=== PATIENT | female | born 2000 | race Two or more races ===

== ENCOUNTER 2023-04-28 13:59 | Outpatient (OUT) | payer OTHER, SELFPAY ==
--- NOTE | 2023-04-28 14:03 | US_ITS ---
The [address] [address] Patient Name: NKIOLAY JOYNER MRN: [id number] date: 2000 Sex: F Assigned Patient Location: [facility] Current Patient Location: [facility] Accession/Order Number: [id number] Exam Date: 04/28/2023 14:25 Report Date: 04/28/2023 15:19 At the request of: MASON SLOAN Procedure: US OB transvaginal EXAMINATION: US OB transvaginal HISTORY: MISSED MENSES COMPARISON: No relevant comparison available. FINDINGS: Heart Rate: 141.0 bpm Number: 1.0 Position: BREECH Amniotic Fluid Volume: Subjectively normal BIOMETRY: BPD: 3.9 cm cm; 17 weeks 5 days ; >97% HC: 14.5 cmcm; 17 weeks 5 days ; >97% AC: 12.4 cm cm; 18 weeks 0 days; >97% FL: 2.5 cm cm; 17 weeks 4 days; >97% EFW: 211.9 grams; >97% FL/AC: 20.3 FL/BPD: 65.1 HC/AC: 1.2 GESTATIONAL AGE: Age by EDC: 14 weeks 6 days ROXANNE by EDC: 10/21/2023 Age by US: 17 weeks 5 days ROXANNE by US: 10/01/2023 US/US OB transvaginal IMPRESSION: 1. Single live intrauterine with growth detailed above. 2. Estimated weight is greater than 97th percentile based on age by EDC. Electronically authenticated by: JANE WHALEN Date: 04/28/2023 15:19
== END 2023-04-28 14:00 | disposition home or self-care (01) ==
LOC: NOMS 14:00
PROVIDERS: Visit Provider Obstetrics & Gynecology
DX: Z34.91 Encounter for supervision of normal pregnancy, unspecified, first trimester (principal); Z3A.17 17 weeks gestation of pregnancy; N92.6 Irregular menstruation, unspecified
CPT/HCPCS: 76817

== ENCOUNTER 2023-05-27 10:16 | Outpatient (OUT) | payer OTHER, SELFPAY ==
--- NOTE | 2023-05-27 10:37 | US_ITS ---
[address] [address] Patient Name: NIKOLAY JOYNER MRN: [id number] date: 2000 Sex: F Assigned Patient Location: US Current Patient Location: US Accession/Order Number: [id number] Exam Date: 05/27/2023 10:45 Report Date: 05/27/2023 12:44 At the request of: MASON SLOAN Procedure: US OB anatomy EXAMINATION: US OB anatomy, US OB transvaginal HISTORY: Screening Anatomic Survey Z36.89 COMPARISON: No relevant comparison available. TECHNIQUE: Transabdominal sonographic examination was performed for obstetrical and evaluation. FINDINGS: Number: 1 Heart Rate: 133.7 bpm H.B. /min Amniotic Fluid Volume: Subjectively normal Placental Location: POSTERIOR with lower margin 5.1 cm from os. Cervix Length: 4.8 cm, closed. ANATOMY: Normal Structures -cerebellum, choroid plexus, cisterna magna, lateral cerebral ventricles, orbits, midline falx, hard palate, four-chamber heart, RVOT, LVOT, stomach, kidneys, bladder, umbilical cord insertion into abdomen, three-vessel cord, cervical spine, thoracic spine, lumbar spine, sacral spine, right upper extremity, left upper extremity, right lower extremity, left lower extremity. SUBOPTIMALLY SEEN: None ABNORMALITIES: None BIOMETRY: BPD: 5.3 cm 22 weeks 1 days HC: 19.8 cm 22 weeks 0 days AC: 17.2 cm 22 weeks 1 days FL: 3.7 cm 21 weeks 5 days EFW:465.1 grams; 50% FL/AC: 21.5 FL/BPD: 69.2 HC/AC: 1.2 GESTATIONAL AGE: Age by EDC: 21 weeks 6 days ROXANNE by EDC: 10/01/2023 Age by current US: 22 weeks 0 days ROXANNE by current US: 09/30/2023 US/US OB anatomy IMPRESSION: 1. Single live intrauterine with growth detailed above. Electronically authenticated by: JANE WHALEN Date: 05/27/2023 12:44
--- NOTE | 2023-05-27 10:37 | US_ITS ---
[address] [address] Patient Name: NIKOLAY JOYNER MRN: [id number] date: 2000 Sex: F Assigned Patient Location: US Current Patient Location: US Accession/Order Number: [id number] Exam Date: 05/27/2023 10:45 Report Date: 05/27/2023 12:44 At the request of: MASON SLOAN Procedure: US OB transvaginal EXAMINATION: US OB anatomy, US OB transvaginal HISTORY: Screening Anatomic Survey Z36.89 COMPARISON: No relevant comparison available. TECHNIQUE: Transabdominal sonographic examination was performed for obstetrical and evaluation. FINDINGS: Number: 1 Heart Rate: 133.7 bpm H.B. /min Amniotic Fluid Volume: Subjectively normal Placental Location: POSTERIOR with lower margin 5.1 cm from os. Cervix Length: 4.8 cm, closed. ANATOMY: Normal Structures -cerebellum, choroid plexus, cisterna magna, lateral cerebral ventricles, orbits, midline falx, hard palate, four-chamber heart, RVOT, LVOT, stomach, kidneys, bladder, umbilical cord insertion into abdomen, three-vessel cord, cervical spine, thoracic spine, lumbar spine, sacral spine, right upper extremity, left upper extremity, right lower extremity, left lower extremity. SUBOPTIMALLY SEEN: None ABNORMALITIES: None BIOMETRY: BPD: 5.3 cm 22 weeks 1 days HC: 19.8 cm 22 weeks 0 days AC: 17.2 cm 22 weeks 1 days FL: 3.7 cm 21 weeks 5 days EFW:465.1 grams; 50% FL/AC: 21.5 FL/BPD: 69.2 HC/AC: 1.2 GESTATIONAL AGE: Age by EDC: 21 weeks 6 days ROXANNE by EDC: 10/01/2023 Age by current US: 22 weeks 0 days ROXANNE by current US: 09/30/2023 US/US OB transvaginal IMPRESSION: 1. Single live intrauterine with growth detailed above. Electronically authenticated by: JANE WHALEN Date: 05/27/2023 12:44
--- OUTSIDE RECORDS SUMMARY | 2023-05-27 10:37 | XMS_ITS | CCD ---
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 Name Role Phone Sarwat URIAS, Jelani Beckett Primary Care Provider NORMA, DR FERREIRA Consulting Unavailable KARASIK, DR FERREIRA Attending Unavailable KARASIK, DR FERREIRA Admitting Unavailable REQUEST, DR LINDER LISTED Primary Care Unavaila ble WEST, DR VERN Powell Consulting Unavailable KARASIK, DR FERREIRA Admitting Unavailable KARASIK, DR FERREIRA Consulting Unavailable KARASIK, DR FERREIRA Attending Unavailable REQUEST, DR LINDER LISTED Primary Care Unavaila ble KARASIK, DR FERREIRA Admitting Unavailable REQUEST, DR LINDER LISTED Primary Care Unavaila ble KARASIK, DR FERREIRA Attending Unavailable REINECK, DR LARISA Mayes Admitting Unavailabl e REQUEST, DR LINDER LISTED Primary Care Unavaila ble REINECK, DR LARISA Mayes Attending Unavailabl e REINECK, DR LARISA Mayes Consulting Unavailabl e KARASIK, DR FERREIRA Admitting Unavailable KARASIK, DR FERREIRA Consulting Unavailable KARASIK, DR FERREIRA Attending Unavailable REQUEST, DR LINDER LISTED Primary Care Unavaila ble ZIEBER, DR JANE Rosales Consulting Unavailable KARASIK, DR FERREIRA Primary Care Unavailable KARASIK, DR FERREIRA Consulting Unavailable KARASIK, DR FERREIRA Admitting Unavailable KARASIK, DR FERREIRA Attending Unavailable KARASIK, DR FERREIRA Procedure Practitioner Unava ilable KARASIK, DR FERREIRA Attending Unavailable KARASIK, DR FERREIRA Admitting Unavailable KARASIK, DR FERREIRA Consulting Unavailable REQUEST, DR LINDER LISTED Primary Care Unavaila ble WEST, DR VERN Powell Consulting Unavailable NATHALIA, DR CUEVAS Consulting Unavailable SHELLY CARIAS Consulting Unavailable KINGSLEY .NATHALIA Consulting Unavailable EILEENAGUILA Consulting Unavailable KARASIK, DR FERREIRA Primary Care Unavailable KARASIK, DR FERREIRA Admitting Unavailable KARASIK, DR FERREIRA Consulting Unavailable KARASIK, DR FERREIRA Attending Unavailable LUE ., NATHALIA Beckett Admitting Unavailable KARASIK, DR FERREIRA Primary Care Unavailable WEST, DR VERN Powell Consulting Unavailable LUE ., NATHALIA Beckett Attending Unavailable LUE ., NATHALIA Beckett Consulting Unavailable THAKUR JR, DR WILIAM Olmedo Admitting Unavailabl e KARASIK, DR FERREIRA Primary Care Unavailable THAKUR JR, DR WILIAM Olmedo Attending Unavailabl e ZIEBER, DR JANE Rosales Consulting Unavailable THAKUR JR, DR WILIAM Olmedo Consulting Unavailabl e KARASIK, DR FERREIRA Admitting Unavailable REQUEST, DR NONE LISTED Primary Care Unavaila ble KARASIK, DR FERREIRA Attending Unavailable REQUEST, NONE LISTED Primary Care Unavaila ble KARASIK, DR FERREIRA Admitting Unavailable KARASIK, DR FERREIRA Consulting Unavailable KARASIK, DR FERREIRA Attending Unavailable REQUEST, DR NONE LISTED Primary Care Unavaila ble KARASIK, DR FERREIRA Consulting Unavailable KARASIK, DR FERREIRA Admitting Unavailable KARASIK, DR FERREIRA Attending Unavailable KARASIK, DR FERREIRA Admitting Unavailable KARASIK, DR FERREIRA Attending Unavailable KARASIK, DR FERREIRA Primary Care Unavailable KARASIK, DR FERREIRA Primary Care Unavailable REINECK, DR LARISA Mayes Attending Unavailabl e REINECK, DR LARISA Mayes Consulting Unavailabl e REINECK, DR LARISA Mayes Admitting Unavailabl e KARASIK, DR FERREIRA Consulting Unavailable KARASIK, DR FERREIRA Attending Unavailable KARASIK, DR FERREIRA Admitting Unavailable REQUEST, NONE LISTED Primary Care Unavaila ble KARASIK, DR FERREIRA Consulting Unavailable KARASIK, DR FERREIRA Attending Unavailable KARASIK, DR FERREIRA Admitting Unavailable REQUEST, NONE LISTED Primary Care Unavaila ble ZIEBER, DR JANE Rosales Consulting Unavailable KARASIK, DR FERREIRA Consulting Unavailable KARASIK, DR FERREIRA Attending Unavailable KARASIK, DR FERREIRA Admitting Unavailable REQUEST, NONE LISTED Primary Care Unavaila ble LANCE CANAS Admitting Unavailable KARASIK, DR FERREIRA Primary Care Unavailable ANGEL REED Consulting Unavailable LANCE CANAS Attending Unavailable MIKE JAIN Consulting Unavailable Ruby Burrell Primary Care Provider [phone] DARRYL DUNN Admitting Unavailable RON DUNNAR Attending Unavailable RUBY BURRELL Primary Care Unavailable DARRYL DUNN Admitting Unavailable RON DUNNAR Attending Unavailable LARISA REAL Referring Unavailable JELANI SOW Primary Care UnavailSINGH Ambrose Consulting Unavailable YULISSA TURNER Consulting Unavailable BETTE LONG Consulting Unavailable Medications Current Medications Medication Drug Class(es) Dates Sig (Normalized) Sig (Original) acetaminophen 325 mg oral tablet (2 sources) Start: 08-21-2021 acetaminophen (TYLENOL) tablet 650 mg Start: 08-15-2021 acetaminophen (TYLENOL) tablet 650 mg acetaminophen 325 mg / oxyCODONE hydrochloride 5 mg oral tablet (1 source) Opioid Agonist Start: 08-21-2021 End: 08-24-2021 oxyCODONE-acetaminophen (PERCOCET) 5-325 MG per tablet Indications: Right nephrolithiasis Take 1 tablet by mouth every 6 hours as needed for Pain for up to 3 days. Intended supply: 3 days. Take lowest dose possible to manage pain 12 tablet 0 08/21/2021 08/24/2021 Active belladonna alkaloids 16.2 mg / opium 30 mg rectal suppository (2 sources) Start: 08-21-2021 opium-belladon na (B&O SUPPRETTES) 16.2-30 MG suppository 30 mg Start: 08-15-2021 opium-belladon na (B&O SUPPRETTES) 16.2-30 MG suppository 30 mg cefTRIAXone (ROCEPHIN) 1,000 mg in sterile water 10 mL IV syringe (1 source) Start: 08-15-2021 cefTRIAXone (ROCEPHIN) 1,000 mg in sterile water 10 mL IV syringe 200 ml ciprofloxacin 2 mg/ml injection (2 sources) Quinolone Antimicrobial Start: 08-21-2021 ciprofloxacin (CIPRO ) IVPB 400 mg Start: 08-21-2021 End: 08-31-2021 take 1 tablet by mouth twice daily ciprofloxacin (CIPRO) 500 MG tablet Take 1 tablet by mouth 2 times daily for 10 days 20 tablet 0 08/21/2021 08/31/2021 Active 1 ml HYDROmorphone hydrochloride 1 mg/ml cartridge (2 sources) Opioid Agonist Start: 08-21-2021 HYDROmorphone (DILAUDID) injection 0.5 mg Start: 08-15-2021 End: 08-17-2021 HYDROmorphone (DILAUDID) inj ection 0.5 mg ondansetron (ZOFRAN-ODT) disintegrating tablet 4 mg (2 sources) Start: 08-21-2021 ondansetron (Z OFRAN-ODT) disintegrating tablet 4 mg Start: 08-15-2021 ondansetron (Z OFRAN-ODT) disintegrating tablet 4 mg 24 hr oxybutynin chloride 10 mg extended release oral tablet (1 source) Cholinergic Muscarinic Antagonist Start: 08-21-2021 End: 08-31-2021 take 1 tablet by mouth once daily oxybutynin (DITROPAN XL) 10 MG extended release tablet Take 1 tablet by mouth daily for 10 days 10 tablet 0 08/21/2021 08/31/2021 Active oxyCODONE (1 source) Opioid Agonist Start: 08-21-2021 oxyCODONE (ROXICODONE) immediate release tablet 5 mg phenazopyridine hydrochloride 100 mg oral tablet (1 source) Start: 08-21-2021 phenazopyridine (PYRIDIUM) tablet 100 mg polyethylene glycol 3350 [id number] mg powder for oral solution (2 sources) Osmotic Laxative Start: 08-21-2021 polyethylene glycol (GLYCOLAX) packet 17 g Start: 08-15-2021 polyethylene g lycol (GLYCOLAX) packet 17 g 5 ml sodium chloride 9 mg/ml injection (8 sources) Start: 08-21-2021 0.9 % sodium c hloride infusion Start: 08-21-2021 sodium chlorid e flush 0.9 % injection 5-40 mL Start: 08-15-2021 0.9 % sodium c hloride infusion Start: 08-15-2021 sodium chlorid e flush 0.9 % injection 5-40 mL tamsulosin hydrochloride 0.4 mg oral capsule (3 sources) alpha-Adrenergic Addy Start: 08-21-2021 tamsu losin (FLOMAX) capsule 0.4 mg Start: 08-15-2021 tamsulosin (FL OMAX) capsule 0.4 mg Completed/Discontinued Medications Medication Drug Class(es) Dates Sig (Normalized) Sig (Original) cefadroxil 500 mg oral capsule (2 sources) Cephalosporin Antibacterial Start: 08-17-2021 End: 08-22-2021 take 1 capsule by mouth twice daily cefadroxil (DURICEF) 500 MG capsule Take 1 capsule by mouth 2 times daily for 5 days 10 capsule 0 08/17/2021 08/21/2021 Discontinued (Stop Taking at Discharge) 2 ml fentaNYL 0.05 mg/ml injection (5 sources) Opioid Agonist Start: 08-21-2021 End: 08-21-2021 fentaNYL (SUBLIMAZE) injection 50 mcg Start: 08-16-2021 End: 08-16-2021 fentaNYL (SUBLIMAZE) injecti on 100 ml fluconazole 2 mg/ml injection (1 source) Azole Antifungal Start: 08-22-2021 End: 08-22-2021 fluconazole (DIFLUCAN) 200 mg IVPB iopamidol (ISOVUE-370) 76 % injection 50 mL (1 source) Start: 08-16-2021 End: 08-16-2021 iopamidol (ISOVUE-370) 76 % injection 50 mL 2 ml midazolam 1 mg/ml injection (5 sources) Benzodiazepine Start: 08-21-2021 End: 08-21-2021 midazolam PF (VERSED) injection 0.5 mg Start: 08-16-2021 End: 08-16-2021 midazolam PF (VERSED) inject ion microencapsulated potassium chloride 20 meq extended release oral tablet (1 source) Start: 08-16-2021 End: 08-16-2021 potassium chloride (KLOR-CON M) extended release tablet 40 mEq traMADol hydrochloride 50 mg oral tablet (2 sources) Opioid Agonist Start: 08-17-2021 End: 08-20-2021 traMADol (ULTRAM) 50 MG tablet Indications: Hydronephrosis with urinary obstruction due to renal calculus Take 1 tablet by mouth every 6 hours as needed for Pain for up to 3 days. Intended supply: 3 days. Take lowest dose possible to manage pain 12 tablet 0 08/17/2021 08/20/2021 Problems Active Problems Problem Classification Problem Date Documented Date Episodic/Chronic Abdominal pain (4 sources) Unspecified abdominal pain; Translations: [UNSPECIFIED ABDOMINAL PAIN] Onset: 08-12-2021 Episodic Asthma (1 source) Unspecified asthma, uncomplicated; Translations: [UNSPECIFIED ASTHMA UNCOMPLICATED] Onset: 12-16-2020 Chronic Calculus of urinary tract (12 sources) Kidney stone; Translations: [Calculus of kidney] Onset: 04-24-2021 Episodic Cardiac dysrhythmias (1 source) Tachycardia; Translations: [Tachycardia, unspecified] Episodic Complication of device; implant or graft (2 sources) Infection and inflammatory reaction due to other urinary stents, initial encounter; Translations: [Other specified complication of genitourinary prosthetic devices, implants and grafts, initial encounter] Onset: 08-14-2021 Episodic Deficiency and other anemia (1 source) Anemia 03-25-2021 Episodic Fever of unknown origin (1 source) Fever, unspecified; Translations: [FEVER UNSPECIFIED] Onset: 08-18-2021 Episodic Malaise and fatigue (4 sources) Other fatigue; Translations: [OTHER FATIGUE] Onset: 08-15-2021 Episodic Nausea and vomiting (1 source) Nausea; Translations: [NAUSEA] Onset: 08-18-2021 Episodic Osteoarthritis (1 source) Arthritis 03-25-2021 Chronic Other aftercare (1 source) Other prison (current) drug therapy; Translations: [OTH FDC CURRENT DRUG THERAPY] Onset: 08-18-2021 Episodic Other complications of (4 sources) Anemia complicating , unspecified trimester; Translations: [ANEMIA COMP UNS TRIMESTER] Onset: 02-11-2021 Chronic Other diseases of kidney and ureters (4 sources) Hydronephrosis; Translations: [Hydronephrosis with renal and ureteral calculous obstruction] Onset: 08-15-2021 Episodic Screening and history of mental health and substance abuse codes (1 source) Personal history of nicotine dependence; Translations: [PERSONAL HISTORY OF NICOTINE DEPEND] Onset: 08-18-2021 Episodic Substance-related disorders (1 source) Nicotine dependence, cigarettes, uncomplicated; Translations: [NICOTINE DEPEND CIGARETTES UNCOMP] Onset: 08-14-2021 Chronic Unclassified (1 source) CONTACT W/AND (SUSP) EXPOS COVID-19; Translations: [CONTACT W/AND (SUSP) EXPOS COVID-19] Onset: 04-10-2021 Unclassified (2 sources) COUGH, UNSPECIFIED; Translations: [COUGH, UNSPECIFIED] Onset: 12-16-2020 Urinary tract infections (3 sources) Pyonephrosis; Translations: [Tubulo-interstitial nephritis, not specified as acute or chronic] Onset: 03-11-2021 Episodic Past or Other Problems Problem Classification Problem Date Documented Date Episodic/Chronic Deficiency and other anemia (1 source) Anemia, unspecified; Translations: [ANEMIA UNSPECIFIED] Onset: 02-19-2021 Episodic Genitourinary symptoms and ill-defined conditions (1 source) Personal history of urinary (tract) infections; Translations: [PERS HX URINARY TRACT INFECTIONS] Onset: 04-10-2021 Episodic Immunizations and screening for infectious disease (1 source) Contact with and (suspected) exposure to infections with a predominantly sexual mode of transmission; Translations: [CONTCT W EXPOS INFECT SEXUAL TRNSMS] Onset: 10-15-2020 Episodic OB-related trauma to perineum and vulva (1 source) First degree perineal laceration during delivery; Translations: [FIRST DEG PERINEAL LAC DUR DELIV] Onset: 04-10-2021 Episodic Other complications of (2 sources) Maternal care for excessive growth, third trimester, not applicable or unspecified; Translations: [MAT CARE EXCSS FTL GRTH 3RD TRI UNS] Onset: 03-11-2021 Episodic Other complications of (4 sources) Infections of kidney in , third trimester; Translations: [INFECTIONS KIDNEY 3RD TRI] Onset: 03-02-2021 Episodic Other complications of (1 source) Diseases of the respiratory system complicating , second trimester; Translations: [DISEASES RESP SYS COMP PREG 2ND TRI] Onset: 12-16-2020 Episodic Other female genital disorders (4 sources) Other specified noninflammatory disorders of vagina; Translations: [OTH SPEC NONINFLAMMATORY D/O VAGINA] Onset: 03-30-2021 Episodic Other and delivery including normal (11 sources) Encounter for supervision of normal , unspecified, third trimester; Translations: [Single live ] Onset: 10-11-2020 Episodic Other screening for suspected conditions (not mental disorders or infectious disease) (11 sources) Encounter for other specified screening; Translations: [Encounter for screening for diabetes mellitus] Onset: 10-15-2020 Episodic Other upper respiratory infections (1 source) Acute upper respiratory infection, unspecified; Translations: [ACUTE UP RESPIRATORY INFECTION UNS] Onset: 12-16-2020 Episodic Residual codes; unclassified (1 source) 39 weeks gestation of ; Translations: [39 WEEKS GESTATION OF ] Onset: 04-10-2021 Episodic Residual codes; unclassified (1 source) 34 weeks gestation of ; Translations: [34 WEEKS GESTATION OF ] Onset: 03-11-2021 Episodic Residual codes; unclassified (1 source) 23 weeks gestation of ; Translations: [23 WEEKS GESTATION OF ] Onset: 12-16-2020 Episodic Substance-related disorders (2 sources) Drug use complicating childbirth; Translations: [Cannabis use, unspecified, uncomplicated] Onset: 04-10-2021 Episodic Unclassified (1 source) COUGH, UNSPECIFIED; Translations: [COUGH, UNSPECIFIED] Onset: 12-14-2020 Results Test Name Value Interpretation Reference Range Facility Patient Correspondenceon Patient Correspondence [id number] 09#[id number]:127 [facility] Patient Correspondenceon Patient Correspondence [id number]#[id number]:127 [facility] Provider Orderson 09-04-2021 Provider Orders [id number]#[id number] [facility] Stone Analysison 08-26-2021 Calculi description See Note [facility] Comment on above: Result Comment: (NOT E) Specimen consists of numerous cabrera calculi fragments. The total weight is 822 mg. Performed By: #### A STONE #### [facility] [address] [place] [id number] Asphalt Tamper: Liang Rapp MD Composition See Note [facility] Comment on above: Result Comment: (NOT E) Calculi composed primarily of: 60% magnesium ammonium phosphate (struvite), 20% calcium phosphate (hydroxy- and carbonate- apatite), and 20% ammonium acid urate. INTERPRETIVE INFORMATION: Calculi (Stone) analysis Calculi are the products of physiological processes that yield crystalline compounds in a matrix of biological compounds and blood. Matrix components are not reported. The clinically significant crystalline components identified in calculi specimens are reported. Gross description may not be consistent with composition determined by FTIR analysis. Performed By: [facility] [address] [place] [address] Typing Section Chief: Kaia Holt MD Performed By: #### A STONE #### [facility] [address] [place] [address] Asphalt Tamper: Liang Rapp MD Mass 822 mg [facility] Comment on above: Performed By: #### A STONE #### [facility] [address] [place] [address] Asphalt Tamper: Liang Rapp MD Provider Letteron 08-25-2021 Provider Letter August 25, 2021 NIKOLAY MILES [address] [place] [phone] NIKOLAY MILES 2000 Dear Ms. Miles, This letter is to inform you that the [facility] will no longer be responsible for your routine medical care. Emergency care only will be provided for the thirty (30) days following this letter. During this time period we suggest that you find another physician for your medical needs. A listing of area physicians can be found on [facility]'s website at [email or web address] or you may contact your health plan. We will be glad to forward your records to your new physician as long as we receive a signed release of records form. Sincerely, Dr. Wiliam Thakur [address] [place] [address]. [place] [address] [facility] Basic Metab w/rfx MGon 08-22 (cont.) [facility] Comment on above: Result Comment: Aver age GFR for 20-29 years old: 116 mL/min/1.73sq m Chronic Kidney Disease: <60 mL/min/1.73sq m Kidney failure: <15 mL/min/1.73sq m eGFR calculated using average adult body mass. Additional eGFR calculator available at: [email or web address]_crcl_2011.htm Performed By: #### B MPX, CDP #### [facility] [address] [place] [address] Asphalt Tamper: Yusuf Schmidt MD Anion gap [Moles/Vol] 12 mmol/L Normal 9-17 [facility] Comment on above: Performed By: #### B MPX, CDP #### [facility] [address] [place] [address] Asphalt Tamper: Yusuf Schmidt MD Calcium [Mass/Vol] 8.3 mg/dL Low 8.6-10.4 [facility] Comment on above: Performed By: #### B MPX, CDP #### [facility] [address] [place] [address] Asphalt Tamper: Yusuf Schmidt MD Chloride [Moles/Vol] 103 mmol/L Normal 98-107 [facility] Comment on above: Performed By: #### B MPX, CDP #### [facility] [address] [place] [address] Asphalt Tamper: Yusuf Schmidt MD CO2 [Moles/Vol] 21 mmol/L Normal 20-31 [facility] Comment on above: Performed By: #### B MPX, CDP #### [facility] [place] [address] Asphalt Tamper: Yusuf Schmidt MD Creatinine [Mass/Vol] 0.72 mg/dL Normal 0.50-0.90 [facility] Comment on above: Performed By: #### B MPX, CDP #### [facility] [address] [place] [address] Asphalt Tamper: Yusuf Schmidt MD GFR, Amer >60 Normal >60 [facility] Comment on above: Performed By: #### B MPX, CDP #### [facility] [address] [place] [address] Asphalt Tamper: Yusuf Schmidt MD GFR,non Amer >60 Normal >60 [facility] Comment on above: Performed By: #### B MPX, CDP #### [facility] [address] [place] [address] Asphalt Tamper: Yusuf Schmidt MD Glucose [Mass/Vol] 107 mg/dL High 70-99 [facility] Comment on above: Performed By: #### B MPX, CDP #### [facility] [address] [place] [address] Asphalt Tamper: Yusuf Schmidt MD Potassium [Moles/Vol] 4.0 mmol/L Normal 3.7-5.3 [facility] Comment on above: Performed By: #### B MPX, CDP #### [facility] [place] [address] Asphalt Tamper: Yusuf Schmidt MD Sodium [Moles/Vol] 136 mmol/L Normal 135-144 [facility] Comment on above: Performed By: #### B MPX, CDP #### [facility] [place] [address] Asphalt Tamper: Yusuf Schmidt MD Urea nitrogen [Mass/Vol] 10 mg/dL Normal 6-20 [facility] Comment on above: Performed By: #### B MPX, CDP #### [facility] [address] [place] [address] Asphalt Tamper: Yusuf Schmidt MD Basic Metabolic Panel w/ Ref bahman to MGon 08-22-2021 Anion gap [Moles/Vol] 12 mmol/L 9 - 17 mmol/L [facility] Calcium [Mass/Vol] 8.3 mg/dL Low 8.6 - 10. 4 mg/dL [facility] Chloride [Moles/Vol] 103 mmol/L 98 - 10 7 mmol/L [facility] CO2 [Moles/Vol] 21 mmol/L 20 - 31 mmol/L [facility] Creatinine [Mass/Vol] 0.72 mg/dL 0.50 - 0.90 mg/dL [facility] GFR >60 >60 mL/min [facility] GFR Non- >60 >60 mL/min [facility] GFR/1.73 sq M.predicted MDRD (S/P/Bld) [Vol rate/Area] [facility] Comment on above: Average GFR for 20-2 9 years old: 116 mL/min/1.73sq m Chronic Kidney Disease: <60 mL/min/1.73sq m Kidney failure: <15 mL/min/1.73sq m eGFR calculated using average adult body mass. Additional eGFR calculator available at: http://www.[employer]/multiple_crcl_2011.htm Glucose [Mass/Vol] 107 mg/dL High 70 - 99 mg/dL [facility] Interpretation and review of laboratory results Abnormal [facility] Potassium [Moles/Vol] 4.0 mmol/L 3.7 - 5.3 mmol/L [facility] Sodium [Moles/Vol] 136 mmol/L 135 - 144 mmol/L [facility] Urea nitrogen (BldV) [Mass/Vol] 10 mg/dL 6 - 20 mg/dL [facility] CBC with Auto Differentialon 08-22-2021 Absolute Eos # <0.03 [facility] Absolute Immature Granulocyte 0.25 [facility] Absolute Lymph # 1.73 [facility] Absolute [place] # 0.72 [facility] Basophils (Bld) [#/Vol] 10*3/uL [facility] Basophils/100 WBC (Bld) 0 % 0 - 2 % [facility] Eosinophils/100 WBC (Bld) 0 % Low 1 - 4 % [facility] Hematocrit (Bld) [Volume fraction] 33.9 % Low 36.3 - 47.1 % [facility] Hemoglobin (Bld) [Mass/Vol] 11.3 g/dL Low 11.9 - 15.1 g/dL [facility] Immature granulocytes/100 WBC (Bld) 2 % High 0 [facility] Interpretation and review of laboratory results Abnormal [facility] Lymphocytes/100 WBC (Bld) 13 % Low 24 - 43 % [facility] MCH (RBC) [Entitic mass] 30.1 pg 25.2 - 33.5 pg [facility] MCHC (RBC) [Mass/Vol] 33.3 g/dL 28.4 - 34.8 g/dL [facility] MCV (RBC) [Entitic vol] 90.2 fL 82.6 - 102.9 fL [facility] Monocytes/100 WBC (Bld) 5 % 3 - 12 % [facility] NRBC Automated 0.0 0.0 per 100 WBC [facility] Platelet distribution width (Bld) [Ratio] 13.5 % 11.8 - 14.4 % [facility] Platelet mean volume (Bld) [Entitic vol] 8.5 fL 8.1 - 13.5 fL [facility] Platelets (Bld) [#/Vol] 598 10*3/uL High [facility] RBC (Bld) [#/Vol] 3.76 10*6/uL Low 3.95 - 5.1 1 m/uL [facility] Segmented neutrophils/100 WBC (Bld) 80 % High 36 - 65 % [facility] Segs Absolute 10.78 High [facility] WBC (Bld) [#/Vol] 13.5 10*3/uL High [facility] CBC with Diffon 08-22-2021 Abs. Basophil <0.03 Normal 0.00-0.20 [facility] Comment on above: Performed By: #### B MPX, CDP #### [facility] [address] [place] [address] Asphalt Tamper: Yusuf Schmidt MD Abs. Eosinophil <0.03 Normal 0.00-0.44 [facility] Comment on above: Performed By: #### B MPX, CDP #### [facility] [address] [place] [address] Asphalt Tamper: Yusuf Schmidt MD Abs.Imm.Granulocyte 0.25 k/uL Normal 0.00-0.30 [facility] Comment on above: Performed By: #### B MPX, CDP #### [facility] [address] [place] [phone] Asphalt Tamper: Yusuf Schmidt MD Abs.Neutrophil (Seg) 10.78 k/uL High 1.50-8.10 [facility] Comment on above: Performed By: #### B MPX, CDP #### [facility] [address] [place] [phone] Asphalt Tamper: Yusuf Schmidt MD Basophils/100 WBC (Bld) 0 % Normal 0-2 [facility] Comment on above: Performed By: #### B MPX, CDP #### [facility] [address] [place] [id number] Asphalt Tamper: Yusuf Schmidt MD Eosinophils/100 WBC (Bld) 0 % Low 1-4 [facility] Comment on above: Performed By: #### B MPX, CDP #### [facility] [address] [place] [address] As[employer] Tamper: Yusuf Schmidt MD Erythrocyte distribution width (RBC) [Ratio] 13.5 % Normal 11.8-14.4 [facility] Comment on above: Performed By: #### B MPX, CDP #### [facility] [address] [place] [address] Asphalt Tamper: Yusuf Schmidt MD Hematocrit (Bld) [Volume fraction] 33.9 % Low 36.3-47.1 [facility] Comment on above: Performed By: #### B MPX, CDP #### [facility] [address] [place] [address] Asphalt Tamper: Yusuf Schmidt MD Hemoglobin (Bld) [Mass/Vol] 11.3 g/dL Low 11.9-15.1 [facility] Comment on above: Performed By: #### B MPX, CDP #### [address] [address] As[place] Tamper: Yusuf Schmidt MD Immature granulocytes/100 WBC (Bld) 2 % High 0 [facility] Comment on above: Performed By: #### B MPX, CDP #### [address] [address] Asphalt Tamper: Yusuf Schmidt MD Lymphocytes (Bld) [#/Vol] 1.73 10*3/uL Normal 1.10-3.70 [facility] Comment on above: Performed By: #### B MPX, CDP #### [address] [address] Asphalt Tamper: Yusuf Schmidt MD Lymphocytes/100 WBC (Bld) 13 % Low 24-43 [facility] Comment on above: Performed By: #### B MPX, CDP #### [address] [address] Asphalt Tamper: Yusuf Schmidt MD MCH (RBC) [Entitic mass] 30.1 pg Normal 25.2-33.5 [facility] Comment on above: Performed By: #### B MPX, CDP #### [address] [address] Asphalt Tamper: Yusuf Schmidt MD MCHC (RBC) [Mass/Vol] 33.3 g/dL Normal 28.4-34.8 [facility] Comment on above: Performed By: #### B MPX, CDP #### [address] [address] Asphalt Tamper: Yusuf Schmidt MD MCV (RBC) [Entitic vol] 90.2 fL Normal 82.6-102.9 [facility] Comment on above: Performed By: #### B MPX, CDP #### [address] [address] Asphalt Tamper: Yusuf Schmidt MD Monocytes (Bld) [#/Vol] 0.72 10*3/uL Normal 0.10-1.20 [facility] Comment on above: Performed By: #### B MPX, CDP #### [address] [address] Asphalt Tamper: Yusuf Schmidt MD Monocytes/100 WBC (Bld) 5 % Normal 3-12 [facility] Comment on above: Performed By: #### B MPX, CDP #### [address] [address] Asphalt Tamper: Yusuf Schmidt MD Neutrophil (Seg) 80 % High 36-65 [facility] Comment on above: Performed By: #### B MPX, CDP #### [address] [address] Asphalt Tamper: Yusuf Schmidt MD NRBC Automated 0.0 per 100 WBC Normal 0.0 [facility] Comment on above: Performed By: #### B MPX, CDP #### [address] [address] Asphalt Tamper: Yusuf Schmidt MD Platelet mean volume (Bld) [Entitic vol] 8.5 fL Normal 8.1-13.5 [facility] Comment on above: Performed By: #### B MPX, CDP #### [address] [address] Asphalt Tamper: Yusuf Schmidt MD Platelets (Bld) [#/Vol] 598 10*3/uL High 138-453 [facility] Comment on above: Performed By: #### B MPX, CDP #### [address] [address] Asphalt Tamper: Yusuf Schmidt MD RBC (Bld) [#/Vol] 3.76 10*6/uL Low 3.95-5.11 [facility] Comment on above: Performed By: #### B MPX, CDP #### [address] [address] As[place] Tamper: Yusuf Schmidt MD WBC (Bld) [#/Vol] 13.5 10*3/uL High 3.5-11.3 [facility] Comment on above: Performed By: #### B MPX, CDP #### [address] [address] Asphalt Tamper: Yusuf Schmidt MD Cult,Urineon 08-22-2021 Cult,Urine Specimen Description .CLEAN CATCH URINE Culture NO GROWTH Report Status FINAL 08/22/2021 Normal [facility] Comment on above: Performed By: #### U RC #### [address] [address] Asphalt Tamper: Yusuf Schmidt MD APTTon 08-21-2021 aPTT Coag (Bld) [Time] 25.9 s Normal 20.5-30.5 [facility] Comment on above: Result Comment: IV Heparin Therapy Range: 48.6-77.8 Performed By: #### P T, PTT, PLT #### [address] [address] Asphalt Tamper: Yusuf Schmidt MD aPTT Coag (Bld) [Time] 25.9 s [employer] Comment on above: IV Heparin Therapy Range: 48.6-77.8 FLUORO FOR SURGICAL PROCEDUR ESon 08-21-2021 FLUORO FOR SURGICAL PROCEDURES Radiology exam is complete. No Radiologist dictation. Please follow up with ordering provider. Final result Normal [facility] Radiology exam is complete. No Radiologist dictation. Please follow up with ordering provider. [facility] RIS CONSOLIDATED No Panel Informationon 08-21 [facility] POCT urine pregnancyon 08-21 Beta HCG ( test) Ql (U) Negative NEGATIVE [facility] Comment on above: Specimens with hCG l evels near the threshold of the test (25 mIU/mL) may give a negative or indeterminate result. In such cases, another test should be performed with a new specimen in 48-72 hours. If early is suspected clinically in this setting, correlation with quantitative serum b-hCG level is suggested. [facility] PTon 08-21-2021 INR Coag (PPP) [Relative time] 0.9 {INR} Normal [facility] Comment on above: Result Comment: Therapeutic Range: Moderate Anticoagulant Intensity: INR = 2.0-3.0 High Anticoagulant Intensity: INR = 2.5-3.5 Performed By: #### P T, PTT, PLT #### [facility] [address] [place] [phone] Asphalt Tamper: Yusuf Schmidt MD PT Coag (PPP) [Time] 9.7 s Normal 9.1-12.3 [facility] Comment on above: Performed By: #### P T, PTT, PLT #### [facility] [address] [place] [address] Asphalt Tamper: Yusuf Schmidt MD Platelet Counton 08-21-2021 Platelets (Bld) [#/Vol] 626 10*3/uL High 138-453 [facility] Comment on above: Performed By: #### P T, PTT, PLT #### [facility] [address] [place] [address] [phone] Asphalt Tamper: Yusuf Schmidt MD Interpretation and review of laboratory results Abnormal [facility] Platelets (Bld) [#/Vol] 626 10*3/uL High [facility] Protime-INRon 08-21-2021 INR Coag (Bld) [Relative time] 0.9 {INR} [facility] Comment on above: Therapeutic Range: Moderate Anticoagulant Intensity: INR = 2.0-3.0 High Anticoagulant Intensity: INR = 2.5-3.5 PT Coag (PPP) [Time] 9.7 s [facility] Cult,Bloodon 08-20-2021 Cult,Blood Specimen Description .BLOOD Special Requests RT AC 10ML Culture NO GROWTH 5 DAYS Report Status FINAL 08/20/2021 [facility] Comment on above: Performed By: #### B C #### [address] [phone] Asphalt Tamper: Yusuf Schmidt MD Cult,Blood Specimen Description .BLOOD Special Requests LEFT ARM 3 ML Culture NO GROWTH 5 DAYS Report Status FINAL 08/20/2021 [facility] Comment on above: Performed By: #### B MP, CBC #### [address] [phone] Asphalt Tamper: Yusuf Schmidt MD Basic Metab w/rfx MGon 08-17 Potassium [Moles/Vol] 3.4 mmol/L Low 3.7-5.3 [facility] Comment on above: Performed By: #### B MPX, CDP #### [place] [address] Asphalt Tamper: Yusuf Schmidt MD (cont.) [facility] Comment on above: Result Comment: Aver age GFR for 20-29 years old: 116 mL/min/1.73sq m Chronic Kidney Disease: <60 mL/min/1.73sq m Kidney failure: <15 mL/min/1.73sq m eGFR calculated using average adult body mass. Additional eGFR calculator available at: http://www.[[email or web address]].com/multiple_crcl_2012.htm Performed By: #### B MPX, CDP #### [facility] [address] [place] [address] [phone] Asphalt Tamper: Yusuf Schmidt MD Anion gap [Moles/Vol] 12 mmol/L Normal 9-17 [facility] Comment on above: Performed By: #### B MPX, CDP #### [facility] [address] [place] [address] Asphalt Tamper: Yusuf Schmidt MD Calcium [Mass/Vol] 8.5 mg/dL Low 8.6-10.4 [facility] Comment on above: Performed By: #### B MPX, CDP #### [facility] [address] [place] [address] Asphalt Tamper: Yusuf Schmidt MD Chloride [Moles/Vol] 104 mmol/L Normal 98-107 [facility] Comment on above: Performed By: #### B MPX, CDP #### [facility] [address] [place] [address] Asphalt Tamper: Yusuf Schmidt MD CO2 [Moles/Vol] 22 mmol/L Normal 20-31 [facility] Comment on above: Performed By: #### B MPX, CDP #### [facility] [address] [place] [address] 690[address] Asphalt Tamper: Yusuf Schmidt MD Creatinine [Mass/Vol] 0.70 mg/dL Normal 0.50-0.90 [facility] Comment on above: Performed By: #### B MPX, CDP #### [facility] [address] [place] [address] 78893 Asphalt Tamper: Yusuf Schmidt MD GFR, Amer >60 Normal >60 [facility] Comment on above: Performed By: #### B MPX, CDP #### [facility] [address] [place] [address] 15072 Asphalt Tamper: Yusuf Schmidt MD GFR,non Amer >60 Normal >60 [facility] Comment on above: Performed By: #### B MPX, CDP #### [facility] [address] [place] [address] 6[address] Asphalt Tamper: Yusuf Schmidt MD Glucose [Mass/Vol] 88 mg/dL Normal 70-99 [facility] Comment on above: Performed By: #### B MPX, CDP #### [facility] [address] [place], [place] [phone] Asphalt Tamper: Yusuf Schmidt MD Sodium [Moles/Vol] 138 mmol/L Normal 135-144 [facility] Comment on above: Performed By: #### B MPX, CDP #### [facility] [address] [place], [place] [phone] Asphalt Tamper: Yusuf Schmidt MD Urea nitrogen [Mass/Vol] 6 mg/dL Normal 6-20 [facility] Comment on above: Performed By: #### B MPX, CDP #### [facility] [address] [place], [place] [phone] Asphalt Tamper: Yusuf Schmidt MD Basic Metabolic Panel w/ Ref bahman to MGon 08-17-2021 Anion gap [Moles/Vol] 12 mmol/L 9 - 17 mmol/L [facility] Calcium [Mass/Vol] 8.5 mg/dL Low 8.6 - 10. 4 mg/dL [facility] Chloride [Moles/Vol] 104 mmol/L 98 - 10 7 mmol/L [facility] CO2 [Moles/Vol] 22 mmol/L 20 - 31 mmol/L [facility] Creatinine [Mass/Vol] 0.7 mg/dL 0.50 - 0.90 mg/dL [facility] GFR >60 >60 mL/min [facility] GFR Non- >60 >60 mL/min [facility] GFR/1.73 sq M.predicted MDRD (S/P/Bld) [Vol rate/Area] [facility] Comment on above: Average GFR for 20-2 9 years old: 116 mL/min/1.73sq m Chronic Kidney Disease: <60 mL/min/1.73sq m Kidney failure: <15 mL/min/1.73sq m eGFR calculated using average adult body mass. Additional eGFR calculator available at: http://www.globalrph.[employer]/multiple_crcl_2012.htm Glucose [Mass/Vol] 88 mg/dL 70 - 99 mg/dL [facility] Interpretation and review of laboratory results Abnormal [facility] Potassium [Moles/Vol] 3.4 mmol/L Low 3.7 - 5.3 mmol/L [facility] Sodium [Moles/Vol] 138 mmol/L 135 - 144 mmol/L [facility] Urea nitrogen (BldV) [Mass/Vol] 6 mg/dL 6 - 20 mg/dL [facility] CBC with Auto Differentialon 08-17-2021 Absolute Eos # 0.26 [facility] Absolute Immature Granulocyte 0.04 [facility] Absolute Lymph # 1.71 [facility] Absolute [place] # 1.22 High [facility] Basophils (Bld) [#/Vol] 0.03 10*3/uL [facility] Basophils/100 WBC (Bld) 0 % 0 - 2 % [facility] Eosinophils/100 WBC (Bld) 3 % 1 - 4 % [facility] Hematocrit (Bld) [Volume fraction] 29.9 % Low 36.3 - 47.1 % [facility] Hemoglobin (Bld) [Mass/Vol] 10.3 g/dL Low 11.9 - 15.1 g/dL [facility] Immature granulocytes/100 WBC (Bld) 1 % High 0 [facility] Interpretation and review of laboratory results Abnormal [facility] Lymphocytes/100 WBC (Bld) 20 % Low 24 - 43 % [facility] MCH (RBC) [Entitic mass] 30.3 pg 25.2 - 33.5 pg [facility] MCHC (RBC) [Mass/Vol] 34.4 g/dL 28.4 - 34.8 g/dL [facility] MCV (RBC) [Entitic vol] 87.9 fL 82.6 - 102.9 fL [facility] Monocytes/100 WBC (Bld) 14 % High 3 - 12 % [facility] NRBC Automated 0.0 0.0 per 100 WBC [facility] Platelet distribution width (Bld) [Ratio] 13.2 % 11.8 - 14.4 % [facility] Platelet mean volume (Bld) [Entitic vol] 9.6 fL 8.1 - 13.5 fL [facility] Platelets (Bld) [#/Vol] 212 10*3/uL [facility] RBC (Bld) [#/Vol] 3.40 10*6/uL Low 3.95 - 5.1 1 m/uL [facility] Segmented neutrophils/100 WBC (Bld) 63 % 36 - 65 % [facility] Segs Absolute 5.44 [facility] WBC (Bld) [#/Vol] 8.7 10*3/uL [facility] CBC with Diffon 08-17-2021 Abs. Basophil 0.03 k/uL Normal 0.00-0.20 [facility] Comment on above: Performed By: #### B MPX, CDP #### [facility] [address] [place] [address] Asphalt Tamper: Yusuf Schmidt MD Abs.Imm.Granulocyte 0.04 k/uL Normal 0.00-0.30 [facility] Comment on above: Performed By: #### B MPX, CDP #### [facility] [address] [place] [address] Asphalt Tamper: Yusuf Schmidt MD Abs.Neutrophil (Seg) 5.44 k/uL Normal 1.50-8.10 [facility] Comment on above: Performed By: #### B MPX, CDP #### [facility] [address] [place] [address] Asphalt Tamper: Yusuf Schmidt MD Basophils/100 WBC (Bld) 0 % Normal 0-2 [facility] Comment on above: Performed By: #### B MPX, CDP #### [facility] [address] [place], [place] [phone] Asphalt Tamper: Yusuf Schmidt MD Eosinophils (Bld) [#/Vol] 0.26 10*3/uL Normal 0.00-0.44 [facility] Comment on above: Performed By: #### B MPX, CDP #### [address] [address] Asphalt Tamper: Yusuf Schmidt MD Eosinophils/100 WBC (Bld) 3 % Normal 1-4 [facility] Comment on above: Performed By: #### B MPX, CDP #### [facility] [address] [place] [address] Asphalt Tamper: Yusuf Schmidt MD Erythrocyte distribution width (RBC) [Ratio] 13.2 % Normal 11.8-14.4 [facility] Comment on above: Performed By: #### B MPX, CDP #### [address] [address] Asphalt Tamper: Yusuf Schmidt MD Hematocrit (Bld) [Volume fraction] 29.9 % Low 36.3-47.1 [facility] Comment on above: Performed By: #### B MPX, CDP #### [address] [address] Asphalt Tamper: Yusuf Schmidt MD Hemoglobin (Bld) [Mass/Vol] 10.3 g/dL Low 11.9-15.1 [facility] Comment on above: Performed By: #### B MPX, CDP #### [address] [address] Asphalt Tamper: Yusuf Schmidt MD Immature granulocytes/100 WBC (Bld) 1 % High 0 [facility] Comment on above: Performed By: #### B MPX, CDP #### [address] [address] Asphalt Tamper: Yusuf Schmidt MD Lymphocytes (Bld) [#/Vol] 1.71 10*3/uL Normal 1.10-3.70 [facility] Comment on above: Performed By: #### B MPX, CDP #### [address] [address] Asphalt Tamper: Yusuf Schmidt MD Lymphocytes/100 WBC (Bld) 20 % Low 24-43 [facility] Comment on above: Performed By: #### B MPX, CDP #### [address] [address] Asphalt Tamper: Yusuf Schmidt MD MCH (RBC) [Entitic mass] 30.3 pg Normal 25.2-33.5 [facility] Comment on above: Performed By: #### B MPX, CDP #### [address] [address] Asphalt Tamper: Yusuf Schmidt MD MCHC (RBC) [Mass/Vol] 34.4 g/dL Normal 28.4-34.8 [facility] Comment on above: Performed By: #### B MPX, CDP #### [address] [address] Asphalt Tamper: Yusuf Schmidt MD MCV (RBC) [Entitic vol] 87.9 fL Normal 82.6-102.9 [facility] Comment on above: Performed By: #### B MPX, CDP #### [address] [address] Asphalt Tamper: Yusuf Schmidt MD Monocytes (Bld) [#/Vol] 1.22 10*3/uL High 0.10-1.20 [facility] Comment on above: Performed By: #### B MPX, CDP #### [address] [address] Asphalt Tamper: Yusuf Schmidt MD Monocytes/100 WBC (Bld) 14 % High 3-12 [facility] Comment on above: Performed By: #### B MPX, CDP #### [address] [address] Asphalt Tamper: Yusuf Schmidt MD Neutrophil (Seg) 63 % Normal 36-65 [facility] Comment on above: Performed By: #### B MPX, CDP #### [address] [address] Asphalt Tamper: Yusuf Schmidt MD NRBC Automated 0.0 per 100 WBC Normal 0.0 [facility] Comment on above: Performed By: #### B MPX, CDP #### [address] [address] Asphalt Tamper: Yusuf Schmidt MD Platelet mean volume (Bld) [Entitic vol] 9.6 fL Normal 8.1-13.5 [facility] Comment on above: Performed By: #### B MPX, CDP #### [address] [address] Asphalt Tamper: Yusuf Schmidt MD Platelets (Bld) [#/Vol] 212 10*3/uL Normal 138-453 [facility] Comment on above: Performed By: #### B MPX, CDP #### [address] [address] Asphalt Tamper: Yusuf Schmidt MD RBC (Bld) [#/Vol] 3.40 10*6/uL Low 3.95-5.11 [facility] Comment on above: Performed By: #### B MPX, CDP #### [address] [address] Asphalt Tamper: Yusuf Schmidt MD WBC (Bld) [#/Vol] 8.7 10*3/uL Normal 3.5-11.3 [facility] Comment on above: Performed By: #### B MPX, CDP #### [address] [place] [address] Asphalt Tamper: Yusuf Schmidt MD Cult,Urineon 08-17-2021 Cult,Urine Specimen Description .CLEAN CATCH URINE Culture NO SIGNIFICANT GROWTH Report Status FINAL 08/17/2021 Normal [facility] Comment on above: Performed By: #### B MPX, CDP #### [facility] [address] [place], [place] [phone] Asphalt Tamper: Yusuf Schmidt MD Culture, Urineon 08-17-2021 Bacteria identified Cx Nom (U) NO SIGNIFICANT GROWTH [employer] Specimen Description .CLEAN CATCH URINE Ideal Binary EKG 12 LeadOrdered By: Bette Long on 08-17-2021 Atrial Rate 78 BPM [employer] Work Phone: P [place] 37 degrees [employer] Work Phone: P-R Interval 164 ms [employer] Work Phone: Q-T Interval 382 ms [employer] Work Phone: QRS Duration 104 ms [employer] Work Phone: QTc Calculation (Bazett) 435 ms [employer] Work Phone: R [place] 44 degrees [employer] Work Phone: T [place] 34 degrees [employer] Work Phone: Ventricular Rate 78 BPM [employer] Work Phone: [employer] Work Phone: EKG 12 Leadon 08-17-2021 Normal sinus rhythm Incomplete right bundle branch block Cannot rule out Anterior infarct , age undetermined Abnormal ECG No previous ECGs available [facility] Bette Espinal MD - 08/17/2021 Normal sinus rhythm Incomplete right bundle branch block Cannot rule out Anterior infarct , age undetermined Abnormal ECG No previous ECGs available [employer] Work Phone: Magnesiumon 08-17-2021 Magnesium [Mass/Vol] 1.7 mg/dL Normal 1.6-2.6 [facility] Comment on above: Performed By: #### B MPX, CDP #### [facility] [address] [place], [place] [phone] Asphalt Tamper: Yusuf Schmidt MD Magnesium [Mass/Vol] 1.7 mg/dL 1.6 - 2 .6 mg/dL [facility] Troponinon 08-17-2021 Troponin, High Sensitivity <6 0 - 14 ng/L [facility] Comment on above: High Sensitivity Troponin values cannot be compared with other Troponin methodologies. Patients with high levels of Biotin oral intake (i.e >5mg/day) may have falsely decreased Troponin levels. Samples collected within 8 hours of biotin intake may require additional information for diagnosis. [facility] Troponin, High Sens <6 Normal 0-14 [facility] Comment on above: Result Comment: High Sensitivity Troponin values cannot be compared with other Troponin methodologies. Patients with high levels of Biotin oral intake (i.e >5mg/day) may have falsely decreased Troponin levels. Samples collected within 8 hours of biotin intake may require additional information for diagnosis. Performed By: #### B MP, CBC #### [facility] [address] [place], [place] [phone] Asphalt Tamper: Yusuf Schmidt MD Troponin, High Sensitivity <6 0 - 14 ng/L [facility] Comment on above: High Sensitivity Troponin values cannot be compared with other Troponin methodologies. Patients with high levels of Biotin oral intake (i.e >5mg/day) may have falsely decreased Troponin levels. Samples collected within 8 hours of biotin intake may require additional information for diagnosis. [facility] APTTon 08-16-2021 aPTT Coag (Bld) [Time] 28.9 s Normal 20.5-30.5 [facility] Comment on above: Result Comment: IV Heparin Therapy Range: 48.6-77.8 Performed By: #### B MPX, CDP #### [facility] [address] [place] [address] [phone] As[employer] Tamper: Yusuf Schmidt MD aPTT Coag (Bld) [Time] 28.9 s [facility] Comment on above: IV Heparin Therapy Range: 48.6-77.8 Basic Metab w/rfx MGon 08-16 Potassium [Moles/Vol] 3.2 mmol/L Low 3.7-5.3 [facility] Comment on above: Performed By: #### B MPX, CDP #### [address] [phone] As[employer] Tamper: Yusuf Schmidt MD (cont.) [facility] Comment on above: Result Comment: Aver age GFR for 20-29 years old: 116 mL/min/1.73sq m Chronic Kidney Disease: <60 mL/min/1.73sq m Kidney failure: <15 mL/min/1.73sq m eGFR calculated using average adult body mass. Additional eGFR calculator available at: http://www.[employer]/multiple_crcl_2012.htm Performed By: #### B JOANNA CDP #### [address] [address] [employer] Tamper: Yusuf Schmidt MD Anion gap [Moles/Vol] 12 mmol/L Normal 9-17 [facility] Comment on above: Performed By: #### B MPX, CDP #### [address] [address] [employer]per: Yusuf Schmidt MD Calcium [Mass/Vol] 8.3 mg/dL Low 8.6-10.4 [facility] Comment on above: Performed By: #### B BULLX, CDP #### [facility] [address] [place] [address] [phone] [employer]: Yusuf Schmidt MD Chloride [Moles/Vol] 106 mmol/L Normal 98-107 [facility] Comment on above: Performed By: #### B MPX, CDP #### [facility] [address] [place] [address] [employer]per: Yusuf Schmidt MD CO2 [Moles/Vol] 20 mmol/L Normal 20-31 [facility] Comment on above: Performed By: #### B MPX, CDP #### [facility] [address] [place] [address] [employer] Tamper: Yusuf Schmidt MD Creatinine [Mass/Vol] 0.95 mg/dL High 0.50-0.90 [facility] Comment on above: Performed By: #### B MPX, CDP #### [facility] [address] [place] [address] [employer]: Yusuf Schmidt MD GFR, Amer >60 Normal >60 [facility] Comment on above: Performed By: #### B MPX, CDP #### [facility] [address] [place] [address] [employer]: Yusuf Schmidt MD GFR,non Amer >60 Normal >60 [facility] Comment on above: Performed By: #### B MPX, CDP #### [facility] [address] [place] [address] [employer]: Yusuf Schmidt MD Glucose [Mass/Vol] 103 mg/dL High 70-99 [facility] Comment on above: Performed By: #### B MPX, CDP #### [facility] [address] [place] [address] [employer]per: Yusuf Schmidt MD Sodium [Moles/Vol] 138 mmol/L Normal 135-144 [facility] Comment on above: Performed By: #### B MPX, CDP #### [facility] [address] [place] [address] Asphalt Tamper: Yusuf Schmidt MD Urea nitrogen [Mass/Vol] 7 mg/dL Normal 6-20 [facility] Comment on above: Performed By: #### B MPX, CDP #### [email or web address] [address] [place] [address] Asphalt Tamper: Yusuf Schmidt MD Basic Metabolic Panel w/ Ref bahman to MGon 08-16-2021 Anion gap [Moles/Vol] 12 mmol/L 9 - 17 mmol/L [facility] [employer] [facility] Calcium [Mass/Vol] 8.3 mg/dL Low 8.6 - 10. 4 mg/dL [facility] [employer] [facility] Chloride [Moles/Vol] 106 mmol/L 98 - 10 7 mmol/L [facility] CO2 [Moles/Vol] 20 mmol/L 20 - 31 mmol/L [facility] Creatinine [Mass/Vol] 0.95 mg/dL High 0.50 - 0.90 mg/dL [facility] GFR >60 >60 mL/min [facility] GFR Non- >60 >60 mL/min [facility] GFR/1.73 sq M.predicted MDRD (S/P/Bld) [Vol rate/Area] [facility] Comment on above: Average GFR for 20-2 9 years old: 116 mL/min/1.73sq m Chronic Kidney Disease: <60 mL/min/1.73sq m Kidney failure: <15 mL/min/1.73sq m eGFR calculated using average adult body mass. Additional eGFR calculator available at: http://www.[[email or web address]/multiple_crcl_2011.htm Glucose [Mass/Vol] 103 mg/dL High 70 - 99 mg/dL [facility] Interpretation and review of laboratory results Abnormal [facility] Potassium [Moles/Vol] 3.2 mmol/L Low 3.7 - 5.3 mmol/L [facility] Sodium [Moles/Vol] 138 mmol/L 135 - 144 mmol/L [facility] Urea nitrogen (BldV) [Mass/Vol] 7 mg/dL 6 - 20 mg/dL [facility] CBC with Auto Differentialon 08-16-2021 Absolute Eos # 0.09 [facility] Absolute Immature Granulocyte 0.00 [facility] Absolute Lymph # 0.70 Low [facility] Absolute [place] # 0.26 [facility] Basophils (Bld) [#/Vol] 0.00 10*3/uL [facility] Basophils/100 WBC (Bld) 0 % 0 - 2 % [facility] Eosinophils/100 WBC (Bld) 1 % 1 - 4 % [facility] Hematocrit (Bld) [Volume fraction] 34.7 % Low 36.3 - 47.1 % [facility] Hemoglobin (Bld) [Mass/Vol] 11.6 g/dL Low 11.9 - 15.1 g/dL [facility] Immature granulocytes/100 WBC (Bld) 0 % 0 [facility] Interpretation and review of laboratory results Abnormal [facility] Lymphocytes/100 WBC (Bld) 8 % Low 24 - 44 % [facility] MCH (RBC) [Entitic mass] 29.9 pg 25.2 - 33.5 pg [facility] MCHC (RBC) [Mass/Vol] 33.4 g/dL 28.4 - 34.8 g/dL [facility] MCV (RBC) [Entitic vol] 89.4 fL 82.6 - 102.9 fL [facility] Monocytes/100 WBC (Bld) 3 % 1 - 7 % [facility] Morphology Ja (Bld) [Interp] Normal [facility] NRBC Automated 0.0 0.0 per 100 WBC [facility] Platelet distribution width (Bld) [Ratio] 13.1 % 11.8 - 14.4 % [facility] Platelet mean volume (Bld) [Entitic vol] 10.0 fL 8.1 - 13.5 fL [facility] Platelets (Bld) [#/Vol] 196 10*3/uL [facility] RBC (Bld) [#/Vol] 3.88 10*6/uL Low 3.95 - 5.1 1 m/uL [facility] Segmented neutrophils/100 WBC (Bld) 88 % High 36 - 66 % [facility] Segs Absolute 7.75 High [facility] WBC (Bld) [#/Vol] 8.8 10*3/uL [facility] CBC with Diffon 08-16-2021 Abs. Basophil 0.00 k/uL Normal 0.0-0.2 [facility] Comment on above: Performed By: #### B MPX, CDP #### [facility] [address] [place] [address] Asphalt Tamper: Yusuf Schmidt MD Abs.Imm.Granulocyte 0.00 k/uL Normal 0.00-0.30 [facility] Comment on above: Performed By: #### B MPX, CDP #### [facility] [address] [place] [address] Asphalt Tamper: Yusuf Schmidt MD Abs.Neutrophil (Seg) 7.75 k/uL High 1.8-7.7 [facility] Comment on above: Performed By: #### B MPX, CDP #### [facility] [address] [place] [address] Asphalt Tamper: Yusuf Schmidt MD Basophils/100 WBC (Bld) 0 % Normal 0-2 [facility] Comment on above: Performed By: #### B MPX, CDP #### [facility] [address] [place] [address] Asphalt Tamper: Yusuf Schmidt MD Eosinophils (Bld) [#/Vol] 0.09 10*3/uL Normal 0.0-0.4 [facility] Comment on above: Performed By: #### B MPX, CDP #### [facility] [address] [place] [address] Asphalt Tamper: Yusuf Scmhidt MD Eosinophils/100 WBC (Bld) 1 % Normal 1-4 [facility] Comment on above: Performed By: #### B MPX, CDP #### [address] [address] Asphalt Tamper: Yusuf Schmidt MD Immature granulocytes/100 WBC (Bld) 0 % Normal 0 [facility] Comment on above: Performed By: #### B MPX, CDP #### [address] [address] Asphalt Tamper: Yusuf Schmidt MD Lymphocytes (Bld) [#/Vol] 0.70 10*3/uL Low 1.0-4.8 [facility] Comment on above: Performed By: #### B MPX, CDP #### [address] [address] Asphalt Tamper: Yusuf Schmidt MD Lymphocytes/100 WBC (Bld) 8 % Low 24-44 [facility] Comment on above: Performed By: #### B MPX, CDP #### [address] [address] Asphalt Tamper: Yusuf Schmidt MD Monocytes (Bld) [#/Vol] 0.26 10*3/uL Normal 0.1-0.8 [facility] Comment on above: Performed By: #### B MPX, CDP #### [address] [address] Asphalt Tamper: Yusuf Schmidt MD Monocytes/100 WBC (Bld) 3 % Normal 1-7 [facility] Comment on above: Performed By: #### B MPX, CDP #### [address] [address] Asphalt Tamper: Yusuf Schmidt MD Morphology Ja (Bld) [Interp] Normal Normal [facility] Comment on above: Performed By: #### B MPX, CDP #### [address] [address] Asphalt Tamper: Yusuf Schmidt MD Neutrophil (Seg) 88 % High 36-66 [facility] Comment on above: Performed By: #### B MPX, CDP #### [address] [address] Asphalt Tamper: Yusuf Schmidt MD Erythrocyte distribution width (RBC) [Ratio] 13.1 % Normal 11.8-14.4 [facility] Comment on above: Performed By: #### B MPX, CDP #### [address] [address] Asphalt Tamper: Yusuf Schmidt MD Hematocrit (Bld) [Volume fraction] 34.7 % Low 36.3-47.1 [facility] Comment on above: Performed By: #### B MPX, CDP #### [address] [address] Asphalt Tamper: Yusuf Schmidt MD Hemoglobin (Bld) [Mass/Vol] 11.6 g/dL Low 11.9-15.1 [facility] Comment on above: Performed By: #### B MPX, CDP #### [address] [address] Asphalt Tamper: Yusuf Schmidt MD MCH (RBC) [Entitic mass] 29.9 pg Normal 25.2-33.5 [facility] Comment on above: Performed By: #### B MPX, CDP #### [address] [address] Asphalt Tamper: Yusuf Schmidt MD MCHC (RBC) [Mass/Vol] 33.4 g/dL Normal 28.4-34.8 [facility] Comment on above: Performed By: #### B MPX, CDP #### [address] [address] Asphalt Tamper: Yusuf Schmidt MD MCV (RBC) [Entitic vol] 89.4 fL Normal 82.6-102.9 [facility] Comment on above: Performed By: #### B MPX, CDP #### [address] [address] Asphalt Tamper: Yusuf Schmidt MD NRBC Automated 0.0 per 100 WBC Normal 0.0 [facility] Comment on above: Performed By: #### B MPX, CDP #### [address] [address] Asphalt Tamper: Yusuf Schmidt MD Platelet mean volume (Bld) [Entitic vol] 10.0 fL Normal 8.1-13.5 [facility] Comment on above: Performed By: #### B MPX, CDP #### [address] [address] Asphalt Tamper: Yusuf Schmidt MD Platelets (Bld) [#/Vol] 196 10*3/uL Normal 138-453 [facility] Comment on above: Performed By: #### B MPX, CDP #### [address] [address] Asphalt Tamper: Yusuf Schmidt MD RBC (Bld) [#/Vol] 3.88 10*6/uL Low 3.95-5.11 [facility] Comment on above: Performed By: #### B MPX, CDP #### [address] [address] Asphalt Tamper: Yusuf Schmidt MD WBC (Bld) [#/Vol] 8.8 10*3/uL Normal 3.5-11.3 [facility] Comment on above: Performed By: #### B MPX, CDP #### [address] [address] Asphalt Tamper: Yusuf Schmidt MD IR GUIDED NEPHROSTOMY CATH P LACEMENT RIGHTon 08-16-2021 Successful percutaneous 8 Slovak nephrostomy tube placement MHYulissa Tate MD - 08/16/2021 PROCEDURE: PERCUTANEOUS ANTEGRADE PYELOGRAM RIGHT PERCUTANEOUS NEPHROSTOMY TUBE PLACEMENT ULTRASOUND GUIDANCE; fluoroscopic guided MODERATE CONSCIOUS SEDATION 08/16/2021 HISTORY: ORDERING SYSTEM PROVIDED HISTORY: retained right stent with hydronephrosis TECHNOLOGIST PROVIDED HISTORY: retained right stent with hydronephrosis Is the patient ?->No SEDATION: 2 mg versed and 200 micro fentanyl were titrated intravenously for moderate sedation monitored under my direction. Total intra service time of sedation was 45 minutes. The patient's vital signs were monitored throughout the procedure and recorded in the patient's medical record by the nurse. CONTRAST: 20 cc FLUOROSCOPY DOSE AND TYPE OR TIME AND EXPOSURES: DAP 2641 cGy cm squared TECHNIQUE Informed consent was obtained following detailed description of the procedure including risks, benefits, and alternatives. [place] protocol was followed. The patient's flank was prepped and draped in sterile fashion and local anesthesia was achieved with lidocaine. An Accustick needle was advanced into a posterior upper pole calyx using ultrasound guidance and a percutaneous antegrade pyelogram was performed. A 0.035 guidewire was used to place a 8 FR percutaneous nephrostomy tube after the tract was dilated. The catheter was sutured to the skin and the patient tolerated the procedure well. FINDINGS: Percutaneous antegrade pyelogram: There is moderate right hydronephrosis. Retained ureteral stent which is in crusted occupied the renal pelvis. Due to the presence of the encrusted stent within the renal pelvis, the catheter terminates in the dilated lower pole infundibulum. IMPRESSION: Successful percutaneous 8 Slovak nephrostomy tube placement [employer] Phone: Radiology Study observation (narrative) [employer] Phone: IR GUIDED NEPHROSTOMY CATH P LACEMENT RIGHTOrdered By: Yulissa Turner on 08-16-2021 [employer] Phone: Magnesiumon 08-16-2021 Magnesium [Mass/Vol] 1.6 mg/dL Normal 1.6-2.6 [facility] Comment on above: Performed By: #### B MPX, CDP #### [facility] [place] [address] Asphalt Tamper: Yusuf Schmidt MD Magnesium [Mass/Vol] 1.6 mg/dL 1.6 - 2 .6 mg/dL [facility] No Panel Informationon 08-16 [facility] PTon 08-16-2021 INR Coag (PPP) [Relative time] 1.0 {INR} Normal [facility] Comment on above: Result Comment: Therapeutic Range: Moderate Anticoagulant Intensity: INR = 2.0-3.0 High Anticoagulant Intensity: INR = 2.5-3.5 Performed By: #### B MPX, CDP #### [facility] [address] [place] [address] Asphalt Tamper: Yusuf Schmidt MD PT Coag (PPP) [Time] 10.9 s Normal 9.1-12.3 [facility] Comment on above: Performed By: #### B MPX, CDP #### [facility] [address] [place] [address] Asphalt Tamper: Yusuf Schmidt MD Protime-INRon 08-16-2021 INR Coag (Bld) [Relative time] 1.0 {INR} [facility] Comment on above: Therapeutic Range: Moderate Anticoagulant Intensity: INR = 2.0-3.0 High Anticoagulant Intensity: INR = 2.5-3.5 PT Coag (PPP) [Time] 10.9 s [facility] Basic Metabolic Panelon 08-05 Anion gap [Moles/Vol] 18 mmol/L High 9 - 17 mmol/L [facility] Calcium [Mass/Vol] 8.7 mg/dL 8.6 - 10. 4 mg/dL [facility] Chloride [Moles/Vol] 105 mmol/L 98 - 10 7 mmol/L [facility] CO2 [Moles/Vol] 16 mmol/L Low 20 - 31 mmol/L [facility] Creatinine [Mass/Vol] 1.11 mg/dL High 0.50 - 0.90 mg/dL [facility] [employer] [facility] GFR >60 >60 mL/min [facility] GFR Non- >60 >60 mL/min [facility] GFR/1.73 sq M.predicted MDRD (S/P/Bld) [Vol rate/Area] [facility] Comment on above: Average GFR for 20-2 9 years old: 116 mL/min/1.73sq m Chronic Kidney Disease: <60 mL/min/1.73sq m Kidney failure: <15 mL/min/1.73sq m eGFR calculated using average adult body mass. Additional eGFR calculator available at: http://www.[employer]/Framehawk_crcl_2012.htm Glucose [Mass/Vol] 104 mg/dL High 70 - 99 mg/dL [facility] Interpretation and review of laboratory results Abnormal [facility] Potassium [Moles/Vol] 3.9 mmol/L 3.7 - 5.3 mmol/L [facility] Sodium [Moles/Vol] 139 mmol/L 135 - 144 mmol/L [facility] Urea nitrogen (BldV) [Mass/Vol] 10 mg/dL 6 - 20 mg/dL [facility] Basic Metabolic Profon 08-15 (cont.) Normal [facility] Comment on above: Result Comment: Aver age GFR for 20-29 years old: 116 mL/min/1.73sq m Chronic Kidney Disease: <60 mL/min/1.73sq m Kidney failure: <15 mL/min/1.73sq m eGFR calculated using average adult body mass. Additional eGFR calculator available at: http://www.[employer]/Framehawk_crcl_2012.htm Performed By: #### B BULL CBC #### [facility] [address] [place] [address] Asphalt Tamper: Yusuf Schmidt MD Anion gap [Moles/Vol] 18 mmol/L High 9-17 [facility] Comment on above: Performed By: #### Li GOTTLIEB, CBC #### [facility] [address] [place] [address] Asphalt Tamper: Yusuf Schmidt MD Calcium [Mass/Vol] 8.7 mg/dL Normal 8.6-10.4 [facility] Comment on above: Performed By: #### B MP, CBC #### [facility] [address] [place] [address] Asphalt Tamper: Yusuf Schmidt MD Chloride [Moles/Vol] 105 mmol/L Normal 98-107 [facility] Comment on above: Performed By: #### B MP, CBC #### [address] [address] Asphalt Tamper: Yusuf Schmidt MD CO2 [Moles/Vol] 16 mmol/L Low 20-31 [facility] Comment on above: Performed By: #### B MP, CBC #### [address] [address] Asphalt Tamper: Yusuf Schmidt MD Creatinine [Mass/Vol] 1.11 mg/dL High 0.50-0.90 [facility] Comment on above: Performed By: #### B MP, CBC #### [facility] [employer] [address] [place] [address] Asphalt Tamper: Yusuf Schmidt MD GFR, Amer >60 Normal >60 [facility] Comment on above: Performed By: #### B MP, CBC #### [facility] [address] [place] [address] Asphalt Tamper: Yusuf Schmidt MD GFR,non Amer >60 Normal >60 [facility] Comment on above: Performed By: #### B MP, CBC #### [facility] [employer] [address] [place] [address] Asphalt Tamper: Yusuf Schmidt MD Glucose [Mass/Vol] 104 mg/dL High 70-99 [facility] Comment on above: Performed By: #### B MP, CBC #### [facility] [employer] [address] [place] [address] Asphalt Tamper: Yusuf Schmidt MD Potassium [Moles/Vol] 3.9 mmol/L Normal 3.7-5.3 [facility] Comment on above: Performed By: #### B MP, CBC #### [address] [address] Asphalt Tamper: Yusuf Schmidt MD Sodium [Moles/Vol] 139 mmol/L Normal 135-144 [facility] Comment on above: Performed By: #### B MP, CBC #### [address] [address] Asphalt Tamper: Yusuf Schmidt MD Urea nitrogen [Mass/Vol] 10 mg/dL Normal 6-20 [facility] Comment on above: Performed By: #### B MP, CBC #### [facility] [employer] [address] [place] [address] Asphalt Tamper: Yusuf Schmidt MD CBCon 08-15-2021 Erythrocyte distribution width (RBC) [Ratio] 12.8 % Normal 11.8-14.4 [facility] Comment on above: Performed By: #### B MP, CBC #### [address] [address] Asphalt Tamper: Yusuf Schmidt MD Hematocrit (Bld) [Volume fraction] 36.6 % Normal 36.3-47.1 [facility] Comment on above: Performed By: #### B MP, CBC #### [facility] [employer] [address] [place] [address] Asphalt Tamper: Yusuf Schmidt MD Hemoglobin (Bld) [Mass/Vol] 12.5 g/dL Normal 11.9-15.1 [facility] Comment on above: Performed By: #### B MP, CBC #### [address] [address] Asphalt Tamper: Yusuf Schmidt MD MCH (RBC) [Entitic mass] 29.8 pg Normal 25.2-33.5 [facility] Comment on above: Performed By: #### B MP, CBC #### [address] [address] Asphalt Tamper: Yusuf Schmidt MD MCHC (RBC) [Mass/Vol] 34.2 g/dL Normal 28.4-34.8 [facility] Comment on above: Performed By: #### B MP, CBC #### [address] [address] Asphalt Tamper: Yusuf Schmidt MD MCV (RBC) [Entitic vol] 87.4 fL Normal 82.6-102.9 [facility] Comment on above: Performed By: #### B MP, CBC #### [address] [address] Asphalt Tamper: Yusuf Schmidt MD NRBC Automated 0.0 per 100 WBC Normal 0.0 [facility] Comment on above: Performed By: #### B MP, CBC #### [address] [address] Asphalt Tamper: Yusuf Schmidt MD Platelet mean volume (Bld) [Entitic vol] 9.5 fL Normal 8.1-13.5 [facility] Comment on above: Performed By: #### B MP, CBC #### [address] [address] Asphalt Tamper: Yusuf Schmidt MD Platelets (Bld) [#/Vol] 243 10*3/uL Normal 138-453 [facility] Comment on above: Performed By: #### B MP, CBC #### [address] [address] Asphalt Tamper: Yusuf Schmidt MD RBC (Bld) [#/Vol] 4.19 10*6/uL Normal 3.95-5.11 [facility] Comment on above: Performed By: #### B MP, CBC #### [facility] [address] [place], [place] [id number] Asphalt Tamper: Yusuf Schmidt MD WBC (Bld) [#/Vol] 7.5 10*3/uL Normal 3.5-11.3 [facility] Comment on above: Performed By: #### B MP, CBC #### [facility] [address] [place] [address] Asphalt Tamper: Yusuf Schmidt MD Hematocrit (Bld) [Volume fraction] 36.6 % 36.3 - 47.1 % [facility] Hemoglobin (Bld) [Mass/Vol] 12.5 g/dL 11.9 - 15.1 g/dL [facility] MCH (RBC) [Entitic mass] 29.8 pg 25.2 - 33.5 pg [facility] MCHC (RBC) [Mass/Vol] 34.2 g/dL 28.4 - 34.8 g/dL [facility] MCV (RBC) [Entitic vol] 87.4 fL 82.6 - 102.9 fL [facility] NRBC Automated 0.0 0.0 per 100 WBC [facility] Platelet distribution width (Bld) [Ratio] 12.8 % 11.8 - 14.4 % [facility] Platelet mean volume (Bld) [Entitic vol] 9.5 fL 8.1 - 13.5 fL [facility] Platelets (Bld) [#/Vol] 243 10*3/uL [facility] RBC (Bld) [#/Vol] 4.19 10*6/uL 3.95 - 5.1 1 m/uL [facility] WBC (Bld) [#/Vol] 7.5 10*3/uL [facility] CBC AUTO DIFFon 08-15-2021 BASO # 0.0 103/ul Normal 0.0-0.1 [facility] Comment on above: Performed By: #### T HCCONF #### [facility] [address] [place] [address] Dr. Liat Bosch Basophils/100 WBC (Bld) 0.2 % Normal 0.2-2.0 [facility] Comment on above: Performed By: #### T HCCONF #### [facility] [address] [place] [address] Dr. Liat Bosch EO # 0.1 103/ul Normal 0.0-0.7 [facility] Comment on above: Performed By: #### T HCCONF #### [facility] [address] [place] [address] Dr. Liat Bosch Eosinophils/100 WBC (Bld) 1.0 % Normal 0.9-7.0 [facility] Comment on above: Performed By: #### T HCCONF #### [facility] [address] [place] [address] Dr. Liat Bosch Erythrocyte distribution width (RBC) [Ratio] 12.4 % Normal 11.0-15.0 [facility] Comment on above: Performed By: #### T HCCONF #### [facility] [address] [place] [address] Dr. Liat Bosch Hematocrit (Bld) [Volume fraction] 38.2 % Normal 36.0-48.0 [facility] Comment on above: Performed By: #### T HCCONF #### [facility] [address] [place] [address] Dr. Liat Bosch Hemoglobin (Bld) [Mass/Vol] 13.2 g/dL Normal 12.0-16.0 [facility] Comment on above: Performed By: #### T HCCONF #### [facility] [address] [place] [address] Dr. Liat Bosch IG # 0.09 10e3/ul Critically high 0.00-0.03 [facility] Comment on above: Performed By: #### T HCCONF #### [facility] [address] [place] [address] Dr. Liat Bosch IG % 0.7 % Critically high 0.0-0.5 [facility] Comment on above: Performed By: #### T HCCONF #### [facility] [address] [address] [address] Liat Bosch LYMPH # 0.7 103/ul Critically low 1.2-3.8 [facility] Comment on above: Performed By: #### T HCCONF #### [facility] [address] [place] [address] Dr. Liat Bosch Lymphocytes/100 WBC (Bld) 5.4 % Critically low 20.5-60.0 [facility] Comment on above: Performed By: #### T HCCONF #### [facility] [address] [place] [address] Dr. Liat Bosch MANUAL DIFF REQ NO Normal [facility] Comment on above: Performed By: #### T HCCONF #### [facility] [address] [place] [address] Dr. Liat Bosch MCH (RBC) [Entitic mass] 29.8 pg Normal 26.7-34.0 [facility] Comment on above: Performed By: #### T HCCONF #### [facility] [address] [place] [address] Dr. Liat Bosch MCHC (RBC) [Mass/Vol] 34.6 g/dL Normal 29.9-35.2 [facility] Comment on above: Performed By: #### T HCCONF #### [facility] [address] [place] [address] Dr. Liat Bosch MCV (RBC) [Entitic vol] 86.2 fL Normal 81.0-99.0 [facility] Comment on above: Performed By: #### T HCCONF #### [facility] [address] [place] [address] Dr. Liat Bosch MONO # 0.9 103/ul Critically high 0.3-0.8 [facility] Comment on above: Performed By: #### T HCCONF #### [facility] [address] [place] [address] Dr. Liat Bosch Monocytes/100 WBC (Bld) 6.9 % Normal 1.7-12.0 [facility] Comment on above: Performed By: #### T HCCONF #### [facility] [address] [place] [address] Dr. Liat Bosch NEUT # 10.7 103/ul Critically high 1.4-6.5 [facility] Comment on above: Performed By: #### T HCCONF #### [facility] [address] [place] [address] Dr. Liat Bosch Neutrophils/100 WBC (Bld) 85.8 % Critically high 43.0-75.0 [facility] Comment on above: Performed By: #### T HCCONF #### [facility] [address] [place] [address] Dr. Liat Bosch Platelet mean volume (Bld) [Entitic vol] 8.9 fL Critically low 9.5-13.5 [facility] Comment on above: Performed By: #### T HCCONF #### [facility] [address] [place] [address] Dr. Liat Bosch PLT 240 103/ul Normal 150-450 [facility] Comment on above: Performed By: #### T HCCONF #### [facility] [address] [place] [address] Dr. Liat Bosch RBC 4.43 106/ul Normal 4.20-5.40 [facility] Comment on above: Performed By: #### T HCCONF #### [facility] [address] [place] [address] Dr. Liat Bosch WBC 12.5 103/ul Critically high 4.0-11.0 [facility] Comment on above: Performed By: #### T HCCONF #### [facility] [address] [place] [address] Dr. Liat Bosch CULTURE BLOODon 08-15-2021 Microscopic examination of blood, culture Culture Observations: No growth at 5 days. Normal [facility] Comment on above: Performed By: #### B [id number] #### [facility] [address] [place] [address] Dr. Liat Bosch Microscopic examination of blood, culture Culture Observations: No growth at 5 days. Normal [facility] Comment on above: Performed By: #### N BOX #### [facility] [address] [place] [address] Nakul Martines CULTURE URINEon 08-15-2021 CULTURE URINE Culture Observations: No growth Normal [facility] Comment on above: Performed By: #### N BOX #### [facility] [address] [place] [address] Nakul Martines ER URINE PROFILEon 2 Bilirubin Ql (U) Negative Normal NEGATIVE [facility] Comment on above: Performed By: #### T HCCONF #### [facility] [address] [place] [address] Dr. Liat Bosch Clarity (U) SL CLOUDY Abnormal CLEAR [facility] Comment on above: Performed By: #### T HCCONF #### [facility] [address] [place] [address] Dr. Liat Bosch Color (U) YELLOW Normal YELLOW [facility] Comment on above: Performed By: #### T HCCONF #### [facility] [address] [place] [address] Dr. Liat FERRER A micrscopic examination will be performed if indicated. Normal [facility] Comment on above: Performed By: #### T HCCONF #### [facility] [address] [place] [address] Dr. Liat Bosch Glucose Ql (U) Negative Normal NEGATIVE [facility] Comment on above: Performed By: #### T HCCONF #### [facility] [address] [place] [address] Dr. Liat Bosch Hemoglobin Ql (U) LARGE Abnormal NEGATIVE [facility] Comment on above: Performed By: #### T HCCONF #### [facility] [address] [place] [address] Dr. Liat Bosch Ketones Ql (U) 15 mg/dl Abnormal NEGATIVE [facility] Comment on above: Performed By: #### T HCCONF #### [facility] [address] [place] [address] Dr. Liat Bosch LEUKOCYTES LARGE Abnormal NEGATIVE [facility] Comment on above: Performed By: #### T HCCONF #### [facility] [address] [place] [address] Dr. Liat Bosch Nitrite Ql (U) Negative Normal NEGATIVE [facility] Comment on above: Performed By: #### T HCCONF #### [facility] [address] [place] [address] Dr. Liat Bosch pH (U) 6.5 [pH] Normal 5-9 [facility] Comment on above: Performed By: #### T HCCONF #### [facility] [address] [place] [address] Dr. Liat Bosch Protein (U) [Mass/Vol] 30 mg/dL Abnormal NEGATIVE/ TRACE [facility] Comment on above: Performed By: #### T HCCONF #### [facility] [address] [place] [address] Dr. Liat Bosch SPEC GRAVITY 1.010 Normal 1.005-<=1.025 [facility] Comment on above: Performed By: #### T HCCONF #### [facility] [address] [place] [address] Dr. Liat Bosch UR MICRO IND INDICATED Normal [facility] Comment on above: Performed By: #### T HCCONF #### [facility] [address] [place] [address] Dr. Liat Bosch Urobilinogen Qn (U) 1.0 {Elia'U}/dL Normal 0.2 - 1. 0 [facility] Comment on above: Performed By: #### T HCCONF #### [facility] [address] [place] [address] Dr. Liat Bosch LACTATE/LACTIC ACIDon 2021 Lactate [Moles/Vol] 0.9 mmol/L Normal 0.4-1.9 [facility] Comment on above: Performed By: #### N BOX #### [facility] [address] [address] Nakul Martines PROF 14(COMP METB)on 022 Albumin [Mass/Vol] 3.0 g/dL Critically low 3.4-5.0 [facility] Comment on above: Performed By: #### T HCCONF #### [facility] [address] [address] [address] Liat Bosch Albumin/Globulin [Mass ratio] 0.6 {ratio} Normal [facility] Comment on above: Performed By: #### T HCCONF #### [facility] [address] [address] [address] Liat Bosch ALP [Catalytic activity/Vol] 121 U/L Critically high 46-116 [facility] Comment on above: Performed By: #### T HCCONF #### [facility] [address] [place] [address] Dr. Liat Bosch ALT [Catalytic activity/Vol] 31 U/L Normal 14-59 [facility] Comment on above: Performed By: #### T HCCONF #### [facility] [address] [place] [address] Dr. Liat Bosch Anion gap [Moles/Vol] 16.0 mmol/L Normal [facility] Comment on above: Performed By: #### T HCCONF #### [facility] [address] [place] [address] Dr. Liat Bosch AST [Catalytic activity/Vol] 20 U/L Normal 15-37 [facility] Comment on above: Performed By: #### T HCCONF #### [facility] [address] [place] [address] Dr. Liat Bosch Bilirubin [Mass/Vol] 0.7 mg/dL Normal 0.2-1.0 [facility] Comment on above: Performed By: #### T HCCONF #### [facility] [address] [place] [address] Dr. Liat Bosch Calcium [Mass/Vol] 8.7 mg/dL Normal 8.5-10.1 [facility] Comment on above: Performed By: #### T HCCONF #### [facility] [address] [address] [address] Liat Bosch Chloride [Moles/Vol] 102 mmol/L Normal 98-107 [facility] Comment on above: Performed By: #### T HCCONF #### [facility] [address] [address] [address] Liat Bosch CO2 [Moles/Vol] 18.2 mmol/L Critically low 21.0-32.0 [facility] Comment on above: Performed By: #### T HCCONF #### [facility] [address] [address] [address] Liat Bosch Creatinine [Mass/Vol] 1.16 mg/dL Critically high 0.55-1.02 [facility] Comment on above: Performed By: #### T HCCONF #### [facility] [address] [place] [address] Dr. Liat Bosch EGFR-AF KAZAKH 71 mL/min/1.73m2 Normal >=60 [facility] Comment on above: Performed By: #### T HCCONF #### [facility] [address] [address] [address] Liat Bosch EGFR-NON AF KAZAKH 58 mL/min/1.73m2 Critically low >=60 [facility] Comment on above: Performed By: #### T HCCONF #### [facility] [address] [address] [address] Liat Bosch Globulin (S) [Mass/Vol] 4.4 g/dL Normal [facility] Comment on above: Performed By: #### T HCCONF #### [facility] [address] [address] [address] Liat Bosch Glucose [Mass/Vol] 117 mg/dL Critically high 74-106 [facility] Comment on above: Performed By: #### T HCCONF #### [facility] [address] [address] [address] Liat Bosch Potassium [Moles/Vol] 3.0 mmol/L Critically low 3.5-5.1 [facility] Comment on above: Performed By: #### T HCCONF #### [facility] [address] [address] [address] Liat Bosch Protein [Mass/Vol] 7.4 g/dL Normal 6.4-8.2 [facility] Comment on above: Performed By: #### T HCCONF #### [facility] [address] [address] [address] Liat Bosch Sodium [Moles/Vol] 135 mmol/L Critically low 136-145 [facility] Comment on above: Performed By: #### T HCCONF #### [facility] [address] [place] [address] Dr. Liat Bosch Urea nitrogen [Mass/Vol] 11.0 mg/dL Normal 7.0-18.0 [facility] Comment on above: Performed By: #### T HCCONF #### [facility] [address] [place] [address] Dr. Liat Bosch Urea nitrogen/Creatinine [Mass ratio] 9.4 mg/mg Normal [facility] Comment on above: Performed By: #### T HCCONF #### [facility] [address] [place] [address] Dr. Liat Bosch URINE MICROSCOPIC ONLYon BACTERIA TRACE Abnormal NONE SEEN [facility] Comment on above: Performed By: #### T HCCONF #### [facility] [address] [place] [address] Dr. Liat Bosch Bacteria identified Cx Nom (U) INDICATED Normal [facility] Comment on above: Performed By: #### T HCCONF #### [facility] [address] [place] [address] Dr. Liat Bosch CAST NONE SEEN Normal NONE SEEN [facility] Comment on above: Performed By: #### T HCCONF #### [facility] [address] [place] [address] Dr. Liat Bosch Crystals LM Nom (Urine sed) NONE SEEN Normal NONE SEEN [facility] Comment on above: Performed By: #### T HCCONF #### [facility] [address] [place] [address] Dr. Liat Bosch Epithelial cells LM Ql (Urine sed) MODERATE Abnormal NONE SEEN /RARE [facility] Comment on above: Performed By: #### T HCCONF #### [facility] [address] [place] [address] Dr. Liat Bosch MUCOUS TRACE Abnormal NONE SEEN [facility] Comment on above: Performed By: #### T HCCONF #### [facility] [address] [place] [address] Dr. Liat Bosch RBC 10-20 Abnormal 0-2 [facility] Comment on above: Performed By: #### T HCCONF #### [facility] [address] [place] [address] Dr. Liat Bosch WBC 20-50 Abnormal NONE SEEN [facility] Comment on above: Performed By: #### T HCCONF #### [facility] [address] [place] [address] Dr. Liat Bosch XR ABDOMEN (KUB) (SINGLE AP VIEW)on 08-15-2021 XR ABDOMEN (KUB) (SINGLE AP VIEW) EXAMINATION: ONE SUPINE XRAY VIEW(S) OF THE ABDOMEN 08/15/2021 3:49 pm COMPARISON: CT earlier today HISTORY: ORDERING SYSTEM PROVIDED HISTORY: Retained stent. Assess for stone burden TECHNOLOGIST PROVIDED HISTORY: Retained stent. Assess for stone burden FINDINGS: Ureteral stent extends from the region of the right renal pelvis to the urinary bladder. Questionable stone fragment in the region of the distal right ureter measuring 7 mm. No additional renal or urinary tract stone. IMPRESSION: 7 mm stone in the distal right ureter adjacent to the stent. Interpreted by: Erasto Mac MD Signed by: Erasto Mac MD 08/15/21 Final result Normal [facility] 7 mm stone in the distal right ureter adjacent to the stent. [facility] RIS CONSOLIDATED EXAMINATION: ONE SUPINE XRAY VIEW(S) OF THE ABDOMEN 08/15/2021 3:49 pm COMPARISON: CT earlier today HISTORY: ORDERING SYSTEM PROVIDED HISTORY: Retained stent. Assess for stone burden TECHNOLOGIST PROVIDED HISTORY: Retained stent. Assess for stone burden FINDINGS: Ureteral stent extends from the region of the right renal pelvis to the urinary bladder. Questionable stone fragment in the region of the distal right ureter measuring 7 mm. No additional renal or urinary tract stone. [facility] Erasto Gibbs MD - 08/15/2021 EXAMINATION: ONE SUPINE XRAY VIEW(S) OF THE ABDOMEN 08/15/2021 3:49 pm COMPARISON: CT earlier today HISTORY: ORDERING SYSTEM PROVIDED HISTORY: Retained stent. Assess for stone burden TECHNOLOGIST PROVIDED HISTORY: Retained stent. Assess for stone burden FINDINGS: Ureteral stent extends from the region of the right renal pelvis to the urinary bladder. Questionable stone fragment in the region of the distal right ureter measuring 7 mm. No additional renal or urinary tract stone. IMPRESSION: 7 mm stone in the distal right ureter adjacent to the stent. [employer] Phone: Radiology Study observation (narrative) [employer] Phone: XR ABDOMEN (KUB) (SINGLE AP VIEW)Ordered By: Erasto Mac on 08-15-2021 [employer] Phone: CBC AUTO DIFFon 08-12-2021 BASO # 0.0 103/ul Normal 0.0-0.1 [facility] Comment on above: Performed By: #### B [id number] #### [facility] [address] [place] [address] Dr. Liat Bosch Basophils/100 WBC (Bld) 0.3 % Normal 0.2-2.0 [facility] Comment on above: Performed By: #### B [id number] #### [facility] [address] [place] [address] Dr. Liat Bosch EO # 0.1 103/ul Normal 0.0-0.7 [facility] Comment on above: Performed By: #### B [id number] #### [facility] [address] [place] [address] Dr. Liat Bosch Eosinophils/100 WBC (Bld) 0.9 % Normal 0.9-7.0 [facility] Comment on above: Performed By: #### B [id number] #### [facility] [address] [place] [address] Dr. Liat Bosch Erythrocyte distribution width (RBC) [Ratio] 12.6 % Normal 11.0-15.0 [facility] Comment on above: Performed By: #### B [id number] #### [facility] [address] [place] [address] Dr. Liat Bosch Hematocrit (Bld) [Volume fraction] 40.2 % Normal 36.0-48.0 [facility] Comment on above: Performed By: #### B [id number] #### [facility] [address] [place] [address] Dr. Liat Bosch Hemoglobin (Bld) [Mass/Vol] 13.3 g/dL Normal 12.0-16.0 [facility] Comment on above: Performed By: #### B [id number] #### [facility] [address] [place] [address] Dr. Liat Bosch IG # 0.06 10e3/ul Critically high 0.00-0.03 [facility] Comment on above: Performed By: #### B [id number] #### [facility] [address] [place] [address] Dr. Liat Bosch IG % 0.4 % Normal 0.0-0.5 [facility] Comment on above: Performed By: #### B [id number] #### [facility] [address] [place] [address] Dr. Liat Bosch LYMPH # 2.8 103/ul Normal 1.2-3.8 [facility] Comment on above: Performed By: #### B [id number] #### [facility] [address] [place] [address] Dr. Liat Bosch Lymphocytes/100 WBC (Bld) 18.5 % Critically low 20.5-60.0 [facility] Comment on above: Performed By: #### B [id number] #### [facility] [address] [place] [address] Dr. Liat Bosch MANUAL DIFF REQ NO Normal [facility] Comment on above: Performed By: #### B [id number] #### [facility] [address] [place] [address] Dr. Liat Bosch MCH (RBC) [Entitic mass] 30.1 pg Normal 26.7-34.0 [facility] Comment on above: Performed By: #### B [id number] #### [facility] [address] [place] [address] Dr. Liat Bosch MCHC (RBC) [Mass/Vol] 33.1 g/dL Normal 29.9-35.2 [facility] Comment on above: Performed By: #### B [id number] #### [facility] [address] [place] [address] Dr. Liat Bosch MCV (RBC) [Entitic vol] 91.0 fL Normal 81.0-99.0 [facility] Comment on above: Performed By: #### B [id number] #### [facility] [address] [place] [address] Dr. Liat Bosch MONO # 0.9 103/ul Critically high 0.3-0.8 [facility] Comment on above: Performed By: #### B [id number] #### [facility] [address] [place] [address] Dr. Liat Bosch Monocytes/100 WBC (Bld) 6.1 % Normal 1.7-12.0 [facility] Comment on above: Performed By: #### B [id number] #### [facility] [address] [place] [address] Dr. Liat Bosch NEUT # 11.1 103/ul Critically high 1.4-6.5 [facility] Comment on above: Performed By: #### B [id number] #### [facility] [address] [place] [address] Dr. Liat Bosch Neutrophils/100 WBC (Bld) 73.8 % Normal 43.0-75.0 [facility] Comment on above: Performed By: #### B [id number] #### [facility] [address] [place] [address] Dr. Liat Bosch Platelet mean volume (Bld) [Entitic vol] 9.0 fL Critically low 9.5-13.5 [facility] Comment on above: Performed By: #### B [id number] #### [facility] [address] [place], [place] [address] Dr. Liat Bosch PLT 490 103/ul Critically high 150-450 [facility] Comment on above: Performed By: #### B [id number] #### [facility] [address] [place], [place] [address] Dr. Liat Bosch RBC 4.42 106/ul Normal 4.20-5.40 [facility] Comment on above: Performed By: #### B [id number] #### [facility] [address] [place], [place] [address] Dr. Liat Bosch WBC 15.0 103/ul Critically high 4.0-11.0 [facility] Comment on above: Performed By: #### B [id number] #### [facility] [address] [place], [place] [address] ABD/PELVIS WO CONon 08-12 CT ABD/PELVIS WO CON EXAMINATION: CT ABD/PELVIS WO CON, 08/12/2021 3:19 PM EDT HISTORY: CALCULUS OF KIDNEY COMPARISON: CT abdomen/pelvis dated 03/03/2021. TECHNIQUE: CT scan of the abdomen and pelvis was performed without IV contrast. CT dose reduction technique was used, including Automated Exposure Control. FINDINGS: The lung bases are clear. Heart size is normal. The liver, gallbladder, spleen, pancreas and bilateral adrenal glands appear unremarkable on this noncontrast examination. Right ureteral stent is seen in place with proximal tip coiled within the right renal pelvis, and distal tip coiled within the urinary bladder. Rounded high density is seen measuring approximately 18 mm in the right renal pelvis, and 2.6 cm in urinary bladder where the coiled proximal and distal tips of the right ureteral stent are seen, which may represent calcification related to encrusted ureteric stents. Abnormal course of the proximal right ureteral stent is seen with counterclockwise looping of the ureteral stent noted in the proximal right ureter. Mesenteric fat stranding is seen surrounding the right renal pelvis and proximal right ureter, suggestive of infectious/inflamma tory process. Additionally, enlarged right kidney is seen. Moderate to severe right hydronephrosis is seen, which appears stable to increased compared with prior CT of 03/03/2021. Mild diffuse wall thickening of the urinary bladder is seen, suggestive of mild infectious/inflamma tory process. The stomach and duodenum appear unremarkable. Nonobstructive bowel pattern is seen. The appendix is likely visualized and appears unremarkable. No significant bowel wall thickening is seen. Small free pelvic fluid is seen, which may be physiologic. No abnormal fluid collection is seen in the abdomen and pelvis. The vascular structures demonstrate normal caliber. Abdominal wall and visualized soft tissues appear unremarkable. No acute osseous abnormality is seen. IMPRESSION: Right ureteral stent is seen in place with proximal tip coiled within the right renal pelvis, and distal tip coiled within the urinary bladder. Rounded high density is seen measuring approximately 18 mm in the right renal pelvis, and 2.6 cm in urinary bladder where the coiled proximal and distal tips of the right ureteral stent are seen, suspicious for encrusted ureteric stents. Abnormal course of the proximal right ureteral stent is seen with counterclockwise looping of the ureteral stent noted in the proximal right ureter. Mesenteric fat stranding is seen surrounding the right renal pelvis and proximal right ureter, suggestive of infectious/inflamma tory process. Additionally, enlarged right kidney is seen. Moderate to severe right hydronephrosis is seen, which appears stable to increased compared with prior CT of 03/03/2021. Clinical correlation for right pyelonephritis and ureteritis may be considered. Mild diffuse wall thickening of the urinary bladder is seen, suggestive of mild infectious/inflamma tory process. Electronically authenticated by: MIKE JAIN Date: 2021-08-12 17:01 Normal [facility] CULTURE URINEon 08-12-2021 CULTURE URINE Culture Observations: MODERATE GROWTH OF MIXED GENITAL BRAYDEN. NO POTENTIAL PATHOGENS SEEN. Normal [facility] Comment on above: Performed By: #### N BOX #### [facility] [address] [place], [place] [address] Nakul FROST URINE PROFILEon 2 Bilirubin Ql (U) Negative Normal NEGATIVE [facility] Comment on above: Performed By: #### U RCX #### [facility] [address] [place], [place] [address] Dr. Liat Bosch Clarity (U) CLEAR Normal CLEAR [facility] Comment on above: Performed By: #### U RCX #### [facility] [address] [place] [address] Dr. Liat Bosch Color (U) LT. YELLOW Normal YELLOW [facility] Comment on above: Performed By: #### U RCX #### [facility] [address] [place] [address] Dr. Liat FERRER A micrscopic examination will be performed if indicated. Normal [facility] Comment on above: Performed By: #### U RCX #### [facility] [address] [address] [address] Liat Bosch Glucose Ql (U) Negative Normal NEGATIVE [facility] Comment on above: Performed By: #### U RCX #### [facility] [address] [place] [address] Dr. Liat Bosch Hemoglobin Ql (U) LARGE Abnormal NEGATIVE [facility] Comment on above: Performed By: #### U RCX #### [facility] [address] [place] [address] Dr. Liat Bosch Ketones Ql (U) TRACE Abnormal NEGATIVE [facility] Comment on above: Performed By: #### U RCX #### [facility] [address] [place] [address] Dr. Liat Bosch LEUKOCYTES MODERATE Abnormal NEGATIVE [facility] Comment on above: Performed By: #### U RCX #### [facility] [address] [place] [address] Dr. Liat Bosch Nitrite Ql (U) Positive Abnormal NEGATIVE [facility] Comment on above: Performed By: #### U RCX #### [facility] [address] [place] [address] Dr. Liat Bosch pH (U) 7.5 [pH] Normal 5-9 [facility] Comment on above: Performed By: #### U RCX #### [facility] [address] [place] [address] Dr. Liat Bosch SPEC GRAVITY 1.025 Normal 1.005-<=1.025 [facility] Comment on above: Performed By: #### U RCX #### [facility] [address] [place] [address] Dr. Liat Bosch UA PROTEIN >300 Abnormal NEGATIVE/ TRACE [facility] Comment on above: Performed By: #### U RCX #### [facility] [address] [place] [address] Dr. Liat Bosch UR MICRO IND INDICATED Normal [facility] Comment on above: Performed By: #### U RCX #### [facility] [address] [place] [address] Dr. Liat Bosch Urobilinogen Qn (U) 0.2 {Elia'U}/dL Normal 0.2 - 1. 0 [facility] Comment on above: Performed By: #### U RCX #### [facility] [address] [place] [address] Dr. Lait Bosch LACTATE/LACTIC ACIDon 2021 Lactate [Moles/Vol] 1.2 mmol/L Normal 0.4-1.9 [facility] Comment on above: Performed By: #### B [id number] #### [facility] [address] [place] [address] Dr. Liat Bosch PREG HCG QUALon 08-12-2021 , QUAL Negative Normal NEGATIVE [facility] Comment on above: Performed By: #### U RCX #### [facility] [address] [place] [address] Dr. Liat Bosch PROF 14(COMP METB)on 022 Albumin [Mass/Vol] 3.9 g/dL Normal 3.4-5.0 [facility] Comment on above: Performed By: #### T HCCONF #### [facility] [address] [place] [address] Dr. Liat Bosch Albumin/Globulin [Mass ratio] 1.1 {ratio} Normal [facility] Comment on above: Performed By: #### T HCCONF #### [facility] [address] [place] [address] Dr. Liat Bosch ALP [Catalytic activity/Vol] 95 U/L Normal 46-116 [facility] Comment on above: Performed By: #### T HCCONF #### [facility] [address] [address] [address] Liat Bosch ALT [Catalytic activity/Vol] 61 U/L Critically high 14-59 [facility] Comment on above: Performed By: #### T HCCONF #### [facility] [address] [address] [address] Liat Bosch Anion gap [Moles/Vol] 13.6 mmol/L Normal Th [facility] Comment on above: Performed By: #### T HCCONF #### [facility] [address] [address] [address] Liat Bosch AST [Catalytic activity/Vol] 22 U/L Normal 15-37 [facility] Comment on above: Performed By: #### T HCCONF #### [facility] [address] [address] [address] Liat Bosch Bilirubin [Mass/Vol] 0.3 mg/dL Normal 0.2-1.0 [facility] Comment on above: Performed By: #### T HCCONF #### [facility] [address] [place] [address] Dr. Liat Bosch Calcium [Mass/Vol] 9.0 mg/dL Normal 8.5-10.1 [facility] Comment on above: Performed By: #### T HCCONF #### [facility] [address] [address] [address] Liat Bosch Chloride [Moles/Vol] 106 mmol/L Normal 98-107 [facility] Comment on above: Performed By: #### T HCCONF #### [facility] [address] [address] [address] Liat Bosch CO2 [Moles/Vol] 22.9 mmol/L Normal 21.0-32.0 [facility] Comment on above: Performed By: #### T HCCONF #### [facility] [address] [address] [address] Liat Bosch Creatinine [Mass/Vol] 1.00 mg/dL Normal 0.55-1.02 [facility] Comment on above: Performed By: #### T HCCONF #### [facility] [address] [address] [address] Liat Bosch EGFR-AF KAZAKH >60 Normal >=60 [facility] Comment on above: Performed By: #### T HCCONF #### [facility] [address] [place] [address] Dr. Liat Bosch EGFR-NON AF KAZAKH >60 Normal >=60 [facility] Comment on above: Performed By: #### T HCCONF #### [facility] [address] [address] [address] Liat Bosch Globulin (S) [Mass/Vol] 3.6 g/dL Normal [facility] Comment on above: Performed By: #### T HCCONF #### [facility] [address] [place] [address] Dr. Liat Bosch Glucose [Mass/Vol] 103 mg/dL Normal 74-106 [facility] Comment on above: Performed By: #### T HCCONF #### [facility] [address] [address] [address] Liat Bosch Potassium [Moles/Vol] 3.5 mmol/L Normal 3.5-5.1 [facility] Comment on above: Performed By: #### T HCCONF #### [facility] [address] [place] [address] Dr. Liat Bosch Protein [Mass/Vol] 7.5 g/dL Normal 6.4-8.2 [facility] Comment on above: Performed By: #### T HCCONF #### [facility] [address] [place] [address] Dr. Liat Bosch Sodium [Moles/Vol] 139 mmol/L Normal 136-145 [facility] Comment on above: Performed By: #### T HCCONF #### [facility] [address] [address] [address] Liat Bosch Urea nitrogen [Mass/Vol] 17.0 mg/dL Normal 7.0-18.0 [facility] Comment on above: Performed By: #### T HCCONF #### [facility] [address] [place] [address] Dr. Liat Bosch Urea nitrogen/Creatinine [Mass ratio] 17.0 mg/mg Normal [facility] Comment on above: Performed By: #### T HCCONF #### [facility] [address] [place] [address] Dr. Liat Bosch URINE MICROSCOPIC ONLYon BACTERIA LARGE Abnormal NONE SEEN [facility] Comment on above: Performed By: #### B [id number] #### [facility] [address] [place] [address] Dr. Liat Bosch Bacteria identified Cx Nom (U) INDICATED Normal [facility] Comment on above: Performed By: #### B LDCX2 #### [facility] [address] [place] [address] Dr. Liat Bosch CAST NONE SEEN Normal NONE SEEN [facility] Comment on above: Performed By: #### B LDCX2 #### [facility] [address] [place] [address] Dr. Liat Bosch Crystals LM Nom (Urine sed) NONE SEEN Normal NONE SEEN [facility] Comment on above: Performed By: #### B LDCX2 #### [facility] [address] [place] [address] Dr. Liat Bosch Epithelial cells LM Ql (Urine sed) FEW Abnormal NONE SEEN /RARE [facility] Comment on above: Performed By: #### B LDCX2 #### [facility] [address] [place] [address] Dr. Liat Bosch MUCOUS NONE SEEN Normal NONE SEEN [facility] Comment on above: Performed By: #### B LDCX2 #### [facility] [address] [place] [address] Dr. Liat Bosch RBC 50-75 Abnormal 0-2 [facility] Comment on above: Performed By: #### B LDCX2 #### [facility] [address] [place] [address] Dr. Liat Bosch WBC (U) [#/Vol] /uL Abnormal NONE SEEN [facility] Comment on above: Performed By: #### B LDCX2 #### [facility] [address] [place], [place] [address] Dr. Liat Bosch Provider Letteron 07-22-2021 Provider Letter July 22, 2021 NIKOLAY BIANCHI [address] [place] [id number] [place] NIKOLAY 2000 Dear Ms. Miles, This letter is to inform you that the providers of [facility] will no longer be responsible for your routine medical care. Emergency care only will be provided for the thirty (30) days following this letter. During this time period we suggest that you find another physician for your medical needs. A listing of area physicians can be found on [facility]'s website at [email or web address] or you may contact your health plan. We will be glad to forward your records to your new physician as long as we receive a signed release of records form. Sincerely, Dr. Wiliam Thakur [address] [place] [id number] [facility] Patient Educationon 07-14-19 Patient Education Urology Kidney Stones Kidney stones are rock-like masses that form inside of the kidneys. Kidneys are organs that make pee (urine). A kidney stone may move into other parts of the urinary tract, including: ? The tubes that connect the kidneys to the bladder (ureters). ? The bladder. ? The tube that carries urine out of the body (urethra). Kidney stones can cause very bad pain and can block the flow of pee. The stone usually leaves your body (passes) through your pee. You may need to have a doctor take out the stone. What are the causes? Kidney stones may be caused by: ? A condition in which certain glands make too much parathyroid hormone (primary hyperparathyroidism ). ? A buildup of a type of crystals in the bladder made of a chemical called uric acid. The body makes uric acid when you eat certain foods. ? Narrowing (stricture) of one or both of the ureters. ? A kidney blockage that you were born with. ? Past surgery on the kidney or the ureters, such as gastric bypass surgery. What increases the risk? You are more likely to develop this condition if: ? You have had a kidney stone in the past. ? You have a family history of kidney stones. ? You do not drink enough water. ? You eat a diet that is high in protein, salt (sodium), or sugar. ? You are overweight or very overweight (obese). What are the signs or symptoms? Symptoms of a kidney stone may include: ? Pain in the side of the belly, right below the ribs (flank pain). Pain usually spreads (radiates) to the groin. ? Needing to pee often or right away (urgently). ? Pain when going pee (urinating). ? Blood in your pee (hematuria). ? Feeling like you may vomit (nauseous). ? Vomiting. ? Fever and chills. How is this treated? Treatment depends on the size, location, and makeup of the kidney stones. The stones will often pass out of the body through peeing. You may need to: ? Drink more fluid to help pass the stone. In some cases, you may be given fluids through an IV tube put into one of your veins at the hospital. ? Take medicine for pain. ? Make changes in your diet to help keep kidney stones from coming back. Sometimes, medical procedures are needed to remove a kidney stone. This may involve: ? A procedure to break up kidney stones using a beam of light (laser) or shock waves. ? Surgery to remove the kidney stones. Follow these instructions at home: Medicines ? Take [id number]-[id number] and prescription medicines only as told by your doctor. ? Ask your doctor if the medicine prescribed to you requires you to avoid driving or using heavy machinery. Eating and drinking ? Drink enough fluid to keep your pee pale yellow. You may be told to drink at least 8?10 glasses of water each day. This will help you pass the stone. ? If told by your doctor, change your diet. This may include: ? Limiting how much salt you eat. ? Eating more fruits and vegetables. ? Limiting how much meat, poultry, fish, and eggs you eat. ? Follow instructions from your doctor about eating or drinking restrictions. General instructions ? Collect pee samples as told by your doctor. You may need to collect a pee sample: ? 24 hours after a stone comes out. ? 8?12 weeks after a stone comes out, and every 6?12 months after that. ? Strain your pee every time you pee (urinate), for as long as told. Use the strainer that your doctor recommends. ? Do not throw out the stone. Keep it so that it can be tested by your doctor. ? Keep all follow-up visits as told by your doctor. This is important. You may need follow-up tests. How is this prevented? To prevent another kidney stone: ? Drink enough fluid to keep your pee pale yellow. This is the best way to prevent kidney stones. ? Eat healthy foods. ? Avoid certain foods as told by your doctor. You may be told to eat less protein. ? Stay at a healthy weight. Where to find more information ? National Kidney Foundation (NKF): www.kidney.org ? [employer] (UCF): www.urologyhealth.o rg Contact a doctor if: ? You have pain that gets worse or does not get better with medicine. Get help right away if: ? You have a fever or chills. ? You get very bad pain. ? You get new pain in your belly (abdomen). ? You pass out (faint). ? You cannot pee. Summary ? Kidney stones are rock-like masses that form inside of the kidneys. ? Kidney stones can cause very bad pain and can block the flow of pee. ? The stones will often pass out of the body through peeing. ? Drink enough fluid to keep your pee pale yellow. This information is not intended to replace advice given to you by your health care provider. Make sure you discuss any questions you have with your health care provider. Document Released: 08/09/2008 Document Revised: 07/10/2019 Document Reviewed: 07/10/2019 [employer] Patient Education ? 2019 [employer] [facility] Provider Letteron 07-13-2021 Provider Letter July 13, 2021 NIKOLAY MILES [address] [place] [id number] NIKOLAY MILES 2000 Dear Kira, You missed your scheduled appointment on: July 13, 2021 and the purpose of this letter is to inform you of our *No Show Policy*. Our appointment slots fill rapidly and when we have a no show appointment that time is lost. We could have used that time slot to care for a patient who needed to see one of our providers. Therefore, we ask that you call 24 hours in advance to cancel your appointment. This policy is in place so that we can meet the needs of all of our patients and we do appreciate your understanding. Sincerely, [facility] [address] [place] [address] [place] [address] [facility] Patient Letter FTon 2021 Patient [place] [facility], [place] NIKOLAY MILES [address] [place] [address] NIKOLAY MILES 2000 Dear Ms. Miles, I am corresponding with you by certified mail because you have a medical condition known as Kidney Stones. This requires an in office procedure known as a Cystoscopy, and Stent Removal. My office has tried contacting you to get this scheduled with no response, and you have no showed your last two appointments. The stent needs to be removed SHEA. Please contact my office at your earliest convenience and we will get you scheduled so your condition can be closely monitored. I cannot be responsible for your urological care if you do not follow up as recommended. Office Sincerely, Dr. Wiliam Thakur [address] [place] [address]. [place] [address] [facility] Provider Letteron 04-28-2021 Provider Letter April 28, 2021 NIKOLAY MILES [address] [place] [address] NIKOLAY MILES 2000 Dear Kira , You missed your scheduled appointment on: April and the purpose of this letter is to inform you of our *No Show Policy*. Our appointment slots fill rapidly and when we have a no show appointment that time is lost. We could have used that time slot to care for a patient who needed to see one of our providers. Therefore, we ask that you call 24 hours in advance to cancel your appointment. This policy is in place so that we can meet the needs of all of our patients and we do appreciate your understanding. Sincerely, [facility] [address], [place] [address] [facility] RAD - MISCon 04-28-2021 RAD - MISC [phone] [id number] [facility] XR KUB 1 VIEWon 04-24-2021 XR KUB 1 VIEW EXAMINATION: XR KUB 1 VIEW HISTORY: Kidney stone ; recent right kidney stone and stent placement COMPARISON: No relevant comparison available. FINDINGS: KIDNEY/URETER - RIGHT: Right ureteral stent appearing to be in good position. No visible urinary tract stones. KIDNEY/URETER - LEFT: No visible renal or ureteral calcifications. PELVIS: No visible ureteral stones. BOWEL: No abnormal dilation or deviation. BONES: No acute abnormality. OTHER: Negative. No abnormal gaseous collections. IMPRESSION: 1. Right ureteral stent appearing in good position. 2. No visible urinary tract calculi bilaterally. Electronically authenticated by: JANE WHALEN Date: 2021-04-24 16:31 Normal [facility] CANNABINOID (THC) CONFIRMATI ON, URINEon 04-16-2021 Cannabinoid Positive Abnormal [facility] Comment on above: Performed By: #### T HCCONF #### [facility] [address] [address] [address] Liat Bradshaw THC GC/MS Conf 13 ng/mL Normal Cutoff=10 [facility] Comment on above: Performed By: #### T HCCONF #### [facility] [address] [address] [address] Liat Bosch CBC AUTO DIFFon 04-06-2021 BASO # 0.0 103/ul Normal 0.0-0.1 [facility] Comment on above: Performed By: #### T HCCONF #### [facility] [address] [address] [address] Liat Bosch Basophils/100 WBC (Bld) 0.4 % Normal 0.2-2.0 [facility] Comment on above: Performed By: #### T HCCONF #### [facility] [address] [address] [address] Liat Bosch EO # 0.3 103/ul Normal 0.0-0.7 [facility] Comment on above: Performed By: #### T HCCONF #### [facility] [address] [place] [address] Dr. Liat Bosch Eosinophils/100 WBC (Bld) 2.5 % Normal 0.9-7.0 [facility] Comment on above: Performed By: #### T HCCONF #### [facility] [address] [place] [address] Dr. Liat Bosch Erythrocyte distribution width (RBC) [Ratio] 17.7 % Critically high 11.0-15.0 [facility] Comment on above: Performed By: #### T HCCONF #### [facility] [address] [place] [address] Dr. Liat Bosch Hematocrit (Bld) [Volume fraction] 30.0 % Critically low 36.0-48.0 [facility] Comment on above: Performed By: #### T HCCONF #### [facility] [address] [place] [address] Dr. Liat Bosch Hemoglobin (Bld) [Mass/Vol] 10.0 g/dL Critically low 12.0-16.0 [facility] Comment on above: Performed By: #### T HCCONF #### [facility] [address] [place] [address] Dr. Liat Bosch IG # 0.06 10e3/ul Critically high 0.00-0.03 [facility] Comment on above: Performed By: #### T HCCONF #### [facility] [address] [place] [address] Dr. Liat Bosch IG % 0.5 % Normal 0.0-0.5 [facility] Comment on above: Performed By: #### T HCCONF #### [facility] [address] [place] [address] Dr. Liat Bosch LYMPH # 3.8 103/ul Normal 1.2-3.8 [facility] Comment on above: Performed By: #### T HCCONF #### [facility] [address] [place] [address] Dr. Liat Bosch Lymphocytes/100 WBC (Bld) 34.1 % Normal 20.5-60.0 [facility] Comment on above: Performed By: #### T HCCONF #### [facility] [address] [place] [address] Dr. Liat Bosch MANUAL DIFF REQ NO Normal [facility] Comment on above: Performed By: #### T HCCONF #### [facility] [address] [place] [address] Dr. Liat Bosch MCH (RBC) [Entitic mass] 29.6 pg Normal 26.7-34.0 [facility] Comment on above: Performed By: #### T HCCONF #### [facility] [address] [place] [address] Dr. Liat Bosch MCHC (RBC) [Mass/Vol] 33.3 g/dL Normal 29.9-35.2 [facility] Comment on above: Performed By: #### T HCCONF #### [facility] [address] [place] [address] Dr. Liat Bosch MCV (RBC) [Entitic vol] 88.8 fL Normal 81.0-99.0 [facility] Comment on above: Performed By: #### T HCCONF #### [facility] [address] [place] [address] Dr. Liat Bosch MONO # 0.7 103/ul Normal 0.3-0.8 [facility] Comment on above: Performed By: #### T HCCONF #### [facility] [address] [place] [address] Dr. Liat Bosch Monocytes/100 WBC (Bld) 5.9 % Normal 1.7-12.0 [facility] Comment on above: Performed By: #### T HCCONF #### [facility] [address] [place] [address] Dr. Lita Bosch NEUT # 6.3 103/ul Normal 1.4-6.5 [facility] Comment on above: Performed By: #### T HCCONF #### [facility] [address] [place] [address] Dr. Liat Bosch Neutrophils/100 WBC (Bld) 56.6 % Normal 43.0-75.0 [facility] Comment on above: Performed By: #### T HCCONF #### [facility] [address] [place] [address] Dr. Liat Bosch Platelet mean volume (Bld) [Entitic vol] 8.7 fL Critically low 9.5-13.5 [facility] Comment on above: Performed By: #### T HCCONF #### [facility] [address] [place] [address] Dr. Liat Bosch PLT 257 103/ul Normal 150-450 [facility] Comment on above: Performed By: #### T HCCONF #### [facility] [address] [place] [address] Dr. Liat Bosch RBC 3.38 106/ul Critically low 4.20-5.40 [facility] Comment on above: Performed By: #### T HCCONF #### [facility] [address] [place] [address] Dr. Liat Bosch WBC 11.1 103/ul Critically high 4.0-11.0 [facility] Comment on above: Performed By: #### T HCCONF #### [facility] [address] [place] [address] Dr. Liat Bosch ASYMPTOMATIC COVID-19 ANTIGE Non 04-04-2021 EUA Statement SEE BELOW Normal [facility] Comment on above: Result Comment: This test has not been FDA cleared or approved, but has been authorized by the FDA under an Emergency Use Authorization (EUA) for use by authorized laboratories certified under CLIA that meet the requirements to perform moderate or high complexity testing. This test has been authorized only for the detection of proteins from SARS-CoV-2, not for any other viruses or pathogens. The emergency use of this test is authorized for the duration of the declaration that circumstances exist justifying the authorization of emergency use of in vitro diagnostic tests for detection and/or diagnosis of Covid-19 under section 564(b)(1) of the Act, 21 U.S.C. 360bbb-3(b)(1), unless the declaration is terminated or authorization is revoked sooner. Performed By: #### N BOX #### [facility] [address] [place] [address] Nakul Martines SARS-CoV-2 (COVID-19) RNA ISABEL+probe Ql (Unsp spec) Negative Normal NEGATIVE [facility] Comment on above: Result Comment: Nega tive results are presumptive. They do not preclude infection and should not be used as the sole basis for treatment decisions. Additional confirmatory testing by a molecular method should be considered. Performed By: #### N BOX #### [facility] [address] [place] [address] Nakul Martines CBC AUTO DIFFon 04-04-2021 BASO # 0.0 103/ul Normal 0.0-0.1 [facility] Comment on above: Performed By: #### B LDCX2 #### [facility] [address] [place] [address] Dr. Liat Bosch Basophils/100 WBC (Bld) 0.2 % Normal 0.2-2.0 [facility] Comment on above: Performed By: #### B LDCX2 #### [facility] [address] [place] [address] Dr. Liat Bosch EO # 0.2 103/ul Normal 0.0-0.7 [facility] Comment on above: Performed By: #### B LDCX2 #### [facility] [address] [place] [address] Dr. Liat Bosch Eosinophils/100 WBC (Bld) 1.9 % Normal 0.9-7.0 [facility] Comment on above: Performed By: #### B LDCX2 #### [facility] [address] [place] [address] Dr. Liat Bosch Erythrocyte distribution width (RBC) [Ratio] 17.7 % Critically high 11.0-15.0 [facility] Comment on above: Performed By: #### B LDCX2 #### [facility] [address] [place] [address] Dr. Liat Bosch Hematocrit (Bld) [Volume fraction] 34.0 % Critically low 36.0-48.0 [facility] Comment on above: Performed By: #### B LDCX2 #### [facility] [address] [place] [address] Dr. Liat Bosch Hemoglobin (Bld) [Mass/Vol] 11.1 g/dL Critically low 12.0-16.0 [facility] Comment on above: Performed By: #### B LDCX2 #### [facility] [address] [place] [address] Dr. Liat Bosch IG # 0.07 10e3/ul Critically high 0.00-0.03 [facility] Comment on above: Performed By: #### B LDCX2 #### [facility] [address] [place] [address] Dr. Liat Bosch IG % 0.8 % Critically high 0.0-0.5 [facility] Comment on above: Performed By: #### B LDCX2 #### [facility] [address] [place] [address] Dr. Liat Bosch LYMPH # 2.5 103/ul Normal 1.2-3.8 [facility] Comment on above: Performed By: #### B LDCX2 #### [facility] [address] [place] [address] Dr. Liat Bosch Lymphocytes/100 WBC (Bld) 27.7 % Normal 20.5-60.0 [facility] Comment on above: Performed By: #### B LDCX2 #### [facility] [address] [place] [address] Dr. Liat Bosch MANUAL DIFF REQ NO Normal [facility] Comment on above: Performed By: #### B LDCX2 #### [facility] [address] [place] [address] Dr. Liat Bosch MCH (RBC) [Entitic mass] 28.9 pg Normal 26.7-34.0 [facility] Comment on above: Performed By: #### B LDCX2 #### [facility] [address] [place] [address] Dr. Liat Bosch MCHC (RBC) [Mass/Vol] 32.6 g/dL Normal 29.9-35.2 [facility] Comment on above: Performed By: #### B LDCX2 #### [facility] [address] [place] [address] Dr. Liat Bosch MCV (RBC) [Entitic vol] 88.5 fL Normal 81.0-99.0 [facility] Comment on above: Performed By: #### B [id number] #### [facility] [address] [place] [address] Dr. Liat Bosch MONO # 0.5 103/ul Normal 0.3-0.8 [facility] Comment on above: Performed By: #### B [id number] #### [facility] [address] [place] [address] Dr. Liat Bosch Monocytes/100 WBC (Bld) 5.6 % Normal 1.7-12.0 [facility] Comment on above: Performed By: #### B [id number] #### [facility] [address] [place] [address] Dr. Liat Bosch NEUT # 5.8 103/ul Normal 1.4-6.5 [facility] Comment on above: Performed By: #### B [id number] #### [facility] [address] [place] [address] Dr. Liat Bosch Neutrophils/100 WBC (Bld) 63.8 % Normal 43.0-75.0 [facility] Comment on above: Performed By: #### B [id number] #### [facility] [address] [place] [address] Dr. Liat Bosch Platelet mean volume (Bld) [Entitic vol] 9.1 fL Critically low 9.5-13.5 [facility] Comment on above: Performed By: #### B LDCX2 #### [facility] [address] [place] [address] Dr. Liat Bosch PLT 333 103/ul Normal 150-450 [facility] Comment on above: Performed By: #### B [id number] #### [facility] [address] [place] [address] Dr. Liat Bosch RBC 3.84 106/ul Critically low 4.20-5.40 [facility] Comment on above: Performed By: #### B [id number] #### [facility] [address] [place] [address] Dr. Liat Bosch WBC 9.0 103/ul Normal 4.0-11.0 [facility] Comment on above: Performed By: #### B [id number] #### [facility] [address] [place] [address] Dr. Liat Bosch DRUG SCREEN RAPID (URINE)on 04-04-2021 AMP Negative Normal NEGATIVE [facility] Comment on above: Performed By: #### B [id number] #### [facility] [address] [place] [address] Dr. Liat Bosch BAR Negative Normal NEGATIVE [facility] Comment on above: Performed By: #### B [id number] #### [facility] [address] [place] [address] Dr. Liat Bosch BUP Negative Normal NEGATIVE [facility] Comment on above: Performed By: #### B [id number] #### [facility] [address] [place] [address] Dr. Liat Bosch BZO Negative Normal NEGATIVE [facility] Comment on above: Performed By: #### B [id number] #### [facility] [address] [place] [address] Dr. Liat Bosch YAN Negative Normal NEGATIVE [facility] Comment on above: Performed By: #### B [id number] #### [facility] [address] [place] [address] Dr. Liat Bosch CUT-OFFS SEE BELOW Normal [facility] Comment on above: Result Comment: AMP (Amphetamine): 500ng/mL, BAR (Barbituates): 200 ng/mL, BZO (Benzodiazepines): 150 ng/mL, BUP (Buprenorphine): 10 ng/mL, YAN (Cocaine): 150 ng/mL, mAMP (Methamphetamine): 500 ng/mL, MTD (Methadone): 200 ng/mL, OPI (Opiates): 100 ng/mL, OXY (Oxycodone): 100 ng/mL, PCP (Phencyclidine): 25 ng/mL, PPX (Propoxyphene): 300 ng/mL, THC (Cannabinoids): 50 ng/mL, TCA (Trycyclic Antidepressants): 300 ng/mL Performed By: #### B [id number] #### [facility] [address] [place] [address] Dr. Liat Bosch DRUG CUT HEADER DRUG CLASS TEST SYSTEM CUT-OFF CONCENTRATIONS ARE FOLLOWS: Normal [facility] Comment on above: Performed By: #### B LDCX2 #### [facility] [address] [place] [address] Dr. Liat Bosch mAMP Negative Normal NEGATIVE [facility] Comment on above: Performed By: #### B [id number] #### [facility] [address] [place] [address] Dr. Liat Bosch MTD Negative Normal NEGATIVE [facility] Comment on above: Performed By: #### B LDCX2 #### [facility] [address] [place] [address] Dr. Liat Bosch OPI Negative Normal NEGATIVE [facility] Comment on above: Performed By: #### B LDCX2 #### [facility] [address] [place] [address] Dr. Liat Bosch OXY Negative Normal NEGATIVE [facility] Comment on above: Performed By: #### B LDCX2 #### [facility] [address] [place] [address] Dr. Liat Bosch PCP Negative Normal NEGATIVE [facility] Comment on above: Performed By: #### B LDCX2 #### [facility] [address] [place] [address] Dr. Liat Bosch PPX Negative Normal NEGATIVE [facility] Comment on above: Performed By: #### B LDCX2 #### [facility] [address] [place] [address] Dr. Liat Bosch TCA Negative Normal NEGATIVE [facility] Comment on above: Performed By: #### B LDCX2 #### [facility] [address] [place] [address] Dr. Liat Bosch THC Positive Abnormal NEGATIVE [facility] Comment on above: Performed By: #### B [id number] #### [facility] [address] [address] [address] Liat Bosch TYPE AND SCREENon 04-04-2021 TYPE AND SCREEN Negative Normal [facility] Comment on above: Performed By: #### N BOX #### [facility] [address] [address] Nakul Martines CHLAMYDIA/GONOCOCCUS ISABEL (SW AB/URINE/PAPon 04-02-2021 Chlamydia trachomatis, ISABEL Negative Normal Negative [facility] Comment on above: Performed By: #### B LDCX2 #### [facility] [address] [address] [address] Liat Bosch Neisseria gonorrhoeae, ISABEL Negative Normal Negative [facility] Comment on above: Performed By: #### B LDCX2 #### [facility] [address] [place] [address] Dr. Liat Bosch GROUP B STREP CULTUREon 03-08 S. agalactiae Ag Ql (Unsp spec) Culture Observations: NEGATIVE FOR GROUP B STREPTOCOCCUS. Normal [facility] Comment on above: Performed By: #### N BOX #### [facility] [address] [place] [address] Nakul Martines RAD - Ultrasound Reporton RAD - Ultrasound Report [id number] [id number] [facility] Reminderson 03-26-2021 Reminders -- From: Debbie Miranda To: [facility] - Clinical; Debbie Miranda; Sent: 03/25/2021 13:40:52 EST Show up: 03/26/2021 13:40:00 EST Subject: renal [facility] 03-25-21 at 2:30pm -show Dr wynn results, pt has ureteral stent and kidney stones -patient needs to see new provider due to her insurance not covered with Dr Wynn sent msg to Dr Wynn to review results Normal [facility] Ambulatory Visit Summaryon 0 03-25-2021 Ambulatory Visit Summary NIKOLAY MILES :2000 Visit Date:03/25/2021 Ambulatory Visit Instructions Your Diagnosis Kidney stone Tests Performed US Renal -- Results Pending -- You will be contacted within 72 hours with your results. Your Care Team Attending Physician - Nathalia Wynn MD Discharge Vitals Heart Rate (Peripheral) 72 Blood Pressure 132/85 Height 160.0 cm Height 160 cm Weight 78.0 kg Weight 78 kg BMI 30.47 Allergies No Known Allergies Problems Ongoing - Any problem that you are currently receiving treatment for. Anemia Arthritis Kidney stone Education Materials Kidney Stones Kidney stones are rock-like masses that form inside of the kidneys. Kidneys are organs that make pee (urine). A kidney stone may move into other parts of the urinary tract, including: ? The tubes that connect the kidneys to the bladder (ureters). ? The bladder. ? The tube that carries urine out of the body (urethra). Kidney stones can cause very bad pain and can block the flow of pee. The stone usually leaves your body (passes) through your pee. You may need to have a doctor take out the stone. What are the causes? Kidney stones may be caused by: ? A condition in which certain glands make too much parathyroid hormone (primary hyperparathyroidism ). ? A buildup of a type of crystals in the bladder made of a chemical called uric acid. The body makes uric acid when you eat certain foods. ? Narrowing (stricture) of one or both of the ureters. ? A kidney blockage that you were born with. ? Past surgery on the kidney or the ureters, such as gastric bypass surgery. What increases the risk? You are more likely to develop this condition if: ? You have had a kidney stone in the past. ? You have a family history of kidney stones. ? You do not drink enough water. ? You eat a diet that is high in protein, salt (sodium), or sugar. ? You are overweight or very overweight (obese). What are the signs or symptoms? Symptoms of a kidney stone may include: ? Pain in the side of the belly, right below the ribs (flank pain). Pain usually spreads (radiates) to the groin. ? Needing to pee often or right away (urgently). ? Pain when going pee (urinating). ? Blood in your pee (hematuria). ? Feeling like you may vomit (nauseous). ? Vomiting. ? Fever and chills. How is this treated? Treatment depends on the size, location, and makeup of the kidney stones. The stones will often pass out of the body through peeing. You may need to: ? Drink more fluid to help pass the stone. In some cases, you may be given fluids through an IV tube put into one of your veins at the hospital. ? Take medicine for pain. ? Make changes in your diet to help keep kidney stones from coming back. Sometimes, medical procedures are needed to remove a kidney stone. This may involve: ? A procedure to break up kidney stones using a beam of light (laser) or shock waves. ? Surgery to remove the kidney stones. Follow these instructions at home: Medicines ? Take vcji-qfl-zsvfafh and prescription medicines only as told by your doctor. ? Ask your doctor if the medicine prescribed to you requires you to avoid driving or using heavy machinery. Eating and drinking ? Drink enough fluid to keep your pee pale yellow. You may be told to drink at least 8?10 glasses of water each day. This will help you pass the stone. ? If told by your doctor, change your diet. This may include: ? Limiting how much salt you eat. ? Eating more fruits and vegetables. ? Limiting how much meat, poultry, fish, and eggs you eat. ? Follow instructions from your doctor about eating or drinking restrictions. General instructions ? Collect pee samples as told by your doctor. You may need to collect a pee sample: ? 24 hours after a stone comes out. ? 8?12 weeks after a stone comes out, and every 6?12 months after that. ? Strain your pee every time you pee (urinate), for as long as told. Use the strainer that your doctor recommends. ? Do not throw out the stone. Keep it so that it can be tested by your doctor. ? Keep all follow-up visits as told by your doctor. This is important. You may need follow-up tests. How is this prevented? To prevent another kidney stone: ? Drink enough fluid to keep your pee pale yellow. This is the best way to prevent kidney stones. ? Eat healthy foods. ? Avoid certain foods as told by your doctor. You may be told to eat less protein. ? Stay at a healthy weight. Where to find more information ? National Kidney Foundation (NKF): www.kidney.org ? [employer] (UCF): www.urologyhealth.o rg Contact a doctor if: ? You have pain that gets worse or does not get better with medicine. Get help right away if: ? You have a fever or chills. ? You get very b (more content not included)... Normal [facility] Ambulatory Visit Summary NIKOLAY MILES :2000 Visit Date:03/25/2021 Ambulatory Visit Instructions Your Diagnosis Kidney stone Your Care Team Attending Physician - Nathalia Wynn MD Discharge Vitals Heart Rate (Peripheral) 72 Blood Pressure 132/85 Height 160.0 cm Height 160 cm Weight 78.0 kg Weight 78 kg BMI 30.47 Allergies No Known Allergies Problems Ongoing - Any problem that you are currently receiving treatment for. Anemia Arthritis Kidney stone Education Materials Kidney Stones Kidney stones are rock-like masses that form inside of the kidneys. Kidneys are organs that make pee (urine). A kidney stone may move into other parts of the urinary tract, including: ? The tubes that connect the kidneys to the bladder (ureters). ? The bladder. ? The tube that carries urine out of the body (urethra). Kidney stones can cause very bad pain and can block the flow of pee. The stone usually leaves your body (passes) through your pee. You may need to have a doctor take out the stone. What are the causes? Kidney stones may be caused by: ? A condition in which certain glands make too much parathyroid hormone (primary hyperparathyroidism ). ? A buildup of a type of crystals in the bladder made of a chemical called uric acid. The body makes uric acid when you eat certain foods. ? Narrowing (stricture) of one or both of the ureters. ? A kidney blockage that you were born with. ? Past surgery on the kidney or the ureters, such as gastric bypass surgery. What increases the risk? You are more likely to develop this condition if: ? You have had a kidney stone in the past. ? You have a family history of kidney stones. ? You do not drink enough water. ? You eat a diet that is high in protein, salt (sodium), or sugar. ? You are overweight or very overweight (obese). What are the signs or symptoms? Symptoms of a kidney stone may include: ? Pain in the side of the belly, right below the ribs (flank pain). Pain usually spreads (radiates) to the groin. ? Needing to pee often or right away (urgently). ? Pain when going pee (urinating). ? Blood in your pee (hematuria). ? Feeling like you may vomit (nauseous). ? Vomiting. ? Fever and chills. How is this treated? Treatment depends on the size, location, and makeup of the kidney stones. The stones will often pass out of the body through peeing. You may need to: ? Drink more fluid to help pass the stone. In some cases, you may be given fluids through an IV tube put into one of your veins at the hospital. ? Take medicine for pain. ? Make changes in your diet to help keep kidney stones from coming back. Sometimes, medical procedures are needed to remove a kidney stone. This may involve: ? A procedure to break up kidney stones using a beam of light (laser) or shock waves. ? Surgery to remove the kidney stones. Follow these instructions at home: Medicines ? Take ctwp-adb-mmqvrco and prescription medicines only as told by your doctor. ? Ask your doctor if the medicine prescribed to you requires you to avoid driving or using heavy machinery. Eating and drinking ? Drink enough fluid to keep your pee pale yellow. You may be told to drink at least 8?10 glasses of water each day. This will help you pass the stone. ? If told by your doctor, change your diet. This may include: ? Limiting how much salt you eat. ? Eating more fruits and vegetables. ? Limiting how much meat, poultry, fish, and eggs you eat. ? Follow instructions from your doctor about eating or drinking restrictions. General instructions ? Collect pee samples as told by your doctor. You may need to collect a pee sample: ? 24 hours after a stone comes out. ? 8?12 weeks after a stone comes out, and every 6?12 months after that. ? Strain your pee every time you pee (urinate), for as long as told. Use the strainer that your doctor recommends. ? Do not throw out the stone. Keep it so that it can be tested by your doctor. ? Keep all follow-up visits as told by your doctor. This is important. You may need follow-up tests. How is this prevented? To prevent another kidney stone: ? Drink enough fluid to keep your pee pale yellow. This is the best way to prevent kidney stones. ? Eat healthy foods. ? Avoid certain foods as told by your doctor. You may be told to eat less protein. ? Stay at a healthy weight. Where to find more information ? National Kidney Foundation (NKF): www.kidney.org ? [employer] (UCF): www.urologyhealth.o rg Contact a doctor if: ? You have pain that gets worse or does not get better with medicine. Get help right away if: ? You have a fever or chills. ? You get very bad pain. ? You get new pain in your belly (abdomen). ? You pass out (faint). ? You cannot pee. S (more content not included)... Normal [facility] Ambulatory Visit Summary NIKOLAY MILES :2000 Visit Date:03/25/2021 Ambulatory Visit Instructions Your Diagnosis Kidney stone Your Care Team Attending Physician - Nathalia Wynn MD Discharge Vitals Heart Rate (Peripheral) 72 Blood Pressure 132/85 Height 160.0 cm Height 160 cm Weight 78.0 kg Weight 78 kg BMI 30.47 Allergies No Known Allergies Problems Ongoing - Any problem that you are currently receiving treatment for. Anemia Arthritis Kidney stone Education Materials Kidney Stones Kidney stones are rock-like masses that form inside of the kidneys. Kidneys are organs that make pee (urine). A kidney stone may move into other parts of the urinary tract, including: ? The tubes that connect the kidneys to the bladder (ureters). ? The bladder. ? The tube that carries urine out of the body (urethra). Kidney stones can cause very bad pain and can block the flow of pee. The stone usually leaves your body (passes) through your pee. You may need to have a doctor take out the stone. What are the causes? Kidney stones may be caused by: ? A condition in which certain glands make too much parathyroid hormone (primary hyperparathyroidism ). ? A buildup of a type of crystals in the bladder made of a chemical called uric acid. The body makes uric acid when you eat certain foods. ? Narrowing (stricture) of one or both of the ureters. ? A kidney blockage that you were born with. ? Past surgery on the kidney or the ureters, such as gastric bypass surgery. What increases the risk? You are more likely to develop this condition if: ? You have had a kidney stone in the past. ? You have a family history of kidney stones. ? You do not drink enough water. ? You eat a diet that is high in protein, salt (sodium), or sugar. ? You are overweight or very overweight (obese). What are the signs or symptoms? Symptoms of a kidney stone may include: ? Pain in the side of the belly, right below the ribs (flank pain). Pain usually spreads (radiates) to the groin. ? Needing to pee often or right away (urgently). ? Pain when going pee (urinating). ? Blood in your pee (hematuria). ? Feeling like you may vomit (nauseous). ? Vomiting. ? Fever and chills. How is this treated? Treatment depends on the size, location, and makeup of the kidney stones. The stones will often pass out of the body through peeing. You may need to: ? Drink more fluid to help pass the stone. In some cases, you may be given fluids through an IV tube put into one of your veins at the hospital. ? Take medicine for pain. ? Make changes in your diet to help keep kidney stones from coming back. Sometimes, medical procedures are needed to remove a kidney stone. This may involve: ? A procedure to break up kidney stones using a beam of light (laser) or shock waves. ? Surgery to remove the kidney stones. Follow these instructions at home: Medicines ? Take lsxn-wzb-bldklis and prescription medicines only as told by your doctor. ? Ask your doctor if the medicine prescribed to you requires you to avoid driving or using heavy machinery. Eating and drinking ? Drink enough fluid to keep your pee pale yellow. You may be told to drink at least 8?10 glasses of water each day. This will help you pass the stone. ? If told by your doctor, change your diet. This may include: ? Limiting how much salt you eat. ? Eating more fruits and vegetables. ? Limiting how much meat, poultry, fish, and eggs you eat. ? Follow instructions from your doctor about eating or drinking restrictions. General instructions ? Collect pee samples as told by your doctor. You may need to collect a pee sample: ? 24 hours after a stone comes out. ? 8?12 weeks after a stone comes out, and every 6?12 months after that. ? Strain your pee every time you pee (urinate), for as long as told. Use the strainer that your doctor recommends. ? Do not throw out the stone. Keep it so that it can be tested by your doctor. ? Keep all follow-up visits as told by your doctor. This is important. You may need follow-up tests. How is this prevented? To prevent another kidney stone: ? Drink enough fluid to keep your pee pale yellow. This is the best way to prevent kidney stones. ? Eat healthy foods. ? Avoid certain foods as told by your doctor. You may be told to eat less protein. ? Stay at a healthy weight. Where to find more information ? National Kidney Foundation (NKF): www.kidney.org ? [facility] (UCF): www.urologyhealth.o rg Contact a doctor if: ? You have pain that gets worse or does not get better with medicine. Get help right away if: ? You have a fever or chills. ? You get very bad pain. ? You get new pain in your belly (abdomen). ? You pass out (faint). ? You cannot pee. S (more content not included)... Normal [facility] Patient Educationon 03-25-19 Patient Education Urology Kidney Stones Kidney stones are rock-like masses that form inside of the kidneys. Kidneys are organs that make pee (urine). A kidney stone may move into other parts of the urinary tract, including: ? The tubes that connect the kidneys to the bladder (ureters). ? The bladder. ? The tube that carries urine out of the body (urethra). Kidney stones can cause very bad pain and can block the flow of pee. The stone usually leaves your body (passes) through your pee. You may need to have a doctor take out the stone. What are the causes? Kidney stones may be caused by: ? A condition in which certain glands make too much parathyroid hormone (primary hyperparathyroidism ). ? A buildup of a type of crystals in the bladder made of a chemical called uric acid. The body makes uric acid when you eat certain foods. ? Narrowing (stricture) of one or both of the ureters. ? A kidney blockage that you were born with. ? Past surgery on the kidney or the ureters, such as gastric bypass surgery. What increases the risk? You are more likely to develop this condition if: ? You have had a kidney stone in the past. ? You have a family history of kidney stones. ? You do not drink enough water. ? You eat a diet that is high in protein, salt (sodium), or sugar. ? You are overweight or very overweight (obese). What are the signs or symptoms? Symptoms of a kidney stone may include: ? Pain in the side of the belly, right below the ribs (flank pain). Pain usually spreads (radiates) to the groin. ? Needing to pee often or right away (urgently). ? Pain when going pee (urinating). ? Blood in your pee (hematuria). ? Feeling like you may vomit (nauseous). ? Vomiting. ? Fever and chills. How is this treated? Treatment depends on the size, location, and makeup of the kidney stones. The stones will often pass out of the body through peeing. You may need to: ? Drink more fluid to help pass the stone. In some cases, you may be given fluids through an IV tube put into one of your veins at the hospital. ? Take medicine for pain. ? Make changes in your diet to help keep kidney stones from coming back. Sometimes, medical procedures are needed to remove a kidney stone. This may involve: ? A procedure to break up kidney stones using a beam of light (laser) or shock waves. ? Surgery to remove the kidney stones. Follow these instructions at home: Medicines ? Take whev-npb-rplasdp and prescription medicines only as told by your doctor. ? Ask your doctor if the medicine prescribed to you requires you to avoid driving or using heavy machinery. Eating and drinking ? Drink enough fluid to keep your pee pale yellow. You may be told to drink at least 8?10 glasses of water each day. This will help you pass the stone. ? If told by your doctor, change your diet. This may include: ? Limiting how much salt you eat. ? Eating more fruits and vegetables. ? Limiting how much meat, poultry, fish, and eggs you eat. ? Follow instructions from your doctor about eating or drinking restrictions. General instructions ? Collect pee samples as told by your doctor. You may need to collect a pee sample: ? 24 hours after a stone comes out. ? 8?12 weeks after a stone comes out, and every 6?12 months after that. ? Strain your pee every time you pee (urinate), for as long as told. Use the strainer that your doctor recommends. ? Do not throw out the stone. Keep it so that it can be tested by your doctor. ? Keep all follow-up visits as told by your doctor. This is important. You may need follow-up tests. How is this prevented? To prevent another kidney stone: ? Drink enough fluid to keep your pee pale yellow. This is the best way to prevent kidney stones. ? Eat healthy foods. ? Avoid certain foods as told by your doctor. You may be told to eat less protein. ? Stay at a healthy weight. Where to find more information ? National Kidney Foundation (NKF): www.kidney.org ? [facility] (UCF): www.urologyhealth.o rg Contact a doctor if: ? You have pain that gets worse or does not get better with medicine. Get help right away if: ? You have a fever or chills. ? You get very bad pain. ? You get new pain in your belly (abdomen). ? You pass out (faint). ? You cannot pee. Summary ? Kidney stones are rock-like masses that form inside of the kidneys. ? Kidney stones can cause very bad pain and can block the flow of pee. ? The stones will often pass out of the body through peeing. ? Drink enough fluid to keep your pee pale yellow. This information is not intended to replace advice given to you by your health care provider. Make sure you discuss any questions you have with your health care provider. Document Released: 08/09/2008 Document Revised: 07/10/2019 Document Reviewed: 07/10/2019 [employer] Save Patient Education ? 2019 [employer] Normal [facility] US KIDNEYSon 03-25-2021 US KIDNEYS EXAMINATION: US KIDNEYS HISTORY: Kidney stone COMPARISON: 03/03/2021 TECHNIQUE: Ultrasound examination was performed of the bladder. FINDINGS: Right Kidney: Normal in size, contour and cortical echotexture. No hydronephrosis or solid cortical mass. Echogenic foci likely representing nonobstructing nephrolithiasis. The renal stent is not definitively visualized. The cortex measures 1.9 cm. Height: 5.9 cm Length: 11.1 cm Width: 6.3 cm Left Kidney: Normal in size, contour and echotexture. No solid mass or hydronephrosis. The cortex measures 2.0 cm. Height: 4.9 cm Length: 11.2 cm Width: 5.1 cm Urinary bladder is partially distended, grossly normal. Volume 54 mL. Ureteral stent is observed. IMPRESSION: Ureteral stent is not definitively seen in the right renal pelvis however no hydronephrosis is observed. Electronically authenticated by: VERN TAMAYO Date: 2021-03-25 15:24 Normal [facility] Urology Office/Clinic Noteon 03-25-2021 Urology Office/Clinic Note Chief Complaint Pt is here for PO cysto/stent placement HPI Staff Kira is a 20 y.o. female new patient here for PO cysto/RT retrograde pyelogram/RT ureteral stent placement. Previous Dx: Kidney stone. S/P cysto/RT retrograde pyelogram/RT ureteral stent placement. Pt is 37 weeks and 4 days w/ baby #3. Dysuria: denies Incomplete bladder emptying: denies Hematuria: noticed pink tinge Frequency: yes Urgency: yes Nocturia: 3-4x a night Stream: steady stream Leaking: yes Post void dripping: denies Wearing pads/ Depends: denies Urge incontinence: denies Stress incontinence: yes Incontinence without Sensory Awareness: denies Abdominal pain: denies Flank pain: denies Sexual complaints: _ History of Present Illness reviewed medical history, op report no associated fever, chills, pain or blood. Review of Systems PHQ Score Initial Depression Screen Score: 0 ROS - Provider Constitutional: denies weight loss, denies hot flashes. Eyes: denies eye problems. Gastrointestinal: denies nausea, denies vomiting. Cardiovascular: denies chest pain or angina. Integumentary: no dryness Musculoskeletal: denies musculoskeletal symptoms. ENMT: denies otolaryngeal symptoms. Respiratory: no shortness of breath. Heme/Lymph: denies easy bleeding tendency, denies easy bruising tendency. Psychiatric: no confusion, no anxiety. Genitourinary: see HPI Physical Exam Vitals & Measurements HR: 72(Peripheral) BP: 132/85 HT: 160.0 cm HT: 160 cm WT: 78.0 kg WT: 78 kg BMI: 30.47 General Appearance: alert , no acute distress, well nourished, well developed female. Head: normocephalic . Eyes: normal orbit and globe. ENMT: normal examination of external ears. Chest: Lungs CTA, respirations non labored . Cardiovascular: regular rate and rhythm. Abdomen: soft, non distended, no tenderness, gravid uterus Genitourinary: bladder nonpalpable, no flank tenderness. Lymph Nodes: unremarkable palpation of the cervical area. Skin: warm, dry, no bruising. Psychiatric: cooperative, affect appropriate for age, normal judgement, euthymic mood. Assessment/Plan 20 yo F 37w4d 1. Kidney stone (N20.0: Calculus of kidney) s/p cysto/ RRG/ R stent placement done 03/03/21. CT scan done 03/03/21 shows BL hydronephrosis and right mid ureteral stone approx 1cm. Return of cloudy urine proximal to stone. Pt treated with keflex QID x 10days, pt has only been taking is once a day, skips some days, did not understand how to take med. Denies fever, chills, dysuria or flank pain. Patient did have mild hematuria. Renal US was not done. -Will schedule patient for renal/bladder US with ureteral jets to eval if stent obstructed. Patient is currently 37 weeks , will follow up Tuesday with her OB doctor and find out when she will be delivering. Would like to wait until patient delivers before treating the stone. patient to call if she develops any fever or chills, explained risk of labor. Explained to patient the importance of exchanging the stent every 4-8 weeks. Patient's insurance is not covered with Dr Wynn so need to switch provider will be sorted out to continue treatment for stent and stone. patient is in agreement with this plan. Follow-up No qualifying data available Patient Education Kidney Stones, [id number] IDebbie, personally scribed for Dr. Wynn on 03/25/2021 12:13:17. . Documentation recorded by the scribDebbie maki, accurately reflects the services(s) I performed and decisions made by me. Authenticated by Dr. Wynn on 03/25/2021 12:31:22. Problem List/Past Medical History Ongoing Anemia Arthritis Kidney stone Historical No qualifying data Medications No active medications Allergies No Known Allergies Social History Tobacco - Denies Tobacco Use, 03/05/2021 Former smoker, quit more than 30 days ago Tobacco Use:., 03/25/2021 [facility] Comment on above: Result Comment: Elec tronically Signed By: Kingsley URIAS, Nathalia Willson\.br\Date and Time Signed: 03/25/21 12:31 EST\.br\Electronically Co-Signed By: Debbie Miranda\.br\Date and Time Co-Signed: 03/25/21 12:13 EST Lab Reportson 03-09-2021 Lab Reports [id number] 91#1.00CD:[address] [facility] RAD - CT Reporton 03-09-2021 RAD - CT Report [id number] D3#1.00CD:127 [facility] RAD - Ultrasound Reporton RAD - Ultrasound Report [id number] 88#1.00CD:127 [facility] Insurance Correspondence Off iceon 03-05-2021 Insurance Correspondence Office [id number] 38#1.00CD:127 [facility] Operative Reporton Operative Report [id number] 25#1.00CD:127 [facility] CBC AUTO DIFFon 03-03-2021 BASO # 0.0 103/ul Normal 0.0-0.1 [facility] Comment on above: Performed By: #### B LDCX2 #### [facility] [address] [place] [address] Dr. Liat Bosch Basophils/100 WBC (Bld) 0.2 % Normal 0.2-2.0 [facility] Comment on above: Performed By: #### B LDCX2 #### [facility] [address] [place] [address] Dr. Liat Bosch EO # 0.1 103/ul Normal 0.0-0.7 [facility] Comment on above: Performed By: #### B LDCX2 #### [facility] [address] [place] [address] Dr. Liat Bosch Eosinophils/100 WBC (Bld) 1.1 % Normal 0.9-7.0 [facility] Comment on above: Performed By: #### B LDCX2 #### [facility] [address] [place] [address] Dr. Liat Bosch Erythrocyte distribution width (RBC) [Ratio] 19.3 % Critically high 11.0-15.0 [facility] Comment on above: Performed By: #### B LDCX2 #### [facility] [address] [place] [address] Dr. Liat Bosch Hematocrit (Bld) [Volume fraction] 30.3 % Critically low 36.0-48.0 [facility] Comment on above: Performed By: #### B LDCX2 #### [facility] [address] [place] [address] Dr. Liat Bosch Hemoglobin (Bld) [Mass/Vol] 9.3 g/dL Critically low 12.0-16.0 [facility] Comment on above: Performed By: #### B LDCX2 #### [facility] [address] [place] [address] Dr. Liat Bosch IG # 0.11 10e3/ul Critically high 0.00-0.03 [facility] Comment on above: Performed By: #### B LDCX2 #### [facility] [address] [place] [address] Dr. Liat Bosch IG % 0.9 % Critically high 0.0-0.5 [facility] Comment on above: Performed By: #### B LDCX2 #### [facility] [address] [address] [address] Liat Bosch LYMPH # 2.1 103/ul Normal 1.2-3.8 [facility] Comment on above: Performed By: #### B LDCX2 #### [facility] [address] [place] [address] Dr. Liat Bosch Lymphocytes/100 WBC (Bld) 17.0 % Critically low 20.5-60.0 [facility] Comment on above: Performed By: #### B LDCX2 #### [facility] [address] [place] [address] Dr. Liat Bosch MANUAL DIFF REQ NO Normal [facility] Comment on above: Performed By: #### B LDCX2 #### [facility] [address] [place] [address] Dr. Liat Bosch MCH (RBC) [Entitic mass] 28.1 pg Normal 26.7-34.0 [facility] Comment on above: Performed By: #### B LDCX2 #### [facility] [address] [place] [address] Dr. Liat Bosch MCHC (RBC) [Mass/Vol] 30.7 g/dL Normal 29.9-35.2 [facility] Comment on above: Performed By: #### B LDCX2 #### [facility] [address] [place] [address] Dr. Liat Bosch MCV (RBC) [Entitic vol] 91.5 fL Normal 81.0-99.0 [facility] Comment on above: Performed By: #### B LDCX2 #### [facility] [address] [place] [address] Dr. Liat Bosch MONO # 1.0 103/ul Critically high 0.3-0.8 [facility] Comment on above: Performed By: #### B LDCX2 #### [facility] [address] [place] [address] Dr. Liat Bosch Monocytes/100 WBC (Bld) 8.5 % Normal 1.7-12.0 [facility] Comment on above: Performed By: #### B LDCX2 #### [facility] [address] [address] [address] Liat Bosch NEUT # 8.8 103/ul Critically high 1.4-6.5 [facility] Comment on above: Performed By: #### B LDCX2 #### [facility] [address] [address] [address] Liat Bosch Neutrophils/100 WBC (Bld) 72.3 % Normal 43.0-75.0 [facility] Comment on above: Performed By: #### B LDCX2 #### [facility] [address] [address] [address] Liat Bosch Platelet mean volume (Bld) [Entitic vol] 8.9 fL Critically low 9.5-13.5 [facility] Comment on above: Performed By: #### B LDCX2 #### [facility] [address] [address] [address] Liat Bosch PLT 339 103/ul Normal 150-450 [facility] Comment on above: Performed By: #### B LDCX2 #### [facility] [address] [address] [address] Liat Bosch RBC 3.31 106/ul Critically low 4.20-5.40 [facility] Comment on above: Performed By: #### B LDCX2 #### [facility] [address] [place] [address] Dr. Liat Bosch WBC 12.2 103/ul Critically high 4.0-11.0 [facility] Comment on above: Performed By: #### B LDCX2 #### [facility] [address] [place] [address] ABD/PELVIS WO CONon 03-03 CT ABD/PELVIS WO CON Begin Addendum #1 Addendum: There is a calcification on the right side roughly just below the level of the sacral promontory. It is possible this is in the right ureter, although that cannot be definitely determined on this exam. This calcification measures approximately 1 cm in length. Original Report EXAMINATION: CT ABD/PELVIS WO CON, 03/03/2021 12:38 PM EST HISTORY: Right flank pain. COMPARISON: None. TECHNIQUE: CT scan of the abdomen and pelvis was performed without IV contrast. CT dose reduction technique was used, including Automated Exposure Control. FINDINGS: The lung bases are clear. The heart is normal in size. Pulmonary vessels are mildly engorged. The liver is enlarged but is otherwise normal in appearance. The spleen, adrenal glands, pancreas, gallbladder show normal unenhanced characteristics. The kidneys are symmetric in size. Both kidneys show hydronephrosis, right greater than left, but there are no stones in the kidneys or ureters. The large and small bowel are normal caliber. Urinary bladder is normal. The very late stage is grossly normal. The fetus is currently in cephalic presentation with the spine to the maternal left. No suspicious or destructive bone lesions are seen. IMPRESSION: No acute infectious or inflammatory process. Bilateral hydronephrosis, right greater than left. This is most likely due to the very late stage of . No stones are seen in the kidneys or ureters. Engorgement of the pulmonary arteries is consistent with the late stage of . Normal [facility] PROF CHEM 8 (BAS METB)on Anion gap [Moles/Vol] 14.7 mmol/L Normal [facility] Comment on above: Performed By: #### T HCCONF #### [facility] [address] [place] [address] Dr. Liat Bosch Calcium [Mass/Vol] 8.1 mg/dL Critically low 8.4-10.2 [facility] Comment on above: Performed By: #### T HCCONF #### [facility] [address] [place] [address] Dr. Liat Bosch Chloride [Moles/Vol] 106 mmol/L Normal 98-107 [facility] Comment on above: Performed By: #### T HCCONF #### [facility] [address] [place] [address] Dr. Liat Bosch CO2 [Moles/Vol] 21.2 mmol/L Critically low 22.0-30.0 [facility] Comment on above: Performed By: #### T HCCONF #### [facility] [address] [address] [address] Liat Bosch Creatinine [Mass/Vol] 0.75 mg/dL Normal 0.52-1.04 [facility] Comment on above: Performed By: #### T HCCONF #### [facility] [address] [address] [address] Liat Bosch EGFR-AF KAZAKH >60 Normal >=60 [facility] Comment on above: Performed By: #### T HCCONF #### [facility] [address] [address] [address] Liat Bosch EGFR-NON AF KAZAKH >60 Normal >=60 [facility] Comment on above: Performed By: #### T HCCONF #### [facility] [address] [place] [address] Dr. Liat Bosch Glucose [Mass/Vol] 96 mg/dL Normal 74-106 [facility] Comment on above: Performed By: #### T HCCONF #### [facility] [address] [address] [address] Liat Bosch Potassium [Moles/Vol] 3.9 mmol/L Normal 3.4-5.0 [facility] Comment on above: Performed By: #### T HCCONF #### [facility] [address] [address] [address] Liat Bosch Sodium [Moles/Vol] 138 mmol/L Normal 137-145 [facility] Comment on above: Performed By: #### T HCCONF #### [facility] [address] [address] [address] Liat Bosch Urea nitrogen [Mass/Vol] 5.0 mg/dL Critically low 7.0-17.0 [facility] Comment on above: Performed By: #### T HCCONF #### [facility] [address] [address] [address] Liat Bosch Urea nitrogen/Creatinine [Mass ratio] 6.7 mg/mg Normal [facility] Comment on above: Performed By: #### T HCCONF #### [facility] [address] [place] [address] Dr. Liat Bosch US KIDNEYSon 03-03-2021 US KIDNEYS EXAMINATION: US KIDNEYS HISTORY: Right flank pain COMPARISON: 02/05/2021 TECHNIQUE: Ultrasound examination was performed of the bladder. FINDINGS: Right Kidney: Normal in size and contour. Moderate hydronephrosis. Layering echogenicity at the ureteropelvic junction. No solid mass. The cortex measures 1.4 cm thick. Height: 7.3 cm Length: 12.8 cm Width: 6.6 cm Left Kidney: Normal in size and contour. No hydronephrosis. No solid mass. The cortex measures 1.7 cm. Height: 6.6 cm Length: 11.6 cm Width: 6.1 cm The urinary bladder has a volume of 218 mL. Layering echogenicity. Diminished right ureteral jet. Normal left ureteral jet IMPRESSION: Moderate right hydronephrosis with significant asymmetric diminished right ureteral jet. Obstruction should be considered. Debris within the right ureteropelvic junction and urinary bladder Electronically authenticated by: VERN TAMAYO Date: 2021-03-03 08:10 Normal [facility] CULTURE URINEon 03-02-2021 CULTURE URINE Culture Observations: MODERATE GROWTH OF MIXED GENITAL BRAYDEN. NO POTENTIAL PATHOGENS SEEN. Normal [facility] Comment on above: Performed By: #### U RCX #### [facility] [address] [place] [address] Dr. Liat Bosch UA (CLEAN/CATCH) ASSOCIATE THEATRE PROFESSOR/MICRO I F IND.on 03-02-2021 Bilirubin Ql (U) Negative Normal NEGATIVE [facility] Comment on above: Performed By: #### U RCX #### [facility] [address] [place] [address] Dr. Liat Bosch Clarity (U) CLEAR Normal CLEAR [facility] Comment on above: Performed By: #### U RCX #### [facility] [address] [place] [address] Dr. Liat Bosch Color (U) LT. YELLOW Normal YELLOW [facility] Comment on above: Performed By: #### U RCX #### [facility] [address] [place] [address] Dr. Liat Bosch Glucose Ql (U) Negative Normal NEGATIVE [facility] Comment on above: Performed By: #### U RCX #### [facility] [address] [address] [address] Liat Bosch Hemoglobin Ql (U) LARGE Abnormal NEGATIVE [facility] Comment on above: Performed By: #### U RCX #### [facility] [address] [address] [address] Liat Bosch Ketones Ql (U) TRACE Abnormal NEGATIVE [facility] Comment on above: Performed By: #### U RCX #### [facility] [address] [address] [address] Liat Bosch LEUKOCYTES MODERATE Abnormal NEGATIVE [facility] Comment on above: Performed By: #### U RCX #### [facility] [address] [place] [address] Dr. Liat Bosch Nitrite Ql (U) Negative Normal NEGATIVE [facility] Comment on above: Performed By: #### U RCX #### [facility] [address] [place] [address] Dr. Liat Bosch pH (U) 6.5 [pH] Normal 5-9 [facility] Comment on above: Performed By: #### U RCX #### [facility] [address] [address] [address] Liat Bosch SPEC GRAVITY 1.025 Normal 1.005-<=1.025 [facility] Comment on above: Performed By: #### U RCX #### [facility] [address] [address] [address] Liat Bosch UA PROTEIN TRACE Normal NEGATIVE/ TRACE [facility] Comment on above: Performed By: #### U RCX #### [facility] [address] [address] [address] Liat Bosch UR MICRO IND INDICATED Normal [facility] Comment on above: Performed By: #### U RCX #### [facility] [address] [place] [address] Dr. Liat Bosch Urobilinogen Qn (U) 0.2 {Elia'U}/dL Normal 0.2 - 1. 0 [facility] Comment on above: Performed By: #### U RCX #### [facility] [address] [place] [address] Dr. Liat Bosch URINE MICROSCOPIC ONLYon BACTERIA SMALL Abnormal NONE SEEN [facility] Comment on above: Performed By: #### U RCX #### [facility] [address] [place] [address] Dr. Liat Bosch Bacteria identified Cx Nom (U) INDICATED Normal [facility] Comment on above: Performed By: #### U RCX #### [facility] [address] [place] [address] Dr. Liat Bosch CAST NONE SEEN Normal NONE SEEN [facility] Comment on above: Performed By: #### U RCX #### [facility] [address] [place] [address] Dr. Liat Bosch Crystals LM Nom (Urine sed) NONE SEEN Normal NONE SEEN [facility] Comment on above: Performed By: #### U RCX #### [facility] [address] [place] [address] Dr. Liat Bosch Epithelial cells LM Ql (Urine sed) FEW Abnormal NONE SEEN /RARE [facility] Comment on above: Performed By: #### U RCX #### [facility] [address] [place] [address] Dr. Liat Bosch MUCOUS TRACE Abnormal NONE SEEN [facility] Comment on above: Performed By: #### U RCX #### [facility] [address] [place] [address] Dr. Liat Bosch RBC 5-10 Abnormal 0-2 [facility] Comment on above: Performed By: #### U RCX #### [facility] [address] [place] [address] Dr. Liat Bosch WBC 10-20 Abnormal NONE SEEN [facility] Comment on above: Performed By: #### U RCX #### [facility] [address] [place] [address] Dr. Liat Bosch US PREG GROWTHon 03-02-2021 US PREG GROWTH EXAMINATION: US PREG GROWTH HISTORY: Large for gestation age fetus COMPARISON: No relevant comparison available. FINDINGS: Heart Rate: 138 Amniotic Fluid Volume: 12.0 cm Number: 1.0 Position: Cephalic presentation, longitudinal lie Maximum Vertical Pocket: 5.4 cm cm 1.1 cm cm 2.5 cm cm 3.1 cm cm BIOMETRY: BPD: 9.1 cm cm; 37 weeks 0 days; HC: 32.1 cmcm; 36 weeks 1 days AC: 31.5 cm cm; 35 weeks 2 days FL: 7.1 cm cm; 36 weeks 1 days; EFW: 6 pounds, 2 ounces, 45% FL/AC: 0.091996 FL/BPD: 0.488822 HC/AC: 1.992933 GESTATIONAL AGE: Age by EDC: 34 weeks 2 days ROXANNE by EDC: 04/11/2021 Age by US: 36 weeks 1 day ROXANNE by US: 03/29/2021 IMPRESSION: Normal interval growth Electronically authenticated by: VERN TAMAYO Date: 2021-03-02 09:45 Normal [facility] GLUCOSE - 1HRon 02-05-2021 Glucose [Mass/Vol] 132 mg/dL Critically high 74-106 [facility] Comment on above: Performed By: #### U RCX #### [facility] [address] [place] [address] Dr. Liat Bosch HEMOGRAM AND PLATELon 2020 Hematocrit (Bld) [Volume fraction] 27.6 % Critically low 36.0-48.0 [facility] Comment on above: Performed By: #### T HCCONF #### [facility] [address] [place] [address] Dr. Liat Bosch Hemoglobin (Bld) [Mass/Vol] 8.7 g/dL Critically low 12.0-16.0 [facility] Comment on above: Performed By: #### T HCCONF #### [facility] [address] [place] [address] Dr. Liat Bosch MCH (RBC) [Entitic mass] 26.9 pg Normal 26.7-34.0 [facility] Comment on above: Performed By: #### T HCCONF #### [facility] [address] [address] [address] Liat Bosch MCHC (RBC) [Mass/Vol] 31.5 g/dL Normal 29.9-35.2 [facility] Comment on above: Performed By: #### T HCCONF #### [facility] [address] [address] [address] Liat Bosch MCV (RBC) [Entitic vol] 85.2 fL Normal 81.0-99.0 [facility] Comment on above: Performed By: #### T HCCONF #### [facility] [address] [address] [address] Liat Bosch PLT 413 103/ul Normal 150-450 [facility] Comment on above: Performed By: #### T HCCONF #### [facility] [address] [address] [address] Liat Bosch RBC 3.24 106/ul Critically low 4.20-5.40 [facility] Comment on above: Performed By: #### T HCCONF #### [facility] [address] [address] [address] Liat Bosch WBC 9.2 103/ul Normal 4.0-11.0 [facility] Comment on above: Performed By: #### T HCCONF #### [facility] [address] [address] [address] Liat Bosch US PREG ANATOMY SINGLEon US PREG ANATOMY SINGLE EXAMINATION: US PREG ANATOMY SINGLE HISTORY: anatomy study COMPARISON: No relevant comparison available. TECHNIQUE: Transabdominal sonographic examination was performed for obstetrical and evaluation. FINDINGS: Number: 1 Heart Rate: 132 H.B. /min Amniotic Fluid Volume: Subjectively normal Placental Location: Posterior with lower margin 5.9 cm from internal os. Cervix Length: 4.9 cm, closed. ANATOMY: Normal Structures -cisterna magna, orbits, midline falx, hard palate, four-chamber heart, RVOT, LVOT, stomach, kidneys, bladder, umbilical cord insertion into abdomen, three-vessel cord, cervical spine, thoracic spine, lumbar spine, sacral spine, right upper extremity, left upper extremity, right lower extremity, left lower extremity. SUBOPTIMALLY SEEN: Lateral ventricles, cerebellum, posterior fossa. ABNORMALITIES: None BIOMETRY: BPD: 8.2 cm 33 weeks 1 days HC: 30.2 cm 33 weeks 3 days AC: 27.4 cm 31 weeks 3 days FL: 6.2 cm 32 weeks 1 days EFW: 1888 g (28th percentile by ultrasound, 82nd percentile by expected) FL/AC: 0.059990 FL/BPD: 0.806906 HC/AC: 1.835331 GESTATIONAL AGE: Age by EDC: 30 weeks, 5 days ROXANNE by EDC: 04/11/2021 Age by current US: 32 weeks, 3 days ROXANNE by current US: 03/30/2021 IMPRESSION: 1. Single live intrauterine with growth detailed above. 2. Suboptimal visualization of the intracranial structures, specifically the lateral ventricles, cerebellum, and posterior fossa due to gestational age. Electronically authenticated by: JANE WHALEN Date: 2021-02-05 11:55 Normal [facility] Covid-19 PCR (CVDTB)on 12-05 SARS-CoV-2 (COVID-19) RNA ISABEL+probe Ql (Unsp spec) Not detected Normal NOT DETECTED [facility] Comment on above: Result Comment: When diagnostic testing is negative, the possibility of a false negative should be considered in the context of a patient's recent exposures and the presence of clinical signs and symptoms consistent with SARS-CoV-2. Performed By: #### N BOX #### [facility] [address] [address] Nakul Martines HEP B SURFACE ANTIGEN SCREEN on 10-12-2020 HBsAg Screen Negative Normal Negative [facility] Comment on above: Performed By: #### T HCCONF #### [facility] [address] [address] [address] Liat Bosch HEPATITIS C VIRUS AB W/ REFL EX QUANTon 10-12-2020 HCV AB <0.1 Normal 0.0-0.9 [facility] Comment on above: Performed By: #### H CVPCRR #### [facility] [address] [address] Nakul Martines Interpretation: Comment Normal [facility] Comment on above: Result Comment: Nega tive Not infected with HCV, unless recent infection is suspected or other evidence exists to indicate HCV infection. Performed By: #### H CVPCRR #### [facility] [address] [place] [address] Nakul Martines HIV 1 AND 2 WITH REFLEXon HIV Screen 4th Generation wRfx Non-Reactive Normal Non Reactive [facility] Comment on above: Performed By: #### U RCX #### [facility] [address] [place] [address] Dr. Liat Bosch RPR QUANTon 10-12-2020 Rapid Plasma Reagin, Quant Non-Reactive Normal NonRea<1:1 [facility] Comment on above: Performed By: #### B LDCX2 #### [facility] [address] [place] [address] Dr. Liat Bosch RUBELLA AB IGGon 10-12-2020 Rubella Antibodies, IgG 5.88 index Normal Immune >0.99 [facility] Comment on above: Result Comment: Non- immune <0.90 Equivocal 0.90 - 0.99 Immune >0.99 Performed By: #### T HCCONF #### [facility] [address] [place] [address] Dr. Liat Bosch CBC AUTO DIFFon 10-11-2020 BASO # 0.0 103/ul Normal 0.0-0.1 [facility] Comment on above: Performed By: #### B LDCX2 #### [facility] [address] [place] [address] Dr. Liat Bosch Basophils/100 WBC (Bld) 0.2 % Normal 0.2-2.0 [facility] Comment on above: Performed By: #### B LDCX2 #### [facility] [address] [place] [address] Dr. Liat Bosch EO # 0.2 103/ul Normal 0.0-0.7 [facility] Comment on above: Performed By: #### B LDCX2 #### [facility] [address] [place] [address] Dr. Liat Bosch Eosinophils/100 WBC (Bld) 2.9 % Normal 0.9-7.0 [facility] Comment on above: Performed By: #### B LDCX2 #### [facility] [address] [place] [address] Dr. Liat Bosch Erythrocyte distribution width (RBC) [Ratio] 13.6 % Normal 11.0-15.0 [facility] Comment on above: Performed By: #### B LDCX2 #### [facility] [address] [place] [address] Dr. Liat Bosch Hematocrit (Bld) [Volume fraction] 37.3 % Normal 36.0-48.0 [facility] Comment on above: Performed By: #### B LDCX2 #### [facility] [address] [place] [address] Dr. Liat Bosch Hemoglobin (Bld) [Mass/Vol] 12.6 g/dL Normal 12.0-16.0 [facility] Comment on above: Performed By: #### B LDCX2 #### [facility] [address] [place] [address] Dr. Liat Bosch IG # 0.03 10e3/ul Normal 0.00-0.03 [facility] Comment on above: Performed By: #### B LDCX2 #### [facility] [address] [place] [address] Dr. Liat Bosch IG % 0.4 % Normal 0.0-0.5 [facility] Comment on above: Performed By: #### B LDCX2 #### [facility] [address] [place] [address] Dr. Liat Bosch LYMPH # 2.7 103/ul Normal 1.2-3.8 [facility] Comment on above: Performed By: #### B LDCX2 #### [facility] [address] [place] [address] Dr. Liat Bosch Lymphocytes/100 WBC (Bld) 33.2 % Normal 20.5-60.0 [facility] Comment on above: Performed By: #### B LDCX2 #### [facility] [address] [place] [address] Dr. Liat Bosch MANUAL DIFF REQ NO Normal [facility] Comment on above: Performed By: #### B LDCX2 #### [facility] [address] [place] [address] Dr. Liat Bosch MCH (RBC) [Entitic mass] 29.2 pg Normal 26.7-34.0 [facility] Comment on above: Performed By: #### B LDCX2 #### [facility] [address] [place] [address] Dr. Liat Bosch MCHC (RBC) [Mass/Vol] 33.8 g/dL Normal 29.9-35.2 [facility] Comment on above: Performed By: #### B LDCX2 #### [facility] [address] [place] [address] Dr. Liat Bosch MCV (RBC) [Entitic vol] 86.5 fL Normal 81.0-99.0 [facility] Comment on above: Performed By: #### B LDCX2 #### [facility] [address] [place] [address] Dr. Liat Bosch MONO # 0.3 103/ul Normal 0.3-0.8 [facility] Comment on above: Performed By: #### B LDCX2 #### [facility] [address] [place] [address] Dr. Liat Bosch Monocytes/100 WBC (Bld) 4.0 % Normal 1.7-12.0 [facility] Comment on above: Performed By: #### B LDCX2 #### [facility] [address] [place] [address] Dr. Liat Bosch NEUT # 4.8 103/ul Normal 1.4-6.5 [facility] Comment on above: Performed By: #### B LDCX2 #### [facility] [address] [place] [address] Dr. Liat Bosch Neutrophils/100 WBC (Bld) 59.3 % Normal 43.0-75.0 [facility] Comment on above: Performed By: #### B LDCX2 #### [facility] [address] [place] [address] Dr. Liat Bosch Platelet mean volume (Bld) [Entitic vol] 9.0 fL Critically low 9.5-13.5 [facility] Comment on above: Performed By: #### B LDCX2 #### [facility] [address] [place] [address] Dr. Liat Bosch PLT 385 103/ul Normal 150-450 [facility] Comment on above: Performed By: #### B LDCX2 #### [facility] [address] [address] [address] Liat Bosch RBC 4.31 106/ul Normal 4.20-5.40 [facility] Comment on above: Performed By: #### B LDCX2 #### [facility] [address] [place] [address] Dr. Liat Bosch WBC 8.2 103/ul Normal 4.0-11.0 [facility] Comment on above: Performed By: #### B LDCX2 #### [facility] [address] [place] [address] Dr. Liat Bosch CULTURE URINEon 10-11-2020 CULTURE URINE Culture Observations: HEAVY GROWTH OF MIXED GENITAL BRAYDEN. NO POTENTIAL PATHOGENS SEEN. Normal [facility] Comment on above: Performed By: #### U RCX #### [facility] [address] [place] [address] Nakulnicolas Schmidten GLYCOHEMOGLOBIN A1Con 2020 ADA RECOMMENDATION ADA THERAPEUTIC TARGET 6.0 - 7.0 ACTION SUGGESTED > 7.0 Normal [facility] Comment on above: Performed By: #### B LDCX2 #### [facility] [address] [place] [address] Dr. Liat Bosch Glucose [Mass/Vol] 100 mg/dL Normal [facility] Comment on above: Performed By: #### B LDCX2 #### [facility] [address] [place] [address] Dr. Liat Bosch HbA1c (Bld) [Mass fraction] 5.1 % Normal <=6.0 [facility] Comment on above: Performed By: #### B LDCX2 #### [facility] [address] [place], [place] [address] Dr. Liat CISNEROS BOX TEST PT SEND OUTo n 10-11-2020 SENT TO REF LAB nelly alegria Normal Th [facility] Comment on above: Performed By: #### N BOX #### [facility] [address] [place], [place] [address] Nakulnicolas Martines TYPE AND SCREENon 10-11-2020 TYPE AND SCREEN Negative Normal [facility] Comment on above: Performed By: #### N BOX #### [facility] [address] [place], [place] [address] Nakul Martines US PREG TVon 10-07-2020 US PREG TV EXAMINATION: US PREG TV HISTORY: test positive COMPARISON: No relevant comparison available. FINDINGS: GESTATIONAL SAC: Present and normal appearing. POLE: Present and normal appearing. YOLK SAC: Not seen. CARDIAC: Present. UTERUS: Normal size and appearance. OVARIES: Right: Not seen. Left: Not seen. CERVIX: 4.2 cm in length and closed. CUL-DE-SAC: Normal. OTHER: None. AGE BY LMP: 12 weeks, 1 day ROXANNE BY LMP: 04/20/2021 AGE BY US CRL: 13 weeks, 3 days ROXANNE BY US CRL: 04/11/2021 IMPRESSION: 1. Single live intrauterine . Electronically authenticated by: JANE WHALEN Date: 2020-10-07 15:46 Normal [facility] Vital Signs Date Time Vital Sign Value Performing Clinician Faci litramiro 08-22-2021 08:00-0400 Body temperature 98.6 [degF] Darryl Dunn MD Work Phone: [facility] [employer] 08-22-2021 08:00-0400 Respiratory rate 18 /min Darryl Dunn MD Work Phone: [employer] 08-22-2021 07:00-0400 Diastolic blood pressure 78 mm[Hg] [facility] 08-22-2021 07:00-0400 Heart rate 55 /min Darryl Dunn MD Work Phone: [employer] 08-22-2021 07:00-0400 SaO2% (BldA) [Mass fraction] 94 % Darryl Dunn MD Work Phone: [employer] 08-22-2021 07:00-0400 Systolic blood pressure 121 mm[Hg] Darryl Dunn MD Work Phone: [employer] 08-21-2021 18:46-0400 Body height 160 cm Darryl Dunn MD Work Phone: [employer] 08-21-2021 18:46-0400 Body mass index (BMI) [Ratio] 27.99 kg/m2 Darryl Dunn MD Work Phone: [employer] 08-21-2021 18:46-0400 Body weight 71.67 kg Darryl Dunn MD Work Phone: [employer] 08-17-2021 11:22-0400 Body temperature 97.9 [degF] Darryl Dunn MD Work Phone: [employer] 08-17-2021 11:22-0400 Diastolic blood pressure 76 mm[Hg] Darryl Dunn MD Work Phone: [employer] 08-17-2021 11:22-0400 Heart rate 91 /min Darryl Dunn MD Work Phone: [employer] 08-17-2021 11:22-0400 Respiratory rate 18 /min Darryl Dunn MD Work Phone: [employer] 08-17-2021 11:22-0400 SaO2% (BldA) [Mass fraction] 97 % Darryl Dunn MD Work Phone: [employer] 08-17-2021 11:22-0400 Systolic blood pressure 118 mm[Hg] Darryl Dunn MD Work Phone: [employer] 08-15-2021 13:25-0400 Body height 160 cm Darryl Dunn MD Work Phone: [facility] 08-15-2021 13:25-0400 Body mass index (BMI) [Ratio] 27.99 kg/m2 Darryl Dunn MD Work Phone: [facility] 08-15-2021 13:25-0400 Body weight 71.67 kg Darryl Dunn MD Work Phone: [facility] Encounters Encounter Date Encounter Type Care Provider Facility Start: 04-28-2023 End: 04-28-2023 ambulatory Not Available Start: 08-21-2021 End: 08-22-2021 Evaluation and management of inpatient [facility] Start: 08-21-2021 End: 08-22-2021 Evaluation and management of inpatient Darryl Dunn MD Work Phone: [facility] Renal//Med Surg Comment on above: Right nephrolithiasi s (Primary Dx); Right kidney stone Start: 08-15-2021 End: 08-17-2021 Evaluation and management of inpatient [facility] Start: 08-15-2021 End: 08-17-2021 Evaluation and management of inpatient Darryl Dunn MD Work Phone: [facility] Renal//Med Surg Comment on above: Hydronephrosis with urinary obstruction due to renal calculus (Primary Dx); Tachycardia Start: 08-15-2021 End: 08-15-[address] HANNA GREEN Facility:[facility] Start: 08-12-2021 End: 08-12-2021 ambulatory LANCE CANAS Facility:[facility] Start: 07-13-2021 End: 07-13-2021 Patient encounter procedure Wiliam Thakur Jr. [facility] Start: 04-24-2021 End: 04-25-[address] WILIAM THAKUR JR Facility:[facility] Start: 04-08-[address] HANNA GREEN Faci lity:[facility] Start: 04-04-2021 End: 04-06-2021 Evaluation and management of inpatient DR HANNA GREEN Facility:[facility] Start: 03-30-2021 End: 03-30-[address] HANNA GREEN Facility:[facility] Start: 03-25-2021 End: 03-26-2021 ambulatory NATHALIA Hendrix Facility:[facility] Start: 03-07-[address] HANNA GREEN Facakil lity:[facility] Start: 03-02-2021 End: 03-04-[address] HANNA GREEN Facility:[facility] Start: 03-02-2021 End: 03-03-[address] HANNA GREEN Facility:[facility] Start: 02-11-2021 End: 02-18-[address] HANNA GREEN Facility:[facility] Start: 02-05-2021 End: 02-06-[address] HANNA GREEN Facility:[facility] Start: 02-05-2021 End: 02-06-[address] HANNA GREEN Facility:[facility] Start: 12-14-2020 End: 12-14-[address] LARISA REAL Facility:[facility] Start: 12-04-[address] HANNA GREEN Faci lity:[facility] Start: 10-11-2020 End: 10-12-[address] KAILASH ESCOBEDO Facility:[facility] Start: 10-10-2020 End: 10-11-[address] HANNA GREEN Facility:[facility] Start: 10-07-2020 End: 10-08-[address] HANNA GREEN Facility:[facility] Procedures Date Procedure Procedure Detail Performing Clinician Start: 08-22-2021 BASIC METABOLIC PANE L W/ REFLEX TO MG FOR LOW K Ke Joshua MD Work Phone: Start: 08-22-2021 Blood count complete auto&auto difrntl wbc Ke Joshua MD Work Phone: Start: 08-21-2021 Fluoroscopy during operation Darryl Dunn MD Work Phone: Start: 08-21-2021 Blood count platelet automated Darrly Dunn MD Work Phone: Start: 08-21-2021 Urine test visual color cmprsn sahuns Darryl Dunn MD Work Phone: Start: 08-17-2021 Assay of troponin quantitative Pam Monaco MD Work Phone: Start: 08-17-2021 Assay of troponin quantitative Pam Monaco MD Work Phone: Start: 08-17-2021 Ecg routine ecg w/le ast 12 lds w/i&r Pam Monaco MD Work Phone: Start: 08-17-2021 Assay of magnesium Oumarab aisha Joshua MD Work Phone: Start: 08-17-2021 BASIC METABOLIC PANE L W/ REFLEX TO MG FOR LOW K Ke Joshua MD Work Phone: Start: 08-16-2021 Plmt nephrostomy cat h prq new access rs&i Ke Joshua MD Work Phone: Start: 08-16-2021 Assay of magnesium Ban Joshua MD Work Phone: Start: 08-16-2021 BASIC METABOLIC PANE L W/ REFLEX TO MG FOR LOW K Ke Joshua MD Work Phone: Start: 08-16-2021 Culture bacterial quanttative colony count urine Ke Joshua MD Work Phone: Start: 08-15-2021 Radiologic exam abdo men 1 view Ke Joshua MD Work Phone: Start: 08-15-2021 Basic metabolic pane l calcium total Ke Joshua MD Work Phone: Start: 08-15-2021 CULTURE, BLOOD 1 Jony Joshua MD Work Phone: Start: 04-05-2021 Delivery of Products of Conception, External Approach DR HANNA GREEN Start: 04-05-2021 Drainage of Amniotic Fluid, Therapeutic from Products of Conception, Via Natural or Artificial Opening DR HANNA GREEN Start: 04-05-2021 Repair Perineum Skin , External Approach DR HANNA GREEN Start: 04-04-2021 Introduction of Horm one into Female Reproductive, Via Natural or Artificial Opening DR HANNA GREEN Plan of Treatment Date Care Activity Detail Author Start: 11-05-2021 Influenza vaccination Flu vaccine (S adam Ended) [facility] Start: 08-24-2021 End: 02-16-2022 Echocardiogram complete Echocardiogram complete Echocardiography Routine Tachycardia Expected: 08/24/2021 (Approximate), Expires: 02/16/2022 [facility] Work Phone: Comment on above: Expected: 08/24/2021 (Approximate), Expires: 02/16/2022 Start: 10-17-2019 Screening for malign ant neoplasm of cervix Pap smear [facility] Start: 2017 DTaP/Tdap/Td vaccine (1 - Tdap) DTaP/Tdap/Td vaccine (1 - Tdap) [facility] Start: 2016 Hepatitis C screening Hepatitis C sc reen [facility] Start: 2014 Screening for Chlamy don trachomatis Chlamydia screen [facility] Start: 2013 HIV screening HIV screen [facility] Start: 2010 Depression Screen Depression Screen [facility] Start: 2009 HPV vaccine (1 - 2-d ose series) HPV vaccine (1 - 2-dose series) [facility] Start: 10-17-2003 COVID-19 Vaccine (1) COVID-19 Vaccin e (1) [facility] Start: 10-17-1999 Varicella vaccine (1 of 2 - 2-dose childhood series) Varicella vaccine (1 of 2 - 2-dose childhood series) [facility] Basic Metabolic Pane l w/ Reflex to MG Basic Metabolic Panel w/ Reflex to MG Lab Routine Daily until discontinued starting 08/16/2021, 2 completed [facility] Work Phone: Comment on above: Daily until disconti nued starting 08/16/2021, 2 completed Basic Metabolic Pane l w/ Reflex to MG Basic Metabolic Panel w/ Reflex to MG Lab Routine Daily until discontinued starting 08/22/2021, 1 completed [employer] Phone: Comment on above: Daily until disconti nued starting 08/22/2021, 1 completed CBC W Auto Different ial panel - Blood CBC with Auto Differential Lab Routine Daily until discontinued starting 08/16/2021, 2 completed [employer] Phone: Comment on above: Daily until disconti nued starting 08/16/2021, 2 completed CBC W Auto Different ial panel - Blood CBC with Auto Differential Lab Routine Daily until discontinued starting 08/22/2021, 1 completed [employer] Phone: Comment on above: Daily until disconti nued starting 08/22/2021, 1 completed Culture, Blood 1 Culture, Blood 1 Microbiology STAT 08/15/2021 3:25 PM EDT [employer] Phone: End: 08-21-2021 Culture, Urine [employer] Phone: Comment on above: One Time for 1 Occur rences starting 08/21/2021 until 08/21/2021 End: 08-17-2021 ECHO Complete 2D W Doppler W Color ECHO Complete 2D W Doppler W Color Echocardiography Routine One Time for 1 Occurrences starting 08/17/2021 until 08/17/2021 [employer] Phone: Comment on above: One Time for 1 Occur rences starting 08/17/2021 until 08/17/2021 Oxygen therapy [Mini mum Data Set] Initiate Oxygen Therapy Protocol Respiratory Care Routine As Needed until discontinued starting 08/15/2021 [employer] Phone: Comment on above: As Needed until disc ontinued starting 08/15/2021 Oxygen therapy [Mini mum Data Set] Initiate Oxygen Therapy Protocol Respiratory Care Routine As Needed until discontinued starting 08/21/2021 [employer] Phone: Comment on above: As Needed until disc ontinued starting 08/21/2021 End: 08-21-2021 Stone analysis ALISA [employer] Phone: Comment on above: One Time for 1 Occur rences starting 08/21/2021 until 08/21/2021 End: 08-17-2021 Troponin I.cardiac [Mass/volume] in Serum or Plasma Troponin Lab Timed Now Then Every 6hr for 3 Occurrences starting 08/17/2021 until 08/17/2021, 2 completed ALISA [employer] Phone: Comment on above: Now Then Every 6hr f or 3 Occurrences starting 08/17/2021 until 08/17/2021, 2 completed Payers Date Payer Category Payer Unknown [id number] 2.16.84 [id number] 1998 Unknown [id number] 2.16.84 [id number] 1998 Unknown [id number] 2.16.84 0.1.612708.3.579.2.593 1998 Unknown [id number] 2.16.84 0.1.545890.3.579.2.593 1998 Unknown [id number] 2.16.84 0.1.702670.3.579.2.593 1998 Unknown [id number] 2.16.84 0.1.360078.3.579.2.593 1998 Unknown [id number] 2.16.84 0.1.627952.3.579.2.593 1998 Unknown [id number] 2.16.84 0.1.000772.3.579.2.593 1998 Unknown [id number] 2.16.84 0.1.128593.3.579.2.593 1998 Unknown [id number] 2.16.84 0.1.339310.3.579.2.593 1998 Unknown [id number] 2.16.84 0.1.065392.3.579.2.593 1998 Unknown [id number] 2.16.84 0.1.688445.3.579.2.593 1998 Unknown [id number] 2.16.84 0.1.203592.3.579.2.593 1998 Unknown [id number] 2.16.84 0.1.431499.3.579.2.593 1998 Unknown [id number] 2.16.84 0.1.310013.3.579.2.593 1998 Unknown [id number] 2.16.84 0.1.004500.3.579.2.593 1998 Unknown [id number] 2.16.84 0.1.268720.3.579.2.593 1998 Unknown [id number] 2.16. 840.1.249195.3.579.2.175 1998 Unknown [id number] 2.16. 840.1.138952.3.579.2.175 1998 Unknown [id number] 2.16.84 0.1.197185.3.579.2.1259 1959 Unknown [id number] 1.2 .[id number] 1959 Unknown [id number] 1959 Unknown [id number] Unknown [id number] 2.16.84 0.1.674287.3.579.2.593 Unknown [id number] 2.16.84 0.1.249131.3.579.2.593 Social History Date Type Detail Facility Start: 03-25-2021 Tobacco smoking status Ex-smoker (fi nding) [facility] Sex Assigned At Female [facility] smoking stat us NHIS Never smoked tobacco [employer] Start: 08-16-2021 End: 08-21-2021 Alcohol intake Current non-drinker of alcohol (finding) [employer] Phone: Start: 08-16-2021 End: 08-21-2021 Alcohol intake [employer] Phone: Start: 08-15-2021 History SDOH Alcohol Frequency 1 [employer] Phone: Start: 2000 Sex Assigned At Not on file B ON [employer] Phone: Start: 08-11-2021 End: 08-21-2021 Exposure to SARS-CoV-2 (event) Not sure [employer] [facility] Procedure Code Equipment Code Equipment Origin al Text Equipment Identifier Dates Stent Uret 6fr L 26cm Percflx Hydr+ Dbl Pgtl Thrd 2 - [id number] Start: 08-21-2021 Clinical Notes 07-13-2021 to 08-22-2021 Kapil Lozada RN - 08/22/2021 11:46 AM Conrad Fonseca MD - 08/22/2021 8:08 AM EDTInstructionsInstructionsDanijamie Garza MD - 08/17/2021 9:49 AM EDT Note Date & Type Note Facility 08-22-2021 History of Present illness Narrative Dressing changed before patient discharge. Dressing education provided to the patient and to the patients grandmother present at bedside. All questions answered at this time. Images from the original note were not included. Raj Martinez Santacroce, Khan, Mostafa, Buck, Murtagh Jr [facility] Progress Note Subjective: Diet: Regular Postop day 1 from right PCNL, cystolitholapaxy No acute events overnight Denies nausea, vomiting, had low-grade fever of 99.1 at midnight Pain well controlled Ambulation : Minimally Flatus/ BM : Passing flatus Urine output-450 cc from Weeks catheter Minimal from right-sided nephrostomy/light pink, transparent Patient Vitals for the past 24 hrs: BP Temp Temp src Pulse Resp SpO2 Height Weight 08/22/21 0800 98.6 F (37 C) Oral 18 08/22/21 0430 133/74 98.7 F (37.1 C) Oral 59 18 96 % 08/22/21 0025 (!) 105/54 99.1 F (37.3 C) Tympanic 63 18 97 % 08/21/21 2354 18 08/21/21 2324 18 08/21/211 18 08/21/211 18 08/21/212007 134/78 97.7 F (36.5 C) Oral 72 17 97 % 08/21/21 1920 17 08/21/21 1846 5' 3 (1.6 m) 158 lb (71.7 kg) 08/21/21 1845 123/69 98.7 F (37.1 C) 62 16 99 % 08/21/21 1815 132/64 97.5 F (36.4 C) Temporal 69 96 % 08/21/21 1800 121/68 66 94 % 08/21/21 1745 133/72 62 95 % 08/21/21 1730 (!) 105/94 76 100 % 08/21/21 1715 (!) 140/79 86 13 100 % 08/21/21 1227 132/84 97.2 F (36.2 C) Temporal 78 16 99 % Intake/Output Summary (Last 24 hours) at 08/22/2021 0809 Last data filed at 08/22/2021 0730 Gross per 24 hour Intake 2005.29 ml Output 800 ml Net 1205.29 ml Recent Labs 08/21/21 1227 08/22/21 0408 WBC -- 13.5* HGB -- 11.3* HCT -- 33.9* MCV -- 90.2 PLT 626* 598* Recent Labs 08/22/21 0408 NA 136 K 4.0 CL 103 CO2 21 BUN 10 CREATININE 0.72 No results for input(s): COLORU, PHUR, LABCAST, WBCUA, RBCUA, MUCUS, TRICHOMONAS, YEAST, BACTERIA, CLARITYU, SPECGRAV, LEUKOCYTESUR, UROBILINOGEN, BILIRUBINUR, BLOODU in the last 72 hours. Invalid input(s): NITRATE, GLUCOSEUKETONESUAMORPHOUS Additional Lab/culture results: Physical Exam: AO X 3 Neck: Supple Chest: bilateral symmetrical chest rise/ Non labored breathing Circulatory: Peripheries warm , well perfused P/A: soft, nondistended/right-sided nephrostomy with intact dressing minimal light pink, transparent urine in nephrostomy bag Weeks with light pink, transparent urine Interval Imaging Findings: Impression: Patient Active Problem List Diagnosis Hydronephrosis Right nephrolithiasis Nephrolithiasis POD1 from right-sided PCNL and cystolitholapaxy Plan: Diet: Continue regular diet IV fluids: discontinue IV fluids Antibiotics: Continue IV Ancef for 24 hours Pain control: Tylenol scheduled, Roxicodone as needed Drain output : Minimal output from right-sided nephrostomy, clamped this a.m. Weeks catheter removed this morning Ambulation / IS 10 times per hour AM labs: Hemoglobin 11.3 from 10.3 Creatinine 0.7 DC planning : We will reassess after clamping nephrostomy tube/discharge after removal of nephrostomy tube with stent. Cristian Fonseca MD 8:09 AM 08/22/2021 Associated attestation - Macario Adrian MD - 08/22/2021 9:22 AM EDT Attending Physician Statement I have discussed the care of Nikolay Miles including pertinent history and exam findings with the resident. I have seen and examined the patient and the mcclellan elements of all parts of the encounter have been performed by me. I agree with the assessment, plan, and orders as documented by the resident. (GC Modifier). Continue antibiotics. DC PCNT DC planning. Stent removal per Dr Dunn. String on stent. Dr. Macario Adrian MD documented in this encounter [facility] Work Phone: 08-21-2021 Hospital Discharge instructions Pam Monaco MD - 08/21/2021 Cystolitholapaxy, Percutaneous nephrolithotomy and stent placement (with string): You may see blood in the urine after the procedure. This should resolve over the next couple days. Please stay hydrated. You may see intermittent blood in the urine while the stent is in place. This is expected. You may experience flank pain, and/or frequency/urgency of urination while the stent is in place. Please use Oxybutynin and Flomax (Tamsulosin) to help with these symptoms. Pt ok to discharge home in good condition No heavy lifting, >10 lbs for today Pt should avoid strenuous activity for today Pt should walk moderately at home Pt ok to shower Pt may resume diet as tolerated Pt should take Rx as directed No driving while on narcotics Please call attending physician or hospital burglar alarm operator with questions Call or Present to ED if fever (> 101F), intractable nausea vomiting or pain. Rx sent to pharmacy Pt should follow up with Dr. Dunn, in 4 weeks, call to confirm appointment Pt should Pull stent in the morning of 08/31. There may be some pain associated with the stent removal, which is usually self limiting. We suggest using the pain medication prescribed for you and a nonsteroidal anti-inflammatory such as Ibuprofen, if you are able to take this medication, to control symptoms. Take Ibuprofen as directed for 24 hrs after stent pull. Please stay hydrated. Please call with questions. documented in this encounter [facility] Work Phone: 08-17-2021 Hospital Discharge instructions Ke Joshua MD - 08/17/2021 Can shower with tube in place, just have to empty the bag throughout the day Will need to follow up with urology regarding OR for stent and tube Please follow up with cardiology outpatient to discuss echo results, etc General Discharge Instructions: Patient ok to discharge home in good condition No heavy lifting, >10 lbs for 4-6 week, or until cleared by attending physician Patient should avoid strenuous activity for 4-6 weeks Patient should walk moderately at home 8-10x per day or every hour Patient may resume diet as tolerated: Wean off of narcotic pain medication to plain tylenol or ibuprofen if able to take. Please take all of antibiotic if prescribed. Patient should take prescriptions as directed No driving while on narcotics Patient ok to shower in 24 hrs after discharge while keeping incision clean / dry No submerging incisions for 2 weeks Please call attending physician or hospital burglar alarm operator with questions Call or Present to ED if fever (> 101F), intractable nausea/vomiting or pain, if incisions become red/swollen or drain pus/fluid, or if calves become red swollen and tender. Patient should follow up with Dr. Dunn, in 2 weeks. Call office to confirm appointment. documented in this encounter [facility] Phone: 08-17-2021 History of Present illness Narrative Images from the original note were not included. 20 yof admitted for sepsis due to pyelonephritis from obstructive right nephrolithisis, s/p nephrostomy tube placement. Patient tachycardia as high as 121, ecg concerning for incomplete rbbb. Cardiology consulted. Patient alert and oriented, has rt flank pain, no cp or palpitations. No sob. Denies past hx of cardiac disease. Physical exam normal. 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 female who is admitted to the hospital for sepsis due to pyelonephritis from obstructive right nephrolithisis, s/p nephrostomy tube placement. Patient tachycardia as high as 121, ecg concerning for incomplete rbbb. Cardiology consulted. Patient alert and oriented, has rt flank pain, no chest pain or palpitations. No sob, diarrhea, fever (resolved), dysuria Denies past hx of cardiac disease. Admits to having anxiety/panic attacks, most recent was 2 months ago. Has post depression. Physical exam normal. Vitals stable, hr 78, Ecg nsr, inverted T-waves in V1-V3, qrs 104, pr 164, MG 1.7, k3.4, ca8.5, trop pending Past Medical History: has a past medical history of Chronic kidney disease. Past Surgical History: has a past surgical history that includes Tonsillectomy and IR GUIDED NEPHROSTOMY CATH PLACEMENT RIGHT (08/16/2021). Home Medications: Prior to Admission medications Medication Sig Start Date End Date Taking? Authorizing Provider traMADol (ULTRAM) 50 MG tablet Take 1 tablet by mouth every 6 hours as needed for Pain for up to 3 days. Intended supply: 3 days. Take lowest dose possible to manage pain 08/17/21 08/20/21 Yes Pam Monaco MD cefadroxil (DURICEF) 500 MG capsule Take 1 capsule by mouth 2 times daily for 5 days 08/17/21 08/22/21 Yes Pam Monaco MD sodium chloride flush, 5-40 mL, IntraVENous, 2 times per day cefTRIAXone (ROCEPHIN) IV, 1,000 mg, IntraVENous, Daily tamsulosin, 0.4 mg, Oral, Daily Allergies: Patient has no known allergies. Social History: reports that she has never smoked. She does not have any smokeless tobacco history on file. She reports that she does not drink alcohol. Family History: family history is not on file. No h/o sudden cardiac . REVIEW OF SYSTEMS: Constitutional: there has been no unanticipated weight loss. There's been No change in energy level, No change in activity level. Eyes: No visual changes or diplopia. No scleral icterus. ENT: No Headaches, hearing loss or vertigo. No mouth sores or sore throat. Cardiovascular: per HPI Respiratory: per HPI Gastrointestinal: No abdominal pain, appetite loss, blood in stools. No change in bowel or bladder habits. Genitourinary: No dysuria, trouble voiding, or hematuria. Musculoskeletal: No gait disturbance, No weakness or joint complaints. Integumentary: No rash or pruritis. Neurological: No headache, diplopia, change in muscle strength, numbness or tingling. No change in gait, balance, coordination, mood, affect, memory, mentation, behavior. Psychiatric: No anxiety, or depression. Endocrine: No temperature intolerance. No excessive thirst, fluid intake, or urination. No tremor. Hematologic/Lymphatic: No abnormal bruising or bleeding, blood clots or swollen lymph nodes. Allergic/Immunologic: No nasal congestion or hives. PHYSICAL EXAM: BP 121/78 Pulse 81 Temp 97.9 F (36.6 C) (Oral) Resp 18 Ht 5' 3 (1.6 m) Wt 158 lb (71.7 kg) SpO2 98% BMI 27.99 kg/m Constitutional and General Appearance: alert, cooperative, no distress and appears stated age HEENT: PERRL, no cervical lymphadenopathy. No masses palpable. Normal oral mucosa Respiratory: Normal excursion and expansion without use of accessory muscles Resp Auscultation: Good respiratory effort. No for increased work of breathing. On auscultation: clear to auscultation bilaterally Cardiovascular: The apical impulse is not displaced Heart tones are crisp and normal. regular S1 and S2. Jugular venous pulsation Normal The carotid upstroke is normal in amplitude and contour without delay or bruit Peripheral pulses are symmetrical and full Abdomen: No masses or tenderness Bowel sounds present Extremities: No Cyanosis or Clubbing Lower extremity edema: No Skin: Warm and dry Neurological: Alert and oriented. Moves all extremities well No abnormalities of mood, affect, memory, mentation, or behavior are noted EKG: Date: 08/17/21 Reading: No acute ischemia LAST ECHO: None Labs: CBC: Recent Labs 08/16/2141208/17/21551 WBC 8.8 8.7 HGB 11.6* 10.3* HCT 34.7* 29.9* PLT 196 212 BMP: Recent Labs 08/16/2141208/17/21 05 NA 138 138 K 3.2* 3.4* CO2 20 22 BUN 7 6 CREATININE 0.95* 0.70 LABGLOM >60 >60 GLUCOSE 103* 88 BNP: No results for input(s): BNP in the last 72 hours. PT/INR: Recent Labs 08/16/21412 PROTIME 10.9 INR 1.0 APTT: Recent Labs 08/16/21412 APTT 28.9 CARDIAC ENZYMES:No results for input(s): CKTOTAL, CKMB, CKMBINDEX, TROPONINI in the last 72 hours. FASTING LIPID PANEL:No results found for: HDL, LDLDIRECT, LDLCALC, TRIG LIVER PROFILE:No results for input(s): AST, ALT, LABALBU in the last 72 hours. Troponins: Invalid input(s): TROPONIN Other Current Problems Patient Active Problem List Diagnosis Hydronephrosis IMPRESSION & Recommendations: 1. Sinus tachycardia likely due to fever, sepsis, anemia, dehydration or pain 2. Tachycardia improving with management of sepsis, currently normal sinus rhythm 2. EKG with QRS complex 110, inverted T waves V1 to V3. 3. No previous cardiac history 4. Hypokalemia Plan 1. Recommend Echo inpatient or outpatient 2. Follow-up with cardiology if structural disease on echo 3. Monitor and replace electrolytes as needed, keep potassium > 4 Discussed with patient, family, and Nurse. Fede Garza MD Internal Medicine Resident, PGY- 1 [facility]; [place], [place] 08/17/2021, 11:03 AM Images from the original note were not included. Raj Martinez Santacroce, Khan, Mostafa, Buck, Murtagh Jr Urology Progress Note Subjective: AF BP WNL Tachycardia slight in 100s, but this may be her baseline No complaints of pain PNT draining well clear yellow urine Cx pending, on CTX Patient Vitals for the past 24 hrs: BP Temp Temp src Pulse Resp SpO2 08/17/21 0226 113/73 98.7 F (37.1 C) Temporal (!) 105 18 97 % 08/16/21 2056 120/84 98.8 F (37.1 C) Temporal (!) 106 16 98 % 08/16/21 1145 134/84 98.7 F (37.1 C) (!) 105 16 08/16/21 1004 116/75 (!) 107 20 08/16/21 1003 116/75 (!) 106 24 08/16/21 1002 115/73 (!) 114 19 08/16/21 0959 121/73 (!) 109 23 08/16/21 0954 119/66 (!) 114 22 08/16/21 0949 107/72 (!) 104 16 08/16/21 0944 117/65 (!) 107 24 08/16/21 0939 114/80 99 20 08/16/21 0938 114/80 (!) 106 21 08/16/21 0937 109/66 (!) 106 20 08/16/21 0936 109/66 100 21 08/16/21 0935 109/66 (!) 105 23 08/16/21 0934 109/66 (!) 104 21 08/16/21 0933 109/66 (!) 101 20 08/16/21 0932 113/68 (!) 101 19 08/16/21 0931 113/68 99 18 08/16/21 0930 113/68 (!) 103 24 08/16/21 0929 113/68 99 21 08/16/21 0924 104/64 96 22 08/16/21 0923 104/64 98 24 08/16/21 0922 115/70 90 18 08/16/21 0921 115/70 (!) 104 23 08/16/21 0920 115/70 (!) 104 20 08/16/21 0919 115/70 (!) 109 21 08/16/21 0918 115/70 (!) 104 16 08/16/21 0917 114/69 (!) 102 16 08/16/21 0916 114/69 (!) 105 20 08/16/21 0915 114/69 (!) 103 16 08/16/21 0914 114/69 (!) 105 16 08/16/21 0913 114/69 (!) 104 16 08/16/21 0912 115/72 (!) 108 19 08/16/21 0911 115/72 100 20 08/16/21 0831 100/67 98.5 F (36.9 C) (!) 106 16 98 % Intake/Output Summary (Last 24 hours) at 08/17/2021 0707 Last data filed at 08/17/2021 0700 Gross per 24 hour Intake 800 ml Output 1805 ml Net -1005 ml Recent Labs 08/15/21 1525 08/16/21 0413 08/17/21 0552 WBC 7.5 8.8 8.7 HGB 12.5 11.6* 10.3* HCT 36.6 34.7* 29.9* MCV 87.4 89.4 87.9 PLT 243 196 212 Recent Labs 08/15/21 1525 08/16/21 0413 NA 139 138 K 3.9 3.2* CL 105 106 CO2 16* 20 BUN 10 7 CREATININE 1.11* 0.95* No results for input(s): COLORU, PHUR, LABCAST, WBCUA, RBCUA, MUCUS, TRICHOMONAS, YEAST, BACTERIA, CLARITYU, SPECGRAV, LEUKOCYTESUR, UROBILINOGEN, BILIRUBINUR, BLOODU in the last 72 hours. Invalid input(s): NITRATE, GLUCOSEUKETONESUAMORPHOUS Additional Lab/culture results: Physical Exam: AO x3 Neck: Supple Chest: Bilateral symmetrical chest rise, nonlabored breathing Circulatory: Peripheries warm and well-perfused Abdomen: Soft, nondistended, no CVA tenderness. PNT draining well clear yellow Extremities: No edema/calf tenderness Interval Imaging Findings: Impression: Encrusted right ureteral stent with right pelvic and bladder stones Patient Active Problem List Diagnosis Hydronephrosis Plan: Reg diet IV CTX for ppx, pending cultures BCx remains NGTD UCX pending still Tachy still but this may be baseline, EKG to ensure WNL Ok for dc if EKG normal with duricef, will have to fu cx and adjust whenever it results outpt FU In office for fu about stent and PNT Pam Monaco MD 7:07 AM 08/17/2021 Images from the original note were not included. Raj Martinez Santacroce, Khan, Mostafa, Buck, Murtagh Jr Urology Progress Note Subjective: Retained right-sided ureteral stent with pelvic and bladder stones Diet: N.p.o. No acute events overnight Low-grade fever yesterday evening up to 99.8 Denies nausea and vomiting Denies flank pain Patient Vitals for the past 24 hrs: BP Temp Temp src Pulse Resp SpO2 Height Weight 08/16/21 0831 100/67 98.5 F (36.9 C) (!) 106 16 98 % 08/16/21 0036 16 08/15/21 2156 16 08/15/21 2126 98.6 F (37 C) Oral 08/15/21 1953 105/69 97.1 F (36.2 C) Temporal 86 16 100 % 08/15/21 1806 99.8 F (37.7 C) 08/15/21 1622 104/68 100.3 F (37.9 C) (!) 121 14 97 % 08/15/21 1325 5' 3 (1.6 m) 158 lb (71.7 kg) 08/15/21 1318 108/74 98.1 F (36.7 C) 98 14 98 % No intake or output data in the 24 hours ending 08/16/21 0835 Recent Labs 08/15/21 1525 08/16/21 0413 WBC 7.5 8.8 HGB 12.5 11.6* HCT 36.6 34.7* MCV 87.4 89.4 PLT 243 196 Recent Labs 08/15/21 1525 08/16/21 0413 NA 139 138 K 3.9 3.2* CL 105 106 CO2 16* 20 BUN 10 7 CREATININE 1.11* 0.95* No results for input(s): COLORU, PHUR, LABCAST, WBCUA, RBCUA, MUCUS, TRICHOMONAS, YEAST, BACTERIA, CLARITYU, SPECGRAV, LEUKOCYTESUR, UROBILINOGEN, BILIRUBINUR, BLOODU in the last 72 hours. Invalid input(s): NITRATE, GLUCOSEUKETONESUAMORPHOUS Additional Lab/culture results: Physical Exam: AO x3 Neck: Supple Chest: Bilateral symmetrical chest rise, nonlabored breathing Circulatory: Peripheries warm and well-perfused Abdomen: Soft, nondistended, no CVA tenderness Extremities: No edema/calf tenderness Interval Imaging Findings: Impression: problem list: Encrusted right ureteral stent with right pelvic and bladder stones Creatinine 0.9 from 1.1 WBC 8.8 from 7.5 Patient Active Problem List Diagnosis Hydronephrosis Plan: N.p.o. except for medications Continue IV fluids at 100 cc/h Continue IV Rocephin empirically for prophylaxis Follow-up blood and urine cultures. Blood culture-no growth for 12 hours, urine culture in process Replace potassium /3.2 this a.m. Tylenol scheduled, Roxicodone as needed for pain control/Dilaudid for breakthrough INR 1/ interventional radiology to place a right-sided percutaneous nephrostomy tube today Discussed again the importance of follow-up for definitive stone treatment Cristian Fonseca MD 8:35 AM 08/16/2021 Associated attestation - Darryl Dunn MD - 08/16/2021 1:39 PM EDT Attending Physician Statement I have discussed the care of the patient, including pertinent history and exam findings, with the resident/DIAN. I have seen and examined the patient and the mcclellan elements of all parts of the encounter have been performed by me. I have reviewed all laboratory findings and imaging reports/films. I agree with the assessment, plan and orders as documented by the resident. (GC Modifier) documented in this encounter [employer] Phone: 08-16-2021 Note PROCEDURE: PERCUTANEOUS ANTEGRADE PYELOGRAM RIGHT PERCUTANEOUS NEPHROSTOMY TUBE PLACEMENT ULTRASOUND GUIDANCE; fluoroscopic guided MODERATE CONSCIOUS SEDATION 08/16/2021 HISTORY: ORDERING SYSTEM PROVIDED HISTORY: retained right stent with hydronephrosis TECHNOLOGIST PROVIDED HISTORY: retained right stent with hydronephrosis Is the patient ?->No SEDATION: 2 mg versed and 200 micro fentanyl were titrated intravenously for moderate sedation monitored under my direction. Total intra service time of sedation was 45 minutes. The patient's vital signs were monitored throughout the procedure and recorded in the patient's medical record by the nurse. CONTRAST: 20 cc FLUOROSCOPY DOSE AND TYPE OR TIME AND EXPOSURES: DAP 2641 cGy cm squared TECHNIQUE Informed consent was obtained following detailed description of the procedure including risks, benefits, and alternatives. [place] protocol was followed. The patient's flank was prepped and draped in sterile fashion and local anesthesia was achieved with lidocaine. An Accustick needle was advanced into a posterior upper pole calyx using ultrasound guidance and a percutaneous antegrade pyelogram was performed. A 0.035 guidewire was used to place a 8 FR percutaneous nephrostomy tube after the tract was dilated. The catheter was sutured to the skin and the patient tolerated the procedure well. FINDINGS: Percutaneous antegrade pyelogram: There is moderate right hydronephrosis. Retained ureteral stent which is in crusted occupied the renal pelvis. Due to the presence of the encrusted stent within the renal pelvis, the catheter terminates in the dilated lower pole infundibulum. IMPRESSION: Successful percutaneous 8 Slov[place] nephrostomy tube placement Interpreted by: Yulissa Turner MD Signed by: Yulissa Turner MD 08/16/21 Final result [facility] 08-16-2021 Note PROCEDURE: PERCUTANEOUS ANTEGRADE PYELOGRAM RIGHT PERCUTANEOUS NEPHROSTOMY TUBE PLACEMENT ULTRASOUND GUIDANCE; fluoroscopic guided MODERATE CONSCIOUS SEDATION 08/16/2021 HISTORY: ORDERING SYSTEM PROVIDED HISTORY: retained right stent with hydronephrosis TECHNOLOGIST PROVIDED HISTORY: retained right stent with hydronephrosis Is the patient ?->No SEDATION: 2 mg versed and 200 micro fentanyl were titrated intravenously for moderate sedation monitored under my direction. Total intra service time of sedation was 45 minutes. The patient's vital signs were monitored throughout the procedure and recorded in the patient's medical record by the nurse. CONTRAST: 20 cc FLUOROSCOPY DOSE AND TYPE OR TIME AND EXPOSURES: DAP 2641 cGy cm squared TECHNIQUE Informed consent was obtained following detailed description of the procedure including risks, benefits, and alternatives. [place] protocol was followed. The patient's flank was prepped and draped in sterile fashion and local anesthesia was achieved with lidocaine. An Accustick needle was advanced into a posterior upper pole calyx using ultrasound guidance and a percutaneous antegrade pyelogram was performed. A 0.035 guidewire was used to place a 8 FR percutaneous nephrostomy tube after the tract was dilated. The catheter was sutured to the skin and the patient tolerated the procedure well. FINDINGS: Percutaneous antegrade pyelogram: There is moderate right hydronephrosis. Retained ureteral stent which is in crusted occupied the renal pelvis. Due to the presence of the encrusted stent within the renal pelvis, the catheter terminates in the dilated lower pole infundibulum. [facility] 07-13-2021 Hospital Discharge instructions Patient Education 07/13/2021 07:36:16 Kidney Stones, [id number] Kidney Stones Kidney stones are rock-like masses that form inside of the kidneys. Kidneys are organs that make pee (urine). A kidney stone may move into other parts of the urinary tract, including: The tubes that connect the kidneys to the bladder (ureters). The bladder. The tube that carries urine out of the body (urethra). Kidney stones can cause very bad pain and can block the flow of pee. The stone usually leaves your body (passes) through your pee. You may need to have a doctor take out the stone. What are the causes? Kidney stones may be caused by: A condition in which certain glands make too much parathyroid hormone (primary hyperparathyroidism). A buildup of a type of crystals in the bladder made of a chemical called uric acid. The body makes uric acid when you eat certain foods. Narrowing (stricture) of one or both of the ureters. A kidney blockage that you were born with. Past surgery on the kidney or the ureters, such as gastric bypass surgery. What increases the risk? You are more likely to develop this condition if: You have had a kidney stone in the past. You have a family history of kidney stones. You do not drink enough water. You eat a diet that is high in protein, salt (sodium), or sugar. You are overweight or very overweight (obese). What are the signs or symptoms? Symptoms of a kidney stone may include: Pain in the side of the belly, right below the ribs (flank pain). Pain usually spreads (radiates) to the groin. Needing to pee often or right away (urgently). Pain when going pee (urinating). Blood in your pee (hematuria). Feeling like you may vomit (nauseous). Vomiting. Fever and chills. How is this treated? Treatment depends on the size, location, and makeup of the kidney stones. The stones will often pass out of the body through peeing. You may need to: Drink more fluid to help pass the stone. In some cases, you may be given fluids through an IV tube put into one of your veins at the hospital. Take medicine for pain. Make changes in your diet to help keep kidney stones from coming back. Sometimes, medical procedures are needed to remove a kidney stone. This may involve: A procedure to break up kidney stones using a beam of light (laser) or shock waves. Surgery to remove the kidney stones. Follow these instructions at home: Medicines Take [id number] and prescription medicines only as told by your doctor. Ask your doctor if the medicine prescribed to you requires you to avoid driving or using heavy machinery. Eating and drinking Drink enough fluid to keep your pee pale yellow. You may be told to drink at least 8 10 glasses of water each day. This will help you pass the stone. If told by your doctor, change your diet. This may include: ?Limiting how much salt you eat. ?Eating more fruits and vegetables. ?Limiting how much meat, poultry, fish, and eggs you eat. Follow instructions from your doctor about eating or drinking restrictions. General instructions Collect pee samples as told by your doctor. You may need to collect a pee sample: ?24 hours after a stone comes out. ?8 12 weeks after a stone comes out, and every 6 12 months after that. Strain your pee every time you pee (urinate), for as long as told. Use the strainer that your doctor recommends. Do not throw out the stone. Keep it so that it can be tested by your doctor. Keep all follow-up visits as told by your doctor. This is important. You may need follow-up tests. How is this prevented? To prevent another kidney stone: Drink enough fluid to keep your pee pale yellow. This is the best way to prevent kidney stones. Eat healthy foods. Avoid certain foods as told by your doctor. You may be told to eat less protein. Stay at a healthy weight. Where to find more information National Kidney Foundation (NKF): www.kidney.org [facility] (UCF): www.urologyhealth.org Contact a doctor if: You have pain that gets worse or does not get better with medicine. Get help right away if: You have a fever or chills. You get very bad pain. You get new pain in your belly (abdomen). You pass out (faint). You cannot pee. Summary Kidney stones are rock-like masses that form inside of the kidneys. Kidney stones can cause very bad pain and can block the flow of pee. The stones will often pass out of the body through peeing. Drink enough fluid to keep your pee pale yellow. This information is not intended to replace advice given to you by your health care provider. Make sure you discuss any questions you have with your health care provider. Document Released: 08/09/2008 Document Revised: 07/10/2019 Document Reviewed: 07/10/2019 [employer] Patient Education 2019 [employer]. Follow Up Care 07/03/2021 11:55:16 With:Blaze Nuno MD, SOPHIA Hopkins Address: [facility] [address], [place] [address]- When: Unknown [facility] [employer] Evaluation + Plan note No data available for this section [facility] Evaluation note Diagnosis Hydronephrosis- Primary Hydronephrosis with urinary obstruction due to renal calculus Tachycardia Tachycardia, unspecified documented in this encounter [employer] Phone: evaluation note* Diagnosis Right nephrolithiasis- Primary Right kidney stone Calculus of kidney Nephrolithiasis Calculus of kidney documented in this encounter [employer] Phone: reason for visit Narrative* Auth/Cert Specialty Diagnoses / Procedures Referred By [facility] Referred To Contact Diagnoses Hydronephrosis hydronephrosis Darryl Dunn MD [address] [place] [address] [employer] [address] [place] [address] Referral ID Status Reason Start Date Expiration Date Visits Re quested Visits Authorized [id number] 1 1 [employer] Phone: reason for visit Narrative* Auth/Cert Specialty Diagnoses / Procedures [facility] Referred To Contact Diagnoses Right kidney stone KIDNEY STONE Procedures SD PERCUT REMV KID STONE,2+ CM HOLMIUM LASER CYSTOSCOPY , URETEROSCOPY NEPHROLITHOTOMY PERCUTANEOUS, STENT EXCHANGE ( LITHOCLAST, C ARM) SHORT STAY Darryl Dunn MD [address] [place] [address] [employer] [address] [place] [address] Referral ID Status Reason Start Date Expiration Date Visits Re quested Visits Authorized [id number] 1 1 [employer] Work Phone: Reason for Referral Specialty Diagnoses / Procedures Referred By Dallin campbell Referred To Contact Cardiology Diagnoses Tachycardia Procedures Echocardiogram complete Ke Joshua MD 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 Latest Code Status on File Code Status Date Activated Date Inactivated Comments Full Code 08/15/2021 2:59 PM Latest Code Status on File Code Status Date Activated Date Inactivated Comments Full Code 08/21/2021 6:40 PM Full Code 08/21/2021 5:09 PM 08/21/2021 5:10 PM Full Code 08/15/2021 2:59 PM 08/17/2021 6:55 PM Summary Purpose Family History No Family History Records FoundNo Family History Records FoundNo Family History Records FoundNo Family History Records FoundNo Family History Records Found Additional Source Comments Ordered Prescriptions (unrec ognized section and content) Prescription Sig Dispensed Refills Start Date End Da te cefadroxil (DURICEF) 500 MG capsule Take 1 capsule by mouth 2 times daily for 5 days 10 capsule 0 08/17/2021 08/22/2021 traMADol (ULTRAM) 50 MG tabletIndications:[place] nephrosis with urinary obstruction due to renal calculus Take 1 tablet by mouth every 6 hours as needed for Pain for up to 3 days. Intended supply: 3 days. Take lowest dose possible to manage pain 12 tablet 0 08/17/2021 08/20/2021 Prescription Sig Dispensed Refills Start Date End Da te oxyCODONE-acetaminophen (PERCOCET) 5-325 MG per tabletIndications:Right nephrolithiasis Take 1 tablet by mouth every 6 hours as needed for Pain for up to 3 days. Intended supply: 3 days. Take lowest dose possible to manage pain 12 tablet 0 08/21/2021 08/24/2021 oxybutynin (DITROPAN XL) 10 MG extended release tablet Take 1 tablet by mouth daily for 10 days 10 tablet 0 08/21/2021 08/31/2021 tamsulosin (FLOMAX) 0.4 MG capsule Take 1 capsule by mouth daily 30 capsule 0 08/21/2021 ciprofloxacin (CIPRO) 500 MG tablet Take 1 tablet by mouth 2 times daily for 10 days 20 tablet 0 08/21/2021 08/31/2021 Scheduled Active and Recently Administ ered Medications (unrecognized section and content) Medication Order 08/15/2021 08/16/2021 08/17/2021 cefTRIAXone (ROCEPHIN) 1,000 mg in sterile water 10 mL IV syringe 1,000 mg, IntraVENous, DAILY, First dose on 08/15/21 at 1515, Until Discontinued, Antimicrobial Indications: Surgical Prophylaxis, Administer as slow IV Push over 5 mins Reconstitute 1 g vials with 9.6 mL of designated diluent to produce a 100 mg/mL solution. 1500 (Given - Provider: Saba Banda RN) 0800 (Given - Provider: Saba Banda, BIPIN) 1029 (Given - Provider: Anahi Reinoso RN) potassium chloride (KLOR-CON M) extended release tablet 40 mEq (COMPLETED) 40 mEq, Oral, ONCE, 1 dose, On 08/16/21 at 0745, Do not crush, chew, or suck on tablet. Tablet may also be broken in half and each half swallowed separately. 1049 (Given - Provider: Saba Banda RN) sodium chloride flush 0.9 % injection 5-40 mL 5-40 mL, IntraVENous, EVERY 12 HOURS SCHEDULED (2 times per day), First dose on 08/15/21 at 2100, Until Discontinued, For Line Patency: Peripheral IV = 5 mL; Midline or Central Line = 10 mL/lumen. If following IV push medication, administer flush at same rate as the IV push. Flush volume is determined by type of infusion therapy being given. For non-viscous solutions use: Peripheral IV = 5 mL Midline or Central Line = 10 mL/lumen For viscous solutions (i.e. blood components, parenteral nutrition, contrast media, or after obtaining blood sample) use: Peripheral IV = 10 mL Midline or Central Line = 20 mL/lumen 2125 (Given - Provider: Vita Joyce RN) 0900 (Due)2046 (Not Given - Provider: Vita Joyce RN - Reason: IV Fluid Infusing) 1030 (Not Given - Provider: Anahi Reinoso RN - Reason: IV Fluid Infusing)2100 (Due) tamsulosin (FLOMAX) capsule 0.4 mg 0.4 mg, Oral, DAILY, First dose on 08/15/21 at 1515, Until Discontinued, Do not crush or break. 1607 (Given - Provider: Saba Banda RN) 1049 (Given - Provider: Saba Banda RN) 1029 (Given - Provider: Anahi Reinoso, BIPIN) Continuous Medication Order 08/15/2021 08/16/2021 08/17/2021 0.9 % sodium chloride infusion IntraVENous, at 100 mL/hr, CONTINUOUS, Starting on 08/15/21 at 1515 1608 (New Bag - Provider: Saba Banda RN) 0119 (New Bag - Provider: Vita Joyce, BIPIN) 0227 (New Bag - Provider: Vita Joyce, BIPIN) PRN Medication Order 08/15/2021 08/16/2021 08/17/2021 0.9 % sodium chloride infusion IntraVENous, at 5-250 mL/hr, PRN, if patient receiving piggyback infusions and maintenance fluids are not ordered OR KVO fluids to protect IV site / prevent frequent line interruptions/ long duration, Starting on 08/15/21 at 1455, For piggyback infusion, administer at same rate as piggyback for a total of 25 mL. Enter 25 mL into dose field and piggyback rate into rate field of order. If piggyback is infusing at a rate less than 100 mL/hr, enter 25 mL into dose field and 100 mL/hr into rate field of order. For KVO fluids, enter rate of 20 mL/hr or less into rate field of order. acetaminophen (TYLENOL) tablet 650 mg 650 mg, Oral, EVERY 4 HOURS PRN, Starting on 08/15/21 at 1439, Until Discontinued, Fever, Maximum dose of acetaminophen is 4000 mg from all sources in 24 hours. 1613 (Given - Provider: Saba Banda RN) 0226 (Given - Provider: Vita Joyce, BIPIN)1349 (Given - Provider: Anahi Reinoso RN) fentaNYL (SUBLIMAZE) injection (COMPLETED) ONCE PRN, 1 dose, Starting on 08/16/21 at 0912, Until 08/16/21 at 0912 0912 (Given - Provider: Gita Justin RN - Comment: PROCEDURAL PAIN) fentaNYL (SUBLIMAZE) injection (COMPLETED) ONCE PRN, 1 dose, Starting on 08/16/21 at 0929, Until 08/16/21 at 0929 0929 (Given - Provider: Gita Justin RN - Comment: PROCEDURAL PAIN) fentaNYL (SUBLIMAZE) injection (COMPLETED) ONCE PRN, 1 dose, Starting on 08/16/21 at 0939, Until 08/16/21 at 0939 0939 (Given - Provider: Gita Justin RN - Comment: PROCEDURALPAIN) fentaNYL (SUBLIMAZE) injection (COMPLETED) ONCE PRN, 1 dose, Starting on 08/16/21 at 0945, Until 08/16/21 at 0945 0945 (Given - Provider: Gita Justin RN - Comment: PROCEDURAL PAIN) HYDROmorphone (DILAUDID) injection 0.5 mg (CANCELED) HYDROmorphone (DILAUDID) 1.5mg IV is equivalent to morphine 10mg IV, 0.5 mg, IntraVENous, EVERY 6 HOURS PRN, Starting on 08/15/21 at 1458, Until 08/17/21 at 0716, breakthrough, If oral and IV narcotics ordered, use oral first and only use IV if oral is ineffective or cannot take oral. Do Not give oral and IV within 1 hour of each other unless specifically ordered. 6 (Given - Provider: Vita Joyce RN) 1048 (Given - Provider: aSba Banda, BIPIN)1754 (Given - Provider: Saba Banda RN) iopamidol (ISOVUE-370) 76 % injection 50 mL (COMPLETED) 50 mL, IntraVENous, IMG ONCE PRN, 1 dose, Starting on 08/16/21 at 1008, Until 08/16/21 at 1009, Other 1009 (Given - Provider: Riri Marquis) midazolam PF (VERSED) injection (COMPLETED) ONCE PRN, 1 dose, Starting on 08/16/21 at 0915, Until 08/16/21 at 0915 0915 (Given - Provider: Gita Justin RN - Comment: PROCEDURAL ANXIETY) midazolam PF (VERSED) injection (COMPLETED) ONCE PRN, 1 dose, Starting on 08/16/21 at 0923, Until 08/16/21 at 0923 0923 (Given - Provider: Gita Justin RN - Comment: PROCEDURAL ANXIETY) midazolam PF (VERSED) injection (COMPLETED) ONCE PRN, 1 dose, Starting on 08/16/21 at 0939, Until 08/16/21 at 0939 0939 (Given - Provider: Gita Justin RN - Comment: PROCEDURAL ANXIETY) midazolam PF (VERSED) injection (COMPLETED) ONCE PRN, 1 dose, Starting on 08/16/21 at 0956, Until 08/16/21 at 0956 0956 (Given - Provider: Gita Justin RN - Comment: PROCEDRUAL ANXIETY) ondansetron (ZOFRAN) injection 4 mg(Linked Group 1) 4 mg, IntraVENous, EVERY 6 HOURS PRN, Starting on 08/15/21 at 1455, Until Discontinued, Nausea, Vomiting, Administer if oral route cannot be used. 1613 (Given - Provider: Saba Banda RN) 1048 (Given - Provider: Saba Banda RN) ondansetron (ZOFRAN-ODT) disintegrating tablet 4 mg(Linked Group 1) 4 mg, Oral, EVERY 8 HOURS PRN, Starting on 08/15/21 at 1455, Until Discontinued, Nausea, Vomiting 1613 (See Alternative - Provider: Saba Banda RN) 1048 (See Alternative - Provider: Saba Banda RN) opium-belladonna (B&O SUPPRETTES) 16.2-30 MG suppository 30 mg mg dosing is based on opium component, 30 mg, Rectal, EVERY 8 HOURS PRN, Starting on 08/15/21 at 1457, Until Discontinued, Bladder Spasms, PRN for bladder spasms. oxyCODONE (ROXICODONE) immediate release tablet 5 mg (CANCELED) 5 mg, Oral, EVERY 6 HOURS PRN, Starting on 08/15/21 at 1457, Until 08/17/21 at 0716, Pain Severe (7-10) 1806 (Given - Provider: Saba Banda RN) 0006 (Given - Provider: Vita Joyce RN)1456 (Given - Provider: Saba Banda RN) polyethylene glycol (GLYCOLAX) packet 17 g 17 g, Oral, DAILY PRN, Starting on 08/15/21 at 1455, Until Discontinued, Constipation, First line therapy for constipation sodium chloride flush 0.9 % injection 5-40 mL 5-40 mL, IntraVENous, PRN, Starting on 08/15/21 at 1455, Until Discontinued, Line Care, After every IV line use, For Line Patency: Peripheral IV = 5 mL; Midline or Central Line = 10 mL/lumen. If following IV push medication, administer flush at same rate as the IV push. Flush volume is determined by type of infusion therapy being given. For non-viscous solutions use: Peripheral IV = 5 mL Midline or Central Line = 10 mL/lumen For viscous solutions (i.e. blood components, parenteral nutrition, contrast media, or after obtaining blood sample) use: Peripheral IV = 10 mL Midline or Central Line = 20 mL/lumen Linked Groups Order Group 1: ondansetron (ZOFRAN-ODT) disintegrating tablet 4 mgJump to med 4 mg, Oral, EVERY 8 HOURS PRN, Starting on 08/15/21 at 1455, Until Discontinued, Nausea, Vomiting Or ondansetron (ZOFRAN) injection 4 mgJump to med 4 mg, IntraVENous, EVERY 6 HOURS PRN, Starting on 08/15/21 at 1455, Until Discontinued, Nausea, Vomiting
Administer if oral route cannot be used.
Scheduled Medication Order 08/20/2021 08/21/2021 08/22/2021 acetaminophen (TYLENOL) tablet 650 mg 650 mg, Oral, EVERY 6 HOURS, First dose on Tue08/21/21 at 1900, Until Discontinued, Maximum dose of acetaminophen is 4000 mg from all sources in 24 hours. 1937 (Given - Provider: Mary Diaz RN) 0134 (Given - Provider: Mary Diaz RN)0731 (Given - Provider: Kapil Lozada, BIPIN)1300 (Due)1900 (Due) ampicillin 2000 mg ivpb mini bag (COMPLETED) 2,000 mg, IntraVENous, VIDEO EDITING INTERN TO O.R., 1 dose, On Tue08/21/21 at 1445, Antimicrobial Indications: Surgical Prophylaxis 1536 (New Bag - Provider: CHEYENNE See CRNA) ciprofloxacin (CIPRO) IVPB 400 mg 400 mg, IntraVENous, EVERY 12 HOURS, First dose on Tue08/21/21 at 1900, Until Discontinued, Antimicrobial Indications: Surgical Prophylaxis 1951 (New Bag - Provider: Mary Diaz RN)195 (Rate/Dose Verify - Provider: Mary Diaz RN)205 (Stopped - Provider: Mary Diaz RN) 0700 (New Bag - Provider: Kapil Lozada RN)0800 (Stopped - Provider: Kapil Lozada RN)1900 (Due) fluconazole (DIFLUCAN) 200 mg IVPB (COMPLETED) 200 mg, IntraVENous, VIDEO EDITING INTERN TO O.R., 1 dose, On Tue08/21/21 at 1445, Antimicrobial Indications: Surgical Prophylaxis 1512 (Given - Provider: CHEYENNE See CRNA) fluconazole (DIFLUCAN) 200 mg IVPB (COMPLETED) 200 mg, IntraVENous, ONCE, 1 dose, On Tue08/22/21 at 0000, Antimicrobial Indications: Surgical Prophylaxis 0023 (New Bag - Provider: Mary Diaz RN)0027 (Rate/Dose Verify - Provider: Mary Diaz RN)0123 (Stopped - Provider: Mary Diaz RN) gentamicin (GARAMYCIN) IVPB 120 mg (COMPLETED) 120 mg, IntraVENous, VIDEO EDITING INTERN TO O.R., 1 dose, On Tue08/21/21 at 1445, Antimicrobial Indications: Surgical Prophylaxis 1440 (Given - Provider: CHEYENNE Abdullahi CRNA) sodium chloride flush 0.9 % injection 5-40 mL 5-40 mL, IntraVENous, EVERY 12 HOURS SCHEDULED (2 times per day), First dose on Tue08/21/21 at 2100, Until Discontinued, For Line Patency: Peripheral IV = 5 mL; Midline or Central Line = 10 mL/lumen. If following IV push medication, administer flush at same rate as the IV push. Flush volume is determined by type of infusion therapy being given. For non-viscous solutions use: Peripheral IV = 5 mL Midline or Central Line = 10 mL/lumen For viscous solutions (i.e. blood components, parenteral nutrition, contrast media, or after obtaining blood sample) use: Peripheral IV = 10 mL Midline or Central Line = 20 mL/lumen 1937 (Not Given - Provider: Mary Diaz RN - Reason: IV Fluid Infusing) 0837 (Not Given - Provider: Kapil Lozada RN - Reason: Order parameters not met)2100 (Due) tamsulosin (FLOMAX) capsule 0.4 mg 0.4 mg, Oral, DAILY, First dose on Tue08/21/21 at 1900, Until Discontinued, Do not crush or break. 1937 (Given - Provider: Mary Diaz RN) 0836 (Given - Provider: Kapil Lozada, BIPIN) Continuous Medication Order 08/20/2021 08/21/2021 08/22/2021 0.9 % sodium chloride infusion IntraVENous, at 100 mL/hr, CONTINUOUS, Starting on Tue08/21/21 at 1900 1848 (New Bag - Provider: Kaitlynn Rico RN)1852 (Rate/Dose Verify - Provider: Mary Diaz RN)2052 (Rate/Dose Verify - Provider: Mary Diaz RN)2328 (Rate/Dose Verify - Provider: Mary Diaz RN) 0430 (Rate/Dose Verify - Provider: Mary Diaz RN)0557 (Rate/Dose Verify - Provider: Mary Diaz RN)0847 (New Bag - Provider: Kapil Lozada, BIPIN)1015 (Stopped - Provider: Kapil Lozada RN) PRN Medication Order 08/20/2021 08/21/2021 08/22/2021 0.9 % sodium chloride infusion IntraVENous, at 5-250 mL/hr, PRN, if patient receiving piggyback infusions and maintenance fluids are not ordered OR KVO fluids to protect IV site / prevent frequent line interruptions/ long duration, Starting on Tue08/21/21 at 1840, For piggyback infusion, administer at same rate as piggyback for a total of 25 mL. Enter 25 mL into dose field and piggyback rate into rate field of order. If piggyback is infusing at a rate less than 100 mL/hr, enter 25 mL into dose field and 100 mL/hr into rate field of order. For KVO fluids, enter rate of 20 mL/hr or less into rate field of order. fentaNYL (SUBLIMAZE) injection 50 mcg (COMPLETED) 50 mcg, IntraVENous, EVERY 5 MIN PRN, 2 doses, Starting on Tue08/21/21 at 1721, Until Discontinued, Pain Severe (7-10), For Phase I. If Phase II oral narcotics have been administered in the last 60 minutes, do not administer IV narcotics unless specifically approved by provider., PACU only 1740 (Given - Provider: Brandy Hdez RN)1750 (Given - Provider: Brandy Hdez RN) HYDROmorphone (DILAUDID) injection 0.5 mg HYDROmorphone (DILAUDID) 1.5mg IV is equivalent to morphine 10mg IV, 0.5 mg, IntraVENous, EVERY 4 HOURS PRN, Starting on Tue08/21/21 at 1840, Until Discontinued, breakthrough, If oral and IV narcotics ordered, use oral first and only use IV if oral is ineffective or cannot take oral. Do Not give oral and IV within 1 hour of each other unless specifically ordered. 1850 (Given - Provider: Kaitlynn Rico, BIPIN)2324 (Given - Provider: Mary Diaz, BIPIN) iothalamate (CONRAY) 60 % injection (CANCELED) PRN, Starting on Tue08/21/21 at 1516, Until Tue08/21/21 at 1657, Intra-op 1516 (Given - Provider: Darryl Dunn MD - Comment: mixed to saline as contrast) midazolam PF (VERSED) injection 0.5 mg (COMPLETED) 0.5 mg, IntraVENous, 4 TIMES DAILY PRN, 4 doses, Starting on Tue08/21/21 at 1341, Until Tue08/21/21 at 1403, Anxiety 1347 (Given - Provider: Blaire Vegas RN)1352 (Given - Provider: Blaire Vegas RN)1357 (Given - Provider: Blaire Vegas RN)1403 (Given - Provider: Blaire Vegas RN) ondansetron (ZOFRAN) injection 4 mg(Linked Group 1) 4 mg, IntraVENous, EVERY 6 HOURS PRN, Starting on Tue08/21/21 at 1840, Until Discontinued, Nausea, Vomiting, Administer if oral route cannot be used. ondansetron (ZOFRAN-ODT) disintegrating tablet 4 mg(Linked Group 1) 4 mg, Oral, EVERY 8 HOURS PRN, Starting on Tue08/21/21 at 1840, Until Discontinued, Nausea, Vomiting opium-belladonna (B&O SUPPRETTES) 16.2-30 MG suppository 30 mg mg dosing is based on opium component, 30 mg, Rectal, EVERY 8 HOURS PRN, Starting on Tue08/21/21 at 1840, Until Discontinued, Bladder Spasms, PRN for bladder spasms. oxyCODONE (ROXICODONE) immediate release tablet 10 mg(Linked Group 2) 10 mg, Oral, EVERY 6 HOURS PRN, Starting on Tue08/21/21 at 1840, Until Discontinued, Pain Severe (7-10) 2050 (Given - Provider: Mary Diaz RN) 1046 (Given - Provider: Kapil Lozada, BIPIN) oxyCODONE (ROXICODONE) immediate release tablet 5 mg(Linked Group 2) 5 mg, Oral, EVERY 6 HOURS PRN, Starting on Tue08/21/21 at 1840, Until Discontinued, Pain Moderate (4-6) 2050 (See Alternative - Provider: Mary Diaz RN) 1046 (See Alternative - Provider: Kapil Lozada, BIPIN) phenazopyridine (PYRIDIUM) tablet 100 mg 100 mg, Oral, EVERY 6 HOURS PRN, Starting on Tue08/21/21 at 1840, Until Discontinued, Dysuria, Genitourinary staining, Take with food. May cause discoloration of urine. polyethylene glycol (GLYCOLAX) packet 17 g 17 g, Oral, DAILY PRN, Starting on Tue08/21/21 at 1840, Until Discontinued, Constipation, First line therapy for constipation sodium chloride (PF) 0.9 % injection (CANCELED) PRN, Starting on Tue08/21/21 at 1515, Until Tue08/21/21 at 1657, Intra-op 1515 (Given - Provider: Darryl Dunn MD - Comment: used for encore inflation device) sodium chloride 0.9 % irrigation (CANCELED) CONTINUOUS PRN, Starting on Tue08/21/21 at 1514, Intra-op 1514 (New Bag - Provider: Darryl Dunn MD - Comment: used for cysto tubing)1516 (New Bag - Provider: Darryl Dunn MD - Comment: used for back table) sodium chloride flush 0.9 % injection 5-40 mL 5-40 mL, IntraVENous, PRN, Starting on Tue08/21/21 at 1840, Until Discontinued, Line Care, After every IV line use, For Line Patency: Peripheral IV = 5 mL; Midline or Central Line = 10 mL/lumen. If following IV push medication, administer flush at same rate as the IV push. Flush volume is determined by type of infusion therapy being given. For non-viscous solutions use: Peripheral IV = 5 mL Midline or Central Line = 10 mL/lumen For viscous solutions (i.e. blood components, parenteral nutrition, contrast media, or after obtaining blood sample) use: Peripheral IV = 10 mL Midline or Central Line = 20 mL/lumen Linked Groups Order Group 1: ondansetron (ZOFRAN-ODT) disintegrating tablet 4 mgJump to med 4 mg, Oral, EVERY 8 HOURS PRN, Starting on Tue08/21/21 at 1840, Until Discontinued, Nausea, Vomiting Or ondansetron (ZOFRAN) injection 4 mgJump to med 4 mg, IntraVENous, EVERY 6 HOURS PRN, Starting on Tue08/21/21 at 1840, Until Discontinued, Nausea, Vomiting
Administer if oral route cannot be used.
Group 2: oxyCODONE (ROXICODONE) immediate release tablet 5 mgJump to med 5 mg, Oral, EVERY 6 HOURS PRN, Starting on Tue08/21/21 at 1840, Until Discontinued, Pain Moderate (4-6) Or oxyCODONE (ROXICODONE) immediate release tablet 10 mgJump to med 10 mg, Oral, EVERY 6 HOURS PRN, Starting on Tue08/21/21 at 1840, Until Discontinued, Pain Severe (7-10) Care Teams (unrecognized sec tion and content) [employer]airer Relationship Specialty Start Date End Date Jelani Sow MD [address] [place] [address] PCP - General Family Medicine 05/17/14 [employer] And Repairer Relationship Specialty Start Date End Date Ruby Burrell [address] [place] [id number] PCP - General Nurse Practitioner 08/21/21 INFORMATION SOURCE (unrecogn ized section and content) DATE CREATED AUTHOR 08/21/2021 [facility] DATE CREATED AUTHOR AUTHOR'S ORGANIZ ATION 08/26/2021 [facility] DATE CREATED AUTHOR AUTHOR'S ORGANIZ ATION 09/25/2021 [facility] DATE CREATED AUTHOR AUTHOR'S ORGANIZ ATION 09/29/2021 [facility] DATE CREATED AUTHOR AUTHOR'S ORGANIZ ATION 05/06/2023 [facility] EPIC FOR RECORDS PERTAINING TO PATIENTS WHO ARE OR HAVE BEEN ENROLLED IN A CHEMICAL DEPENDENCY/SUBSTANCEABUSE PROGRAM, SOME INFORMATION MAY BE OMITTED. This clinical summary was aggregated from multiple sources. Caution should be exercised in using it in the provision of clinical care. This summary normalizes information from multiple sources, and as a consequence, information in this document may materially change the coding, format and clinical context of patient data. In addition, data may be omitted in some cases. CLINICAL DECISIONS SHOULD BE BASED ON THE PRIMARY CLINICAL RECORDS. [employer] provides no warranty or guarantee of the accuracy or completeness of information in this document.
[2023-05-29 01:06] LABS: AFP Value 78.4 ng/mL (.); Gest. Age on Collection Date 21.9 weeks (.); Gestat. Age Based On Ultrasound (.); Insulin Dep Diabetes No (.); Maternal Age At EDD 24.9 yr (.); OSBR Risk 1 IN 10000 (.); Results Report (.)
== END 2023-05-27 10:17 | disposition home or self-care (01) ==
LOC: US 10:20
PROVIDERS: Visit Provider Obstetrics & Gynecology
DX: Z34.92 Encounter for supervision of normal pregnancy, unspecified, second trimester (principal); Z36.1 Encounter for antenatal screening for raised alphafetoprotein level; Z3A.22 22 weeks gestation of pregnancy
CPT/HCPCS: 36415; 76805; 76817; 82105

== ENCOUNTER 2023-05-31 20:09 | Outpatient (REF) | payer OTHER, SELFPAY ==
--- OUTSIDE RECORDS SUMMARY | 2023-05-31 20:15 | XMS_ITS | CCD ---
Author Organization [facility] Care Team Providers Care Vp [place] [employer] [place] Name Role Phone Sarwat URIAS, Jelani Beckett [...] Consulting Unavailable Ruby Burrell Primary Care Provider [phone] DARRYL DUNN Admitting Unavailable RON DUNNAR Attending [...] (PYRIDIUM) tablet 100 mg polyethylene glycol 3350 26005 mg powder for oral solution (2 sources) [...] 03-25-2021 Chronic Other aftercare (1 source) Other correction (current) drug therapy; Translations: [OTH PARTS BACK COUNTER MAN CURRENT DRUG THERAPY] Onset: 08-18-2021 Episodic Other [...] Range Facility Patient Correspondenceon Patient Correspondence [id number]#[id number]:127 [facility] Patient Correspondenceon Patient Correspondence [id number]#1.00CD:127 [facility] Provider Orderson 09-04-2021 Provider Orders [id number]#[id number] [facility] Stone Analysison 08-26-2021 Calculi description See Note [facility] Comment on above: Result Comment: (NOT E) Specimen consists of numerous cabrera calculi fragments. The total weight is 822 mg. Performed By: #### A STONE #### [facility] [address] [place] [address] Cycle Repairer: Liang Rapp MD Composition See Note [facility] Comment on above: Result Comment: (NOT [...] composition determined by FTIR analysis. Performed By: [facility] [address] [place] [address] Marine Cargo Specialist: Kaia Holt MD Performed By: #### A STONE #### [facility] [address] [place] [address] Cycle Repairer: Liang Rapp MD Mass 822 mg [facility] Comment on above: Performed By: #### A STONE #### [facility] [address] [place] [address] Cycle Repairer: Liang Rapp MD Provider Letteron 08-25-2021 Provider Letter August 25, 2021 NIKOLAY MILES [address] [place] [phone] NIKOLAY MILES 2000 Dear Ms. Miles, This letter is to inform you that the providers [facility] will no longer be responsible for your routine medical care. Emergency care only will be provided for the thirty (30) days following this letter. During this time period we suggest that you find another physician for your medical needs. A listing of area physicians can be found on [facility]'s website at [email or web address] or you may contact your health plan. We will be glad to forward your records to your new physician as long as we receive a signed release of records form. Sincerely, Dr. Wiliam Thakur [address] [place] [address]. [place] [address] [facility] Basic Metab w/rfx MGon 08-22 (cont.) [facility] Comment on above: Result Comment: Aver age GFR for 20-29 years old: 116 mL/min/1.73sq m Chronic Kidney Disease: <60 mL/min/1.73sq m Kidney failure: <15 mL/min/1.73sq m eGFR calculated using average adult body mass. Additional eGFR calculator available at: http://www.Jingit.com/multiple_crcl_2011.htm Performed By: #### B MPX, CDP #### [facility] [address] [place] [address] Cycle Repairer: Yusuf Schmidt MD Anion gap [Moles/Vol] 12 mmol/L Normal 9-17 [facility] Comment on above: Performed By: #### B MPX, CDP #### [facility] [address] [place] [address] Cycle Repairer: Yusuf Schmidt MD Calcium [Mass/Vol] 8.3 mg/dL Low 8.6-10.4 [facility] Comment on above: Performed By: #### B MPX, CDP #### [facility] [address] [place] [address] Cycle Repairer: Yusuf Schmidt MD Chloride [Moles/Vol] 103 mmol/L Normal 98-107 [facility] Comment on above: Performed By: #### B MPX, CDP #### [facility] [address] [place] [address] Cycle Repairer: Yusuf Schmidt MD CO2 [Moles/Vol] 21 mmol/L Normal 20-31 [facility] Comment on above: Performed By: #### B MPX, CDP #### [facility] [address] [place] [address] Cycle Repairer: Yusuf Schmidt MD Creatinine [Mass/Vol] 0.72 mg/dL Normal 0.50-0.90 [facility] Comment on above: Performed By: #### B MPX, CDP #### [facility] [address] [place] [address] Cycle Repairer: Yusuf Schmidt MD GFR, Amer >60 Normal >60 [facility] Comment on above: Performed By: #### B MPX, CDP #### [facility] [address] [place] [address] Cycle Repairer: Yusuf Schmidt MD GFR,non Amer >60 Normal >60 [facility] Comment on above: Performed By: #### B MPX, CDP #### [facility] [address] [place] [address] Cycle Repairer: Yusuf Schmidt MD Glucose [Mass/Vol] 107 mg/dL High 70-99 [facility] Comment on above: Performed By: #### B MPX, CDP #### [facility] [address] [place] [address] Cycle Repairer: Yusuf Schmidt MD Potassium [Moles/Vol] 4.0 mmol/L Normal 3.7-5.3 [facility] Comment on above: Performed By: #### B MPX, CDP #### [facility] [address] [place] [address] Cycle Repairer: Yusuf Schmidt MD Sodium [Moles/Vol] 136 mmol/L Normal 135-144 [facility] Comment on above: Performed By: #### B MPX, CDP #### [facility] [address] [place] [address] Cycle Repairer: Yusuf Schmidt MD Urea nitrogen [Mass/Vol] 10 mg/dL Normal 6-20 [facility] Comment on above: Performed By: #### B MPX, CDP #### [facility] [address] [place] [address] Cycle Repairer: Yusuf Schmidt MD Basic Metabolic Panel w/ Ref bahman to MGon 08-22-2021 Anion gap [Moles/Vol] 12 mmol/L 9 - 17 mmol/L [facility] Calcium [Mass/Vol] 8.3 mg/dL Low 8.6 - 10. 4 mg/dL [facility] Chloride [Moles/Vol] 103 mmol/L 98 - 10 7 mmol/L [facility] CO2 [Moles/Vol] 21 mmol/L 20 - 31 mmol/L [facility] Creatinine [Mass/Vol] 0.72 mg/dL 0.50 - 0.90 mg/dL [facility] GFR >60 >60 mL/min [facility] GFR Non- >60 >60 mL/min [facility] GFR/1.73 sq M.predicted MDRD (S/P/Bld) [Vol rate/Area] [facility] Comment on above: Average GFR for 20-2 9 years old: 116 mL/min/1.73sq m Chronic Kidney Disease: <60 mL/min/1.73sq m Kidney failure: <15 mL/min/1.73sq m eGFR calculated using average adult body mass. Additional eGFR calculator available at: http://www.Resource Data/multiple_crcl_2011.htm Glucose [Mass/Vol] 107 mg/dL High 70 - 99 mg/dL [facility] Interpretation and review of laboratory results Abnormal [facility] Potassium [Moles/Vol] 4.0 mmol/L 3.7 - 5.3 mmol/L [facility] Sodium [Moles/Vol] 136 mmol/L 135 - 144 mmol/L [facility] Urea nitrogen (BldV) [Mass/Vol] 10 mg/dL 6 - 20 mg/dL [facility] CBC with Auto Differentialon 08-22-2021 Absolute Eos # <0.03 [facility] [place] Absolute Immature Granulocyte 0.25 [facility] Absolute Lymph # 1.73 [facility] [place] Absolute Schley # 0.72 [facility] Basophils (Bld) [#/Vol] 10*3/uL [facility] Basophils/100 WBC (Bld) 0 % 0 - 2 % [facility] Eosinophils/100 WBC (Bld) 0 % Low 1 - 4 % [facility] Hematocrit (Bld) [Volume fraction] 33.9 % Low 36.3 - 47.1 % [facility] Hemoglobin (Bld) [Mass/Vol] 11.3 g/dL Low 11.9 - 15.1 g/dL [facility] Immature granulocytes/100 WBC (Bld) 2 % High 0 [facility] Interpretation and review of laboratory results Abnormal [facility] Lymphocytes/100 WBC (Bld) 13 % Low 24 - 43 % [facility] MCH (RBC) [Entitic mass] 30.1 pg 25.2 - 33.5 pg [facility] MCHC (RBC) [Mass/Vol] 33.3 g/dL 28.4 - 34.8 g/dL [facility] MCV (RBC) [Entitic vol] 90.2 fL 82.6 - 102.9 fL [facility] Monocytes/100 WBC (Bld) 5 % 3 - 12 % [facility] NRBC Automated 0.0 0.0 per 100 WBC [facility] Platelet distribution width (Bld) [Ratio] 13.5 % 11.8 - 14.4 % [facility] Platelet mean volume (Bld) [Entitic vol] 8.5 fL 8.1 - 13.5 fL [facility] Platelets (Bld) [#/Vol] 598 10*3/uL High [facility] RBC (Bld) [#/Vol] 3.76 10*6/uL Low 3.95 - 5.1 1 m/uL [facility] Segmented neutrophils/100 WBC (Bld) 80 % High 36 - 65 % [facility] Segs Absolute 10.78 High [facility] WBC (Bld) [#/Vol] 13.5 10*3/uL High [facility] CBC with Diffon 08-22-2021 Abs. Basophil <0.03 Normal 0.00-0.20 [facility] Comment on above: Performed By: #### B MPX, CDP #### [facility] [address] [place] [address] Cycle Repairer: Yusuf Schmidt MD Abs. Eosinophil <0.03 Normal 0.00-0.44 [facility] Comment on above: Performed By: #### B MPX, CDP #### [facility] [address] [place] [address] Cycle Repairer: Yusuf Schmidt MD Abs.Imm.Granulocyte 0.25 k/uL Normal 0.00-0.30 [facility] Comment on above: Performed By: #### B MPX, CDP #### [facility] [address] [place] [address] Cycle Repairer: Yusuf Schmidt MD Abs.Neutrophil (Seg) 10.78 k/uL High 1.50-8.10 [facility] Comment on above: Performed By: #### B MPX, CDP #### [facility] [address] [place] [address] Cycle Repairer: Yusuf Schmidt MD Basophils/100 WBC (Bld) 0 % Normal 0-2 [facility] Comment on above: Performed By: #### B MPX, CDP #### [facility] [address] [place] [address]36 Cycle Repairer: Yusuf Schmidt MD Eosinophils/100 WBC (Bld) 0 % Low 1-4 [facility] Comment on above: Performed By: #### B MPX, CDP #### [facility] [address] [place] [address] Cycle Repairer: Yusuf Schmidt MD Erythrocyte distribution width (RBC) [Ratio] 13.5 % Normal 11.8-14.4 [facility] Comment on above: Performed By: #### B MPX, CDP #### [facility] [address] [place] [address] Cycle Repairer: Yusuf Schmidt MD Hematocrit (Bld) [Volume fraction] 33.9 % Low 36.3-47.1 [facility] Comment on above: Performed By: #### B MPX, CDP #### [facility] [address] [place] [address] Cycle Repairer: Yusuf Schmidt MD Hemoglobin (Bld) [Mass/Vol] 11.3 g/dL Low 11.9-15.1 [facility] Comment on above: Performed By: #### B MPX, CDP #### [address] [address] Cycle Repairer: Yusuf Schmidt MD Immature granulocytes/100 WBC (Bld) 2 % High 0 [facility] Comment on above: Performed By: #### B MPX, CDP #### [address] [address] Cycle Repairer: Yusuf Schmidt MD Lymphocytes (Bld) [#/Vol] 1.73 10*3/uL Normal 1.10-3.70 [facility] Comment on above: Performed By: #### B MPX, CDP #### [address] [address] Cycle Repairer: Yusuf Schmidt MD Lymphocytes/100 WBC (Bld) 13 % Low 24-43 [facility] Comment on above: Performed By: #### B MPX, CDP #### [address] [address] Cycle Repairer: Yusuf Schmidt MD MCH (RBC) [Entitic mass] 30.1 pg Normal 25.2-33.5 [facility] Comment on above: Performed By: #### B MPX, CDP #### [address] [address] Cycle Repairer: Yusuf Schmidt MD MCHC (RBC) [Mass/Vol] 33.3 g/dL Normal 28.4-34.8 [facility] Comment on above: Performed By: #### B MPX, CDP #### [address] [address] Cycle Repairer: Yusuf Schmidt MD MCV (RBC) [Entitic vol] 90.2 fL Normal 82.6-102.9 [facility] Comment on above: Performed By: #### B MPX, CDP #### [address] [address] Cycle Repairer: Yusuf Schmidt MD Monocytes (Bld) [#/Vol] 0.72 10*3/uL Normal 0.10-1.20 [facility] Comment on above: Performed By: #### B MPX, CDP #### [address] [address] Cycle Repairer: Yusuf Schmidt MD Monocytes/100 WBC (Bld) 5 % Normal 3-12 [facility] Comment on above: Performed By: #### B MPX, CDP #### [address] [address] Cycle Repairer: Yusuf Schmidt MD Neutrophil (Seg) 80 % High 36-65 [facility] Comment on above: Performed By: #### B MPX, CDP #### [address] [address] Cycle Repairer: Yusuf Schmidt MD NRBC Automated 0.0 per 100 WBC Normal 0.0 [facility] Comment on above: Performed By: #### B MPX, CDP #### [address] [address] Cycle Repairer: Yusuf Schmidt MD Platelet mean volume (Bld) [Entitic vol] 8.5 fL Normal 8.1-13.5 [facility] Comment on above: Performed By: #### B MPX, CDP #### [address] [address] Cycle Repairer: Yusuf Schmidt MD Platelets (Bld) [#/Vol] 598 10*3/uL High 138-453 [facility] Comment on above: Performed By: #### B MPX, CDP #### [address] [address] Cycle Repairer: Yusuf Schmidt MD RBC (Bld) [#/Vol] 3.76 10*6/uL Low 3.95-5.11 [facility] Comment on above: Performed By: #### B MPX, CDP #### [address] [address] Cycle Repairer: Yusuf Schmidt MD WBC (Bld) [#/Vol] 13.5 10*3/uL High 3.5-11.3 [facility] Comment on above: Performed By: #### B MPX, CDP #### [address] [address] Cycle Repairer: Yusuf Schmidt MD Cult,Urineon 08-22-2021 Cult,Urine Specimen Description .CLEAN CATCH URINE Culture NO GROWTH Report Status FINAL 08/22/2021 Normal [facility] Comment on above: Performed By: #### U RC #### [address] [address] Cycle Repairer: Yusuf Schmidt MD APTTon 08-21-2021 aPTT Coag (Bld) [Time] 25.9 s Normal 20.5-30.5 [facility] Comment on above: Result Comment: IV Heparin Therapy Range: 48.6-77.8 Performed By: #### P T, PTT, PLT #### [address] [address] Cycle Repairer: Yusuf Schmidt MD aPTT Coag (Bld) [Time] 25.9 s [employer] Comment on above: IV Heparin Therapy Range: 48.6-77.8 FLUORO FOR SURGICAL PROCEDUR ESon 08-21-2021 FLUORO FOR SURGICAL PROCEDURES Radiology exam is complete. No Radiologist dictation. Please follow up with ordering provider. Final result Normal [facility] Radiology exam is complete. No Radiologist dictation. Please follow up with ordering provider. [facility] RIS CONSOLIDATED No Panel Informationon 08-21 [employer] POCT urine pregnancyon 08-21 Beta HCG ( test) Ql (U) Negative NEGATIVE [facility] Comment on above: Specimens with hCG l evels near the threshold of the test (25 mIU/mL) may give a negative or indeterminate result. In such cases, another test should be performed with a new specimen in 48-72 hours. If early is suspected clinically in this setting, correlation with quantitative serum b-hCG level is suggested. [facility] [employer] PTon 08-21-2021 INR Coag (PPP) [Relative time] 0.9 {INR} Normal [facility] Comment on above: Result Comment: Therapeutic Range: Moderate Anticoagulant Intensity: INR = 2.0-3.0 High Anticoagulant Intensity: INR = 2.5-3.5 Performed By: #### P T, PTT, PLT #### [facility] [address] [place] [address] Cycle Repairer: Yusuf Schmidt MD PT Coag (PPP) [Time] 9.7 s Normal 9.1-12.3 [facility] Comment on above: Performed By: #### P T, PTT, PLT #### [facility] [address] [place] [address] Cycle Repairer: Yusuf Schmidt MD Platelet Counton 08-21-2021 Platelets (Bld) [#/Vol] 626 10*3/uL High 138-453 [facility] Comment on above: Performed By: #### P T, PTT, PLT #### [facility] [address] [place] [address] [id number] Cycle Repairer: Yusuf Schmidt MD Interpretation and review of laboratory results Abnormal [facility] Platelets (Bld) [#/Vol] 626 10*3/uL High [facility] Protime-INRon 08-21-2021 INR Coag (Bld) [Relative time] 0.9 {INR} [facility] Comment on above: Therapeutic Range: Moderate Anticoagulant Intensity: INR = 2.0-3.0 High Anticoagulant Intensity: INR = 2.5-3.5 PT Coag (PPP) [Time] 9.7 s [facility] [place] Cult,Bloodon 08-20-2021 Cult,Blood Specimen Description .BLOOD Special Requests RT AC 10ML Culture NO GROWTH 5 DAYS Report Status FINAL 08/20/2021 [facility] Comment on above: Performed By: #### B C #### [address] [id number] Cycle Repairer: Yusuf Schmidt MD Cult,Blood Specimen Description .BLOOD Special Requests LEFT ARM 3 ML Culture NO GROWTH 5 DAYS Report Status FINAL 08/20/2021 [facility] Comment on above: Performed By: #### B MP, CBC #### [address] [id number] Cycle Repairer: Yusuf Schmidt MD Basic Metab w/rfx MGon 08-17 Potassium [Moles/Vol] 3.4 mmol/L Low 3.7-5.3 [facility] Comment on above: Performed By: #### B MPX, CDP #### [place] [address] Cycle Repairer: Yusuf Schmidt MD (cont.) [facility] Comment on above: Result Comment: Aver age GFR for 20-29 years old: 116 mL/min/1.73sq m Chronic Kidney Disease: <60 mL/min/1.73sq m Kidney failure: <15 mL/min/1.73sq m eGFR calculated using average adult body mass. Additional eGFR calculator available at: http://www.Jingit.com/multiple_crcl_2012.htm Performed By: #### B MPX, CDP #### [facility] [address] [place] [address] [id number] Cycle Repairer: Yusuf Schmidt MD Anion gap [Moles/Vol] 12 mmol/L Normal 9-17 [facility] Comment on above: Performed By: #### B MPX, CDP #### [facility] [address] [place] [address] Cycle Repairer: Yusuf Schmidt MD Calcium [Mass/Vol] 8.5 mg/dL Low 8.6-10.4 [facility] Comment on above: Performed By: #### B MPX, CDP #### [facility] [address] [place] [address] Cycle Repairer: Yusuf Schmidt MD Chloride [Moles/Vol] 104 mmol/L Normal 98-107 [facility] Comment on above: Performed By: #### B MPX, CDP #### [facility] [address] [place] [address] Cycle Repairer: Yusuf Schmidt MD CO2 [Moles/Vol] 22 mmol/L Normal 20-31 [facility] Comment on above: Performed By: #### B MPX, CDP #### [facility] [address] [place] [address] Cycle Repairer: Yusuf Schmidt MD Creatinine [Mass/Vol] 0.70 mg/dL Normal 0.50-0.90 [facility] Comment on above: Performed By: #### B MPX, CDP #### [facility] [address] [place] [address] Cycle Repairer: Yusuf Schmidt MD GFR, Amer >60 Normal >60 [facility] Comment on above: Performed By: #### B MPX, CDP #### [facility] [address] [place] [address] Cycle Repairer: Yusuf Schmidt MD GFR,non Amer >60 Normal >60 [facility] Comment on above: Performed By: #### B MPX, CDP #### [facility] [address] [place] [address] Cycle Repairer: Yusuf Schmidt MD Glucose [Mass/Vol] 88 mg/dL Normal 70-99 [facility] Comment on above: Performed By: #### B MPX, CDP #### [facility] [address] [place], [place] [phone] Cycle Repairer: Yusuf Schmidt MD Sodium [Moles/Vol] 138 mmol/L Normal 135-144 [facility] Comment on above: Performed By: #### B MPX, CDP #### [facility] [address] [place], [place] [phone] Cycle Repairer: Yusuf Schmidt MD Urea nitrogen [Mass/Vol] 6 mg/dL Normal 6-20 [facility] Comment on above: Performed By: #### B MPX, CDP #### [facility] [address] [place], [place] [phone] Cycle Repairer: Yusuf Schmidt MD Basic Metabolic Panel w/ Ref bahman to MGon 08-17-2021 Anion gap [Moles/Vol] 12 mmol/L 9 - 17 mmol/L [facility] Calcium [Mass/Vol] 8.5 mg/dL Low 8.6 - 10. 4 mg/dL [facility] Chloride [Moles/Vol] 104 mmol/L 98 - 10 7 mmol/L [facility] CO2 [Moles/Vol] 22 mmol/L 20 - 31 mmol/L [facility] Creatinine [Mass/Vol] 0.7 mg/dL 0.50 - 0.90 mg/dL [facility] GFR >60 >60 mL/min [facility] GFR Non- >60 >60 mL/min [facility] GFR/1.73 sq M.predicted MDRD (S/P/Bld) [Vol rate/Area] [facility] Comment on above: Average GFR for 20-2 9 years old: 116 mL/min/1.73sq m Chronic Kidney Disease: <60 mL/min/1.73sq m Kidney failure: <15 mL/min/1.73sq m eGFR calculated using average adult body mass. Additional eGFR calculator available at: http://www.globalrph.JoinTV/multiple_crcl_2012.htm Glucose [Mass/Vol] 88 mg/dL 70 - 99 mg/dL [facility] Interpretation and review of laboratory results Abnormal [facility] Potassium [Moles/Vol] 3.4 mmol/L Low 3.7 - 5.3 mmol/L [facility] Sodium [Moles/Vol] 138 mmol/L 135 - 144 mmol/L [facility] Urea nitrogen (BldV) [Mass/Vol] 6 mg/dL 6 - 20 mg/dL [facility] CBC with Auto Differentialon 08-17-2021 Absolute Eos # 0.26 [facility] [place] Absolute Immature Granulocyte 0.04 [facility] Absolute Lymph # 1.71 [facility] [place] Absolute Schley # 1.22 High [facility] Basophils (Bld) [#/Vol] 0.03 10*3/uL [facility] Basophils/100 WBC (Bld) 0 % 0 - 2 % [facility] Eosinophils/100 WBC (Bld) 3 % 1 - 4 % [facility] Hematocrit (Bld) [Volume fraction] 29.9 % Low 36.3 - 47.1 % [facility] Hemoglobin (Bld) [Mass/Vol] 10.3 g/dL Low 11.9 - 15.1 g/dL [facility] Immature granulocytes/100 WBC (Bld) 1 % High 0 [facility] Interpretation and review of laboratory results Abnormal [facility] Lymphocytes/100 WBC (Bld) 20 % Low 24 - 43 % [facility] MCH (RBC) [Entitic mass] 30.3 pg 25.2 - 33.5 pg [facility] MCHC (RBC) [Mass/Vol] 34.4 g/dL 28.4 - 34.8 g/dL [facility] MCV (RBC) [Entitic vol] 87.9 fL 82.6 - 102.9 fL [facility] Monocytes/100 WBC (Bld) 14 % High 3 - 12 % [facility] NRBC Automated 0.0 0.0 per 100 WBC [facility] Platelet distribution width (Bld) [Ratio] 13.2 % 11.8 - 14.4 % [facility] Platelet mean volume (Bld) [Entitic vol] 9.6 fL 8.1 - 13.5 fL [facility] Platelets (Bld) [#/Vol] 212 10*3/uL [facility] RBC (Bld) [#/Vol] 3.40 10*6/uL Low 3.95 - 5.1 1 m/uL [facility] Segmented neutrophils/100 WBC (Bld) 63 % 36 - 65 % [facility] Segs Absolute 5.44 [facility] WBC (Bld) [#/Vol] 8.7 10*3/uL [facility] CBC with Diffon 08-17-2021 Abs. Basophil 0.03 k/uL Normal 0.00-0.20 [facility] Comment on above: Performed By: #### B MPX, CDP #### [facility] [address] [place] [address] Cycle Repairer: Yusuf Schmidt MD Abs.Imm.Granulocyte 0.04 k/uL Normal 0.00-0.30 [facility] Comment on above: Performed By: #### B MPX, CDP #### [facility] [address] [place] [address] Cycle Repairer: Yusuf Schmidt MD Abs.Neutrophil (Seg) 5.44 k/uL Normal 1.50-8.10 [facility] Comment on above: Performed By: #### B MPX, CDP #### [facility] [address] [place] [address] Cycle Repairer: Yusuf Schmidt MD Basophils/100 WBC (Bld) 0 % Normal 0-2 [facility] Comment on above: Performed By: #### B MPX, CDP #### [facility] [address] [place], [place] [id number] Cycle Repairer: Yusuf Schmidt MD Eosinophils (Bld) [#/Vol] 0.26 10*3/uL Normal 0.00-0.44 [facility] Comment on above: Performed By: #### B MPX, CDP #### [address] [address] Cycle Repairer: Yusuf Schmidt MD Eosinophils/100 WBC (Bld) 3 % Normal 1-4 [facility] Comment on above: Performed By: #### B MPX, CDP #### [facility] [address] [place] [address] Cycle Repairer: Yusuf Schmidt MD Erythrocyte distribution width (RBC) [Ratio] 13.2 % Normal 11.8-14.4 [facility] Comment on above: Performed By: #### B MPX, CDP #### [address] [address] Cycle Repairer: Yusuf Schmidt MD Hematocrit (Bld) [Volume fraction] 29.9 % Low 36.3-47.1 [facility] Comment on above: Performed By: #### B MPX, CDP #### [address] [address] Cycle Repairer: Yusuf Schmidt MD Hemoglobin (Bld) [Mass/Vol] 10.3 g/dL Low 11.9-15.1 [facility] Comment on above: Performed By: #### B MPX, CDP #### [address] [address] Cycle Repairer: Yusuf Schmidt MD Immature granulocytes/100 WBC (Bld) 1 % High 0 [facility] Comment on above: Performed By: #### B MPX, CDP #### [address] [address] Cycle Repairer: Yusuf Schmidt MD Lymphocytes (Bld) [#/Vol] 1.71 10*3/uL Normal 1.10-3.70 [facility] Comment on above: Performed By: #### B MPX, CDP #### [address] [address] Cycle Repairer: Yusuf Schmidt MD Lymphocytes/100 WBC (Bld) 20 % Low 24-43 [facility] Comment on above: Performed By: #### B MPX, CDP #### [address] [address] Cycle Repairer: Yusuf Schmidt MD MCH (RBC) [Entitic mass] 30.3 pg Normal 25.2-33.5 [facility] Comment on above: Performed By: #### B MPX, CDP #### [address] [address] Cycle Repairer: Yusuf Schmidt MD MCHC (RBC) [Mass/Vol] 34.4 g/dL Normal 28.4-34.8 [facility] Comment on above: Performed By: #### B MPX, CDP #### [address] [address] Cycle Repairer: Yusuf Schmidt MD MCV (RBC) [Entitic vol] 87.9 fL Normal 82.6-102.9 [facility] Comment on above: Performed By: #### B MPX, CDP #### [address] [address] Cycle Repairer: Yusuf Schmidt MD Monocytes (Bld) [#/Vol] 1.22 10*3/uL High 0.10-1.20 [facility] Comment on above: Performed By: #### B MPX, CDP #### [address] [address] Cycle Repairer: Yusuf Schmidt MD Monocytes/100 WBC (Bld) 14 % High 3-12 [facility] Comment on above: Performed By: #### B MPX, CDP #### [address] [address] Cycle Repairer: Yusuf Schmidt MD Neutrophil (Seg) 63 % Normal 36-65 [facility] Comment on above: Performed By: #### B MPX, CDP #### [address] [address] Cycle Repairer: Yusuf Schmidt MD NRBC Automated 0.0 per 100 WBC Normal 0.0 [facility] Comment on above: Performed By: #### B MPX, CDP #### [address] [address] Cycle Repairer: Yusuf Schmidt MD Platelet mean volume (Bld) [Entitic vol] 9.6 fL Normal 8.1-13.5 [facility] Comment on above: Performed By: #### B MPX, CDP #### [address] [address] Cycle Repairer: Yusuf Schmidt MD Platelets (Bld) [#/Vol] 212 10*3/uL Normal 138-453 [facility] Comment on above: Performed By: #### B MPX, CDP #### [address] [address] Cycle Repairer: Yusuf Schmidt MD RBC (Bld) [#/Vol] 3.40 10*6/uL Low 3.95-5.11 [facility] Comment on above: Performed By: #### B MPX, CDP #### [address] [address] Cycle Repairer: Yusuf Schmidt MD WBC (Bld) [#/Vol] 8.7 10*3/uL Normal 3.5-11.3 [facility] Comment on above: Performed By: #### B MPX, CDP #### [address] [place] [address] Cycle Repairer: Yusuf Schmidt MD Cult,Urineon 08-17-2021 Cult,Urine Specimen Description .CLEAN CATCH URINE Culture NO SIGNIFICANT GROWTH Report Status FINAL 08/17/2021 Normal [facility] Comment on above: Performed By: #### B MPX, CDP #### [facility] [address] [place], [place] [phone] Cycle Repairer: Yusuf Schmidt MD Culture, Urineon 08-17-2021 Bacteria identified Cx Nom (U) NO SIGNIFICANT GROWTH [employer] Specimen Description .CLEAN CATCH URINE [facility] EKG 12 LeadOrdered By: Bette Long on 08-17-2021 Atrial Rate 78 BPM [employer] Work Phone: P [place] 37 degrees [employer] Work Phone: P-R Interval 164 ms [employer] Work Phone: Q-T Interval 382 ms [employer] Work Phone: QRS Duration 104 ms [employer] Work Phone: QTc Calculation (Bazett) 435 ms [employer] Work Phone: R [place] 44 degrees [employer] Work Phone: T [place] 34 degrees [employer] Work Phone: Ventricular Rate 78 BPM [facility] [employer] Work Phone: [employer] Work Phone: EKG 12 Leadon 08-17-2021 Normal sinus rhythm Incomplete right bundle branch block Cannot rule out Anterior infarct , age undetermined Abnormal ECG No previous ECGs available [facility] Bette Espinal MD - 08/17/2021 Normal sinus rhythm Incomplete right bundle branch block Cannot rule out Anterior infarct , age undetermined Abnormal ECG No previous ECGs available [employer] Work Phone: Magnesiumon 08-17-2021 Magnesium [Mass/Vol] 1.7 mg/dL Normal 1.6-2.6 [facility] Comment on above: Performed By: #### B MPX, CDP #### [facility] [address] [place], [place] [id number] Cycle Repairer: Yusuf Schmidt MD Magnesium [Mass/Vol] 1.7 mg/dL 1.6 - 2 .6 mg/dL [facility] Troponinon 08-17-2021 Troponin, High Sensitivity <6 0 - 14 ng/L [facility] Comment on above: High Sensitivity Troponin values cannot be compared with other Troponin methodologies. Patients with high levels of Biotin oral intake (i.e >5mg/day) may have falsely decreased Troponin levels. Samples collected within 8 hours of biotin intake may require additional information for diagnosis. [facility] Troponin, High Sens <6 Normal 0-14 [facility] Comment on above: Result Comment: High Sensitivity Troponin values cannot be compared with other Troponin methodologies. Patients with high levels of Biotin oral intake (i.e >5mg/day) may have falsely decreased Troponin levels. Samples collected within 8 hours of biotin intake may require additional information for diagnosis. Performed By: #### B MP, CBC #### [facility] [address] [place], [place] [phone] Cycle Repairer: Yusuf Schmidt MD Troponin, High Sensitivity <6 0 - 14 ng/L [facility] Comment on above: High Sensitivity Troponin values cannot be compared with other Troponin methodologies. Patients with high levels of Biotin oral intake (i.e >5mg/day) may have falsely decreased Troponin levels. Samples collected within 8 hours of biotin intake may require additional information for diagnosis. [facility] APTTon 08-16-2021 aPTT Coag (Bld) [Time] 28.9 s Normal 20.5-30.5 [facility] Comment on above: Result Comment: IV Heparin Therapy Range: 48.6-77.8 Performed By: #### B MPX, CDP #### [employer] [address] [place] [address] [phone] Cycle Repairer: Yusuf Schmidt MD aPTT Coag (Bld) [Time] 28.9 s [facility] Comment on above: IV Heparin Therapy Range: 48.6-77.8 Basic Metab w/rfx MGon 08-16 Potassium [Moles/Vol] 3.2 mmol/L Low 3.7-5.3 [facility] Comment on above: Performed By: #### B MPX, CDP #### [address] [id number] Cycle Repairer: Yusuf Schmidt MD (cont.) [facility] Comment on above: Result Comment: Aver age GFR for 20-29 years old: 116 mL/min/1.73sq m Chronic Kidney Disease: <60 mL/min/1.73sq m Kidney failure: <15 mL/min/1.73sq m eGFR calculated using average adult body mass. Additional eGFR calculator available at: http://www.Resource Data/multiple_crcl_2012.htm Performed By: #### B JOANNA CDP #### [address] [address] Cycle Repairer: Yusuf Schmidt MD Anion gap [Moles/Vol] 12 mmol/L Normal 9-17 [facility] Comment on above: Performed By: #### B MPX, CDP #### [address] [address] Cycle Repairer: Yusuf Schmidt MD Calcium [Mass/Vol] 8.3 mg/dL Low 8.6-10.4 [facility] Comment on above: Performed By: #### B BULLX, CDP #### [facility] [address] [place] [address] [phone] Cycle Repairer: Yusuf Schmidt MD Chloride [Moles/Vol] 106 mmol/L Normal 98-107 [facility] Comment on above: Performed By: #### B MPX, CDP #### [facility] [address] [place] [address] Cycle Repairer: Yusuf Schmidt MD CO2 [Moles/Vol] 20 mmol/L Normal 20-31 [facility] Comment on above: Performed By: #### B MPX, CDP #### [facility] [address] [place] [address] Cycle Repairer: Yusuf Schmidt MD Creatinine [Mass/Vol] 0.95 mg/dL High 0.50-0.90 [facility] Comment on above: Performed By: #### B MPX, CDP #### [facility] [address] [place] [address] Cycle Repairer: Yusuf Schmidt MD GFR, Amer >60 Normal >60 [facility] Comment on above: Performed By: #### B MPX, CDP #### [facility] [address] [place] [address] Cycle Repairer: Yusuf Schmidt MD GFR,non Amer >60 Normal >60 [facility] Comment on above: Performed By: #### B MPX, CDP #### [facility] [address] [place] [address] Cycle Repairer: Yusuf Schmidt MD Glucose [Mass/Vol] 103 mg/dL High 70-99 [facility] Comment on above: Performed By: #### B MPX, CDP #### [facility] [address] [place] [address] Cycle Repairer: Yusuf Schmidt MD Sodium [Moles/Vol] 138 mmol/L Normal 135-144 [facility] Comment on above: Performed By: #### B MPX, CDP #### [facility] [address] [place] [address] Cycle Repairer: uYsuf Schmidt MD Urea nitrogen [Mass/Vol] 7 mg/dL Normal 6-20 [facility] Comment on above: Performed By: #### B MPX, CDP #### [facility] [address] [place] [address] Cycle Repairer: Yusuf Schmidt MD Basic Metabolic Panel w/ Ref bahman to MGon 08-16-2021 Anion gap [Moles/Vol] 12 mmol/L 9 - 17 mmol/L [facility] Calcium [Mass/Vol] 8.3 mg/dL Low 8.6 - 10. 4 mg/dL [facility] [employer] Chloride [Moles/Vol] 106 mmol/L 98 - 10 7 mmol/L [facility] CO2 [Moles/Vol] 20 mmol/L 20 - 31 mmol/L [facility] Creatinine [Mass/Vol] 0.95 mg/dL High 0.50 - 0.90 mg/dL [facility] GFR >60 >60 mL/min [facility] GFR Non- >60 >60 mL/min [facility] GFR/1.73 sq M.predicted MDRD (S/P/Bld) [Vol rate/Area] [facility] Comment on above: Average GFR for 20-2 9 years old: 116 mL/min/1.73sq m Chronic Kidney Disease: <60 mL/min/1.73sq m Kidney failure: <15 mL/min/1.73sq m eGFR calculated using average adult body mass. Additional eGFR calculator available at: http://www.Jingit.JoinTV/multiple_crcl_2011.htm Glucose [Mass/Vol] 103 mg/dL High 70 - 99 mg/dL [facility] Interpretation and review of laboratory results Abnormal [facility] Potassium [Moles/Vol] 3.2 mmol/L Low 3.7 - 5.3 mmol/L [facility] Sodium [Moles/Vol] 138 mmol/L 135 - 144 mmol/L [facility] Urea nitrogen (BldV) [Mass/Vol] 7 mg/dL 6 - 20 mg/dL [facility] CBC with Auto Differentialon 08-16-2021 Absolute Eos # 0.09 [facility] Absolute Immature Granulocyte 0.00 [facility] Absolute Lymph # 0.70 Low [facility] [place] Absolute Schley # 0.26 [facility] [place] Basophils (Bld) [#/Vol] 0.00 10*3/uL [facility] Basophils/100 WBC (Bld) 0 % 0 - 2 % [facility] Eosinophils/100 WBC (Bld) 1 % 1 - 4 % [facility] Hematocrit (Bld) [Volume fraction] 34.7 % Low 36.3 - 47.1 % [facility] Hemoglobin (Bld) [Mass/Vol] 11.6 g/dL Low 11.9 - 15.1 g/dL [facility] Immature granulocytes/100 WBC (Bld) 0 % 0 [facility] Interpretation and review of laboratory results Abnormal [facility] Lymphocytes/100 WBC (Bld) 8 % Low 24 - 44 % [facility] MCH (RBC) [Entitic mass] 29.9 pg 25.2 - 33.5 pg [facility] MCHC (RBC) [Mass/Vol] 33.4 g/dL 28.4 - 34.8 g/dL [facility] MCV (RBC) [Entitic vol] 89.4 fL 82.6 - 102.9 fL [facility] Monocytes/100 WBC (Bld) 3 % 1 - 7 % [facility] Morphology Ja (Bld) [Interp] Normal [facility] NRBC Automated 0.0 0.0 per 100 WBC [facility] Platelet distribution width (Bld) [Ratio] 13.1 % 11.8 - 14.4 % [facility] Platelet mean volume (Bld) [Entitic vol] 10.0 fL 8.1 - 13.5 fL [facility] Platelets (Bld) [#/Vol] 196 10*3/uL [facility] RBC (Bld) [#/Vol] 3.88 10*6/uL Low 3.95 - 5.1 1 m/uL [facility] Segmented neutrophils/100 WBC (Bld) 88 % High 36 - 66 % [facility] Segs Absolute 7.75 High [facility] WBC (Bld) [#/Vol] 8.8 10*3/uL [facility] [place] [facility] CBC with Diffon 08-16-2021 Abs. Basophil 0.00 k/uL Normal 0.0-0.2 [facility] Comment on above: Performed By: #### B MPX, CDP #### [facility] [address] [place] [address] Cycle Repairer: Yusuf Schmidt MD Abs.Imm.Granulocyte 0.00 k/uL Normal 0.00-0.30 [facility] Comment on above: Performed By: #### B MPX, CDP #### [facility] [address] [place] [address] Cycle Repairer: Yusuf Schmidt MD Abs.Neutrophil (Seg) 7.75 k/uL High 1.8-7.7 [facility] Comment on above: Performed By: #### B MPX, CDP #### [facility] [address] [place] [address] Cycle Repairer: Yusuf Schmidt MD Basophils/100 WBC (Bld) 0 % Normal 0-2 [facility] Comment on above: Performed By: #### B MPX, CDP #### [facility] [address] [place] [address] Cycle Repairer: Yusuf Schmidt MD Eosinophils (Bld) [#/Vol] 0.09 10*3/uL Normal 0.0-0.4 [facility] Comment on above: Performed By: #### B MPX, CDP #### [facility] [address] [place] [address] Cycle Repairer: Yusuf Schmidt MD Eosinophils/100 WBC (Bld) 1 % Normal 1-4 [facility] Comment on above: Performed By: #### B MPX, CDP #### [address] [address] Cycle Repairer: Yusuf Schmidt MD Immature granulocytes/100 WBC (Bld) 0 % Normal 0 [facility] Comment on above: Performed By: #### B MPX, CDP #### [address] [address] Cycle Repairer: Yusuf Schmidt MD Lymphocytes (Bld) [#/Vol] 0.70 10*3/uL Low 1.0-4.8 [facility] Comment on above: Performed By: #### B MPX, CDP #### [address] [address] Cycle Repairer: Yusuf Schmidt MD Lymphocytes/100 WBC (Bld) 8 % Low 24-44 [facility] Comment on above: Performed By: #### B MPX, CDP #### [address] [address] Cycle Repairer: Yusuf Schmidt MD Monocytes (Bld) [#/Vol] 0.26 10*3/uL Normal 0.1-0.8 [facility] Comment on above: Performed By: #### B MPX, CDP #### [address] [address] Cycle Repairer: Yusuf Schmidt MD Monocytes/100 WBC (Bld) 3 % Normal 1-7 [facility] Comment on above: Performed By: #### B MPX, CDP #### [address] [address] Cycle Repairer: Yusuf Schmidt MD Morphology Ja (Bld) [Interp] Normal Normal [facility] Comment on above: Performed By: #### B MPX, CDP #### [address] [address] Cycle Repairer: Yusuf Schmidt MD Neutrophil (Seg) 88 % High 36-66 [facility] Comment on above: Performed By: #### B MPX, CDP #### [address] [address] Cycle Repairer: Yusuf Schmidt MD Erythrocyte distribution width (RBC) [Ratio] 13.1 % Normal 11.8-14.4 [facility] Comment on above: Performed By: #### B MPX, CDP #### [address] [address] Cycle Repairer: Yusuf Schmidt MD Hematocrit (Bld) [Volume fraction] 34.7 % Low 36.3-47.1 [facility] Comment on above: Performed By: #### B MPX, CDP #### [address] [address] Cycle Repairer: Ysuuf Schmidt MD Hemoglobin (Bld) [Mass/Vol] 11.6 g/dL Low 11.9-15.1 [facility] Comment on above: Performed By: #### B MPX, CDP #### [address] [address] Cycle Repairer: Yusuf Schmidt MD MCH (RBC) [Entitic mass] 29.9 pg Normal 25.2-33.5 [facility] Comment on above: Performed By: #### B MPX, CDP #### [address] [address] Cycle Repairer: Yusuf Schmidt MD MCHC (RBC) [Mass/Vol] 33.4 g/dL Normal 28.4-34.8 [facility] Comment on above: Performed By: #### B MPX, CDP #### [address] [address] Cycle Repairer: Yusuf Schmidt MD MCV (RBC) [Entitic vol] 89.4 fL Normal 82.6-102.9 [facility] Comment on above: Performed By: #### B MPX, CDP #### [address] [address] Cycle Repairer: Yusuf Schmidt MD NRBC Automated 0.0 per 100 WBC Normal 0.0 [facility] Comment on above: Performed By: #### B MPX, CDP #### [address] [address] Cycle Repairer: Yusuf Schmidt MD Platelet mean volume (Bld) [Entitic vol] 10.0 fL Normal 8.1-13.5 [facility] Comment on above: Performed By: #### B MPX, CDP #### [address] [address] Cycle Repairer: Yusuf Schmidt MD Platelets (Bld) [#/Vol] 196 10*3/uL Normal 138-453 [facility] Comment on above: Performed By: #### B MPX, CDP #### [address] [address] Cycle Repairer: Yusuf Schmidt MD RBC (Bld) [#/Vol] 3.88 10*6/uL Low 3.95-5.11 [facility] Comment on above: Performed By: #### B MPX, CDP #### [address] [address] Cycle Repairer: Yusuf Schmidt MD WBC (Bld) [#/Vol] 8.8 10*3/uL Normal 3.5-11.3 [facility] Comment on above: Performed By: #### B MPX, CDP #### [address] [address] Cycle Repairer: Yusuf Schmidt MD IR GUIDED NEPHROSTOMY CATH P LACEMENT RIGHTon 08-16-2021 Successful percutaneous 8 Malagasy nephrostomy tube placement MHYulissa Tate MD - [...] the procedure including risks, benefits, and alternatives. [place] protocol was followed. The patient's flank was [...] lower pole infundibulum. IMPRESSION: Successful percutaneous 8 Malagasy nephrostomy tube placement [employer] Phone: Radiology Study observation (narrative) [employer] Phone: IR GUIDED NEPHROSTOMY CATH P LACEMENT RIGHTOrdered By: Yulissa Turner on 08-16-2021 [employer] Phone: Magnesiumon 08-16-2021 Magnesium [Mass/Vol] 1.6 mg/dL Normal 1.6-2.6 [facility] Comment on above: Performed By: #### B MPX, CDP #### [facility] [place] [address] Cycle Repairer: Yusuf Schmidt MD Magnesium [Mass/Vol] 1.6 mg/dL 1.6 - 2 .6 mg/dL [facility] [employer] No Panel Informationon 08-16 [facility] [employer] PTon 08-16-2021 INR Coag (PPP) [Relative time] 1.0 {INR} Normal [facility] Comment on above: Result Comment: Therapeutic Range: Moderate Anticoagulant Intensity: INR = 2.0-3.0 High Anticoagulant Intensity: INR = 2.5-3.5 Performed By: #### B MPX, CDP #### [facility] [address] [place] [address] Cycle Repairer: Yusuf Schmidt MD PT Coag (PPP) [Time] 10.9 s Normal 9.1-12.3 [facility] Comment on above: Performed By: #### B MPX, CDP #### [facility] [address] [place] [address] Cycle Repairer: Yusuf Schmidt MD Protime-INRon 08-16-2021 INR Coag (Bld) [Relative time] 1.0 {INR} [facility] Comment on above: Therapeutic Range: Moderate Anticoagulant Intensity: INR = 2.0-3.0 High Anticoagulant Intensity: INR = 2.5-3.5 PT Coag (PPP) [Time] 10.9 s [facility] Basic Metabolic Panelon 08-05 Anion gap [Moles/Vol] 18 mmol/L High 9 - 17 mmol/L [facility] Calcium [Mass/Vol] 8.7 mg/dL 8.6 - 10. 4 mg/dL [facility] Chloride [Moles/Vol] 105 mmol/L 98 - 10 7 mmol/L [facility] CO2 [Moles/Vol] 16 mmol/L Low 20 - 31 mmol/L [facility] Creatinine [Mass/Vol] 1.11 mg/dL High 0.50 - 0.90 mg/dL [facility] GFR >60 >60 mL/min [facility] GFR Non- >60 >60 mL/min [facility] GFR/1.73 sq M.predicted MDRD (S/P/Bld) [Vol rate/Area] [facility] Comment on above: Average GFR for 20-2 9 years old: 116 mL/min/1.73sq m Chronic Kidney Disease: <60 mL/min/1.73sq m Kidney failure: <15 mL/min/1.73sq m eGFR calculated using average adult body mass. Additional eGFR calculator available at: http://www.Resource Data/Liibook_crcl_2012.htm Glucose [Mass/Vol] 104 mg/dL High 70 - 99 mg/dL [facility] Interpretation and review of laboratory results Abnormal [facility] Potassium [Moles/Vol] 3.9 mmol/L 3.7 - 5.3 mmol/L [facility] Sodium [Moles/Vol] 139 mmol/L 135 - 144 mmol/L [facility] Urea nitrogen (BldV) [Mass/Vol] 10 mg/dL 6 - 20 mg/dL [facility] Basic Metabolic Profon 08-15 (cont.) Normal [facility] Comment on above: Result Comment: Aver age GFR for 20-29 years old: 116 mL/min/1.73sq m Chronic Kidney Disease: <60 mL/min/1.73sq m Kidney failure: <15 mL/min/1.73sq m eGFR calculated using average adult body mass. Additional eGFR calculator available at: http://www.Resource Data/Liibook_crcl_2012.htm Performed By: #### B BULL CBC #### [facility] [address] [place] [address] Cycle Repairer: Yusuf Schmidt MD Anion gap [Moles/Vol] 18 mmol/L High 9-17 [facility] Comment on above: Performed By: #### Li GOTTLIEB, CBC #### [facility] [address] [place] [address] Cycle Repairer: Yusuf Schmidt MD Calcium [Mass/Vol] 8.7 mg/dL Normal 8.6-10.4 [facility] Comment on above: Performed By: #### B MP, CBC #### [facility] [address] [place] [address] Cycle Repairer: Yusuf Schmidt MD Chloride [Moles/Vol] 105 mmol/L Normal 98-107 [facility] Comment on above: Performed By: #### B MP, CBC #### [address] [address] Cycle Repairer: Yusuf Schmidt MD CO2 [Moles/Vol] 16 mmol/L Low 20-31 [facility] Comment on above: Performed By: #### B MP, CBC #### [address] [address] Cycle Repairer: Yusuf Schmidt MD Creatinine [Mass/Vol] 1.11 mg/dL High 0.50-0.90 [facility] Comment on above: Performed By: #### B MP, CBC #### [facility] [address] [place] [address] Cycle Repairer: Yusuf Schmidt MD GFR, Amer >60 Normal >60 [facility] Comment on above: Performed By: #### B MP, CBC #### [facility] [address] [place] [address] Cycle Repairer: Yuusf Schmidt MD GFR,non Amer >60 Normal >60 [facility] Comment on above: Performed By: #### B MP, CBC #### [facility] [address] [place] [address] Cycle Repairer: Yusuf Schmidt MD Glucose [Mass/Vol] 104 mg/dL High 70-99 [facility] Comment on above: Performed By: #### B MP, CBC #### [facility] [address] [place] [address] Cycle Repairer: Yusuf Schmidt MD Potassium [Moles/Vol] 3.9 mmol/L Normal 3.7-5.3 [facility] Comment on above: Performed By: #### B MP, CBC #### [address] [address] Cycle Repairer: Yusuf Schmidt MD Sodium [Moles/Vol] 139 mmol/L Normal 135-144 [facility] Comment on above: Performed By: #### B MP, CBC #### [address] [address] Cycle Repairer: Yusuf Schmidt MD Urea nitrogen [Mass/Vol] 10 mg/dL Normal 6-20 [facility] Comment on above: Performed By: #### B MP, CBC #### [facility] [address] [place] [address] Cycle Repairer: Yusuf Schmidt MD CBCon 08-15-2021 Erythrocyte distribution width (RBC) [Ratio] 12.8 % Normal 11.8-14.4 [facility] Comment on above: Performed By: #### B MP, CBC #### [address] [address] Cycle Repairer: Yusuf Schmidt MD Hematocrit (Bld) [Volume fraction] 36.6 % Normal 36.3-47.1 [facility] Comment on above: Performed By: #### B MP, CBC #### [facility] [address] [place] [address] Cycle Repairer: Yusuf Schmidt MD Hemoglobin (Bld) [Mass/Vol] 12.5 g/dL Normal 11.9-15.1 [facility] Comment on above: Performed By: #### B MP, CBC #### [address] [address] Cycle Repairer: Yusuf Schmidt MD MCH (RBC) [Entitic mass] 29.8 pg Normal 25.2-33.5 [facility] Comment on above: Performed By: #### B MP, CBC #### [address] [address] Cycle Repairer: Yusuf Schmidt MD MCHC (RBC) [Mass/Vol] 34.2 g/dL Normal 28.4-34.8 [facility] Comment on above: Performed By: #### B MP, CBC #### [address] [address] Cycle Repairer: Yusuf Schmidt MD MCV (RBC) [Entitic vol] 87.4 fL Normal 82.6-102.9 [facility] Comment on above: Performed By: #### B MP, CBC #### [address] [address] Cycle Repairer: Yusuf Schmidt MD NRBC Automated 0.0 per 100 WBC Normal 0.0 [facility] Comment on above: Performed By: #### B MP, CBC #### [address] [address] Cycle Repairer: Yusuf Schmidt MD Platelet mean volume (Bld) [Entitic vol] 9.5 fL Normal 8.1-13.5 [facility] Comment on above: Performed By: #### B MP, CBC #### [address] [address] Cycle Repairer: Yusuf Schmidt MD Platelets (Bld) [#/Vol] 243 10*3/uL Normal 138-453 [facility] Comment on above: Performed By: #### B MP, CBC #### [address] [address] Cycle Repairer: Yusuf Schmidt MD RBC (Bld) [#/Vol] 4.19 10*6/uL Normal 3.95-5.11 [facility] Comment on above: Performed By: #### B MP, CBC #### [facility] [address] [place], [place] [id number] Cycle Repairer: Yusuf Schmidt MD WBC (Bld) [#/Vol] 7.5 10*3/uL Normal 3.5-11.3 [facility] Comment on above: Performed By: #### B MP, CBC #### [facility] [address] [place] [address] Cycle Repairer: Yusuf Schmidt MD Hematocrit (Bld) [Volume fraction] 36.6 % 36.3 - 47.1 % [facility] Hemoglobin (Bld) [Mass/Vol] 12.5 g/dL 11.9 - 15.1 g/dL [facility] MCH (RBC) [Entitic mass] 29.8 pg 25.2 - 33.5 pg [facility] MCHC (RBC) [Mass/Vol] 34.2 g/dL 28.4 - 34.8 g/dL [facility] MCV (RBC) [Entitic vol] 87.4 fL 82.6 - 102.9 fL [facility] NRBC Automated 0.0 0.0 per 100 WBC [facility] Platelet distribution width (Bld) [Ratio] 12.8 % 11.8 - 14.4 % [facility] Platelet mean volume (Bld) [Entitic vol] 9.5 fL 8.1 - 13.5 fL [facility] Platelets (Bld) [#/Vol] 243 10*3/uL [facility] RBC (Bld) [#/Vol] 4.19 10*6/uL 3.95 - 5.1 1 m/uL [facility] WBC (Bld) [#/Vol] 7.5 10*3/uL [facility] CBC AUTO DIFFon 08-15-2021 BASO # 0.0 103/ul Normal 0.0-0.1 [facility] Comment on above: Performed By: #### T HCCONF #### [facility] [address] [place] [address] Dr. Liat Bosch Basophils/100 WBC (Bld) 0.2 % Normal 0.2-2.0 [facility] Comment on above: Performed By: #### T HCCONF #### [facility] [address] [place] [address] Dr. Liat Bosch EO # 0.1 103/ul Normal 0.0-0.7 [facility] Comment on above: Performed By: #### T HCCONF #### [facility] [address] [place] [address] Dr. Liat Bosch Eosinophils/100 WBC (Bld) 1.0 % Normal 0.9-7.0 [facility] Comment on above: Performed By: #### T HCCONF #### [facility] [address] [place] [address] Dr. Liat Bosch Erythrocyte distribution width (RBC) [Ratio] 12.4 % Normal 11.0-15.0 [facility] Comment on above: Performed By: #### T HCCONF #### [facility] [address] [place] [address] Dr. Liat Bosch Hematocrit (Bld) [Volume fraction] 38.2 % Normal 36.0-48.0 [facility] Comment on above: Performed By: #### T HCCONF #### [facility] [address] [place] [address] Dr. Liat Bosch Hemoglobin (Bld) [Mass/Vol] 13.2 g/dL Normal 12.0-16.0 [facility] Comment on above: Performed By: #### T HCCONF #### [facility] [address] [place] [address] Dr. Liat Bosch IG # 0.09 10e3/ul Critically high 0.00-0.03 [facility] Comment on above: Performed By: #### T HCCONF #### [facility] [address] [place] [address] Dr. Liat Bosch IG % 0.7 % Critically high 0.0-0.5 [facility] Comment on above: Performed By: #### T HCCONF #### [facility] [address] [address] [address] Liat Bosch LYMPH # 0.7 103/ul Critically low 1.2-3.8 [facility] Comment on above: Performed By: #### T HCCONF #### [facility] [address] [place] [address] Dr. Liat Bosch Lymphocytes/100 WBC (Bld) 5.4 % Critically low 20.5-60.0 [facility] Comment on above: Performed By: #### T HCCONF #### [facility] [address] [place] [address] Dr. Liat Bosch MANUAL DIFF REQ NO Normal [facility] Comment on above: Performed By: #### T HCCONF #### [facility] [address] [place] [address] Dr. Liat Bosch MCH (RBC) [Entitic mass] 29.8 pg Normal 26.7-34.0 [facility] Comment on above: Performed By: #### T HCCONF #### [facility] [address] [place] [address] Dr. Liat Bosch MCHC (RBC) [Mass/Vol] 34.6 g/dL Normal 29.9-35.2 [facility] Comment on above: Performed By: #### T HCCONF #### [facility] [address] [place] [address] Dr. Liat Bosch MCV (RBC) [Entitic vol] 86.2 fL Normal 81.0-99.0 [facility] Comment on above: Performed By: #### T HCCONF #### [facility] [address] [place] [address] Dr. Liat Bosch MONO # 0.9 103/ul Critically high 0.3-0.8 [facility] Comment on above: Performed By: #### T HCCONF #### [facility] [address] [place] [address] Dr. Liat Bosch Monocytes/100 WBC (Bld) 6.9 % Normal 1.7-12.0 [facility] Comment on above: Performed By: #### T HCCONF #### [facility] [address] [place] [address] Dr. Liat Bosch NEUT # 10.7 103/ul Critically high 1.4-6.5 [facility] Comment on above: Performed By: #### T HCCONF #### [facility] [address] [place] [address] Dr. Liat Bosch Neutrophils/100 WBC (Bld) 85.8 % Critically high 43.0-75.0 [facility] Comment on above: Performed By: #### T HCCONF #### [facility] [address] [place] [address] Dr. Liat Bosch Platelet mean volume (Bld) [Entitic vol] 8.9 fL Critically low 9.5-13.5 [facility] Comment on above: Performed By: #### T HCCONF #### [facility] [address] [place] [address] Dr. Liat Bosch PLT 240 103/ul Normal 150-450 [facility] Comment on above: Performed By: #### T HCCONF #### [facility] [address] [place] [address] Dr. Liat Bosch RBC 4.43 106/ul Normal 4.20-5.40 [facility] Comment on above: Performed By: #### T HCCONF #### [facility] [address] [place] [address] Dr. Liat Bosch WBC 12.5 103/ul Critically high 4.0-11.0 [facility] Comment on above: Performed By: #### T HCCONF #### [facility] [address] [place] [address] Dr. Liat Bosch CULTURE BLOODon 08-15-2021 Microscopic examination of blood, culture Culture Observations: No growth at 5 days. Normal [facility] Comment on above: Performed By: #### B LDCX2 #### [facility] [address] [place] [address] Dr. Liat Bosch Microscopic examination of blood, culture Culture Observations: No growth at 5 days. Normal [facility] Comment on above: Performed By: #### N BOX #### [facility] [address] [place] [address] Nakul Martines CULTURE URINEon 08-15-2021 CULTURE URINE Culture Observations: No growth Normal [facility] Comment on above: Performed By: #### N BOX #### [facility] [address] [place] [address] Nakul Martines ER URINE PROFILEon 2 Bilirubin Ql (U) Negative Normal NEGATIVE [facility] Comment on above: Performed By: #### T HCCONF #### [facility] [address] [place] [address] Dr. Liat Bosch Clarity (U) SL CLOUDY Abnormal CLEAR [facility] Comment on above: Performed By: #### T HCCONF #### [facility] [address] [place] [address] Dr. Liat Bosch Color (U) YELLOW Normal YELLOW [facility] Comment on above: Performed By: #### T HCCONF #### [facility] [address] [place] [address] Dr. Liat FERRER A micrscopic examination will be performed if indicated. Normal [facility] Comment on above: Performed By: #### T HCCONF #### [facility] [address] [place] [address] Dr. Liat Bosch Glucose Ql (U) Negative Normal NEGATIVE [facility] Comment on above: Performed By: #### T HCCONF #### [facility] [address] [place] [address] Dr. Liat Bosch Hemoglobin Ql (U) LARGE Abnormal NEGATIVE [facility] Comment on above: Performed By: #### T HCCONF #### [facility] [address] [place] [address] Dr. Liat Bosch Ketones Ql (U) 15 mg/dl Abnormal NEGATIVE [facility] Comment on above: Performed By: #### T HCCONF #### [facility] [address] [place] [address] Dr. Liat Bosch LEUKOCYTES LARGE Abnormal NEGATIVE [facility] Comment on above: Performed By: #### T HCCONF #### [facility] [address] [place] [address] Dr. Liat Bosch Nitrite Ql (U) Negative Normal NEGATIVE [facility] Comment on above: Performed By: #### T HCCONF #### [facility] [address] [place] [address] Dr. Liat Bosch pH (U) 6.5 [pH] Normal 5-9 [facility] Comment on above: Performed By: #### T HCCONF #### [facility] [address] [place] [address] Dr. Liat Bosch Protein (U) [Mass/Vol] 30 mg/dL Abnormal NEGATIVE/ TRACE [facility] Comment on above: Performed By: #### T HCCONF #### [facility] [address] [place] [address] Dr. Liat Bosch SPEC GRAVITY 1.010 Normal 1.005-<=1.025 [facility] Comment on above: Performed By: #### T HCCONF #### [facility] [address] [place] [address] Dr. Liat Bosch UR MICRO IND INDICATED Normal [facility] Comment on above: Performed By: #### T HCCONF #### [facility] [address] [place] [address] Dr. Liat Bosch Urobilinogen Qn (U) 1.0 {Elia'U}/dL Normal 0.2 - 1. 0 [facility] Comment on above: Performed By: #### T HCCONF #### [facility] [address] [place] [address] Dr. Liat Bosch LACTATE/LACTIC ACIDon 2021 Lactate [Moles/Vol] 0.9 mmol/L Normal 0.4-1.9 [facility] Comment on above: Performed By: #### N BOX #### [facility] [address] [address] Nakul Martines PROF 14(COMP METB)on 022 Albumin [Mass/Vol] 3.0 g/dL Critically low 3.4-5.0 [facility] Comment on above: Performed By: #### T HCCONF #### [facility] [address] [address] [address] Liat Bosch Albumin/Globulin [Mass ratio] 0.6 {ratio} Normal [facility] Comment on above: Performed By: #### T HCCONF #### [facility] [address] [address] [address] Liat Bosch ALP [Catalytic activity/Vol] 121 U/L Critically high 46-116 [facility] Comment on above: Performed By: #### T HCCONF #### [facility] [address] [place] [address] Dr. Liat Bosch ALT [Catalytic activity/Vol] 31 U/L Normal 14-59 [facility] Comment on above: Performed By: #### T HCCONF #### [facility] [address] [place] [address] Dr. Liat Bosch Anion gap [Moles/Vol] 16.0 mmol/L Normal [facility] Comment on above: Performed By: #### T HCCONF #### [facility] [address] [place] [address] Dr. Liat Bosch AST [Catalytic activity/Vol] 20 U/L Normal 15-37 [facility] Comment on above: Performed By: #### T HCCONF #### [facility] [address] [place] [address] Dr. Liat Bosch Bilirubin [Mass/Vol] 0.7 mg/dL Normal 0.2-1.0 [facility] Comment on above: Performed By: #### T HCCONF #### [facility] [address] [place] [address] Dr. Liat Bosch Calcium [Mass/Vol] 8.7 mg/dL Normal 8.5-10.1 [facility] Comment on above: Performed By: #### T HCCONF #### [facility] [address] [address] [address] Liat Bosch Chloride [Moles/Vol] 102 mmol/L Normal 98-107 [facility] Comment on above: Performed By: #### T HCCONF #### [facility] [address] [address] [address] Liat Bosch CO2 [Moles/Vol] 18.2 mmol/L Critically low 21.0-32.0 [facility] Comment on above: Performed By: #### T HCCONF #### [facility] [address] [address] [address] Liat Bosch Creatinine [Mass/Vol] 1.16 mg/dL Critically high 0.55-1.02 [facility] Comment on above: Performed By: #### T HCCONF #### [facility] [address] [place] [address] Dr. Liat Bosch EGFR-AF [place] 71 mL/min/1.73m2 Normal >=60 [facility] Comment on above: Performed By: #### T HCCONF #### [facility] [address] [address] [address] Liat Bosch EGFR-NON AF [place] 58 mL/min/1.73m2 Critically low >=60 [facility] Comment on above: Performed By: #### T HCCONF #### [facility] [address] [address] [address] Liat Bosch Globulin (S) [Mass/Vol] 4.4 g/dL Normal [facility] Comment on above: Performed By: #### T HCCONF #### [facility] [address] [address] [address] Liat Bosch Glucose [Mass/Vol] 117 mg/dL Critically high 74-106 [facility] Comment on above: Performed By: #### T HCCONF #### [facility] [address] [address] [address] Liat Bosch Potassium [Moles/Vol] 3.0 mmol/L Critically low 3.5-5.1 [facility] Comment on above: Performed By: #### T HCCONF #### [facility] [address] [address] [address] Liat Bosch Protein [Mass/Vol] 7.4 g/dL Normal 6.4-8.2 [facility] Comment on above: Performed By: #### T HCCONF #### [facility] [address] [address] [address] Liat Bosch Sodium [Moles/Vol] 135 mmol/L Critically low 136-145 [facility] Comment on above: Performed By: #### T HCCONF #### [facility] [address] [place] [address] Dr. Liat Bosch Urea nitrogen [Mass/Vol] 11.0 mg/dL Normal 7.0-18.0 [facility] Comment on above: Performed By: #### T HCCONF #### [facility] [address] [place] [address] Dr. Liat Bosch Urea nitrogen/Creatinine [Mass ratio] 9.4 mg/mg Normal [facility] Comment on above: Performed By: #### T HCCONF #### [facility] [address] [place] [address] Dr. Liat Bosch URINE MICROSCOPIC ONLYon BACTERIA TRACE Abnormal NONE SEEN [facility] Comment on above: Performed By: #### T HCCONF #### [facility] [address] [place] [address] Dr. Liat Bosch Bacteria identified Cx Nom (U) INDICATED Normal [facility] Comment on above: Performed By: #### T HCCONF #### [facility] [address] [place] [address] Dr. Liat Bosch CAST NONE SEEN Normal NONE SEEN [facility] Comment on above: Performed By: #### T HCCONF #### [facility] [address] [place] [address] Dr. Liat Bosch Crystals LM Nom (Urine sed) NONE SEEN Normal NONE SEEN [facility] Comment on above: Performed By: #### T HCCONF #### [facility] [address] [place] [address] Dr. Liat Bosch Epithelial cells LM Ql (Urine sed) MODERATE Abnormal NONE SEEN /RARE [facility] Comment on above: Performed By: #### T HCCONF #### [facility] [address] [place] [address] Dr. Liat Bosch MUCOUS TRACE Abnormal NONE SEEN [facility] Comment on above: Performed By: #### T HCCONF #### [facility] [address] [place] [address] Dr. Liat Bosch RBC 10-20 Abnormal 0-2 [facility] Comment on above: Performed By: #### T HCCONF #### [facility] [address] [place] [address] Dr. Liat Bosch WBC 20-50 Abnormal NONE SEEN [facility] Comment on above: Performed By: #### T HCCONF #### [facility] [address] [place] [address] Dr. Liat Bosch XR ABDOMEN (KUB) (SINGLE [...] Erasto Mac MD 08/15/21 Final result Normal [facility] 7 mm stone in the distal right ureter adjacent to the stent. [facility] RIS CONSOLIDATED EXAMINATION: ONE SUPINE XRAY [...] No additional renal or urinary tract stone. [facility] Erasto Gibbs MD - 08/15/2021 EXAMINATION: [...] distal right ureter adjacent to the stent. [employer]: Radiology Study observation (narrative) [employer]: XR ABDOMEN (KUB) (SINGLE AP VIEW)Ordered By: Erasto Mac on 08-15-2021 [employer] Phone: CBC AUTO DIFFon 08-12-2021 BASO # 0.0 103/ul Normal 0.0-0.1 [facility] Comment on above: Performed By: #### B [id number] #### [facility] [address] [place] [address] Dr. Liat Bosch Basophils/100 WBC (Bld) 0.3 % Normal 0.2-2.0 [facility] Comment on above: Performed By: #### B LDCX2 #### [facility] [address] [place] [address] Dr. Liat Bosch EO # 0.1 103/ul Normal 0.0-0.7 [facility] Comment on above: Performed By: #### B LDCX2 #### [facility] [address] [place] [address] Dr. Liat Bosch Eosinophils/100 WBC (Bld) 0.9 % Normal 0.9-7.0 [facility] Comment on above: Performed By: #### B LDCX2 #### [facility] [address] [place] [address] Dr. Liat Bosch Erythrocyte distribution width (RBC) [Ratio] 12.6 % Normal 11.0-15.0 [facility] Comment on above: Performed By: #### B LDCX2 #### [facility] [address] [place] [address] Dr. Liat Bosch Hematocrit (Bld) [Volume fraction] 40.2 % Normal 36.0-48.0 [facility] Comment on above: Performed By: #### B LDCX2 #### [facility] [address] [place] [address] Dr. Liat Bosch Hemoglobin (Bld) [Mass/Vol] 13.3 g/dL Normal 12.0-16.0 [facility] Comment on above: Performed By: #### B LDCX2 #### [facility] [address] [place] [address] Dr. Liat Bosch IG # 0.06 10e3/ul Critically high 0.00-0.03 [facility] Comment on above: Performed By: #### B LDCX2 #### [facility] [address] [place] [address] Dr. Liat Bosch IG % 0.4 % Normal 0.0-0.5 [facility] Comment on above: Performed By: #### B LDCX2 #### [facility] [address] [place] [address] Dr. Liat Bosch LYMPH # 2.8 103/ul Normal 1.2-3.8 [facility] Comment on above: Performed By: #### B LDCX2 #### [facility] [address] [place] [address] Dr. Liat Bosch Lymphocytes/100 WBC (Bld) 18.5 % Critically low 20.5-60.0 [facility] Comment on above: Performed By: #### B LDCX2 #### [facility] [address] [place] [address] Dr. Liat Bosch MANUAL DIFF REQ NO Normal [facility] Comment on above: Performed By: #### B LDCX2 #### [facility] [address] [place] [address] Dr. Liat Bosch MCH (RBC) [Entitic mass] 30.1 pg Normal 26.7-34.0 [facility] Comment on above: Performed By: #### B LDCX2 #### [facility] [address] [place] [address] Dr. Liat Bosch MCHC (RBC) [Mass/Vol] 33.1 g/dL Normal 29.9-35.2 [facility] Comment on above: Performed By: #### B [id number] #### [facility] [address] [place] [address] Dr. Liat Bosch MCV (RBC) [Entitic vol] 91.0 fL Normal 81.0-99.0 [facility] Comment on above: Performed By: #### B [id number] #### [facility] [address] [place] [address] Dr. Liat Bosch MONO # 0.9 103/ul Critically high 0.3-0.8 [facility] Comment on above: Performed By: #### B [id number] #### [facility] [address] [place] [address] Dr. Liat Bosch Monocytes/100 WBC (Bld) 6.1 % Normal 1.7-12.0 [facility] Comment on above: Performed By: #### B [id number] #### [facility] [address] [place] [address] Dr. Liat Bosch NEUT # 11.1 103/ul Critically high 1.4-6.5 [facility] Comment on above: Performed By: #### B LDCX2 #### [facility] [address] [place] [address] Dr. Liat Bosch Neutrophils/100 WBC (Bld) 73.8 % Normal 43.0-75.0 [facility] Comment on above: Performed By: #### B [id number] #### [facility] [address] [place] [address] Dr. Liat Bosch Platelet mean volume (Bld) [Entitic vol] 9.0 fL Critically low 9.5-13.5 [facility] Comment on above: Performed By: #### B [id number] #### [facility] [address] [place], [place] [address] Dr. Liat Bosch PLT 490 103/ul Critically high 150-450 [facility] Comment on above: Performed By: #### B [id number] #### [facility] [address] [place], [place] [address] Dr. Liat Bosch RBC 4.42 106/ul Normal 4.20-5.40 [facility] Comment on above: Performed By: #### B [id number] #### [facility] [address] [place], [place] [address] Dr. Liat Bosch WBC 15.0 103/ul Critically high 4.0-11.0 [facility] Comment on above: Performed By: #### B [id number] #### [facility] [address] [place], [place] [address] ABD/PELVIS WO CONon [...] MIKE JAIN Date: 2021-08-12 17:01 Normal [facility] CULTURE URINEon 08-12-2021 CULTURE URINE Culture Observations: MODERATE GROWTH OF MIXED GENITAL BRAYDEN. NO POTENTIAL PATHOGENS SEEN. Normal [facility] Comment on above: Performed By: #### N BOX #### [facility] [address] [place], [place] [address] Nakul FROST URINE PROFILEon 2 Bilirubin Ql (U) Negative Normal NEGATIVE [facility] Comment on above: Performed By: #### U RCX #### [facility] [address] [place], [place] [address] Dr. Liat Bosch Clarity (U) CLEAR Normal CLEAR [facility] Comment on above: Performed By: #### U RCX #### [facility] [address] [place] [address] Dr. Liat Bosch Color (U) LT. YELLOW Normal YELLOW [facility] Comment on above: Performed By: #### U RCX #### [facility] [address] [place] [address] Dr. Liat FERRER A micrscopic examination will be performed if indicated. Normal [facility] Comment on above: Performed By: #### U RCX #### [facility] [address] [place] [address] [address] Liat Bosch Glucose Ql (U) Negative Normal NEGATIVE [facility] Comment on above: Performed By: #### U RCX #### [facility] [address] [place] [address] Dr. Liat Bosch Hemoglobin Ql (U) LARGE Abnormal NEGATIVE [facility] Comment on above: Performed By: #### U RCX #### [facility] [address] [place] [address] Dr. Liat Bosch Ketones Ql (U) TRACE Abnormal NEGATIVE [facility] Comment on above: Performed By: #### U RCX #### [facility] [address] [place] [address] Dr. Liat Bosch LEUKOCYTES MODERATE Abnormal NEGATIVE [facility] Comment on above: Performed By: #### U RCX #### [facility] [address] [place] [address] Dr. Liat Bosch Nitrite Ql (U) Positive Abnormal NEGATIVE [facility] Comment on above: Performed By: #### U RCX #### [facility] [address] [place] [address] Dr. Liat Bosch pH (U) 7.5 [pH] Normal 5-9 [facility] Comment on above: Performed By: #### U RCX #### [facility] [address] [place] [address] Dr. Liat Bosch SPEC GRAVITY 1.025 Normal 1.005-<=1.025 [facility] Comment on above: Performed By: #### U RCX #### [facility] [address] [place] [address] Dr. Liat Bosch UA PROTEIN >300 Abnormal NEGATIVE/ TRACE [facility] Comment on above: Performed By: #### U RCX #### [facility] [address] [place] [address] Dr. Liat Bosch UR MICRO IND INDICATED Normal [facility] Comment on above: Performed By: #### U RCX #### [facility] [address] [place] [address] Dr. Liat Bosch Urobilinogen Qn (U) 0.2 {Elia'U}/dL Normal 0.2 - 1. 0 [facility] Comment on above: Performed By: #### U RCX #### [facility] [address] [place] [address] Dr. Liat Bosch LACTATE/LACTIC ACIDon 2021 Lactate [Moles/Vol] 1.2 mmol/L Normal 0.4-1.9 [facility] Comment on above: Performed By: #### B [id number] #### [facility] [address] [place] [address] Dr. Liat Bosch PREG HCG QUALon 08-12-2021 , QUAL Negative Normal NEGATIVE [facility] Comment on above: Performed By: #### U RCX #### [facility] [address] [place] [address] Dr. Liat Bosch PROF 14(COMP METB)on 022 Albumin [Mass/Vol] 3.9 g/dL Normal 3.4-5.0 [facility] Comment on above: Performed By: #### T HCCONF #### [facility] [address] [place] [address] Dr. Liat Bosch Albumin/Globulin [Mass ratio] 1.1 {ratio} Normal [facility] Comment on above: Performed By: #### T HCCONF #### [facility] [address] [place] [address] Dr. Liat Bosch ALP [Catalytic activity/Vol] 95 U/L Normal 46-116 [facility] Comment on above: Performed By: #### T HCCONF #### [facility] [address] [place] [address] [address] Liat Bosch ALT [Catalytic activity/Vol] 61 U/L Critically high 14-59 [facility] Comment on above: Performed By: #### T HCCONF #### [facility] [address] [place] [address] [address] Liat Bosch Anion gap [Moles/Vol] 13.6 mmol/L Normal Th [facility] Comment on above: Performed By: #### T HCCONF #### [facility] [address] [place] [address] [address] Liat Bosch AST [Catalytic activity/Vol] 22 U/L Normal 15-37 [facility] Comment on above: Performed By: #### T HCCONF #### [facility] [address] [place] [address] [address] Liat Bosch Bilirubin [Mass/Vol] 0.3 mg/dL Normal 0.2-1.0 [facility] Comment on above: Performed By: #### T HCCONF #### [facility] [address] [place] [address] Dr. Liat Bosch Calcium [Mass/Vol] 9.0 mg/dL Normal 8.5-10.1 [facility] Comment on above: Performed By: #### T HCCONF #### [facility] [address] [place] [address] [address] Liat Bosch Chloride [Moles/Vol] 106 mmol/L Normal 98-107 [facility] Comment on above: Performed By: #### T HCCONF #### [facility] [address] [place] [address] [address] Liat Bosch CO2 [Moles/Vol] 22.9 mmol/L Normal 21.0-32.0 [facility] Comment on above: Performed By: #### T HCCONF #### [facility] [address] [place] [address] [address] Liat Bosch Creatinine [Mass/Vol] 1.00 mg/dL Normal 0.55-1.02 [facility] Comment on above: Performed By: #### T HCCONF #### [facility] [address] [place] [address] [address] Liat Bosch EGFR-AF PORTUGUESE >60 Normal >=60 [facility] Comment on above: Performed By: #### T HCCONF #### [facility] [address] [place] [address] Dr. Liat Bosch EGFR-NON AF PORTUGUESE >60 Normal >=60 [facility] Comment on above: Performed By: #### T HCCONF #### [facility] [address] [place] [address] [address] Liat Bosch Globulin (S) [Mass/Vol] 3.6 g/dL Normal [facility] Comment on above: Performed By: #### T HCCONF #### [facility] [address] [place] [address] Dr. Liat Bosch Glucose [Mass/Vol] 103 mg/dL Normal 74-106 [facility] Comment on above: Performed By: #### T HCCONF #### [facility] [address] [place] [address] [address] Liat Bosch Potassium [Moles/Vol] 3.5 mmol/L Normal 3.5-5.1 [facility] Comment on above: Performed By: #### T HCCONF #### [facility] [address] [place] [address] Dr. Liat Bosch Protein [Mass/Vol] 7.5 g/dL Normal 6.4-8.2 [facility] Comment on above: Performed By: #### T HCCONF #### [facility] [address] [place] [address] Dr. Liat Bosch Sodium [Moles/Vol] 139 mmol/L Normal 136-145 [facility] Comment on above: Performed By: #### T HCCONF #### [facility] [address] [place] [address] [address] Liat Bosch Urea nitrogen [Mass/Vol] 17.0 mg/dL Normal 7.0-18.0 [facility] Comment on above: Performed By: #### T HCCONF #### [facility] [address] [place] [address] Dr. Liat Bosch Urea nitrogen/Creatinine [Mass ratio] 17.0 mg/mg Normal [facility] Comment on above: Performed By: #### T HCCONF #### [facility] [address] [place] [address] Dr. Liat Bosch URINE MICROSCOPIC ONLYon BACTERIA LARGE Abnormal NONE SEEN [facility] Comment on above: Performed By: #### B LDCX2 #### [facility] [address] [place] [address] Dr. Liat Bosch Bacteria identified Cx Nom (U) INDICATED Normal [facility] Comment on above: Performed By: #### B LDCX2 #### [facility] [address] [place] [address] Dr. Liat Bosch CAST NONE SEEN Normal NONE SEEN [facility] Comment on above: Performed By: #### B LDCX2 #### [facility] [address] [place] [address] Dr. Liat Bosch Crystals LM Nom (Urine sed) NONE SEEN Normal NONE SEEN [facility] Comment on above: Performed By: #### B LDCX2 #### [facility] [address] [place] [address] Dr. Liat Bosch Epithelial cells LM Ql (Urine sed) FEW Abnormal NONE SEEN /RARE [facility] Comment on above: Performed By: #### B LDCX2 #### [facility] [address] [place] [address] Dr. Liat Bosch MUCOUS NONE SEEN Normal NONE SEEN [facility] Comment on above: Performed By: #### B LDCX2 #### [facility] [address] [place] [address] Dr. Liat Bosch RBC 50-75 Abnormal 0-2 [facility] Comment on above: Performed By: #### B LDCX2 #### [facility] [address] [place] [address] Dr. Liat Bosch WBC (U) [#/Vol] /uL Abnormal NONE SEEN [facility] Comment on above: Performed By: #### B LDCX2 #### [facility] [address] [place], [place] [address] Dr. Liat Bosch Provider Letteron 07-22-2021 Provider Letter July 22, 2021 [address]I [address] [place] [phone] [place] NIK[place]AY 2000 Dear Ms. Miles, This letter is to inform you that the providers of [employer] [facility] will no longer be responsible for your routine medical care. Emergency care only will be provided for the thirty (30) days following this letter. During this time period we suggest that you find another physician for your medical needs. A listing of area physicians can be found on [facility]'s website at [email or web address] or you may contact your health plan. We will be glad to forward your records to your new physician as long as we receive a signed release of records form. Sincerely, Dr. Wiliam Thakur [address] [place] [address] Normal [facility] Patient Educationon 07-14-19 Patient Education Urology Kidney [...] these instructions at home: Medicines ? Take [id number] and prescription medicines only as told by [...] 08/09/2008 Document Revised: 07/10/2019 Document Reviewed: 07/10/2019 [employer] Patient Education ? 2019 [employer] [facility] Provider Letteron 07-13-2021 Provider Letter July 13, 2021 NIKOLAY MILES [address] [place] [id number] NIKOLAY MILES 2000 Dear Kira, You missed [...] do appreciate your understanding. Sincerely, [facility] [address] [place] [address] [place] [address] [facility] Patient Letter FTon 2021 Patient Letter [facility] June 17, 2021 NIKOLAY MILES [address] [place] [address] NIKOLAY MILES 2000 Dear Ms. Miles, I [...] as recommended. Office Sincerely, Dr. Wiliam Thakur [address] [place] [address]. [place] [address] [facility] Provider Letteron 04-28-2021 Provider Letter April 28, 2021 NIKOLAY MILES [address] [place] [address] NIKOLAY MILES 2000 Dear Kira , You [...] and we do appreciate your understanding. Sincerely, [facility] [address], [place] [address] Normal [facility] RAD - MISCon 04-28-2021 RAD - MISC [phone] [id number] DA#[id number]:[id number] Normal [facility] XR KUB 1 VIEWon 04-24-2021 XR KUB [...] JANE WHALEN Date: 2021-04-24 16:31 Normal [facility] CANNABINOID (THC) CONFIRMATI ON, URINEon 04-16-2021 Cannabinoid Positive Abnormal [facility] Comment on above: Performed By: #### T HCCONF #### [facility] [address] [place] [address] [address] Liat Bradshaw THC GC/MS Conf 13 ng/mL Normal Cutoff=10 [facility] Comment on above: Performed By: #### T HCCONF #### [facility] [address] [place] [address] [address] Liat Bosch CBC AUTO DIFFon 04-06-2021 BASO # 0.0 103/ul Normal 0.0-0.1 [facility] Comment on above: Performed By: #### T HCCONF #### [facility] [address] [place] [address] [address] Liat Bosch Basophils/100 WBC (Bld) 0.4 % Normal 0.2-2.0 [facility] Comment on above: Performed By: #### T HCCONF #### [facility] [address] [place] [address] [address] Liat Bosch EO # 0.3 103/ul Normal 0.0-0.7 [facility] Comment on above: Performed By: #### T HCCONF #### [facility] [address] [place] [address] Dr. Liat Bosch Eosinophils/100 WBC (Bld) 2.5 % Normal 0.9-7.0 [facility] Comment on above: Performed By: #### T HCCONF #### [facility] [address] [place] [address] Dr. Liat Bosch Erythrocyte distribution width (RBC) [Ratio] 17.7 % Critically high 11.0-15.0 [facility] Comment on above: Performed By: #### T HCCONF #### [facility] [address] [place] [address] Dr. Liat Bosch Hematocrit (Bld) [Volume fraction] 30.0 % Critically low 36.0-48.0 [facility] Comment on above: Performed By: #### T HCCONF #### [facility] [address] [place] [address] Dr. Liat Bosch Hemoglobin (Bld) [Mass/Vol] 10.0 g/dL Critically low 12.0-16.0 [facility] Comment on above: Performed By: #### T HCCONF #### [facility] [address] [place] [address] Dr. Liat Bosch IG # 0.06 10e3/ul Critically high 0.00-0.03 [facility] Comment on above: Performed By: #### T HCCONF #### [facility] [address] [place] [address] Dr. Liat Bosch IG % 0.5 % Normal 0.0-0.5 [facility] Comment on above: Performed By: #### T HCCONF #### [facility] [address] [place] [address] Dr. Liat Bosch LYMPH # 3.8 103/ul Normal 1.2-3.8 [facility] Comment on above: Performed By: #### T HCCONF #### [facility] [address] [place] [address] Dr. Liat Bosch Lymphocytes/100 WBC (Bld) 34.1 % Normal 20.5-60.0 [facility] Comment on above: Performed By: #### T HCCONF #### [facility] [address] [place] [address] Dr. Liat Bosch MANUAL DIFF REQ NO Normal [facility] Comment on above: Performed By: #### T HCCONF #### [facility] [address] [place] [address] Dr. Liat Bosch MCH (RBC) [Entitic mass] 29.6 pg Normal 26.7-34.0 [facility] Comment on above: Performed By: #### T HCCONF #### [facility] [address] [place] [address] Dr. Liat Bosch MCHC (RBC) [Mass/Vol] 33.3 g/dL Normal 29.9-35.2 [facility] Comment on above: Performed By: #### T HCCONF #### [facility] [address] [place] [address] Dr. Liat Bosch MCV (RBC) [Entitic vol] 88.8 fL Normal 81.0-99.0 [facility] Comment on above: Performed By: #### T HCCONF #### [facility] [address] [place] [address] Dr. Liat Bosch MONO # 0.7 103/ul Normal 0.3-0.8 [facility] Comment on above: Performed By: #### T HCCONF #### [facility] [address] [place] [address] Dr. Liat Bosch Monocytes/100 WBC (Bld) 5.9 % Normal 1.7-12.0 [facility] Comment on above: Performed By: #### T HCCONF #### [facility] [address] [place] [address] Dr. Liat Bosch NEUT # 6.3 103/ul Normal 1.4-6.5 [facility] Comment on above: Performed By: #### T HCCONF #### [facility] [address] [place] [address] Dr. Liat Bosch Neutrophils/100 WBC (Bld) 56.6 % Normal 43.0-75.0 [facility] Comment on above: Performed By: #### T HCCONF #### [facility] [address] [place] [address] Dr. Liat Bosch Platelet mean volume (Bld) [Entitic vol] 8.7 fL Critically low 9.5-13.5 [facility] Comment on above: Performed By: #### T HCCONF #### [facility] [address] [place] [address] Dr. Liat Bosch PLT 257 103/ul Normal 150-450 [facility] Comment on above: Performed By: #### T HCCONF #### [facility] [address] [place] [address] Dr. Liat Bosch RBC 3.38 106/ul Critically low 4.20-5.40 [facility] Comment on above: Performed By: #### T HCCONF #### [facility] [address] [place] [address] Dr. Liat Bosch WBC 11.1 103/ul Critically high 4.0-11.0 [facility] Comment on above: Performed By: #### T HCCONF #### [facility] [address] [place] [address] Dr. Liat Bosch ASYMPTOMATIC COVID-19 ANTIGE Non 04-04-2021 EUA Statement SEE BELOW Normal [facility] Comment on above: Result Comment: This test [...] sooner. Performed By: #### N BOX #### [facility] [address] [place] [address] Nakul Martines SARS-CoV-2 (COVID-19) RNA ISABEL+probe Ql (Unsp spec) Negative Normal NEGATIVE [facility] Comment on above: Result Comment: Nega tive results are presumptive. They do not preclude infection and should not be used as the sole basis for treatment decisions. Additional confirmatory testing by a molecular method should be considered. Performed By: #### N BOX #### [facility] [address] [place] [address] Nakul Martines CBC AUTO DIFFon 04-04-2021 BASO # 0.0 103/ul Normal 0.0-0.1 [facility] Comment on above: Performed By: #### B LDCX2 #### [facility] [address] [place] [address] Dr. Liat Bosch Basophils/100 WBC (Bld) 0.2 % Normal 0.2-2.0 [facility] Comment on above: Performed By: #### B LDCX2 #### [facility] [address] [place] [address] Dr. Liat Bosch EO # 0.2 103/ul Normal 0.0-0.7 [facility] Comment on above: Performed By: #### B LDCX2 #### [facility] [address] [place] [address] Dr. Liat Bosch Eosinophils/100 WBC (Bld) 1.9 % Normal 0.9-7.0 [facility] Comment on above: Performed By: #### B LDCX2 #### [facility] [address] [place] [address] Dr. Liat Bosch Erythrocyte distribution width (RBC) [Ratio] 17.7 % Critically high 11.0-15.0 [facility] Comment on above: Performed By: #### B LDCX2 #### [facility] [address] [place] [address] Dr. Liat Bosch Hematocrit (Bld) [Volume fraction] 34.0 % Critically low 36.0-48.0 [facility] Comment on above: Performed By: #### B LDCX2 #### [facility] [address] [place] [address] Dr. Liat Bosch Hemoglobin (Bld) [Mass/Vol] 11.1 g/dL Critically low 12.0-16.0 [facility] Comment on above: Performed By: #### B LDCX2 #### [facility] [address] [place] [address] Dr. Liat Bosch IG # 0.07 10e3/ul Critically high 0.00-0.03 [facility] Comment on above: Performed By: #### B LDCX2 #### [facility] [address] [place] [address] Dr. Liat Bosch IG % 0.8 % Critically high 0.0-0.5 [facility] Comment on above: Performed By: #### B LDCX2 #### [facility] [address] [place] [address] Dr. Liat Bosch LYMPH # 2.5 103/ul Normal 1.2-3.8 [facility] Comment on above: Performed By: #### B LDCX2 #### [facility] [address] [place] [address] Dr. Liat Bosch Lymphocytes/100 WBC (Bld) 27.7 % Normal 20.5-60.0 [facility] Comment on above: Performed By: #### B LDCX2 #### [facility] [address] [place] [address] Dr. Liat Bosch MANUAL DIFF REQ NO Normal [facility] Comment on above: Performed By: #### B LDCX2 #### [facility] [address] [place] [address] Dr. Liat Bosch MCH (RBC) [Entitic mass] 28.9 pg Normal 26.7-34.0 [facility] Comment on above: Performed By: #### B LDCX2 #### [facility] [address] [place] [address] Dr. Liat Bosch MCHC (RBC) [Mass/Vol] 32.6 g/dL Normal 29.9-35.2 [facility] Comment on above: Performed By: #### B LDCX2 #### [facility] [address] [place] [address] Dr. Liat Bosch MCV (RBC) [Entitic vol] 88.5 fL Normal 81.0-99.0 [facility] Comment on above: Performed By: #### B LDCX2 #### [facility] [address] [place] [address] Dr. Liat Bosch MONO # 0.5 103/ul Normal 0.3-0.8 [facility] Comment on above: Performed By: #### B LDCX2 #### [facility] [address] [place] [address] Dr. Liat Bosch Monocytes/100 WBC (Bld) 5.6 % Normal 1.7-12.0 [facility] Comment on above: Performed By: #### B LDCX2 #### [facility] [address] [place] [address] Dr. Liat Bosch NEUT # 5.8 103/ul Normal 1.4-6.5 [facility] Comment on above: Performed By: #### B LDCX2 #### [facility] [address] [place] [address] Dr. Liat Bosch Neutrophils/100 WBC (Bld) 63.8 % Normal 43.0-75.0 [facility] Comment on above: Performed By: #### B LDCX2 #### [facility] [address] [place] [address] Dr. Liat Bosch Platelet mean volume (Bld) [Entitic vol] 9.1 fL Critically low 9.5-13.5 [facility] Comment on above: Performed By: #### B LDCX2 #### [facility] [address] [place] [address] Dr. Liat Bosch PLT 333 103/ul Normal 150-450 [facility] Comment on above: Performed By: #### B LDCX2 #### [facility] [address] [place] [address] Dr. Liat Bosch RBC 3.84 106/ul Critically low 4.20-5.40 [facility] Comment on above: Performed By: #### B LDCX2 #### [facility] [address] [place] [address] Dr. Liat Bosch WBC 9.0 103/ul Normal 4.0-11.0 [facility] Comment on above: Performed By: #### B LDCX2 #### [facility] [address] [place] [address] Dr. Liat Bosch DRUG SCREEN RAPID (URINE)on 04-04-2021 AMP Negative Normal NEGATIVE [facility] Comment on above: Performed By: #### B LDCX2 #### [facility] [address] [place] [address] Dr. Liat Bosch BAR Negative Normal NEGATIVE [facility] Comment on above: Performed By: #### B LDCX2 #### [facility] [address] [place] [address] Dr. Liat Bosch BUP Negative Normal NEGATIVE [facility] Comment on above: Performed By: #### B LDCX2 #### [facility] [address] [place] [address] Dr. Liat Bosch BZO Negative Normal NEGATIVE [facility] Comment on above: Performed By: #### B LDCX2 #### [facility] [address] [place] [address] Dr. Liat Bosch YAN Negative Normal NEGATIVE [facility] Comment on above: Performed By: #### B LDCX2 #### [facility] [address] [place] [address] Dr. Liat Bosch CUT-OFFS SEE BELOW Normal [facility] Comment on above: Result Comment: AMP [...] ng/mL Performed By: #### B LDCX2 #### [facility] [address] [place] [address] Dr. Liat Bosch DRUG CUT HEADER DRUG CLASS TEST SYSTEM CUT-OFF CONCENTRATIONS ARE FOLLOWS: Normal [facility] Comment on above: Performed By: #### B LDCX2 #### [facility] [address] [place] [address] Dr. Liat Bosch mAMP Negative Normal NEGATIVE [facility] Comment on above: Performed By: #### B LDCX2 #### [facility] [address] [place] [address] Dr. Liat Bosch MTD Negative Normal NEGATIVE [facility] Comment on above: Performed By: #### B LDCX2 #### [facility] [address] [place] [address] Dr. Liat Bosch OPI Negative Normal NEGATIVE [facility] Comment on above: Performed By: #### B LDCX2 #### [facility] [address] [place] [address] Dr. Liat Bosch OXY Negative Normal NEGATIVE [facility] Comment on above: Performed By: #### B LDCX2 #### [facility] [address] [place] [address] Dr. Liat Bosch PCP Negative Normal NEGATIVE [facility] Comment on above: Performed By: #### B LDCX2 #### [facility] [address] [place] [address] Dr. Liat Bosch PPX Negative Normal NEGATIVE [facility] Comment on above: Performed By: #### B LDCX2 #### [facility] [address] [place] [address] Dr. Liat Bosch TCA Negative Normal NEGATIVE [facility] Comment on above: Performed By: #### B LDCX2 #### [facility] [address] [place] [address] Dr. Liat Bosch THC Positive Abnormal NEGATIVE [facility] Comment on above: Performed By: #### B LDCX2 #### [facility] [address] [address] [address] Liat Bosch TYPE AND SCREENon 04-04-2021 TYPE AND SCREEN Negative Normal [facility] Comment on above: Performed By: #### N BOX #### [facility] [address] [address] Nakul Martines CHLAMYDIA/GONOCOCCUS ISABEL (SW AB/URINE/PAPon 04-02-2021 Chlamydia trachomatis, ISABEL Negative Normal Negative [facility] Comment on above: Performed By: #### B LDCX2 #### [facility] [address] [address] [address] Liat Bosch Neisseria gonorrhoeae, ISABEL Negative Normal Negative [facility] Comment on above: Performed By: #### B LDCX2 #### [facility] [address] [place] [address] Dr. Liat Bosch GROUP B STREP CULTUREon 03-08 S. agalactiae Ag Ql (Unsp spec) Culture Observations: NEGATIVE FOR GROUP B STREPTOCOCCUS. Normal [facility] Comment on above: Performed By: #### N BOX #### [facility] [address] [place] [address] Nakul Martines RAD - Ultrasound Reporton RAD - Ultrasound Report [id number] FB#1.00CD:127 Normal [facility] Reminderson 03-26-2021 Reminders -- From: Debbie Miranda To: [facility] - Clinical; Debbie Miranda; Sent: 03/25/2021 13:40:52 EST Show up: 03/26/2021 13:40:00 EST Subject: renal [facility] at [facility] 03-25-21 at 2:30pm -show Dr wynn results, pt has ureteral stent and kidney stones -patient needs to see new provider due to her insurance not covered with Dr Wynn sent msg to Dr Wynn to review results Normal [facility] Ambulatory Visit Summaryon 0 03-25-2021 Ambulatory Visit [...] these instructions at home: Medicines ? Take nndl-qjp-gwuwdjx and prescription medicines only as told by [...] b (more content not included)... Normal [facility] Ambulatory Visit Summary NIKOLAY MILES :2000 Visit [...] these instructions at home: Medicines ? Take hays-kss-yzxsyic and prescription medicines only as told by [...] pee. S (more content not included)... Normal [facility] Ambulatory Visit Summary NIKOLAY MILES [...] these instructions at home: Medicines ? Take ztdk-fec-mrtekmm and prescription medicines only as told by [...] S (more content not included)... Normal [facility] Patient Educationon 03-25-19 Patient Education Urology Kidney [...] these instructions at home: Medicines ? Take dqdn-tkz-udrjsmp and prescription medicines only as told by [...] 08/09/2008 Document Revised: 07/10/2019 Document Reviewed: 07/10/2019 [employer] Patient Education ? 2019 [employer] Normal [facility] US KIDNEYSon 03-25-2021 US KIDNEYS EXAMINATION: US [...] VERN TAMAYO Date: 2021-03-25 15:24 Normal [facility] Urology Office/Clinic Noteon 03-25-2021 Urology Office/Clinic [...] qualifying data available Patient Education Kidney Stones, Bxdt-jp-Mtvd IDebbie, personally scribed for Dr. Wynn on [...] than 30 days ago Tobacco Use:., 03/25/2021 [facility] Comment on above: Result Comment: Elec tronically Signed By: Kingsley URIAS, Nathalia Willson\.br\Date and Time Signed: 03/25/21 12:31 EST\.br\Electronically Co-Signed By: Debbie Miranda\.br\Date and Time Co-Signed: 03/25/21 12:13 EST Lab Reportson 03-09-2021 Lab Reports [id number] 91#1.00CD:127 Normal [facility] RAD - CT Reporton 03-09-2021 RAD - CT Report [id number] D3#1.00CD:127 [facility] RAD - Ultrasound Reporton RAD - Ultrasound Report [id number] 88#1.00CD:127 [facility] Insurance Correspondence Off iceon 03-05-2021 Insurance Correspondence Office [id number] 38#1.00CD:127 [facility] Operative Reporton Operative Report [id number] 25#1.00CD:127 [facility] CBC AUTO DIFFon 03-03-2021 BASO # 0.0 103/ul Normal 0.0-0.1 [facility] Comment on above: Performed By: #### B LDCX2 #### [facility] [address] [place] [address] Dr. Liat Bosch Basophils/100 WBC (Bld) 0.2 % Normal 0.2-2.0 [facility] Comment on above: Performed By: #### B LDCX2 #### [facility] [address] [place] [address] Dr. Liat Bosch EO # 0.1 103/ul Normal 0.0-0.7 [facility] Comment on above: Performed By: #### B LDCX2 #### [facility] [address] [place] [address] Dr. Liat Bosch Eosinophils/100 WBC (Bld) 1.1 % Normal 0.9-7.0 [facility] Comment on above: Performed By: #### B LDCX2 #### [facility] [address] [place] [address] Dr. Liat Bosch Erythrocyte distribution width (RBC) [Ratio] 19.3 % Critically high 11.0-15.0 [facility] Comment on above: Performed By: #### B LDCX2 #### [facility] [address] [place] [address] Dr. Liat Bosch Hematocrit (Bld) [Volume fraction] 30.3 % Critically low 36.0-48.0 [facility] Comment on above: Performed By: #### B LDCX2 #### [facility] [address] [place] [address] Dr. Liat Bosch Hemoglobin (Bld) [Mass/Vol] 9.3 g/dL Critically low 12.0-16.0 [facility] Comment on above: Performed By: #### B LDCX2 #### [facility] [address] [place] [address] Dr. Liat Bosch IG # 0.11 10e3/ul Critically high 0.00-0.03 [facility] Comment on above: Performed By: #### B LDCX2 #### [facility] [address] [place] [address] Dr. Liat Bosch IG % 0.9 % Critically high 0.0-0.5 [facility] Comment on above: Performed By: #### B LDCX2 #### [facility] [address] [address] [address] Liat Bosch LYMPH # 2.1 103/ul Normal 1.2-3.8 [facility] Comment on above: Performed By: #### B LDCX2 #### [facility] [address] [place] [address] Dr. Liat Bosch Lymphocytes/100 WBC (Bld) 17.0 % Critically low 20.5-60.0 [facility] Comment on above: Performed By: #### B LDCX2 #### [facility] [address] [place] [address] Dr. Liat Bosch MANUAL DIFF REQ NO Normal [facility] Comment on above: Performed By: #### B LDCX2 #### [facility] [address] [place] [address] Dr. Liat Bosch MCH (RBC) [Entitic mass] 28.1 pg Normal 26.7-34.0 [facility] Comment on above: Performed By: #### B LDCX2 #### [facility] [address] [place] [address] Dr. Liat Bosch MCHC (RBC) [Mass/Vol] 30.7 g/dL Normal 29.9-35.2 [facility] Comment on above: Performed By: #### B LDCX2 #### [facility] [address] [place] [address] Dr. Liat Bosch MCV (RBC) [Entitic vol] 91.5 fL Normal 81.0-99.0 [facility] Comment on above: Performed By: #### B LDCX2 #### [facility] [address] [place] [address] Dr. Liat Bosch MONO # 1.0 103/ul Critically high 0.3-0.8 [facility] Comment on above: Performed By: #### B LDCX2 #### [facility] [address] [place] [address] Dr. Liat Bosch Monocytes/100 WBC (Bld) 8.5 % Normal 1.7-12.0 [facility] Comment on above: Performed By: #### B LDCX2 #### [facility] [address] [address] [address] Liat Bosch NEUT # 8.8 103/ul Critically high 1.4-6.5 [facility] Comment on above: Performed By: #### B LDCX2 #### [facility] [address] [address] [address] Liat Bosch Neutrophils/100 WBC (Bld) 72.3 % Normal 43.0-75.0 [facility] Comment on above: Performed By: #### B LDCX2 #### [facility] [address] [address] [address] Liat Bosch Platelet mean volume (Bld) [Entitic vol] 8.9 fL Critically low 9.5-13.5 [facility] Comment on above: Performed By: #### B LDCX2 #### [facility] [address] [address] [address] Liat Bosch PLT 339 103/ul Normal 150-450 [facility] Comment on above: Performed By: #### B LDCX2 #### [facility] [address] [address] [address] Liat Bosch RBC 3.31 106/ul Critically low 4.20-5.40 [facility] Comment on above: Performed By: #### B LDCX2 #### [facility] [address] [place] [address] Dr. Liat Bosch WBC 12.2 103/ul Critically high 4.0-11.0 [facility] Comment on above: Performed By: #### B LDCX2 #### [facility] [address] [place] [address] ABD/PELVIS WO CONon [...] the late stage of . Normal [facility] PROF CHEM 8 (BAS METB)on Anion gap [Moles/Vol] 14.7 mmol/L Normal [facility] Comment on above: Performed By: #### T HCCONF #### [facility] [address] [place] [address] Dr. Liat Bosch Calcium [Mass/Vol] 8.1 mg/dL Critically low 8.4-10.2 [facility] Comment on above: Performed By: #### T HCCONF #### [facility] [address] [place] [address] Dr. Liat Bosch Chloride [Moles/Vol] 106 mmol/L Normal 98-107 [facility] Comment on above: Performed By: #### T HCCONF #### [facility] [address] [place] [address] Dr. Liat Bosch CO2 [Moles/Vol] 21.2 mmol/L Critically low 22.0-30.0 [facility] Comment on above: Performed By: #### T HCCONF #### [facility] [address] [address] [address] Liat Bosch Creatinine [Mass/Vol] 0.75 mg/dL Normal 0.52-1.04 [facility] Comment on above: Performed By: #### T HCCONF #### [facility] [address] [address] [address] Liat Bosch EGFR-AF PORTUGUESE >60 Normal >=60 [facility] Comment on above: Performed By: #### T HCCONF #### [facility] [address] [address] [address] Liat Bosch EGFR-NON AF PORTUGUESE >60 Normal >=60 [facility] Comment on above: Performed By: #### T HCCONF #### [facility] [address] [place] [address] Dr. Liat Bosch Glucose [Mass/Vol] 96 mg/dL Normal 74-106 [facility] Comment on above: Performed By: #### T HCCONF #### [facility] [address] [address] [address] Liat Bosch Potassium [Moles/Vol] 3.9 mmol/L Normal 3.4-5.0 [facility] Comment on above: Performed By: #### T HCCONF #### [facility] [address] [address] [address] Liat Bosch Sodium [Moles/Vol] 138 mmol/L Normal 137-145 [facility] Comment on above: Performed By: #### T HCCONF #### [facility] [address] [address] [address] Liat Bosch Urea nitrogen [Mass/Vol] 5.0 mg/dL Critically low 7.0-17.0 [facility] Comment on above: Performed By: #### T HCCONF #### [facility] [address] [address] [address] Liat Bosch Urea nitrogen/Creatinine [Mass ratio] 6.7 mg/mg Normal [facility] Comment on above: Performed By: #### T HCCONF #### [facility] [address] [place] [address] Dr. Liat Bosch US KIDNEYSon 03-03-2021 US [...] VERN TAMAYO Date: 2021-03-03 08:10 Normal [facility] CULTURE URINEon 03-02-2021 CULTURE URINE Culture Observations: MODERATE GROWTH OF MIXED GENITAL BRAYDEN. NO POTENTIAL PATHOGENS SEEN. Normal [facility] Comment on above: Performed By: #### U RCX #### [facility] [address] [place] [address] Dr. Liat Bosch UA (CLEAN/CATCH) [employer] SALES REPRESENTATIVE/MICRO I F IND.on 03-02-2021 Bilirubin Ql (U) Negative Normal NEGATIVE [facility] Comment on above: Performed By: #### U RCX #### [facility] [address] [place] [address] Dr. Liat Bosch Clarity (U) CLEAR Normal CLEAR [facility] Comment on above: Performed By: #### U RCX #### [facility] [address] [place] [address] Dr. Liat Bosch Color (U) LT. YELLOW Normal YELLOW [facility] Comment on above: Performed By: #### U RCX #### [facility] [address] [place] [address] Dr. Liat Bosch Glucose Ql (U) Negative Normal NEGATIVE [facility] Comment on above: Performed By: #### U RCX #### [facility] [address] [address] [address] Liat Bosch Hemoglobin Ql (U) LARGE Abnormal NEGATIVE [facility] Comment on above: Performed By: #### U RCX #### [facility] [address] [address] [address] Liat Bosch Ketones Ql (U) TRACE Abnormal NEGATIVE [facility] Comment on above: Performed By: #### U RCX #### [facility] [address] [address] [address] Liat Bosch LEUKOCYTES MODERATE Abnormal NEGATIVE [facility] Comment on above: Performed By: #### U RCX #### [facility] [address] [place] [address] Dr. Liat Bosch Nitrite Ql (U) Negative Normal NEGATIVE [facility] Comment on above: Performed By: #### U RCX #### [facility] [address] [place] [address] Dr. Liat Bosch pH (U) 6.5 [pH] Normal 5-9 [facility] Comment on above: Performed By: #### U RCX #### [facility] [address] [address] [address] Liat Bosch SPEC GRAVITY 1.025 Normal 1.005-<=1.025 [facility] Comment on above: Performed By: #### U RCX #### [facility] [address] [address] [address] Liat Bosch UA PROTEIN TRACE Normal NEGATIVE/ TRACE [facility] Comment on above: Performed By: #### U RCX #### [facility] [address] [address] [address] Liat Bosch UR MICRO IND INDICATED Normal [facility] Comment on above: Performed By: #### U RCX #### [facility] [address] [place] [address] Dr. Liat Bosch Urobilinogen Qn (U) 0.2 {Elia'U}/dL Normal 0.2 - 1. 0 [facility] Comment on above: Performed By: #### U RCX #### [facility] [address] [place] [address] Dr. Liat Bosch URINE MICROSCOPIC ONLYon BACTERIA SMALL Abnormal NONE SEEN [facility] Comment on above: Performed By: #### U RCX #### [facility] [address] [place] [address] Dr. Liat Bosch Bacteria identified Cx Nom (U) INDICATED Normal [facility] Comment on above: Performed By: #### U RCX #### [facility] [address] [place] [address] Dr. Liat Bosch CAST NONE SEEN Normal NONE SEEN [facility] Comment on above: Performed By: #### U RCX #### [facility] [address] [place] [address] Dr. Liat Bosch Crystals LM Nom (Urine sed) NONE SEEN Normal NONE SEEN [facility] Comment on above: Performed By: #### U RCX #### [facility] [address] [place] [address] Dr. Liat Bosch Epithelial cells LM Ql (Urine sed) FEW Abnormal NONE SEEN /RARE [facility] Comment on above: Performed By: #### U RCX #### [facility] [address] [place] [address] Dr. Liat Bosch MUCOUS TRACE Abnormal NONE SEEN [facility] Comment on above: Performed By: #### U RCX #### [facility] [address] [place] [address] Dr. Liat Bosch RBC 5-10 Abnormal 0-2 [facility] Comment on above: Performed By: #### U RCX #### [facility] [address] [place] [address] Dr. Liat Bosch WBC 10-20 Abnormal NONE SEEN [facility] Comment on above: Performed By: #### U RCX #### [facility] [address] [place] [address] Dr. Liat Bsoch US PREG GROWTHon 03-02-2021 US PREG GROWTH [...] EFW: 6 pounds, 2 ounces, 45% FL/AC: 0.910211 FL/BPD: 0.521103 HC/AC: 1.097746 GESTATIONAL AGE: Age by EDC: 34 weeks 2 days ROXANNE by EDC: 04/11/2021 Age by US: 36 weeks 1 day ROXANNE by US: 03/29/2021 IMPRESSION: Normal interval growth Electronically authenticated by: VERN TAMAYO Date: 2021-03-02 09:45 Normal [facility] GLUCOSE - 1HRon 02-05-2021 Glucose [Mass/Vol] 132 mg/dL Critically high 74-[address] [facility] Comment on above: Performed By: #### U RCX #### [facility] [address] [place] [address] Dr. Liat Bosch HEMOGRAM AND PLATELon 2020 Hematocrit (Bld) [Volume fraction] 27.6 % Critically low 36.0-48.0 [facility] Comment on above: Performed By: #### T HCCONF #### [facility] [address] [place] [address] Dr. Liat Bosch Hemoglobin (Bld) [Mass/Vol] 8.7 g/dL Critically low 12.0-16.0 [facility] Comment on above: Performed By: #### T HCCONF #### [facility] [address] [place] [address] Dr. Liat Bosch MCH (RBC) [Entitic mass] 26.9 pg Normal 26.7-34.0 [facility] Comment on above: Performed By: #### T HCCONF #### [facility] [address] [address] [address] Liat Bosch MCHC (RBC) [Mass/Vol] 31.5 g/dL Normal 29.9-35.2 [facility] Comment on above: Performed By: #### T HCCONF #### [facility] [address] [address] [address] Liat Bosch MCV (RBC) [Entitic vol] 85.2 fL Normal 81.0-99.0 [facility] Comment on above: Performed By: #### T HCCONF #### [facility] [address] [address] [address] Liat Bosch PLT 413 103/ul Normal 150-450 [facility] Comment on above: Performed By: #### T HCCONF #### [facility] [address] [address] [address] Liat Bosch RBC 3.24 106/ul Critically low 4.20-5.40 [facility] Comment on above: Performed By: #### T HCCONF #### [facility] [address] [address] [address] Liat Bosch WBC 9.2 103/ul Normal 4.0-11.0 [facility] Comment on above: Performed By: #### T HCCONF #### [facility] [address] [address] [address] Liat Bosch US PREG ANATOMY SINGLEon [...] by ultrasound, 82nd percentile by expected) FL/AC: 0.307048 FL/BPD: 0.629986 HC/AC: 1.497698 GESTATIONAL AGE: Age by EDC: 30 weeks, [...] JANE WHALEN Date: 2021-02-05 11:55 Normal [facility] Covid-19 PCR (CVDTB)on 12-05 SARS-CoV-2 (COVID-19) RNA ISABEL+probe Ql (Unsp spec) Not detected Normal NOT DETECTED [facility] Comment on above: Result Comment: When diagnostic testing is negative, the possibility of a false negative should be considered in the context of a patient's recent exposures and the presence of clinical signs and symptoms consistent with SARS-CoV-2. Performed By: #### N BOX #### [facility] [address] [address] Nakul Martines HEP B SURFACE ANTIGEN SCREEN on 10-12-2020 HBsAg Screen Negative Normal Negative [facility] Comment on above: Performed By: #### T HCCONF #### [facility] [address] [address] [address] Liat Bosch HEPATITIS C VIRUS AB W/ REFL EX QUANTon 10-12-2020 HCV AB <0.1 Normal 0.0-0.9 [facility] Comment on above: Performed By: #### H CVPCRR #### [facility] [address] [address] Nakul Martines Interpretation: Comment Normal [facility] Comment on above: Result Comment: Nega tive Not infected with HCV, unless recent infection is suspected or other evidence exists to indicate HCV infection. Performed By: #### H CVPCRR #### [facility] [address] [place] [address] Nakul Martines HIV 1 AND 2 WITH REFLEXon HIV Screen 4th Generation wRfx Non-Reactive Normal Non Reactive [facility] Comment on above: Performed By: #### U RCX #### [facility] [address] [place] [address] Dr. Liat Bosch RPR QUANTon 10-12-2020 Rapid Plasma Reagin, Quant Non-Reactive Normal NonRea<1:1 [facility] Comment on above: Performed By: #### B LDCX2 #### [facility] [address] [place] [address] Dr. Liat Bosch RUBELLA AB IGGon 10-12-2020 Rubella Antibodies, IgG 5.88 index Normal Immune >0.99 [facility] Comment on above: Result Comment: Non- immune <0.90 Equivocal 0.90 - 0.99 Immune >0.99 Performed By: #### T HCCONF #### [facility] [address] [place] [address] Dr. Liat Bosch CBC AUTO DIFFon 10-11-2020 BASO # 0.0 103/ul Normal 0.0-0.1 [facility] Comment on above: Performed By: #### B LDCX2 #### [facility] [address] [place] [address] Dr. Liat Bosch Basophils/100 WBC (Bld) 0.2 % Normal 0.2-2.0 [facility] Comment on above: Performed By: #### B LDCX2 #### [facility] [address] [place] [address] Dr. Liat Bosch EO # 0.2 103/ul Normal 0.0-0.7 [facility] Comment on above: Performed By: #### B LDCX2 #### [facility] [address] [place] [address] Dr. Liat Bosch Eosinophils/100 WBC (Bld) 2.9 % Normal 0.9-7.0 [facility] Comment on above: Performed By: #### B LDCX2 #### [facility] [address] [place] [address] Dr. Liat Bosch Erythrocyte distribution width (RBC) [Ratio] 13.6 % Normal 11.0-15.0 [facility] Comment on above: Performed By: #### B LDCX2 #### [facility] [address] [place] [address] Dr. Liat Bosch Hematocrit (Bld) [Volume fraction] 37.3 % Normal 36.0-48.0 [facility] Comment on above: Performed By: #### B LDCX2 #### [facility] [address] [place] [address] Dr. Liat Bosch Hemoglobin (Bld) [Mass/Vol] 12.6 g/dL Normal 12.0-16.0 [facility] Comment on above: Performed By: #### B LDCX2 #### [facility] [address] [place] [address] Dr. Liat Bosch IG # 0.03 10e3/ul Normal 0.00-0.03 [facility] Comment on above: Performed By: #### B LDCX2 #### [facility] [address] [place] [address] Dr. Liat Bosch IG % 0.4 % Normal 0.0-0.5 [facility] Comment on above: Performed By: #### B LDCX2 #### [facility] [address] [place] [address] Dr. Liat Bosch LYMPH # 2.7 103/ul Normal 1.2-3.8 [facility] Comment on above: Performed By: #### B LDCX2 #### [facility] [address] [place] [address] Dr. Liat Bosch Lymphocytes/100 WBC (Bld) 33.2 % Normal 20.5-60.0 [facility] Comment on above: Performed By: #### B LDCX2 #### [facility] [address] [place] [address] Dr. Liat Bosch MANUAL DIFF REQ NO Normal [facility] Comment on above: Performed By: #### B LDCX2 #### [facility] [address] [place] [address] Dr. Liat Bosch MCH (RBC) [Entitic mass] 29.2 pg Normal 26.7-34.0 [facility] Comment on above: Performed By: #### B LDCX2 #### [facility] [address] [place] [address] Dr. Liat Bosch MCHC (RBC) [Mass/Vol] 33.8 g/dL Normal 29.9-35.2 [facility] Comment on above: Performed By: #### B LDCX2 #### [facility] [address] [place] [address] Dr. Liat Bosch MCV (RBC) [Entitic vol] 86.5 fL Normal 81.0-99.0 [facility] Comment on above: Performed By: #### B LDCX2 #### [facility] [address] [place] [address] Dr. Liat Bosch MONO # 0.3 103/ul Normal 0.3-0.8 [facility] Comment on above: Performed By: #### B LDCX2 #### [facility] [address] [place] [address] Dr. Liat Bosch Monocytes/100 WBC (Bld) 4.0 % Normal 1.7-12.0 [facility] Comment on above: Performed By: #### B LDCX2 #### [facility] [address] [place] [address] Dr. Liat Bosch NEUT # 4.8 103/ul Normal 1.4-6.5 [facility] Comment on above: Performed By: #### B LDCX2 #### [facility] [address] [place] [address] Dr. Liat Bosch Neutrophils/100 WBC (Bld) 59.3 % Normal 43.0-75.0 [facility] Comment on above: Performed By: #### B LDCX2 #### [facility] [address] [place] [address] Dr. Liat Bosch Platelet mean volume (Bld) [Entitic vol] 9.0 fL Critically low 9.5-13.5 [facility] Comment on above: Performed By: #### B LDCX2 #### [facility] [address] [place] [address] Dr. Liat Bosch PLT 385 103/ul Normal 150-450 [facility] Comment on above: Performed By: #### B LDCX2 #### [facility] [address] [address] [address] Liat Bosch RBC 4.31 106/ul Normal 4.20-5.40 [facility] Comment on above: Performed By: #### B LDCX2 #### [facility] [address] [place] [address] Dr. Liat Bosch WBC 8.2 103/ul Normal 4.0-11.0 [facility] Comment on above: Performed By: #### B LDCX2 #### [facility] [address] [place] [address] Dr. Liat Bosch CULTURE URINEon 10-11-2020 CULTURE URINE Culture Observations: HEAVY GROWTH OF MIXED GENITAL BRAYDEN. NO POTENTIAL PATHOGENS SEEN. Normal [facility] Comment on above: Performed By: #### U RCX #### [facility] [address] [place] [address] Nakulnicolas Schmidten GLYCOHEMOGLOBIN A1Con 2020 ADA RECOMMENDATION ADA THERAPEUTIC TARGET 6.0 - 7.0 ACTION SUGGESTED > 7.0 Normal [facility] Comment on above: Performed By: #### B LDCX2 #### [facility] [address] [place] [address] Dr. Liat Bosch Glucose [Mass/Vol] 100 mg/dL Normal [facility] Comment on above: Performed By: #### B LDCX2 #### [facility] [address] [place] [address] Dr. Liat Bosch HbA1c (Bld) [Mass fraction] 5.1 % Normal <=6.0 [facility] Comment on above: Performed By: #### B LDCX2 #### [facility] [address] [place], [place] [address] Dr. Liat CISNEROS BOX TEST PT SEND OUTo n 10-11-2020 SENT TO REF LAB nelly alegria Normal Th [facility] Comment on above: Performed By: #### N BOX #### [facility] [address] [place], [place] [address] Nakulnicolas Martines TYPE AND SCREENon 10-11-2020 TYPE AND SCREEN Negative Normal [facility] Comment on above: Performed By: #### N BOX #### [facility] [address] [place], [place] [address] Nakul Martines [place] PREG TVon 10-07-2020 [place] [...] JANE WHALEN Date: 2020-10-07 15:46 Normal [facility] Vital Signs Date Time Vital Sign Value Performing Clinician Faci litramiro 08-22-2021 08:00-0400 Body temperature 98.6 [degF] Darryl Dunn MD Work Phone: [facility] [employer] 08-22-2021 08:00-0400 Respiratory rate 18 /min Darryl Dunn MD Work Phone: [employer] 08-22-2021 07:00-0400 Diastolic blood pressure 78 mm[Hg] [facility] 08-22-2021 07:00-0400 Heart rate 55 /min Darryl Dunn MD Work Phone: [employer] 08-22-2021 07:00-0400 SaO2% (BldA) [Mass fraction] 94 % Darryl Dunn MD Work Phone: [employer] 08-22-2021 07:00-0400 Systolic blood pressure 121 mm[Hg] Darryl Dunn MD Work Phone: [employer] 08-21-2021 18:46-0400 Body height 160 cm Darryl Dunn MD Work Phone: [employer] 08-21-2021 18:46-0400 Body mass index (BMI) [Ratio] 27.99 kg/m2 Darryl Dunn MD Work Phone: [employer] 08-21-2021 18:46-0400 Body weight 71.67 kg Darryl Dunn MD Work Phone: [employer] 08-17-2021 11:22-0400 Body temperature 97.9 [degF] Darryl Dunn MD Work Phone: [employer] 08-17-2021 11:22-0400 Diastolic blood pressure 76 mm[Hg] Darryl Dunn MD Work Phone: [employer] 08-17-2021 11:22-0400 Heart rate 91 /min Darryl Dunn MD Work Phone: [employer] 08-17-2021 11:22-0400 Respiratory rate 18 /min Darryl Dunn MD Work Phone: [employer] 08-17-2021 11:22-0400 SaO2% (BldA) [Mass fraction] 97 % Darryl Dunn MD Work Phone: [employer] 08-17-2021 11:22-0400 Systolic blood pressure 118 mm[Hg] Darryl Dunn MD Work Phone: [employer] 08-15-2021 13:25-0400 Body height 160 cm Darryl Dunn MD Work Phone: [facility] 08-15-2021 13:25-0400 Body mass index (BMI) [Ratio] 27.99 kg/m2 Darryl Dunn MD Work Phone: [facility] 08-15-2021 13:25-0400 Body weight 71.67 kg Darryl Dunn MD Work Phone: [facility] Encounters Encounter Date Encounter Type Care Provider Facility Start: 04-28-2023 End: 04-28-2023 ambulatory Not Available Start: 08-21-2021 End: 08-22-2021 Evaluation and management of inpatient [facility] Start: 08-21-2021 End: 08-22-2021 Evaluation and management of inpatient Darryl Dunn MD Work Phone: [facility] Renal//Med Surg Comment on above: Right nephrolithiasi s (Primary Dx); Right kidney stone Start: 08-15-2021 End: 08-17-2021 Evaluation and management of inpatient [facility] Start: 08-15-2021 End: 08-17-2021 Evaluation and management of inpatient Darryl Dunn MD Work Phone: [facility] Renal//Med Surg Comment on above: Hydronephrosis with urinary obstruction due to renal calculus (Primary Dx); Tachycardia Start: 08-15-2021 End: 08-15-[address] HANNA GREEN Facility:[facility] Start: 08-12-2021 End: 08-12-2021 ambulatory LANCE CANAS Facility:[facility] Start: 07-13-2021 End: 07-13-2021 Patient encounter procedure Wiliam Thakur Jr. [facility] Start: 04-24-2021 End: 04-25-[address] [...] 08-22-2021 Blood count complete auto&auto difrntl wbc eK Joshua MD Work Phone: Start: 08-21-2021 Fluoroscopy during operation Darryl Dunn MD Work Phone: Start: 08-21-2021 Blood count platelet automated Darryl Dunn MD Work Phone: Start: 08-21-2021 Urine test visual color cmprsn shauns Darryl Dunn MD Work Phone: Start: 08-17-2021 [...] Influenza vaccination Flu vaccine (S adam Ended) [facility] [employer] Start: 08-24-2021 End: 02-16-2022 Echocardiogram complete Echocardiogram complete Echocardiography Routine Tachycardia Expected: 08/24/2021 (Approximate), Expires: 02/16/2022 [facility] [employer] Work Phone: Comment on above: Expected: 08/24/2021 (Approximate), Expires: 02/16/2022 Start: 10-17-2019 Screening for malign ant neoplasm of cervix Pap smear [facility] Start: 2017 DTaP/Tdap/Td vaccine (1 - Tdap) DTaP/Tdap/Td vaccine (1 - Tdap) [facility] Start: 2016 Hepatitis C screening Hepatitis C sc reen [facility] Start: 2014 Screening for Chlamy don trachomatis Chlamydia screen [facility] Start: 2013 HIV screening HIV screen [facility] Start: 2010 Depression Screen Depression Screen [facility] Start: 2009 HPV vaccine (1 - 2-d ose series) HPV vaccine (1 - 2-dose series) [facility] Start: 10-17-2003 COVID-19 Vaccine (1) COVID-19 Vaccin e (1) [facility] Start: 10-17-1999 Varicella vaccine (1 of 2 - 2-dose childhood series) Varicella vaccine (1 of 2 - 2-dose childhood series) [facility] [employer] Basic Metabolic Pane l w/ Reflex to MG Basic Metabolic Panel w/ Reflex to MG Lab Routine Daily until discontinued starting 08/16/2021, 2 completed [facility] Work Phone: Comment on above: Daily until disconti nued starting 08/16/2021, 2 completed Basic Metabolic Pane l w/ Reflex to MG Basic Metabolic Panel w/ Reflex to MG Lab Routine Daily until discontinued starting 08/22/2021, 1 completed [employer] Phone: Comment on above: Daily until disconti nued starting 08/22/2021, 1 completed CBC W Auto Different ial panel - Blood CBC with Auto Differential Lab Routine Daily until discontinued starting 08/16/2021, 2 completed [employer]: Comment on above: Daily until disconti nued starting 08/16/2021, 2 completed CBC W Auto Different ial panel - Blood CBC with Auto Differential Lab Routine Daily until discontinued starting 08/22/2021, 1 completed [employer] Phone: Comment on above: Daily until disconti nued starting 08/22/2021, 1 completed Culture, Blood 1 Culture, Blood 1 Microbiology STAT 08/15/2021 3:25 PM EDT [employer] Phone: End: 08-21-2021 Culture, Urine [employer] Phone: Comment on above: One Time for 1 Occur rences starting 08/21/2021 until 08/21/2021 End: 08-17-2021 ECHO Complete 2D W Doppler W Color ECHO Complete 2D W Doppler W Color Echocardiography Routine One Time for 1 Occurrences starting 08/17/2021 until 08/17/2021 [employer] Phone: Comment on above: One Time for 1 Occur rences starting 08/17/2021 until 08/17/2021 Oxygen therapy [Mini mum Data Set] Initiate Oxygen Therapy Protocol Respiratory Care Routine As Needed until discontinued starting 08/15/2021 [employer] Phone: Comment on above: As Needed until disc ontinued starting 08/15/2021 Oxygen therapy [Mini mum Data Set] Initiate Oxygen Therapy Protocol Respiratory Care Routine As Needed until discontinued starting 08/21/2021 [employer] Phone: Comment on above: As Needed until disc ontinued starting 08/21/2021 End: 08-21-2021 Stone analysis [facility] [employer] Phone: Comment on above: One Time for 1 Occur rences starting 08/21/2021 until 08/21/2021 End: 08-17-2021 Troponin I.cardiac [Mass/volume] in Serum or Plasma Troponin Lab Timed Now Then Every 6hr for 3 Occurrences starting 08/17/2021 until 08/17/2021, 2 completed [facility] [employer] Phone: Comment on above: Now Then Every 6hr f or 3 Occurrences starting 08/17/2021 until 08/17/2021, 2 completed Payers Date Payer Category Payer Unknown [id number] 2.16.84 [id number] 1998 Unknown [id number] 2.16.84 [id number] 1998 Unknown [id number] 2.16.84 0.1.032622.3.579.2.593 1998 Unknown [id number] 2.16.84 0.1.101585.3.579.2.593 1998 Unknown [id number] 2.16.84 0.1.916353.3.579.2.593 1998 Unknown [id number] 2.16.84 0.1.584423.3.579.2.593 1998 Unknown [id number] 2.16.84 0.1.348065.3.579.2.593 1998 Unknown [id number] 2.16.84 0.1.083602.3.579.2.593 1998 Unknown [id number] 2.16.84 0.1.414722.3.579.2.593 1998 Unknown [id number] 2.16.84 0.1.906400.3.579.2.593 1998 Unknown [id number] 2.16.84 0.1.547415.3.579.2.593 1998 Unknown [id number] 2.16.84 0.1.860993.3.579.2.593 1998 Unknown [id number] 2.16.84 0.1.641765.3.579.2.593 1998 Unknown [id number] 2.16.84 0.1.397028.3.579.2.593 1998 Unknown [id number] 2.16.84 0.1.924605.3.579.2.593 1998 Unknown [id number] 2.16.84 0.1.858897.3.579.2.593 1998 Unknown [id number] 2.16.84 0.1.594663.3.579.2.593 1998 Unknown [id number] 2.16. 840.1.016305.3.579.2.175 1998 Unknown [id number] 2.16. 840.1.972250.3.579.2.175 1998 Unknown [id number] 2.16.84 0.1.337236.3.579.2.1259 1959 Unknown [id number] 1.2 .840.3385[id number] 1959 Unknown [id number] 1959 Unknown [id number] Unknown [id number] 2.16.84 0.1.769696.3.579.2.593 Unknown [id number] 2.16.84 0.1.394437.3.579.2.593 Social History Date Type Detail Facility Start: 03-25-2021 Tobacco smoking status Ex-smoker (fi nding) [facility] Ben Sex Assigned At Female [facility] Tobacco smoking stat us NHIS Never smoked tobacco [employer] Start: 08-16-2021 End: 08-21-2021 Alcohol intake Current non-drinker of alcohol (finding) [employer] Phone: Start: 08-16-2021 End: 08-21-2021 Alcohol intake [employer] Phone: Start: 08-15-2021 History SDOH Alcohol Frequency 1 [employer] Phone: Start: 2000 Sex Assigned At Not on file B [facility] [employer] Phone: Start: 08-11-2021 End: 08-21-2021 Exposure to SARS-CoV-2 (event) Not sure [employer] Medical Equipment Procedure Code Equipment Code Equipment Origin al Text Equipment Identifier Dates Stent Uret 6fr L 26cm Percflx Hydr+ Dbl Pgtl Thrd 2 - [id number] Start: 08-21-2021 Clinical Notes 07-13-2021 to [...] Adrian MD documented in this encounter [facility] [employer] Work Phone: 08-21-2021 Hospital Discharge instructions Pam [...] narcotics Please call attending physician or hospital paper core machine operator with questions Call or Present to [...] questions. documented in this encounter [facility] [employer] Work Phone: 08-17-2021 Hospital Discharge instructions Ke [...] weeks Please call attending physician or hospital paper core machine operator with questions Call or Present to ED if fever (> 101F), intractable nausea/vomiting or pain, if incisions become red/swollen or drain pus/fluid, or if calves become red swollen and tender. Patient should follow up with Dr. Dunn, in 2 weeks. Call office to confirm appointment. documented in this encounter [facility] [employer] Phone: 08-17-2021 History of Present illness Narrative [...] 164, MG 1.7, k3.4, ca8.5, trop K[employer] Supervisor Consult Note Today's Date: 08/17/2021 Patient Name: [...] Garza MD Internal Medicine Resident, PGY- 1 [facility]; [place], [place] 08/17/2021, 11:03 AM Images from the [...] resident. (GC Modifier) documented in this encounter [employer] Phone: 08-16-2021 Note PROCEDURE: PERCUTANEOUS ANTEGRADE PYELOGRAM [...] the procedure including risks, benefits, and alternatives. [place] protocol was followed. The patient's flank was [...] lower pole infundibulum. IMPRESSION: Successful percutaneous 8 Malagasy nephrostomy tube placement Interpreted by: Yulissa Turner MD Signed by: Yulissa Turner MD 08/16/21 Final result [facility] 08-16-2021 Note PROCEDURE: PERCUTANEOUS ANTEGRADE PYELOGRAM RIGHT [...] the procedure including risks, benefits, and alternatives. [place] protocol was followed. The patient's flank was [...] terminates in the dilated lower pole infundibulum. [facility] 07-13-2021 Hospital Discharge instructions Patient Education 07/13/2021 07:36:16 Kidney Stones, Flhg-[id number] Kidney Stones Kidney stones are rock-like masses [...] Follow these instructions at home: Medicines Take naeq-hdj-usvpdlx and prescription medicines only as told by [...] 08/09/2008 Document Revised: 07/10/2019 Document Reviewed: 07/10/2019 [employer] Patient Education 2019 V I O. Follow Up Care 07/03/2021 11:55:16 With:Blaze Nuno MD, SOPHIA Hopkins Address: [facility] [address], [place] [address]- When: Unknown [facility] [employer] Evaluation + Plan note No data available for this section [facility] Evaluation note Diagnosis Hydronephrosis- Primary Hydronephrosis with urinary obstruction due to renal calculus Tachycardia Tachycardia, unspecified documented in this encounter [employer] Phone: evaluation note* Diagnosis Right nephrolithiasis- Primary Right kidney stone Calculus of kidney Nephrolithiasis Calculus of kidney documented in this encounter [employer] Phone: reason for visit Narrative* Auth/Cert Specialty Diagnoses / Procedures Referred By [facility] Referred To Contact Diagnoses Hydronephrosis hydronephrosis Darryl Dunn MD [address] [place] [address] [place] [address] [employer] [address] [place] [address] Referral ID Status Reason Start Date Expiration Date Visits Re quested Visits Authorized [id number] 1 1 [employer] Phone: reason for visit Narrative* Auth/Cert Specialty Diagnoses / Procedures [facility] Referred To Contact Diagnoses Right kidney stone KIDNEY STONE Procedures AK PERCUT REMV KID STONE,2+ CM HOLMIUM LASER CYSTOSCOPY , URETEROSCOPY NEPHROLITHOTOMY PERCUTANEOUS, STENT EXCHANGE ( LITHOCLAST, C ARM) SHORT STAY Darryl Dunn MD [address] [place] [address] [employer] [address] [place] [address] Referral ID Status Reason Start Date Expiration Date Visits Re quested Visits Authorized [id number] 1 1 [employer] Work Phone: Reason for Referral Specialty Diagnoses / Procedures Referred By Dallin campbell Referred To Contact Cardiology Diagnoses Tachycardia Procedures Echocardiogram complete Ke Joshua MD [facility] [address] [address] Referral ID Status Reason Start Date Expiration Date Visits Re quested Visits Authorized [id number] Open 08/24/2021 08/24/2022 1 1 Advance Directives No Advanced Directives Records FoundDocuments on File Type Date Recorded 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 Expl 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, 1 dose, On Tue08/21/21 at [...] Care Teams (unrecognized sec tion and content) [employer] Relationship Specialty Start Date End Date Jelani Sow MD [address] [place] [address] PCP - General Family Medicine 05/17/14 [employer] Relationship Specialty Start Date End Date Ruby Burrell [address] [place] [id number] PCP - General Nurse Practitioner 08/21/21 INFORMATION SOURCE (unrecogn ized section and content) DATE CREATED AUTHOR 08/21/2021 [facility] DATE CREATED AUTHOR AUTHOR'S ORGANIZ ATION 08/26/2021 [facility] DATE CREATED AUTHOR AUTHOR'S ORGANIZ ATION 09/25/2021 [facility] DATE CREATED AUTHOR AUTHOR'S ORGANIZ ATION 09/29/2021 [facility] DATE CREATED AUTHOR AUTHOR'S ORGANIZ ATION 05/06/2023 [facility] dical Specialists EPIC FOR RECORDS PERTAINING [...] BE BASED ON THE PRIMARY CLINICAL RECORDS. [employer] provides no warranty or guarantee of the accuracy or completeness of information in this document.
[2023-06-03 20:08] LABS: Age Gdln ACOG Testing Note (.); IGP, rfx Aptima HPV ASCU Note (.)
== END 2023-05-31 20:10 | disposition home or self-care (01) ==
LOC: LAB 20:09
PROVIDERS: Visit Provider Obstetrics & Gynecology
DX: Z01.419 Encounter for gynecological examination (general) (routine) without abnormal findings (principal)
CPT/HCPCS: G0145

== ENCOUNTER 2023-09-14 12:39 | Outpatient (OUT) | payer OTHER, SELFPAY ==
[2023-09-14 13:19] LABS: Estimated Average Glucose 108 mg/dL; Glycohemoglobin A1C 5.4 % (4.5-6.2)
[2023-09-14 13:33] LABS: Basophils Percent Auto 0.3 % (0.2-2.0); Eosinophils Absolute Auto 0.1 10^3/uL (0.0-0.7); Eosinophils Percent Auto 1.6 % (0.9-7.0); Hematocrit 32.7 % (36.0-48.0); Hemoglobin 10.7 g/dL (12.0-16.0); Immature Granulocytes Abs Auto 0.06 10^3/uL (0.00-0.03); Immature Granulocytes Pct Auto 0.8 % (0.0-0.5); Lymphocytes Absolute Auto 2.7 10^3/uL (1.2-3.8); Lymphocytes Percent Auto 36.3 % (20.5-60.0); Mean Corpuscular HGB Conc 32.7 g/dL (29.9-35.2); Mean Corpuscular Hemoglobin 28.9 pg (26.7-34.0); Mean Corpuscular Volume 88.4 fL (81.0-99.0); Mean Platelet Volume 9.4 fL (9.5-13.5); Monocytes Absolute Auto 0.4 10^3/uL (0.3-0.8); Monocytes Percent Auto 4.9 % (1.7-12.0); Neutrophils Absolute Auto 4.2 10^3/uL (1.4-6.5); Neutrophils Percent Auto 56.1 % (43.0-75.0); Platelet Count 420 10^3/uL (150-450); Red Cell Distribution Width 13.2 % (11.0-15.0); White Blood Count 7.4 10^3/uL (4.0-11.0)
[2023-09-15 05:07] LABS: HCV Ab Non Reactive (Non Reactive); HIV Ab/p24 Ag Screen Non Reactive (Non Reactive); Rubella Antibodies, IgG 3.99 index (Immune >0.99)
[2023-09-15 06:09] LABS: HBsAg Screen Negative (Negative)
[2023-09-15 12:10] LABS: Rapid Plasma Reagin, Quant Non Reactive titer (NonRea<1:1)
== END 2023-09-14 12:40 | disposition home or self-care (01) ==
LOC: LAB 12:42
PROVIDERS: Visit Provider Obstetrics & Gynecology
DX: Z34.93 Encounter for supervision of normal pregnancy, unspecified, third trimester (principal); N92.6 Irregular menstruation, unspecified
CPT/HCPCS: 36415; 83036; 85025; 86592; 86762; 86803; 86850; 86900; 86901; 87081; 87086; 87150; 87186; 87340; 87389

== ENCOUNTER 2023-09-14 19:18 | Outpatient (REF) | payer OTHER, SELFPAY | END 2023-09-14 19:19 | disposition home or self-care (01) | LOC: LAB 19:18 | PROVIDERS: Visit Provider Obstetrics & Gynecology | DX: Z34.93 Encounter for supervision of normal pregnancy, unspecified, third trimester (principal) | CPT/HCPCS: 87081 ==

== ENCOUNTER 2023-09-22 09:38 | Inpatient (IN) | payer OTHER, SELFPAY ==
[2023-09-22] VITALS (37 sets, daily range): BP systolic 88–133; BP diastolic 51–76; PULSE 77–101; TEMP 36.2–36.8
--- OUTSIDE RECORDS SUMMARY | 2023-09-22 09:44 | XMS_ITS | CCD ---
Author Organization [facility] Inform ion Partnership [facility] Care Team Providers Care Wheelabrator Operator Name Role Phone Sarwat URIAS, Jelani Beckett Primary Care Provider NORMA, DR FERREIRA Consulting Unavailable KARASIK, DR FERREIRA Attending Unavailable KARASIK, DR FERREIRA Admitting Unavailable REQUEST, NONE LISTED Primary Care Unavaila ble WEST, DR VERN Powell Consulting Unavailable KARASIK, DR FERREIRA Admitting Unavailable KARASIK, DR FERREIRA Consulting Unavailable KARASIK, DR FERREIRA Attending Unavailable REQUEST, NONE LISTED Primary Care Unavaila ble KARASIK, DR FERREIRA Admitting Unavailable REQUEST, NONE LISTED Primary Care Unavaila ble KARASIK, DR FERREIRA Attending Unavailable REINECK, DR LARISA Mayes Admitting Unavailabl e REQUEST, NONE LISTED Primary Care Unavaila ble REINECK, DR [...] Unavailable KARASIK, DR FERREIRA Consulting Unavailable REQUEST, NONE LISTED Primary Care Unavaila ble WEST, DR VERN Powell Consulting Unavailable NATHALIA, DR CUEVAS Consulting Unavailable JV, SHELLY Consulting Unavailable LUE ., NATHALIA Beckett Consulting Unavailable EILEEN, AGUILA Consulting Unavailable KARASIK, DR FERREIRA Primary Care Unavailable KARASIK, DR FERREIRA Admitting Unavailable KARASIK, DR FERREIRA Consulting Unavailable KARASIK, DR FERREIRA Attending Unavailable LUE ., NATHALIA Beckett Admitting Unavailable KARASIK, DR FERREIRA Primary Care Unavailable WEST, DR VERN Powell Consulting Unavailable LUE ., NATHALIA Beckett Attending Unavailable LUE ., NATHALIA Beckett Consulting Unavailable THAKUR JR, DR WILIAM Olmdeo Admitting Unavailabl e KARASIK, DR FERREIRA Primary Care Unavailable THAKUR JR, DR WILIAM Olmedo Attending Unavailabl e ZIEBER, DR AJNE Rosales Consulting Unavailable THAKUR JR, DR WILIAM Olmedo Consulting Unavailabl e KARASIK, DR FERREIRA Admitting Unavailable REQUEST, NONE LISTED Primary Care Unavaila ble KARASIK, DR FERREIRA Attending Unavailable REQUEST, DR [...] Unavailable KARASIK, DR FERREIRA Primary Care Unavailable BRIANNA, ANGEL BOUCHER Consulting Unavailable LANCE CANAS Attending Unavailable AHMIKE IBARRA Consulting Unavailable Ashanti, Ruby A Primary Care Provider DARRYL DUNN Admitting Unavailable DARRYL DUNN Attending Unavailable RUBY BURRELL Primary Care Unavailable DARRYL DUNN Admitting Unavailable DARRYL DUNN Attending Unavailable LARISA REAL Referring Unavailable JELANI SOW Primary Care UnavailSINGH Ambrose Consulting Unavailable YULISSA TURNER Consulting Unavailable BETTE LONG Consulting Unavailable MASON SLOAN Attending Unavailable Medications Current Medications Medication Drug Class(es) [...] (PYRIDIUM) tablet 100 mg polyethylene glycol 3350 36612 mg powder for oral solution (2 sources) [...] 03-25-2021 Chronic Other aftercare (1 source) Other [facility] (current) drug therapy; Translations: [OTH [facility] CURRENT DRUG THERAPY] Onset: 08-18-2021 Episodic Other [...] Range Facility Patient Correspondenceon Patient Correspondence [id number] 09#[id number]:127 [facility] Patient Correspondenceon Patient Correspondence [id number]#[id number]:127 [facility] Provider Orderson 09-04-2021 Provider Orders [id number] 74#[id number] [facility] Stone Analysison 08-26-2021 Calculi description See Note [facility] Comment on above: Result Comment: (NOT E) Specimen consists of numerous cabrera calculi fragments. The total weight is 822 mg. Performed By: #### A STONE #### [facility] [address] [place] [address] Acid Washer Operator: Liang Rapp MD Composition See Note [facility] Comment on above: Result Comment: (NOT E) [...] composition determined by FTIR analysis. Performed By: [facility] [address] [place] [address] Dancing Instructor: Kaia Holt MD Performed By: #### A STONE #### [facility] [address], [place] [id number] Acid Washer Operator: Liang Rapp MD Mass 822 mg [facility] Comment on above: Performed By: #### A STONE #### [facility] [address] [place] [address] Acid Washer Operator: Liang Rapp MD Provider Letteron 08-25-2021 Provider Letter August 25, 2021 NIKOLAY MILES [address] [place] [id number] NIKOLAY MILES 2000 Dear Ms. Miles, This letter is to inform you that the providers of [facility] [employer] [facility] will no longer be responsible for your routine medical care. Emergency care only will be provided for the thirty (30) days following this letter. During this time period we suggest that you find another physician for your medical needs. A listing of area physicians can be found on [facility]'s website at [email or web address] or you may contact your health plan. We will be glad to forward your records to your new physician as long as we receive a signed release of records form. Sincerely, Dr. Wiliam Thakur [address] [place] [address]. [place] [address] [facility] Basic Metab w/rfx MGon 08-22 (cont.) [facility] Comment on above: Result Comment: Aver age GFR for 20-29 years old: 116 mL/min/1.73sq m Chronic Kidney Disease: <60 mL/min/1.73sq m Kidney failure: <15 mL/min/1.73sq m eGFR calculated using average adult body mass. Additional eGFR calculator available at: http://www.Edevate.CredSimple/multiple_crcl_2012.htm Performed By: #### B MPX, CDP #### [facility] [address] [place] [address] Acid Washer Operator: Yusuf Schmidt MD Anion gap [Moles/Vol] 12 mmol/L Normal 9-17 [facility] Comment on above: Performed By: #### B MPX, CDP #### [facility] [address] [place] [address] Acid Washer Operator: Yusuf Schmidt MD Calcium [Mass/Vol] 8.3 mg/dL Low 8.6-10.4 [facility] Comment on above: Performed By: #### B MPX, CDP #### [address] [address] Acid Washer Operator: Yusuf Schmidt MD Chloride [Moles/Vol] 103 mmol/L Normal 98-107 [facility] Comment on above: Performed By: #### B MPX, CDP #### [address] [address] Acid Washer Operator: Yusuf Schmidt MD CO2 [Moles/Vol] 21 mmol/L Normal 20-31 [facility] Comment on above: Performed By: #### B MPX, CDP #### [address] [address] Acid Washer Operator: Yusuf Schmidt MD Creatinine [Mass/Vol] 0.72 mg/dL Normal 0.50-0.90 [facility] Comment on above: Performed By: #### B MPX, CDP #### [facility] [address] [place] [address] Acid Washer Operator: Yusuf Schmidt MD GFR, Amer >60 Normal >60 [facility] Comment on above: Performed By: #### B MPX, CDP #### [facility] [address] [place] [address] Acid Washer Operator: Yusuf Schmidt MD GFR,non Amer >60 Normal >60 [facility] Comment on above: Performed By: #### B MPX, CDP #### [facility] [address] [place] [address] Acid Washer Operator: Yusuf Schmidt MD Glucose [Mass/Vol] 107 mg/dL High 70-99 [facility] Comment on above: Performed By: #### B MPX, CDP #### [facility] [address] [place] [address] Acid Washer Operator: Yusuf Schmidt MD Potassium [Moles/Vol] 4.0 mmol/L Normal 3.7-5.3 [facility] Comment on above: Performed By: #### B MPX, CDP #### [facility] [address] [place] [address] Acid Washer Operator: Yusuf Schmidt MD Sodium [Moles/Vol] 136 mmol/L Normal 135-144 [facility] Comment on above: Performed By: #### B MPX, CDP #### [facility] [address] [place] [address] Acid Washer Operator: Yusuf Schmidt MD Urea nitrogen [Mass/Vol] 10 mg/dL Normal 6-20 [facility] Comment on above: Performed By: #### B MPX, CDP #### [facility] [address] [place] [address] Acid Washer Operator: Yusuf Schmidt MD Basic Metabolic Panel w/ Ref bahman to MGon 08-22-2021 Anion gap [Moles/Vol] 12 mmol/L 9 - 17 mmol/L [facility] Calcium [Mass/Vol] 8.3 mg/dL Low 8.6 - 10. 4 mg/dL [facility] Chloride [Moles/Vol] 103 mmol/L 98 - 10 7 mmol/L [facility] CO2 [Moles/Vol] 21 mmol/L 20 - 31 mmol/L [facility] Creatinine [Mass/Vol] 0.72 mg/dL 0.50 - 0.90 mg/dL [facility] GFR >60 >60 mL/min [facility] GFR Non- >60 >60 mL/min [facility] GFR/1.73 sq M.predicted MDRD (S/P/Bld) [Vol rate/Area] [facility] Comment on above: Average GFR for 20-2 9 years old: 116 mL/min/1.73sq m Chronic Kidney Disease: <60 mL/min/1.73sq m Kidney failure: <15 mL/min/1.73sq m eGFR calculated using average adult body mass. Additional eGFR calculator available at: http://www.dentaZOOM/multiple_crcl_2012.htm Glucose [Mass/Vol] 107 mg/dL High 70 - 99 mg/dL [facility] Interpretation and review of laboratory results Abnormal [facility] Potassium [Moles/Vol] 4.0 mmol/L 3.7 - 5.3 mmol/L [facility] Sodium [Moles/Vol] 136 mmol/L 135 - 144 mmol/L [facility] Urea nitrogen (BldV) [Mass/Vol] 10 mg/dL 6 - 20 mg/dL [facility] CBC with Auto Differentialon 08-22-2021 Absolute Eos # <0.03 [place] [facility] Absolute Immature Granulocyte 0.25 [facility] Absolute Lymph # 1.73 [facility] Absolute [place] # 0.72 [facility] Basophils (Bld) [#/Vol] 10*3/uL [facility] Basophils/100 WBC (Bld) 0 % 0 - 2 % [facility] Eosinophils/100 WBC (Bld) 0 % Low 1 - 4 % [facility] Hematocrit (Bld) [Volume fraction] 33.9 % Low 36.3 - 47.1 % [facility] Hemoglobin (Bld) [Mass/Vol] 11.3 g/dL Low 11.9 - 15.1 g/dL [facility] Immature granulocytes/100 WBC (Bld) 2 % High 0 [facility] Interpretation and review of laboratory results Abnormal [facility] Lymphocytes/100 WBC (Bld) 13 % Low 24 - 43 % [facility] MCH (RBC) [Entitic mass] 30.1 pg 25.2 - 33.5 pg [facility] MCHC (RBC) [Mass/Vol] 33.3 g/dL 28.4 - 34.8 g/dL [facility] MCV (RBC) [Entitic vol] 90.2 fL 82.6 - 102.9 fL [facility] Monocytes/100 WBC (Bld) 5 % 3 - 12 % [facility] NRBC Automated 0.0 0.0 per 100 WBC [facility] Platelet distribution width (Bld) [Ratio] 13.5 % 11.8 - 14.4 % [facility] Platelet mean volume (Bld) [Entitic vol] 8.5 fL 8.1 - 13.5 fL [facility] Platelets (Bld) [#/Vol] 598 10*3/uL High [facility] RBC (Bld) [#/Vol] 3.76 10*6/uL Low 3.95 - 5.1 1 m/uL [facility] Segmented neutrophils/100 WBC (Bld) 80 % High 36 - 65 % [facility] Segs Absolute 10.78 High [facility] WBC (Bld) [#/Vol] 13.5 10*3/uL High [facility] CBC with Diffon 08-22-2021 Abs. Basophil <0.03 Normal 0.00-0.20 [facility] Comment on above: Performed By: #### B MPAkira, CDP #### [employer] [address] [place], [place] [id number] Acid Washer Operator: Yusuf Schmidt MD Abs. Eosinophil <0.03 Normal 0.00-0.44 [facility] Comment on above: Performed By: #### B MPX, CDP #### [address] [address] Acid Washer Operator: Yusuf Schmidt MD Abs.Imm.Granulocyte 0.25 k/uL Normal 0.00-0.30 [facility] Comment on above: Performed By: #### B MPX, CDP #### [address] [address] Acid Washer Operator: Yusuf Schmidt MD Abs.Neutrophil (Seg) 10.78 k/uL High 1.50-8.10 [facility] Comment on above: Performed By: #### B MPX, CDP #### [address] [address] Acid Washer Operator: Yusuf Schmidt MD Basophils/100 WBC (Bld) 0 % Normal 0-2 [facility] Comment on above: Performed By: #### B MPX, CDP #### [address] [address] Acid Washer Operator: Yusuf Schmidt MD Eosinophils/100 WBC (Bld) 0 % Low 1-4 [facility] Comment on above: Performed By: #### B MPX, CDP #### [address] [address] Acid Washer Operator: Yusuf Schmidt MD Erythrocyte distribution width (RBC) [Ratio] 13.5 % Normal 11.8-14.4 [facility] Comment on above: Performed By: #### B MPX, CDP #### [facility] [address] [place] [address] Acid Washer Operator: Yusuf Schmidt MD Hematocrit (Bld) [Volume fraction] 33.9 % Low 36.3-47.1 [facility] Comment on above: Performed By: #### B MPX, CDP #### [place] [address] Acid Washer Operator: Yusuf Schmidt MD Hemoglobin (Bld) [Mass/Vol] 11.3 g/dL Low 11.9-15.1 [facility] Comment on above: Performed By: #### B MPX, CDP #### [address] [address] Acid Washer Operator: Yusuf Schmidt MD Immature granulocytes/100 WBC (Bld) 2 % High 0 [facility] Comment on above: Performed By: #### B MPX, CDP #### [address] [address] Acid Washer Operator: Yusuf Schmidt MD Lymphocytes (Bld) [#/Vol] 1.73 10*3/uL Normal 1.10-3.70 [facility] Comment on above: Performed By: #### B MPX, CDP #### [address] [address] Acid Washer Operator: Yusuf Schmidt MD Lymphocytes/100 WBC (Bld) 13 % Low 24-43 [facility] Comment on above: Performed By: #### B MPX, CDP #### [facility] [address] [place] [address] Acid Washer Operator: Yusuf Schmidt MD MCH (RBC) [Entitic mass] 30.1 pg Normal 25.2-33.5 [facility] Comment on above: Performed By: #### B MPX, CDP #### [facility] [address] [place] [address] Acid Washer Operator: Yusuf Schmidt MD MCHC (RBC) [Mass/Vol] 33.3 g/dL Normal 28.4-34.8 [facility] Comment on above: Performed By: #### B MPX, CDP #### [facility] [address] [place] [address] Acid Washer Operator: Yusuf Schmidt MD MCV (RBC) [Entitic vol] 90.2 fL Normal 82.6-102.9 [facility] Comment on above: Performed By: #### B MPX, CDP #### [address] [address] Acid Washer Operator: Yusuf Schmidt MD Monocytes (Bld) [#/Vol] 0.72 10*3/uL Normal 0.10-1.20 [facility] Comment on above: Performed By: #### B MPX, CDP #### [address] [address] Acid Washer Operator: Yusuf Schmidt MD Monocytes/100 WBC (Bld) 5 % Normal 3-12 [facility] Comment on above: Performed By: #### B MPX, CDP #### [address] [address] Acid Washer Operator: Yusuf Schmidt MD Neutrophil (Seg) 80 % High 36-65 [facility] Comment on above: Performed By: #### B MPX, CDP #### [address] [address] Acid Washer Operator: Yusuf Schmidt MD NRBC Automated 0.0 per 100 WBC Normal 0.0 [facility] Comment on above: Performed By: #### B MPX, CDP #### [address] [address] Acid Washer Operator: Yusuf Schmidt MD Platelet mean volume (Bld) [Entitic vol] 8.5 fL Normal 8.1-13.5 [facility] Comment on above: Performed By: #### B MPX, CDP #### [address] [address] Acid Washer Operator: Yusuf Schmidt MD Platelets (Bld) [#/Vol] 598 10*3/uL High 138-453 [facility] Comment on above: Performed By: #### B MPX, CDP #### [facility] [address] [place] [address] Acid Washer Operator: Yusuf Schmidt MD RBC (Bld) [#/Vol] 3.76 10*6/uL Low 3.95-5.11 [facility] Comment on above: Performed By: #### B MPX, CDP #### [facility] [address] [place] [address] Acid Washer Operator: Yusuf Schmidt MD WBC (Bld) [#/Vol] 13.5 10*3/uL High 3.5-11.3 [facility] Comment on above: Performed By: #### B MPX, CDP #### [facility] [address] [place] [address] Acid Washer Operator: Yusuf Schmidt MD Cult,Urineon 08-22-2021 Cult,Urine Specimen Description .CLEAN CATCH URINE Culture NO GROWTH Report Status FINAL 08/22/2021 Normal [facility] Comment on above: Performed By: #### U RC #### [address] [address] Acid Washer Operator: Yusuf Schmidt MD APTTon 08-21-2021 aPTT Coag (Bld) [Time] 25.9 s Normal 20.5-30.5 [facility] Comment on above: Result Comment: IV Heparin Therapy Range: 48.6-77.8 Performed By: #### P T, PTT, PLT #### [facility] [address] [place] [address] Acid Washer Operator: Yusuf Schmidt MD aPTT Coag (Bld) [Time] 25.9 s [facility] Comment on above: IV Heparin Therapy Range: 48.6-77.8 FLUORO FOR SURGICAL PROCEDUR ESon 08-21-2021 FLUORO FOR SURGICAL PROCEDURES Radiology exam is complete. No Radiologist dictation. Please follow up with ordering provider. Final result Normal [facility] Radiology exam is complete. No Radiologist dictation. Please follow up with ordering provider. PN RIS CONSOLIDATED No Panel Informationon 08-21 [facility] [employer] POCT urine pregnancyon 08-21 Beta HCG ( test) Ql (U) Negative NEGATIVE [facility] Comment on above: Specimens with hCG l evels near the threshold of the test (25 mIU/mL) may give a negative or indeterminate result. In such cases, another test should be performed with a new specimen in 48-72 hours. If early is suspected clinically in this setting, correlation with quantitative serum b-hCG level is suggested. [facility] PTon 08-21-2021 INR Coag (PPP) [Relative time] 0.9 {INR} Normal [facility] Comment on above: Result Comment: Therapeutic Range: Moderate Anticoagulant Intensity: INR = 2.0-3.0 High Anticoagulant Intensity: INR = 2.5-3.5 Performed By: #### P T, PTT, PLT #### [facility] [address] [place] [address] Acid Washer Operator: Yusuf Schmidt MD PT Coag (PPP) [Time] 9.7 s Normal 9.1-12.3 [facility] Comment on above: Performed By: #### P T, PTT, PLT #### [facility] [address] [place] [address] Acid Washer Operator: Yusuf Schmidt MD Platelet Counton 08-21-2021 Platelets (Bld) [#/Vol] 626 10*3/uL High 138-453 [facility] Comment on above: Performed By: #### P T, PTT, PLT #### [facility] [address] [place] [address] Acid Washer Operator: Yusuf Schmidt MD Interpretation and review of laboratory results Abnormal [facility] Platelets (Bld) [#/Vol] 626 10*3/uL High [facility] Protime-INRon 08-21-2021 INR Coag (Bld) [Relative time] 0.9 {INR} [facility] Comment on above: Therapeutic Range: Moderate Anticoagulant Intensity: INR = 2.0-3.0 High Anticoagulant Intensity: INR = 2.5-3.5 PT Coag (PPP) [Time] 9.7 s [facility] Cult,Bloodon 08-20-2021 Cult,Blood Specimen Description .BLOOD Special Requests RT AC 10ML Culture NO GROWTH 5 DAYS Report Status FINAL 08/20/2021 [facility] Comment on above: Performed By: #### B C #### [address] [phone] Acid Washer Operator: Yusuf Schmidt MD Cult,Blood Specimen Description .BLOOD Special Requests LEFT ARM 3 ML Culture NO GROWTH 5 DAYS Report Status FINAL 08/20/2021 [facility] Comment on above: Performed By: #### B MP, CBC #### [address] [id number] Acid Washer Operator: Yusuf Schmidt MD Basic Metab w/rfx MGon 08-17 Potassium [Moles/Vol] 3.4 mmol/L Low 3.7-5.3 [facility] Comment on above: Performed By: #### B MPX, CDP #### [address] [phone] Acid Washer Operator: Yusuf Schmidt MD (cont.) [facility] Comment on above: Result Comment: Aver age GFR for 20-29 years old: 116 mL/min/1.73sq m Chronic Kidney Disease: <60 mL/min/1.73sq m Kidney failure: <15 mL/min/1.73sq m eGFR calculated using average adult body mass. Additional eGFR calculator available at: http://www.Edevate.CredSimple/multiple_crcl_2012.htm Performed By: #### B MPX, CDP #### [address] [id number] Acid Washer Operator: Yusuf Schmidt MD Anion gap [Moles/Vol] 12 mmol/L Normal 9-17 [facility] Comment on above: Performed By: #### B MPX, CDP #### [facility] [address] [place] [address] Acid Washer Operator: Yusuf Schmidt MD Calcium [Mass/Vol] 8.5 mg/dL Low 8.6-10.4 [facility] Comment on above: Performed By: #### B MPX, CDP #### [facility] [address] [place] [address] Acid Washer Operator: Yusuf Schmidt MD Chloride [Moles/Vol] 104 mmol/L Normal 98-107 [facility] Comment on above: Performed By: #### B MPX, CDP #### [facility] [address] [place] [address] Acid Washer Operator: Yusuf Schmidt MD CO2 [Moles/Vol] 22 mmol/L Normal 20-31 [facility] Comment on above: Performed By: #### B MPX, CDP #### [facility] [address] [place] [address] Acid Washer Operator: Yusuf Schmidt MD Creatinine [Mass/Vol] 0.70 mg/dL Normal 0.50-0.90 [facility] Comment on above: Performed By: #### B MPX, CDP #### [facility] [address] [place] [address] Acid Washer Operator: Yusuf Schmidt MD GFR, Amer >60 Normal >60 [facility] Comment on above: Performed By: #### B MPX, CDP #### [facility] [address] [place] [address] Acid Washer Operator: Yusuf Schmidt MD GFR,non Amer >60 Normal >60 [facility] Comment on above: Performed By: #### B MPX, CDP #### [facility] [address] [place] [address] [place] [phone] Acid Washer Operator: Yusuf Schmidt MD Glucose [Mass/Vol] 88 mg/dL Normal 70-99 [facility] Comment on above: Performed By: #### B MPX, CDP #### [facility] [address] [place] [address] Acid Washer Operator: Yusuf Schmidt MD Sodium [Moles/Vol] 138 mmol/L Normal 135-144 [facility] Comment on above: Performed By: #### B MPX, CDP #### [facility] [address] [place] [address] Acid Washer Operator: Yusuf Schmidt MD Urea nitrogen [Mass/Vol] 6 mg/dL Normal 6-20 [facility] Comment on above: Performed By: #### B MPX, CDP #### [facility] [address] [place] [address] Acid Washer Operator: Yusuf Schmidt MD Basic Metabolic Panel w/ Ref bahman to MGon 08-17-2021 Anion gap [Moles/Vol] 12 mmol/L 9 - 17 mmol/L [facility] Calcium [Mass/Vol] 8.5 mg/dL Low 8.6 - 10. 4 mg/dL [facility] Chloride [Moles/Vol] 104 mmol/L 98 - 10 7 mmol/L [facility] CO2 [Moles/Vol] 22 mmol/L 20 - 31 mmol/L [facility] Creatinine [Mass/Vol] 0.7 mg/dL 0.50 - 0.90 mg/dL [facility] GFR >60 >60 mL/min [facility] GFR Non- >60 >60 mL/min [facility] GFR/1.73 sq M.predicted MDRD (S/P/Bld) [Vol rate/Area] [facility] Comment on above: Average GFR for 20-2 9 years old: 116 mL/min/1.73sq m Chronic Kidney Disease: <60 mL/min/1.73sq m Kidney failure: <15 mL/min/1.73sq m eGFR calculated using average adult body mass. Additional eGFR calculator available at: [email or web address]_[email or web address] Glucose [Mass/Vol] 88 mg/dL 70 - 99 mg/dL [facility] Interpretation and review of laboratory results Abnormal [facility] Potassium [Moles/Vol] 3.4 mmol/L Low 3.7 - 5.3 mmol/L [facility] Sodium [Moles/Vol] 138 mmol/L 135 - 144 mmol/L [facility] Urea nitrogen (BldV) [Mass/Vol] 6 mg/dL 6 - 20 mg/dL [facility] CBC with Auto Differentialon 08-17-2021 Absolute Eos # 0.26 [place] [facility] Absolute Immature Granulocyte 0.04 [facility] Absolute Lymph # 1.71 [facility] Absolute [place] # 1.22 High [facility] Basophils (Bld) [#/Vol] 0.03 10*3/uL [facility] Basophils/100 WBC (Bld) 0 % 0 - 2 % [facility] Eosinophils/100 WBC (Bld) 3 % 1 - 4 % [facility] Hematocrit (Bld) [Volume fraction] 29.9 % Low 36.3 - 47.1 % [facility] Hemoglobin (Bld) [Mass/Vol] 10.3 g/dL Low 11.9 - 15.1 g/dL [facility] Immature granulocytes/100 WBC (Bld) 1 % High 0 [facility] Interpretation and review of laboratory results Abnormal [facility] Lymphocytes/100 WBC (Bld) 20 % Low 24 - 43 % [facility] MCH (RBC) [Entitic mass] 30.3 pg 25.2 - 33.5 pg [facility] MCHC (RBC) [Mass/Vol] 34.4 g/dL 28.4 - 34.8 g/dL [facility] MCV (RBC) [Entitic vol] 87.9 fL 82.6 - 102.9 fL [facility] Monocytes/100 WBC (Bld) 14 % High 3 - 12 % [facility] NRBC Automated 0.0 0.0 per 100 WBC [facility] Platelet distribution width (Bld) [Ratio] 13.2 % 11.8 - 14.4 % [facility] Platelet mean volume (Bld) [Entitic vol] 9.6 fL 8.1 - 13.5 fL [facility] Platelets (Bld) [#/Vol] 212 10*3/uL [facility] RBC (Bld) [#/Vol] 3.40 10*6/uL Low 3.95 - 5.1 1 m/uL [facility] Segmented neutrophils/100 WBC (Bld) 63 % 36 - 65 % [facility] Segs Absolute 5.44 [facility] WBC (Bld) [#/Vol] 8.7 10*3/uL [facility] CBC with Diffon 08-17-2021 Abs. Basophil 0.03 k/uL Normal 0.00-0.20 [facility] Comment on above: Performed By: #### B MPX, CDP #### [employer] [address] [place] [address] Acid Washer Operator: Yusuf Schmidt MD Abs.Imm.Granulocyte 0.04 k/uL Normal 0.00-0.30 [facility] Comment on above: Performed By: #### B MPX, CDP #### [employer] [address] [place] [address] Acid Washer Operator: Yusuf Schmidt MD Abs.Neutrophil (Seg) 5.44 k/uL Normal 1.50-8.10 [facility] Comment on above: Performed By: #### B MPX, CDP #### [employer] [address] [place] [address] Acid Washer Operator: Yusuf Schmidt MD Basophils/100 WBC (Bld) 0 % Normal 0-2 [facility] Comment on above: Performed By: #### B MPX, CDP #### [employer] [address] [place] [address] Acid Washer Operator: Yusuf Schmidt MD Eosinophils (Bld) [#/Vol] 0.26 10*3/uL Normal 0.00-0.44 [facility] Comment on above: Performed By: #### B MPX, CDP #### [facility] [employer] [address] [place] [address] Acid Washer Operator: Yusuf Schmidt MD Eosinophils/100 WBC (Bld) 3 % Normal 1-4 [facility] Comment on above: Performed By: #### B MPX, CDP #### [facility] [employer] [address] [place] [address] Acid Washer Operator: Yusuf Schmidt MD Erythrocyte distribution width (RBC) [Ratio] 13.2 % Normal 11.8-14.4 [facility] Comment on above: Performed By: #### B MPX, CDP #### [facility] [employer] [address] [place] [address] Acid Washer Operator: Yusuf Schmidt MD Hematocrit (Bld) [Volume fraction] 29.9 % Low 36.3-47.1 [facility] Comment on above: Performed By: #### B MPX, CDP #### [facility] [employer] [address] [place] [address] Acid Washer Operator: Yusuf Schmidt MD Hemoglobin (Bld) [Mass/Vol] 10.3 g/dL Low 11.9-15.1 [facility] Comment on above: Performed By: #### B MPX, CDP #### [facility] [employer] [address] [place] [address] Acid Washer Operator: Yusuf Schmidt MD Immature granulocytes/100 WBC (Bld) 1 % High 0 [facility] Comment on above: Performed By: #### B MPX, CDP #### [facility] [employer] [address] [place] [address] Acid Washer Operator: Yusuf Schmidt MD Lymphocytes (Bld) [#/Vol] 1.71 10*3/uL Normal 1.10-3.70 [facility] Comment on above: Performed By: #### B MPX, CDP #### [address] [address] Acid Washer Operator: Yusuf Schmidt MD Lymphocytes/100 WBC (Bld) 20 % Low 24-43 [facility] Comment on above: Performed By: #### B MPX, CDP #### [facility] [address] [place] [address] Acid Washer Operator: Yusuf Schmidt MD MCH (RBC) [Entitic mass] 30.3 pg Normal 25.2-33.5 [facility] Comment on above: Performed By: #### B MPX, CDP #### [address] [address] Acid Washer Operator: Yusuf Schmidt MD MCHC (RBC) [Mass/Vol] 34.4 g/dL Normal 28.4-34.8 [facility] Comment on above: Performed By: #### B MPX, CDP #### [address] [address] Acid Washer Operator: Yusuf Schmidt MD MCV (RBC) [Entitic vol] 87.9 fL Normal 82.6-102.9 [facility] Comment on above: Performed By: #### B MPX, CDP #### [facility] [address] [place] [address] Acid Washer Operator: Yusuf Schmidt MD Monocytes (Bld) [#/Vol] 1.22 10*3/uL High 0.10-1.20 [facility] Comment on above: Performed By: #### B MPX, CDP #### [address] [address] Acid Washer Operator: Yusuf Schmidt MD Monocytes/100 WBC (Bld) 14 % High 3-12 [facility] Comment on above: Performed By: #### B MPX, CDP #### [address] [address] Acid Washer Operator: Yusuf Schmidt MD Neutrophil (Seg) 63 % Normal 36-65 [facility] Comment on above: Performed By: #### B MPX, CDP #### [address] [address] Acid Washer Operator: Yusuf Schmidt MD NRBC Automated 0.0 per 100 WBC Normal 0.0 [facility] Comment on above: Performed By: #### B MPX, CDP #### [address] [address] Acid Washer Operator: Yusuf Schmidt MD Platelet mean volume (Bld) [Entitic vol] 9.6 fL Normal 8.1-13.5 [facility] Comment on above: Performed By: #### B MPX, CDP #### [address] [address] Acid Washer Operator: Yusuf Schmidt MD Platelets (Bld) [#/Vol] 212 10*3/uL Normal 138-453 [facility] Comment on above: Performed By: #### B MPX, CDP #### [address] [address] Acid Washer Operator: Yusuf Schmidt MD RBC (Bld) [#/Vol] 3.40 10*6/uL Low 3.95-5.11 [facility] Comment on above: Performed By: #### B MPX, CDP #### [address] [address] Acid Washer Operator: Yusuf Schmidt MD WBC (Bld) [#/Vol] 8.7 10*3/uL Normal 3.5-11.3 [facility] Comment on above: Performed By: #### B MPX, CDP #### [facility] [address], [place] [phone] Acid Washer Operator: Yusuf Schmidt MD Cult,Urineon 08-17-2021 Cult,Urine Specimen Description .CLEAN CATCH URINE Culture NO SIGNIFICANT GROWTH Report Status FINAL 08/17/2021 Normal [facility] Comment on above: Performed By: #### B MPX, CDP #### [facility] [address], [place] [phone] Acid Washer Operator: Yusuf Schmidt MD Culture, Urineon 08-17-2021 Bacteria identified Cx Nom (U) NO SIGNIFICANT GROWTH [employer] Specimen Description .CLEAN CATCH URINE [employer] EKG 12 LeadOrdered By: Bette Long on 08-17-2021 Atrial Rate 78 BPM [employer] Work Phone: P [place] 37 degrees [employer] Work Phone: P-R Interval 164 ms [employer] Work Phone: Q-T Interval 382 ms [employer] Work Phone: QRS Duration 104 ms [employer] Work Phone: QTc Calculation (Bazett) 435 ms [employer] Work Phone: R [place] 44 degrees [employer] Work Phone: T [place] 34 degrees [employer] Work Phone: Ventricular Rate 78 BPM [facility] [employer] Work Phone: [employer] Work Phone: EKG 12 Leadon 08-17-2021 Normal sinus rhythm Incomplete right bundle branch block Cannot rule out Anterior infarct , age undetermined Abnormal ECG No previous ECGs available [facility] Bette Espinal MD - 08/17/2021 Normal sinus rhythm Incomplete right bundle branch block Cannot rule out Anterior infarct , age undetermined Abnormal ECG No previous ECGs available [facility] [employer] Work Phone: Magnesiumon 08-17-2021 Magnesium [Mass/Vol] 1.7 mg/dL Normal 1.6-2.6 [facility] Comment on above: Performed By: #### B MPX, CDP #### [employer] [address], [place] [phone] Acid Washer Operator: Yusuf Schmidt MD Magnesium [Mass/Vol] 1.7 mg/dL 1.6 - 2 .6 mg/dL [facility] Troponinon 08-17-2021 Troponin, High Sensitivity <6 0 - 14 ng/L [facility] Comment on above: High Sensitivity Troponin values cannot be compared with other Troponin methodologies. Patients with high levels of Biotin oral intake (i.e >5mg/day) may have falsely decreased Troponin levels. Samples collected within 8 hours of biotin intake may require additional information for diagnosis. [facility] Troponin, High Sens <6 Normal 0-14 [facility] Comment on above: Result Comment: High Sensitivity Troponin values cannot be compared with other Troponin methodologies. Patients with high levels of Biotin oral intake (i.e >5mg/day) may have falsely decreased Troponin levels. Samples collected within 8 hours of biotin intake may require additional information for diagnosis. Performed By: #### B MP, CBC #### [employer] [address] [place] [address] Acid Washer Operator: Yusuf Schmidt MD Troponin, High Sensitivity <6 0 - 14 ng/L [facility] Comment on above: High Sensitivity Troponin values cannot be compared with other Troponin methodologies. Patients with high levels of Biotin oral intake (i.e >5mg/day) may have falsely decreased Troponin levels. Samples collected within 8 hours of biotin intake may require additional information for diagnosis. [facility] APTTon 08-16-2021 aPTT Coag (Bld) [Time] 28.9 s Normal 20.5-30.5 [facility] Comment on above: Result Comment: IV Heparin Therapy Range: 48.6-77.8 Performed By: #### B MPX, CDP #### [employer] [address] [place] [address] [phone] Acid Washer Operator: Yusuf Schmidt MD aPTT Coag (Bld) [Time] 28.9 s [facility] Comment on above: IV Heparin Therapy Range: 48.6-77.8 Basic Metab w/rfx MGon 08-16 Potassium [Moles/Vol] 3.2 mmol/L Low 3.7-5.3 [facility] Comment on above: Performed By: #### B MPX, CDP #### [facility] [address] [place] [address] [phone] Acid Washer Operator: Yusuf Schmidt MD (cont.) [facility] Comment on above: Result Comment: Aver age GFR for 20-29 years old: 116 mL/min/1.73sq m Chronic Kidney Disease: <60 mL/min/1.73sq m Kidney failure: <15 mL/min/1.73sq m eGFR calculated using average adult body mass. Additional eGFR calculator available at: http://[email or web address]/multiple_crcl_2012.htm Performed By: #### B MPX, CDP #### [employer] [address] [place] [address] [phone] Acid Washer Operator: Yusuf Schmidt MD Anion gap [Moles/Vol] 12 mmol/L Normal 9-17 [facility] Comment on above: Performed By: #### B MPX, CDP #### [facility] [address] [place] [address] [phone] Acid Washer Operator: Yusuf Schmidt MD Calcium [Mass/Vol] 8.3 mg/dL Low 8.6-10.4 [facility] Comment on above: Performed By: #### B MPX, CDP #### [employer] [address] [place] [address] Acid Washer Operator: Yusuf Schmidt MD Chloride [Moles/Vol] 106 mmol/L Normal 98-107 [facility] Comment on above: Performed By: #### B MPX, CDP #### [facility] [address] [place] [address] Acid Washer Operator: Yusuf Schmidt MD CO2 [Moles/Vol] 20 mmol/L Normal 20-31 [facility] Comment on above: Performed By: #### B MPX, CDP #### [facility] [address] [place] [address] Acid Washer Operator: Yusuf Schmidt MD Creatinine [Mass/Vol] 0.95 mg/dL High 0.50-0.90 [facility] Comment on above: Performed By: #### B MPX, CDP #### [facility] [employer] [address] [place] [address] Acid Washer Operator: Yusuf Schmidt MD GFR, Amer >60 Normal >60 [facility] Comment on above: Performed By: #### B MPX, CDP #### [address] [address] Acid Washer Operator: Yusuf Schmidt MD GFR,non Amer >60 Normal >60 [facility] Comment on above: Performed By: #### B MPX, CDP #### [facility] [address] [place] [address] Acid Washer Operator: Yusuf Schmidt MD Glucose [Mass/Vol] 103 mg/dL High 70-99 [facility] Comment on above: Performed By: #### B MPX, CDP #### [facility] [employer] [address] [place] [address] Acid Washer Operator: Yusuf Schmidt MD Sodium [Moles/Vol] 138 mmol/L Normal 135-144 [facility] Comment on above: Performed By: #### B MPX, CDP #### [facility] [address] [place] [address], [place] [phone] Acid Washer Operator: Yusuf Schmidt MD Urea nitrogen [Mass/Vol] 7 mg/dL Normal 6-20 [facility] Comment on above: Performed By: #### B MPX, CDP #### [facility] [address], [place] [phone] Acid Washer Operator: Yusuf Schmidt MD Basic Metabolic Panel w/ Ref bahman to MGon 08-16-2021 Anion gap [Moles/Vol] 12 mmol/L 9 - 17 mmol/L [facility] [employer] Calcium [Mass/Vol] 8.3 mg/dL Low 8.6 - 10. 4 mg/dL [facility] Chloride [Moles/Vol] 106 mmol/L 98 - 10 7 mmol/L [facility] [employer] CO2 [Moles/Vol] 20 mmol/L 20 - 31 mmol/L [facility] [employer] Creatinine [Mass/Vol] 0.95 mg/dL High 0.50 - 0.90 mg/dL [facility] [employer] GFR >60 >60 mL/min [facility] GFR Non- >60 >60 mL/min [facility] [employer] GFR/1.73 sq M.predicted MDRD (S/P/Bld) [Vol rate/Area] [facility] Comment on above: Average GFR for 20-2 9 years old: 116 mL/min/1.73sq m Chronic Kidney Disease: <60 mL/min/1.73sq m Kidney failure: <15 mL/min/1.73sq m eGFR calculated using average adult body mass. Additional eGFR calculator available at: http://www.Edevate.CredSimple/multiple_crcl_2012.htm Glucose [Mass/Vol] 103 mg/dL High 70 - 99 mg/dL [facility] Interpretation and review of laboratory results Abnormal [facility] [employer] Potassium [Moles/Vol] 3.2 mmol/L Low 3.7 - 5.3 mmol/L [facility] Sodium [Moles/Vol] 138 mmol/L 135 - 144 mmol/L [facility] [employer] Urea nitrogen (BldV) [Mass/Vol] 7 mg/dL 6 - 20 mg/dL [facility] CBC with Auto Differentialon 08-16-2021 Absolute Eos # 0.09 [facility] Absolute Immature Granulocyte 0.00 [facility] Absolute Lymph # 0.70 Low [facility] Absolute [place] # 0.26 [facility] Basophils (Bld) [#/Vol] 0.00 10*3/uL [facility] Basophils/100 WBC (Bld) 0 % 0 - 2 % [facility] Eosinophils/100 WBC (Bld) 1 % 1 - 4 % [facility] Hematocrit (Bld) [Volume fraction] 34.7 % Low 36.3 - 47.1 % [facility] Hemoglobin (Bld) [Mass/Vol] 11.6 g/dL Low 11.9 - 15.1 g/dL [facility] Immature granulocytes/100 WBC (Bld) 0 % 0 [facility] Interpretation and review of laboratory results Abnormal [facility] Lymphocytes/100 WBC (Bld) 8 % Low 24 - 44 % [facility] MCH (RBC) [Entitic mass] 29.9 pg 25.2 - 33.5 pg [facility] MCHC (RBC) [Mass/Vol] 33.4 g/dL 28.4 - 34.8 g/dL [facility] MCV (RBC) [Entitic vol] 89.4 fL 82.6 - 102.9 fL [facility] Monocytes/100 WBC (Bld) 3 % 1 - 7 % [facility] Morphology Ja (Bld) [Interp] Normal [facility] NRBC Automated 0.0 0.0 per 100 WBC [facility] Platelet distribution width (Bld) [Ratio] 13.1 % 11.8 - 14.4 % [facility] Platelet mean volume (Bld) [Entitic vol] 10.0 fL 8.1 - 13.5 fL [facility] Platelets (Bld) [#/Vol] 196 10*3/uL [facility] RBC (Bld) [#/Vol] 3.88 10*6/uL Low 3.95 - 5.1 1 m/uL [facility] Segmented neutrophils/100 WBC (Bld) 88 % High 36 - 66 % [facility] Segs Absolute 7.75 High [facility] WBC (Bld) [#/Vol] 8.8 10*3/uL [facility] CBC with Diffon 08-16-2021 Abs. Basophil 0.00 k/uL Normal 0.0-0.2 [facility] Comment on above: Performed By: #### B MPX, CDP #### [facility] [employer] [address] [place] [address] Acid Washer Operator: Yusuf Schmidt MD Abs.Imm.Granulocyte 0.00 k/uL Normal 0.00-0.30 [facility] Comment on above: Performed By: #### B MPX, CDP #### [facility] [address] [place] [address] Acid Washer Operator: Yusuf Schmidt MD Abs.Neutrophil (Seg) 7.75 k/uL High 1.8-7.7 [facility] Comment on above: Performed By: #### B MPX, CDP #### [facility] [address] [place] [phone] Acid Washer Operator: Yusuf Schmidt MD Basophils/100 WBC (Bld) 0 % Normal 0-2 [facility] Comment on above: Performed By: #### B MPX, CDP #### [facility] [address] [place] [address] Acid Washer Operator: Yusuf Schmidt MD Eosinophils (Bld) [#/Vol] 0.09 10*3/uL Normal 0.0-0.4 [facility] Comment on above: Performed By: #### B MPX, CDP #### [facility] [address] [place] [address] Acid Washer Operator: Yusuf Schmidt MD Eosinophils/100 WBC (Bld) 1 % Normal 1-4 [facility] Comment on above: Performed By: #### B MPX, CDP #### [address] [address] Acid Washer Operator: Yusuf Schmidt MD Immature granulocytes/100 WBC (Bld) 0 % Normal 0 [facility] Comment on above: Performed By: #### B MPX, CDP #### [address] [address] Acid Washer Operator: Yusuf Schmidt MD Lymphocytes (Bld) [#/Vol] 0.70 10*3/uL Low 1.0-4.8 [facility] Comment on above: Performed By: #### B MPX, CDP #### [address] [address] Acid Washer Operator: Yusuf Schmidt MD Lymphocytes/100 WBC (Bld) 8 % Low 24-44 [facility] Comment on above: Performed By: #### B MPX, CDP #### [address] [address] Acid Washer Operator: Yusuf Schmidt MD Monocytes (Bld) [#/Vol] 0.26 10*3/uL Normal 0.1-0.8 [facility] Comment on above: Performed By: #### B MPX, CDP #### [address] [address] Acid Washer Operator: Yusuf Schmidt MD Monocytes/100 WBC (Bld) 3 % Normal 1-7 [facility] Comment on above: Performed By: #### B MPX, CDP #### [address] [address] Acid Washer Operator: Yusuf Schmidt MD Morphology Ja (Bld) [Interp] Normal Normal [facility] Comment on above: Performed By: #### B MPX, CDP #### [address] [address] Acid Washer Operator: Yusuf Schmidt MD Neutrophil (Seg) 88 % High 36-66 [facility] Comment on above: Performed By: #### B MPX, CDP #### [address] [address] Acid Washer Operator: Yusuf Schmidt MD Erythrocyte distribution width (RBC) [Ratio] 13.1 % Normal 11.8-14.4 [facility] Comment on above: Performed By: #### B MPX, CDP #### [address] [address] Acid Washer Operator: Yusuf Schmidt MD Hematocrit (Bld) [Volume fraction] 34.7 % Low 36.3-47.1 [facility] Comment on above: Performed By: #### B MPX, CDP #### [address] [address] Acid Washer Operator: Yusuf Schmidt MD Hemoglobin (Bld) [Mass/Vol] 11.6 g/dL Low 11.9-15.1 [facility] Comment on above: Performed By: #### B MPX, CDP #### [address] [address] Acid Washer Operator: Yusuf Schmidt MD MCH (RBC) [Entitic mass] 29.9 pg Normal 25.2-33.5 [facility] Comment on above: Performed By: #### B MPX, CDP #### [facility] [address] [place] [address] Acid Washer Operator: Yusuf Schmidt MD MCHC (RBC) [Mass/Vol] 33.4 g/dL Normal 28.4-34.8 [facility] Comment on above: Performed By: #### B MPX, CDP #### [facility] [employer] [address] [place] [address] Acid Washer Operator: Yusuf Schmidt MD MCV (RBC) [Entitic vol] 89.4 fL Normal 82.6-102.9 [facility] Comment on above: Performed By: #### B MPX, CDP #### [address] [address] Acid Washer Operator: Yusuf Schmidt MD NRBC Automated 0.0 per 100 WBC Normal 0.0 [facility] Comment on above: Performed By: #### B MPX, CDP #### [address] [address] Acid Washer Operator: Yusuf Schmidt MD Platelet mean volume (Bld) [Entitic vol] 10.0 fL Normal 8.1-13.5 [facility] Comment on above: Performed By: #### B MPX, CDP #### [address] [address] Acid Washer Operator: Yusuf Schmidt MD Platelets (Bld) [#/Vol] 196 10*3/uL Normal 138-453 [facility] Comment on above: Performed By: #### B MPX, CDP #### [address] [address] Acid Washer Operator: Yusuf Schmidt MD RBC (Bld) [#/Vol] 3.88 10*6/uL Low 3.95-5.11 [facility] Comment on above: Performed By: #### B MPX, CDP #### [address] [address] Acid Washer Operator: Yusuf Schmidt MD WBC (Bld) [#/Vol] 8.8 10*3/uL Normal 3.5-11.3 [facility] Comment on above: Performed By: #### B MPX, CDP #### [address] [address] Acid Washer Operator: Yusuf Schmidt MD IR GUIDED NEPHROSTOMY CATH P LACEMENT RIGHTon 08-16-2021 Successful percutaneous 8 [place]uran nephrostomy tube placement [facility] Yluissa Turner MD - 08/16/2021 PROCEDURE: PERCUTANEOUS ANTEGRADE PYELOGRAM [...] the procedure including risks, benefits, and alternatives. Standish protocol was followed. The patient's flank was [...] lower pole infundibulum. IMPRESSION: Successful percutaneous 8 [place]uran nephrostomy tube placement [employer] Phone: Radiology Study observation (narrative) [employer] Phone: IR GUIDED NEPHROSTOMY CATH P LACEMENT RIGHTOrdered By: Yulissa Turner on 08-16-2021 [employer] Phone: Magnesiumon 08-16-2021 Magnesium [Mass/Vol] 1.6 mg/dL Normal 1.6-2.6 [facility] Comment on above: Performed By: #### B MPX, CDP #### [employer] [address] [place] [address] Acid Washer Operator: Yusuf Schmidt MD Magnesium [Mass/Vol] 1.6 mg/dL 1.6 - 2 .6 mg/dL [facility] No Panel Informationon 08-16 [facility] PT[facility] 08-16-2021 INR Coag (PPP) [Relative time] 1.0 {INR} Normal [facility] Comment on above: Result Comment: Therapeutic Range: Moderate Anticoagulant Intensity: INR = 2.0-3.0 High Anticoagulant Intensity: INR = 2.5-3.5 Performed By: #### B BULLX, CDP #### [employer] [address] [place] [address] Acid Washer Operator: Yusuf Schmitd MD PT Coag (PPP) [Time] 10.9 s Normal 9.1-12.3 [facility] Comment on above: Performed By: #### B BULLX, CDP #### [employer] [address] [place] [address] Acid Washer Operator: Yusuf Schmidt MD Protime-INRon 08-16-2021 INR Coag (Bld) [Relative time] 1.0 {INR} [facility] [employer] Comment on above: Therapeutic Range: Moderate Anticoagulant Intensity: INR = 2.0-3.0 High Anticoagulant Intensity: INR = 2.5-3.5 PT Coag (PPP) [Time] 10.9 s [facility] [employer] Basic Metabolic Panelon 08-05 Anion gap [Moles/Vol] 18 mmol/L High 9 - 17 mmol/L [facility] Calcium [Mass/Vol] 8.7 mg/dL 8.6 - 10. 4 mg/dL [facility] Chloride [Moles/Vol] 105 mmol/L 98 - 10 7 mmol/L [facility] CO2 [Moles/Vol] 16 mmol/L Low 20 - 31 mmol/L [facility] Creatinine [Mass/Vol] 1.11 mg/dL High 0.50 - 0.90 mg/dL [facility] GFR >60 >60 mL/min [facility] GFR Non- >60 >60 mL/min [facility] GFR/1.73 sq M.predicted MDRD (S/P/Bld) [Vol rate/Area] [facility] Comment on above: Average GFR for 20-2 9 years old: 116 mL/min/1.73sq m Chronic Kidney Disease: <60 mL/min/1.73sq m Kidney failure: <15 mL/min/1.73sq m eGFR calculated using average adult body mass. Additional eGFR calculator available at: http://www.dentaZOOM/TimeLab_crcl_2011.htm Glucose [Mass/Vol] 104 mg/dL High 70 - 99 mg/dL [facility] Interpretation and review of laboratory results Abnormal [facility] Potassium [Moles/Vol] 3.9 mmol/L 3.7 - 5.3 mmol/L [facility] Sodium [Moles/Vol] 139 mmol/L 135 - 144 mmol/L [facility] Urea nitrogen (BldV) [Mass/Vol] 10 mg/dL 6 - 20 mg/dL [facility] Basic Metabolic Profon 08-15 (cont.) Normal [facility] Comment on above: Result Comment: Aver age GFR for 20-29 years old: 116 mL/min/1.73sq m Chronic Kidney Disease: <60 mL/min/1.73sq m Kidney failure: <15 mL/min/1.73sq m eGFR calculated using average adult body mass. Additional eGFR calculator available at: http://www.dentaZOOM/multiple_crcl_2012.htm Performed By: #### B [address], A[address] #### [employer] [address] [place], [place] [id number] Acid Washer Operator: Yusuf Schmidt MD Anion gap [Moles/Vol] 18 mmol/L High 9-17 [facility] Comment on above: Performed By: #### B MP, CBC #### [facility] [address] [place] [id number] Acid Washer Operator: Yusuf Schmidt MD Calcium [Mass/Vol] 8.7 mg/dL Normal 8.6-10.4 [facility] Comment on above: Performed By: #### B MP, CBC #### [facility] [address] [place] [address] Acid Washer Operator: Yusuf Schmidt MD Chloride [Moles/Vol] 105 mmol/L Normal 98-107 [facility] Comment on above: Performed By: #### B MP, CBC #### [facility] [address] [place] [address] Acid Washer Operator: Yusuf Schmidt MD CO2 [Moles/Vol] 16 mmol/L Low 20-31 [facility] Comment on above: Performed By: #### B MP, CBC #### [facility] [address] [place] [address] Acid Washer Operator: Yusuf Schmidt MD Creatinine [Mass/Vol] 1.11 mg/dL High 0.50-0.90 [facility] Comment on above: Performed By: #### B MP, CBC #### [facility] [address] [place] [address] Acid Washer Operator: Yuusf Schmidt MD GFR, Amer >60 Normal >60 [facility] Comment on above: Performed By: #### B MP, CBC #### [facility] [address] [place] [address] Acid Washer Operator: Yusuf Schmidt MD GFR,non Amer >60 Normal >60 [facility] Comment on above: Performed By: #### B MP, CBC #### [facility] [address] [place] [address] Acid Washer Operator: Yusuf Schmidt MD Glucose [Mass/Vol] 104 mg/dL High 70-99 [facility] Comment on above: Performed By: #### B MP, CBC #### [address] [address] Acid Washer Operator: Yusuf Schmidt MD Potassium [Moles/Vol] 3.9 mmol/L Normal 3.7-5.3 [facility] Comment on above: Performed By: #### B MP, CBC #### [address] [address] Acid Washer Operator: Yusuf Schmidt MD Sodium [Moles/Vol] 139 mmol/L Normal 135-144 [facility] Comment on above: Performed By: #### B MP, CBC #### [address] [address] Acid Washer Operator: Yusuf Schmidt MD Urea nitrogen [Mass/Vol] 10 mg/dL Normal 6-20 [facility] Comment on above: Performed By: #### B MP, CBC #### [address] [address] Acid Washer Operator: Yusuf Schmidt MD CBCon 08-15-2021 Erythrocyte distribution width (RBC) [Ratio] 12.8 % Normal 11.8-14.4 [facility] Comment on above: Performed By: #### B MP, CBC #### [address] [address] Acid Washer Operator: Yusuf Schmidt MD Hematocrit (Bld) [Volume fraction] 36.6 % Normal 36.3-47.1 [facility] Comment on above: Performed By: #### B MP, CBC #### [address] [address] Acid Washer Operator: Yusuf Schmidt MD Hemoglobin (Bld) [Mass/Vol] 12.5 g/dL Normal 11.9-15.1 [facility] Comment on above: Performed By: #### B MP, CBC #### [address] [address] Acid Washer Operator: Yusuf Schmidt MD MCH (RBC) [Entitic mass] 29.8 pg Normal 25.2-33.5 [facility] Comment on above: Performed By: #### B MP, CBC #### [address] [address] Acid Washer Operator: Yusuf Schmidt MD MCHC (RBC) [Mass/Vol] 34.2 g/dL Normal 28.4-34.8 [facility] Comment on above: Performed By: #### B MP, CBC #### [address] [address] Acid Washer Operator: Yusuf Schmidt MD MCV (RBC) [Entitic vol] 87.4 fL Normal 82.6-102.9 [facility] Comment on above: Performed By: #### B MP, CBC #### [address] [address] Acid Washer Operator: Yusuf Schmidt MD NRBC Automated 0.0 per 100 WBC Normal 0.0 [facility] Comment on above: Performed By: #### B MP, CBC #### [place] [address] Acid Washer Operator: Yusuf Schmidt MD Platelet mean volume (Bld) [Entitic vol] 9.5 fL Normal 8.1-13.5 [facility] Comment on above: Performed By: #### B MP, CBC #### [address] [address] Acid Washer Operator: Yusuf Schmidt MD Platelets (Bld) [#/Vol] 243 10*3/uL Normal 138-453 [facility] Comment on above: Performed By: #### B MP, CBC #### [employer] [facility] [address], [place] [phone] Acid Washer Operator: Yusuf Schmidt MD RBC (Bld) [#/Vol] 4.19 10*6/uL Normal 3.95-5.11 [facility] Comment on above: Performed By: #### B MP, CBC #### [facility] [address], [place] [id number] Acid Washer Operator: Yusuf Schmidt MD WBC (Bld) [#/Vol] 7.5 10*3/uL Normal 3.5-11.3 [facility] Comment on above: Performed By: #### B MP, CBC #### [employer] [address] [place], [place] [id number] Acid Washer Operator: Yusuf Schmidt MD Hematocrit (Bld) [Volume fraction] 36.6 % 36.3 - 47.1 % [facility] Hemoglobin (Bld) [Mass/Vol] 12.5 g/dL 11.9 - 15.1 g/dL [facility] MCH (RBC) [Entitic mass] 29.8 pg 25.2 - 33.5 pg [facility] MCHC (RBC) [Mass/Vol] 34.2 g/dL 28.4 - 34.8 g/dL [facility] MCV (RBC) [Entitic vol] 87.4 fL 82.6 - 102.9 fL [facility] NRBC Automated 0.0 0.0 per 100 WBC [facility] Platelet distribution width (Bld) [Ratio] 12.8 % 11.8 - 14.4 % [facility] Platelet mean volume (Bld) [Entitic vol] 9.5 fL 8.1 - 13.5 fL [facility] Platelets (Bld) [#/Vol] 243 10*3/uL [facility] RBC (Bld) [#/Vol] 4.19 10*6/uL 3.95 - 5.1 1 m/uL [facility] WBC (Bld) [#/Vol] 7.5 10*3/uL [facility] AUTO DIFFon 08-15-2021 BASO # 0.0 103/ul Normal 0.0-0.1 [facility] Comment on above: Performed By: #### T HCCONF #### [facility] [address] [place] [address] Dr. Liat Bosch Basophils/100 WBC (Bld) 0.2 % Normal 0.2-2.0 [facility] Comment on above: Performed By: #### T HCCONF #### [facility] [address] [address] [address] Liat Bosch EO # 0.1 103/ul Normal 0.0-0.7 [facility] Comment on above: Performed By: #### T HCCONF #### [facility] [address] [place] [address] Dr. Liat Bosch Eosinophils/100 WBC (Bld) 1.0 % Normal 0.9-7.0 [facility] Comment on above: Performed By: #### T HCCONF #### [facility] [address] [address] [address] Liat Bosch Erythrocyte distribution width (RBC) [Ratio] 12.4 % Normal 11.0-15.0 [facility] Comment on above: Performed By: #### T HCCONF #### [facility] [address] [place] [address] Dr. Liat Bosch Hematocrit (Bld) [Volume fraction] 38.2 % Normal 36.0-48.0 [facility] Comment on above: Performed By: #### T HCCONF #### [facility] [address] [place] [address] Dr. Liat Bosch Hemoglobin (Bld) [Mass/Vol] 13.2 g/dL Normal 12.0-16.0 [facility] Comment on above: Performed By: #### T HCCONF #### [facility] [address] [place] [address] Dr. Liat Bosch IG # 0.09 10e3/ul Critically high 0.00-0.03 [facility] Comment on above: Performed By: #### T HCCONF #### [facility] [address] [address] [address] Liat Bosch IG % 0.7 % Critically high 0.0-0.5 [facility] Comment on above: Performed By: #### T HCCONF #### [facility] [address] [address] [address] Liat Bosch LYMPH # 0.7 103/ul Critically low 1.2-3.8 [facility] Comment on above: Performed By: #### T HCCONF #### [facility] [address] [address] [address] Liat Bosch Lymphocytes/100 WBC (Bld) 5.4 % Critically low 20.5-60.0 [facility] Comment on above: Performed By: #### T HCCONF #### [facility] [address] [address] [address] Liat Bosch MANUAL DIFF REQ NO Normal [facility] Comment on above: Performed By: #### T HCCONF #### [facility] [address] [address] [address] Liat Bosch MCH (RBC) [Entitic mass] 29.8 pg Normal 26.7-34.0 [facility] Comment on above: Performed By: #### T HCCONF #### [facility] [address] [address] [address] Liat Bosch MCHC (RBC) [Mass/Vol] 34.6 g/dL Normal 29.9-35.2 [facility] Comment on above: Performed By: #### T HCCONF #### [facility] [address] [address] [address] Liat Bosch MCV (RBC) [Entitic vol] 86.2 fL Normal 81.0-99.0 [facility] Comment on above: Performed By: #### T HCCONF #### [facility] [address] [address] [address] Liat Bosch MONO # 0.9 103/ul Critically high 0.3-0.8 [facility] Comment on above: Performed By: #### T HCCONF #### [facility] [address] [place] [address] Dr. Liat Bosch Monocytes/100 WBC (Bld) 6.9 % Normal 1.7-12.0 [facility] Comment on above: Performed By: #### T HCCONF #### [facility] [address] [place] [address] Dr. Liat Bosch NEUT # 10.7 103/ul Critically high 1.4-6.5 [facility] Comment on above: Performed By: #### T HCCONF #### [facility] [address] [place] [address] Dr. Liat Bosch Neutrophils/100 WBC (Bld) 85.8 % Critically high 43.0-75.0 [facility] Comment on above: Performed By: #### T HCCONF #### [facility] [address] [place] [address] Dr. Liat Bosch Platelet mean volume (Bld) [Entitic vol] 8.9 fL Critically low 9.5-13.5 [facility] Comment on above: Performed By: #### T HCCONF #### [facility] [address] [place] [address] Dr. Liat Bosch PLT 240 103/ul Normal 150-450 [facility] Comment on above: Performed By: #### T HCCONF #### [facility] [address] [place] [address] Dr. Liat Bosch RBC 4.43 106/ul Normal 4.20-5.40 [facility] Comment on above: Performed By: #### T HCCONF #### [facility] [address] [place] [address] Dr. Liat Bosch WBC 12.5 103/ul Critically high 4.0-11.0 [facility] Comment on above: Performed By: #### T HCCONF #### [facility] [address] [place] [address] Dr. Liat Bosch CULTURE BLOODon 08-15-2021 Microscopic examination of blood, culture Culture Observations: No growth at 5 days. Normal [facility] Comment on above: Performed By: #### B LDCX2 #### [facility] [address] [place] [address] Dr. Liat Bosch Microscopic examination of blood, culture Culture Observations: No growth at 5 days. Normal [facility] Comment on above: Performed By: #### N BOX #### [facility] [address] [place] [address] Nakul Martines CULTURE URINEon 08-15-2021 CULTURE URINE Culture Observations: No growth Normal [facility] Comment on above: Performed By: #### N BOX #### [facility] [address] [place] [address] Nakul Martines ER URINE PROFILEon 2 Bilirubin Ql (U) Negative Normal NEGATIVE [facility] Comment on above: Performed By: #### T HCCONF #### [facility] [address] [place] [address] Dr. Liat Bosch Clarity (U) SL CLOUDY Abnormal CLEAR [facility] Comment on above: Performed By: #### T HCCONF #### [facility] [address] [place] [address] Dr. Liat Bosch Color (U) YELLOW Normal YELLOW [facility] Comment on above: Performed By: #### T HCCONF #### [facility] [address] [place] [address] Dr. Liat Bosch ERUAHD A micrscopic examination will be performed if indicated. Normal [facility] Comment on above: Performed By: #### T HCCONF #### [facility] [address] [place] [address] Dr. Liat Bosch Glucose Ql (U) Negative Normal NEGATIVE [facility] Comment on above: Performed By: #### T HCCONF #### [facility] [address] [place] [address] Dr. Liat Bosch Hemoglobin Ql (U) LARGE Abnormal NEGATIVE [facility] Comment on above: Performed By: #### T HCCONF #### [facility] [address] [place] [address] Dr. Liat Bosch Ketones Ql (U) 15 mg/dl Abnormal NEGATIVE [facility] Comment on above: Performed By: #### T HCCONF #### [facility] [address] [place] [address] Dr. Liat Bosch LEUKOCYTES LARGE Abnormal NEGATIVE [facility] Comment on above: Performed By: #### T HCCONF #### [facility] [address] [place] [address] Dr. Liat Bosch Nitrite Ql (U) Negative Normal NEGATIVE [facility] Comment on above: Performed By: #### T HCCONF #### [facility] [address] [place] [address] Dr. Liat Bosch pH (U) 6.5 [pH] Normal 5-9 [facility] Comment on above: Performed By: #### T HCCONF #### [facility] [address] [place] [address] Dr. Liat Bosch Protein (U) [Mass/Vol] 30 mg/dL Abnormal NEGATIVE/ TRACE [facility] Comment on above: Performed By: #### T HCCONF #### [facility] [address] [place] [address] Dr. Liat Bosch SPEC GRAVITY 1.010 Normal 1.005-<=1.025 [facility] Comment on above: Performed By: #### T HCCONF #### [facility] [address] [place] [address] Dr. Liat Bosch UR MICRO IND INDICATED Normal [facility] Comment on above: Performed By: #### T HCCONF #### [facility] [address] [place] [address] Dr. Liat Bosch Urobilinogen Qn (U) 1.0 {Elia'U}/dL Normal 0.2 - 1. 0 [facility] Comment on above: Performed By: #### T HCCONF #### [facility] [address] [place] [address] Dr. Liat Bosch LACTATE/LACTIC ACIDon 2021 Lactate [Moles/Vol] 0.9 mmol/L Normal 0.4-1.9 [facility] Comment on above: Performed By: #### N BOX #### [facility] [address] [place] [address] Nakul Schmidten PROF 14(COMP METB)on 022 Albumin [Mass/Vol] 3.0 g/dL Critically low 3.4-5.0 [facility] Comment on above: Performed By: #### T HCCONF #### [facility] [address] [place] [address] Dr. Liat Bosch Albumin/Globulin [Mass ratio] 0.6 {ratio} Normal [facility] Comment on above: Performed By: #### T HCCONF #### [facility] [address] [place] [address] Dr. Liat Bosch ALP [Catalytic activity/Vol] 121 U/L Critically high 46-116 [facility] Comment on above: Performed By: #### T HCCONF #### [facility] [address] [place] [address] Dr. Liat Bosch ALT [Catalytic activity/Vol] 31 U/L Normal 14-59 [facility] Comment on above: Performed By: #### T HCCONF #### [facility] [address] [place] [address] Dr. Liat Bosch Anion gap [Moles/Vol] 16.0 mmol/L Normal [facility] Comment on above: Performed By: #### T HCCONF #### [facility] [address] [place] [address] Dr. Liat Bosch AST [Catalytic activity/Vol] 20 U/L Normal 15-37 [facility] Comment on above: Performed By: #### T HCCONF #### [facility] [address] [place] [address] Dr. Liat Bosch Bilirubin [Mass/Vol] 0.7 mg/dL Normal 0.2-1.0 [facility] Comment on above: Performed By: #### T HCCONF #### [facility] [address] [place] [address] Dr. Liat Bosch Calcium [Mass/Vol] 8.7 mg/dL Normal 8.5-10.1 [facility] Comment on above: Performed By: #### T HCCONF #### [facility] [address] [address] [address] Liat Bosch Chloride [Moles/Vol] 102 mmol/L Normal 98-107 [facility] Comment on above: Performed By: #### T HCCONF #### [facility] [address] [address] [address] Liat Bosch CO2 [Moles/Vol] 18.2 mmol/L Critically low 21.0-32.0 [facility] Comment on above: Performed By: #### T HCCONF #### [facility] [address] [place] [address] Dr. Liat Bosch Creatinine [Mass/Vol] 1.16 mg/dL Critically high 0.55-1.02 [facility] Comment on above: Performed By: #### T HCCONF #### [facility] [address] [place] [address] Dr. Liat Bosch EGFR-AF TURKS AND [place]ER 71 mL/min/1.73m2 Normal >=60 [facility] Comment on above: Performed By: #### T HCCONF #### [facility] [address] [place] [address] Dr. Liat Bosch EGFR-NON AF TURKS AND [place]ER 58 mL/min/1.73m2 Critically low >=60 [facility] Comment on above: Performed By: #### T HCCONF #### [facility] [address] [place] [address] Dr. Liat Bosch Globulin (S) [Mass/Vol] 4.4 g/dL Normal [facility] Comment on above: Performed By: #### T HCCONF #### [facility] [address] [place] [address] Dr. Liat Bosch Glucose [Mass/Vol] 117 mg/dL Critically high 74-106 [facility] Comment on above: Performed By: #### T HCCONF #### [facility] [address] [place] [address] Dr. Liat Bosch Potassium [Moles/Vol] 3.0 mmol/L Critically low 3.5-5.1 [facility] Comment on above: Performed By: #### T HCCONF #### [facility] [address] [place] [address] Dr. Liat Bosch Protein [Mass/Vol] 7.4 g/dL Normal 6.4-8.2 [facility] Comment on above: Performed By: #### T HCCONF #### [facility] [address] [place] [address] Dr. Liat Bosch Sodium [Moles/Vol] 135 mmol/L Critically low 136-145 [facility] Comment on above: Performed By: #### T HCCONF #### [facility] [address] [place] [address] Dr. Liat Bosch Urea nitrogen [Mass/Vol] 11.0 mg/dL Normal 7.0-18.0 [facility] Comment on above: Performed By: #### T HCCONF #### [facility] [address] [place] [address] Dr. Liat Bosch Urea nitrogen/Creatinine [Mass ratio] 9.4 mg/mg Normal [facility] Comment on above: Performed By: #### T HCCONF #### [facility] [address] [place] [address] Dr. Liat Bosch URINE MICROSCOPIC ONLYon BACTERIA TRACE Abnormal NONE SEEN [facility] Comment on above: Performed By: #### T HCCONF #### [facility] [address] [place] [address] Dr. Liat Bosch Bacteria identified Cx Nom (U) INDICATED Normal [facility] Comment on above: Performed By: #### T HCCONF #### [facility] [address] [place] [address] Dr. Liat Bosch CAST NONE SEEN Normal NONE SEEN [facility] Comment on above: Performed By: #### T HCCONF #### [facility] [address] [place] [address] Dr. Liat Bosch Crystals LM Nom (Urine sed) NONE SEEN Normal NONE SEEN [facility] Comment on above: Performed By: #### T HCCONF #### [facility] [address] [address] [address] Liat Bosch Epithelial cells LM Ql (Urine sed) MODERATE Abnormal NONE SEEN /RARE [facility] Comment on above: Performed By: #### T HCCONF #### [facility] [address] [address] [address] Liat Bosch MUCOUS TRACE Abnormal NONE SEEN [facility] Comment on above: Performed By: #### T HCCONF #### [facility] [address] [place] [address] Dr. Liat Bosch RBC 10-20 Abnormal 0-2 [facility] Comment on above: Performed By: #### T HCCONF #### [facility] [address] [place] [address] Dr. Liat Bosch WBC 20-50 Abnormal NONE SEEN [facility] Comment on above: Performed By: #### T HCCONF #### [facility] [address] [place] [address] Dr. Liat Bosch XR ABDOMEN (KUB) (SINGLE [...] Erasto Mac MD 08/15/21 Final result Normal [facility] 7 mm stone in the distal right ureter adjacent to the stent. [facility] RIS CONSOLIDATED EXAMINATION: ONE SUPINE XRAY VIEW(S) [...] No additional renal or urinary tract stone. Erasto Orantes MD - 08/15/2021 EXAMINATION: ONE SUPINE XRAY [...] distal right ureter adjacent to the stent. [employer] Phone: Radiology Study observation (narrative) [employer] Phone: XR ABDOMEN (KUB) (SINGLE AP VIEW)Ordered By: Erasto Mac on 08-15-2021 [employer] Phone: CBC AUTO DIFFon 08-12-2021 BASO # 0.0 103/ul Normal 0.0-0.1 [facility] Comment on above: Performed By: #### B LDCX2 #### [facility] [address] [place] [address] Dr. Liat Bosch Basophils/100 WBC (Bld) 0.3 % Normal 0.2-2.0 [facility] Comment on above: Performed By: #### B LDCX2 #### [facility] [address] [address] [address] Liat Bosch EO # 0.1 103/ul Normal 0.0-0.7 [facility] Comment on above: Performed By: #### B LDCX2 #### [facility] [address] [address] [address] Liat Bosch Eosinophils/100 WBC (Bld) 0.9 % Normal 0.9-7.0 [facility] Comment on above: Performed By: #### B LDCX2 #### [facility] [address] [place] [address] Dr. Liat Bosch Erythrocyte distribution width (RBC) [Ratio] 12.6 % Normal 11.0-15.0 [facility] Comment on above: Performed By: #### B LDCX2 #### [facility] [address] [place] [address] Dr. Liat Bosch Hematocrit (Bld) [Volume fraction] 40.2 % Normal 36.0-48.0 [facility] Comment on above: Performed By: #### B LDCX2 #### [facility] [address] [place] [address] Dr. Liat Bosch Hemoglobin (Bld) [Mass/Vol] 13.3 g/dL Normal 12.0-16.0 [facility] Comment on above: Performed By: #### B LDCX2 #### [facility] [address] [place] [address] Dr. Liat Bosch IG # 0.06 10e3/ul Critically high 0.00-0.03 [facility] Comment on above: Performed By: #### B LDCX2 #### [facility] [address] [place] [address] Dr. Liat Bosch IG % 0.4 % Normal 0.0-0.5 [facility] Comment on above: Performed By: #### B LDCX2 #### [facility] [address] [place] [address] Dr. Liat Bosch LYMPH # 2.8 103/ul Normal 1.2-3.8 [facility] Comment on above: Performed By: #### B LDCX2 #### [facility] [address] [place] [address] Dr. Liat Bosch Lymphocytes/100 WBC (Bld) 18.5 % Critically low 20.5-60.0 [facility] Comment on above: Performed By: #### B LDCX2 #### [facility] [address] [place] [address] Dr. Liat Bosch MANUAL DIFF REQ NO Normal [facility] Comment on above: Performed By: #### B LDCX2 #### [facility] [address] [place] [address] Dr. Liat Bosch MCH (RBC) [Entitic mass] 30.1 pg Normal 26.7-34.0 [facility] Comment on above: Performed By: #### B LDCX2 #### [facility] [address] [place] [address] Dr. Liat Bosch MCHC (RBC) [Mass/Vol] 33.1 g/dL Normal 29.9-35.2 [facility] Comment on above: Performed By: #### B LDCX2 #### [facility] [address] [place] [address] Dr. Liat Bosch MCV (RBC) [Entitic vol] 91.0 fL Normal 81.0-99.0 [facility] Comment on above: Performed By: #### B LDCX2 #### [facility] [address] [place] [address] Dr. Liat Bosch MONO # 0.9 103/ul Critically high 0.3-0.8 [facility] Comment on above: Performed By: #### B LDCX2 #### [facility] [address] [place] [address] Dr. Liat Bosch Monocytes/100 WBC (Bld) 6.1 % Normal 1.7-12.0 [facility] Comment on above: Performed By: #### B LDCX2 #### [facility] [address] [place] [address] Dr. Liat Bosch NEUT # 11.1 103/ul Critically high 1.4-6.5 [facility] Comment on above: Performed By: #### B LDCX2 #### [facility] [address] [place] [address] Dr. Liat Bosch Neutrophils/100 WBC (Bld) 73.8 % Normal 43.0-75.0 [facility] Comment on above: Performed By: #### B LDCX2 #### [facility] [address] [place] [address] Dr. Liat Bosch Platelet mean volume (Bld) [Entitic vol] 9.0 fL Critically low 9.5-13.5 [facility] Comment on above: Performed By: #### B LDCX2 #### [facility] [address] [address] [address] Liat Bosch PLT 490 103/ul Critically high 150-450 [facility] Comment on above: Performed By: #### B LDCX2 #### [facility] [address] [address] [address] Liat Bosch RBC 4.42 106/ul Normal 4.20-5.40 [facility] Comment on above: Performed By: #### B LDCX2 #### [facility] [address] [place] [address] Dr. Liat Bosch WBC 15.0 103/ul Critically high 4.0-11.0 [facility] Comment on above: Performed By: #### B LDCX2 #### [facility] [address] [place] [address] ABD/PELVIS WO CONon [...] MIKE JAIN Date: 2021-08-12 17:01 Normal [facility] CULTURE URINEon 08-12-2021 CULTURE URINE Culture Observations: MODERATE GROWTH OF MIXED GENITAL BRAYDEN. NO POTENTIAL PATHOGENS SEEN. Normal [facility] Comment on above: Performed By: #### N BOX #### [facility] [address] [place] [id number] [place] FROST URINE PROFILEon 2 Bilirubin Ql (U) Negative Normal NEGATIVE [facility] Comment on above: Performed By: #### U RCX #### [facility] [address] [place] [address] [address] Liat Bosch Clarity (U) CLEAR Normal CLEAR [facility] Comment on above: Performed By: #### U RCX #### [facility] [address] [address] [address] Liat Bosch Color (U) LT. YELLOW Normal YELLOW [facility] Comment on above: Performed By: #### U RCX #### [facility] [address] [address] [address] Liat Bosch ERUAHD A micrscopic examination will be performed if indicated. Normal [facility] Comment on above: Performed By: #### U RCX #### [facility] [address] [address] [address] Liat Bosch Glucose Ql (U) Negative Normal NEGATIVE [facility] Comment on above: Performed By: #### U RCX #### [facility] [address] [place] [address] Dr. Liat Bosch Hemoglobin Ql (U) LARGE Abnormal NEGATIVE [facility] Comment on above: Performed By: #### U RCX #### [facility] [address] [place] [address] Dr. Liat Bosch Ketones Ql (U) TRACE Abnormal NEGATIVE [facility] Comment on above: Performed By: #### U RCX #### [facility] [address] [place] [address] Dr. Liat Bosch LEUKOCYTES MODERATE Abnormal NEGATIVE [facility] Comment on above: Performed By: #### U RCX #### [facility] [address] [address] [address] Liat Bosch Nitrite Ql (U) Positive Abnormal NEGATIVE [facility] Comment on above: Performed By: #### U RCX #### [facility] [address] [address] [address] Liat Bosch pH (U) 7.5 [pH] Normal 5-9 [facility] Comment on above: Performed By: #### U RCX #### [facility] [address] [place] [address] Dr. Liat Bosch SPEC GRAVITY 1.025 Normal 1.005-<=1.025 [facility] Comment on above: Performed By: #### U RCX #### [facility] [address] [address] [address] Liat Bosch UA PROTEIN >300 Abnormal NEGATIVE/ TRACE [facility] Comment on above: Performed By: #### U RCX #### [facility] [address] [address] [address] Liat Bosch UR MICRO IND INDICATED Normal [facility] Comment on above: Performed By: #### U RCX #### [facility] [address] [place] [address] Dr. Liat Bosch Urobilinogen Qn (U) 0.2 {Elia'U}/dL Normal 0.2 - 1. 0 [facility] Comment on above: Performed By: #### U RCX #### [facility] [address] [place] [address] Dr. Liat Bosch LACTATE/LACTIC ACIDon 2021 Lactate [Moles/Vol] 1.2 mmol/L Normal 0.4-1.9 [facility] Comment on above: Performed By: #### B LDCX2 #### [facility] [address] [place] [address] Dr. Liat Bosch PREG HCG QUALon 08-12-2021 , QUAL Negative Normal NEGATIVE [facility] Comment on above: Performed By: #### U RCX #### [facility] [address] [place] [address] Dr. Liat Bosch PROF 14(COMP METB)on 022 Albumin [Mass/Vol] 3.9 g/dL Normal 3.4-5.0 [facility] Comment on above: Performed By: #### T HCCONF #### [facility] [address] [place] [address] Dr. Liat Bosch Albumin/Globulin [Mass ratio] 1.1 {ratio} Normal [facility] Comment on above: Performed By: #### T HCCONF #### [facility] [address] [place] [address] Dr. Liat Bosch ALP [Catalytic activity/Vol] 95 U/L Normal 46-116 [facility] Comment on above: Performed By: #### T HCCONF #### [facility] [address] [address] [address] Liat Bosch ALT [Catalytic activity/Vol] 61 U/L Critically high 14-59 [facility] Comment on above: Performed By: #### T HCCONF #### [facility] [address] [address] [address] Liat Bosch Anion gap [Moles/Vol] 13.6 mmol/L Normal [facility] Comment on above: Performed By: #### T HCCONF #### [facility] [address] [address] [address] Liat Bosch AST [Catalytic activity/Vol] 22 U/L Normal 15-37 [facility] Comment on above: Performed By: #### T HCCONF #### [facility] [address] [address] [address] Liat Bosch Bilirubin [Mass/Vol] 0.3 mg/dL Normal 0.2-1.0 [facility] Comment on above: Performed By: #### T HCCONF #### [facility] [address] [address] [address] Liat Bosch Calcium [Mass/Vol] 9.0 mg/dL Normal 8.5-10.1 [facility] Comment on above: Performed By: #### T HCCONF #### [facility] [address] [address] [address] Liat Bosch Chloride [Moles/Vol] 106 mmol/L Normal 98-107 [facility] Comment on above: Performed By: #### T HCCONF #### [facility] [address] [address] [address] Liat Bosch CO2 [Moles/Vol] 22.9 mmol/L Normal 21.0-32.0 [facility] Comment on above: Performed By: #### T HCCONF #### [facility] [address] [address] [address] Liat Bosch Creatinine [Mass/Vol] 1.00 mg/dL Normal 0.55-1.02 [facility] Comment on above: Performed By: #### T HCCONF #### [facility] [address] [address] [address] Liat Bosch EGFR-AF TURKS AND CAICOS ISLANDER >60 Normal >=60 [facility] Comment on above: Performed By: #### T HCCONF #### [facility] [address] [address] [address] Liat Bosch EGFR-NON AF TURKS AND CAICOS ISLANDER >60 Normal >=60 [facility] Comment on above: Performed By: #### T HCCONF #### [facility] [address] [address] [address] Liat Bosch Globulin (S) [Mass/Vol] 3.6 g/dL Normal [facility] Comment on above: Performed By: #### T HCCONF #### [facility] [address] [address] [address] Liat Bosch Glucose [Mass/Vol] 103 mg/dL Normal 74-106 [facility] Comment on above: Performed By: #### T HCCONF #### [facility] [address] [address] [address] Liat Bosch Potassium [Moles/Vol] 3.5 mmol/L Normal 3.5-5.1 [facility] Comment on above: Performed By: #### T HCCONF #### [facility] [address] [address] [address] Liat Bosch Protein [Mass/Vol] 7.5 g/dL Normal 6.4-8.2 [facility] Comment on above: Performed By: #### T HCCONF #### [facility] [address] [address] [address] Liat Bosch Sodium [Moles/Vol] 139 mmol/L Normal 136-145 [facility] Comment on above: Performed By: #### T HCCONF #### [facility] [address] [address] [address] Liat Bosch Urea nitrogen [Mass/Vol] 17.0 mg/dL Normal 7.0-18.0 [facility] Comment on above: Performed By: #### T HCCONF #### [facility] [address] [place] [address] Dr. Liat Bosch Urea nitrogen/Creatinine [Mass ratio] 17.0 mg/mg Normal [facility] Comment on above: Performed By: #### T HCCONF #### [facility] [address] [place] [address] Dr. Liat Bosch URINE MICROSCOPIC ONLYon BACTERIA LARGE Abnormal NONE SEEN [facility] Comment on above: Performed By: #### B LDCX2 #### [facility] [address] [place] [address] Dr. Liat Bosch Bacteria identified Cx Nom (U) INDICATED Normal [facility] Comment on above: Performed By: #### B LDCX2 #### [facility] [address] [place] [address] Dr. Liat Bosch CAST NONE SEEN Normal NONE SEEN [facility] Comment on above: Performed By: #### B LDCX2 #### [facility] [address] [place] [address] Dr. Liat Bosch Crystals LM Nom (Urine sed) NONE SEEN Normal NONE SEEN [facility] Comment on above: Performed By: #### B LDCX2 #### [facility] [address] [place] [address] Dr. Liat Bosch Epithelial cells LM Ql (Urine sed) FEW Abnormal NONE SEEN /RARE [facility] Comment on above: Performed By: #### B LDCX2 #### [facility] [address] [place] [address] Dr. Liat Bosch MUCOUS NONE SEEN Normal NONE SEEN [facility] Comment on above: Performed By: #### B LDCX2 #### [facility] [address] [place] [address] Dr. Liat Bosch RBC 50-75 Abnormal 0-2 [facility] Comment on above: Performed By: #### B LDCX2 #### [facility] [address] [place] [address] Dr. Liat Bosch WBC (U) [#/Vol] /uL Abnormal NONE SEEN [facility] Comment on above: Performed By: #### B LDCX2 #### [facility] [address] [address] [address] Liat Bosch Provider Letteron 07-22-2021 Provider Letter July 22, 2021 NIKOLAY MILES [address] [place] [address] NIKOLAY MILES 2000 Dear Ms. Miles, This letter is to inform you that the providers of [facility] will no longer be responsible for your routine medical care. Emergency care only will be provided for the thirty (30) days following this letter. During this time period we suggest that you find another physician for your medical needs. A listing of area physicians can be found on [facility]'s website at [email or web address] or you may contact your health plan. We will be glad to forward your records to your new physician as long as we receive a signed release of records form. Sincerely, Dr. Wiliam Thakur [address] [place] [address]. [place] [address] [facility] Patient Educationon 07-14-19 Patient Education Urology [...] these instructions at home: Medicines ? Take [id number] and prescription medicines only as told by [...] 08/09/2008 Document Revised: 07/10/2019 Document Reviewed: 07/10/2019 [employer] Patient Education ? 2019 [employer] [facility] Provider Letteron 07-13-2021 Provider Letter July 13, 2021 NIKOLAY MILES [address] [place] [id number] NIKOLAY MILES 2000 Dear Kira, You missed [...] do appreciate your understanding. Sincerely, [facility] [address] [place] [address] [facility] Patient Letter FTon 2021 Patient Letter [facility] June 17, 2021 [address] [place] [address] NIKOLAY MILES 2000 Dear Ms. Miles, I [...] as recommended. Office Sincerely, Dr. Wiliam Thakur [address] [place] [address]. [place] [address] [facility] Provider Letteron 04-28-2021 Provider Letter April 28, 2021 NIKOLAY MILES [address] [place] [address] NIKOLAY MILES 2000 Dear Kira , You [...] do appreciate your understanding. Sincerely, [facility] [address], [place] [address] [facility] RAD - MISCon 04-28-2021 RAD - MISC [id number] DA#[id number] [facility] XR KUB 1 VIEWon 04-24-2021 XR [...] JANE WHALEN Date: 2021-04-24 16:31 Normal [facility] CANNABINOID (THC) CONFIRMATI ON, URINEon 04-16-2021 Cannabinoid Positive Abnormal [facility] Comment on above: Performed By: #### T HCCONF #### [facility] [address] [place] [address] Dr. Liat Bradshaw THC GC/MS Conf 13 ng/mL Normal Cutoff=10 [facility] Comment on above: Performed By: #### T HCCONF #### [facility] [address] [address] [address] Liat Bosch CBC AUTO DIFFon 04-06-2021 BASO # 0.0 103/ul Normal 0.0-0.1 [facility] Comment on above: Performed By: #### T HCCONF #### [facility] [address] [place] [address] Dr. Liat Bosch Basophils/100 WBC (Bld) 0.4 % Normal 0.2-2.0 [facility] Comment on above: Performed By: #### T HCCONF #### [facility] [address] [address] [address] Liat Bosch EO # 0.3 103/ul Normal 0.0-0.7 [facility] Comment on above: Performed By: #### T HCCONF #### [facility] [address] [address] [address] Liat Bosch Eosinophils/100 WBC (Bld) 2.5 % Normal 0.9-7.0 [facility] Comment on above: Performed By: #### T HCCONF #### [facility] [address] [place] [address] Dr. Liat Bosch Erythrocyte distribution width (RBC) [Ratio] 17.7 % Critically high 11.0-15.0 [facility] Comment on above: Performed By: #### T HCCONF #### [facility] [address] [place] [address] Dr. Liat Bosch Hematocrit (Bld) [Volume fraction] 30.0 % Critically low 36.0-48.0 [facility] Comment on above: Performed By: #### T HCCONF #### [facility] [address] [place] [address] Dr. Liat Bosch Hemoglobin (Bld) [Mass/Vol] 10.0 g/dL Critically low 12.0-16.0 [facility] Comment on above: Performed By: #### T HCCONF #### [facility] [address] [place] [address] Dr. Liat Bosch IG # 0.06 10e3/ul Critically high 0.00-0.03 [facility] Comment on above: Performed By: #### T HCCONF #### [facility] [address] [place] [address] Dr. Liat Bosch IG % 0.5 % Normal 0.0-0.5 [facility] Comment on above: Performed By: #### T HCCONF #### [facility] [address] [place] [address] Dr. Liat Bosch LYMPH # 3.8 103/ul Normal 1.2-3.8 [facility] Comment on above: Performed By: #### T HCCONF #### [facility] [address] [address] [address] Liat Bosch Lymphocytes/100 WBC (Bld) 34.1 % Normal 20.5-60.0 [facility] Comment on above: Performed By: #### T HCCONF #### [facility] [address] [address] [address] Liat Bosch MANUAL DIFF REQ NO Normal [facility] Comment on above: Performed By: #### T HCCONF #### [facility] [address] [address] [address] Liat Bosch MCH (RBC) [Entitic mass] 29.6 pg Normal 26.7-34.0 [facility] Comment on above: Performed By: #### T HCCONF #### [facility] [address] [place] [address] Dr. Liat Boshc MCHC (RBC) [Mass/Vol] 33.3 g/dL Normal 29.9-35.2 [facility] Comment on above: Performed By: #### T HCCONF #### [facility] [address] [address] [address] Liat Bosch MCV (RBC) [Entitic vol] 88.8 fL Normal 81.0-99.0 [facility] Comment on above: Performed By: #### T HCCONF #### [facility] [address] [address] [address] Liat Bosch MONO # 0.7 103/ul Normal 0.3-0.8 [facility] Comment on above: Performed By: #### T HCCONF #### [facility] [address] [address] [address] Liat Bosch Monocytes/100 WBC (Bld) 5.9 % Normal 1.7-12.0 [facility] Comment on above: Performed By: #### T HCCONF #### [facility] [address] [address] [address] Liat Bosch NEUT # 6.3 103/ul Normal 1.4-6.5 [facility] Comment on above: Performed By: #### T HCCONF #### [facility] [address] [address] [address] Liat Bosch Neutrophils/100 WBC (Bld) 56.6 % Normal 43.0-75.0 [facility] Comment on above: Performed By: #### T HCCONF #### [facility] [address] [place] [address] Dr. Liat Bosch Platelet mean volume (Bld) [Entitic vol] 8.7 fL Critically low 9.5-13.5 [facility] Comment on above: Performed By: #### T HCCONF #### [facility] [address] [place] [address] Dr. Liat Bosch PLT 257 103/ul Normal 150-450 [facility] Comment on above: Performed By: #### T HCCONF #### [facility] [address] [place] [address] Dr. Liat Bosch RBC 3.38 106/ul Critically low 4.20-5.40 [facility] [facility] Comment on above: Performed By: #### T HCCONF #### [facility] [address] [place] [address] Dr. Liat Bosch WBC 11.1 103/ul Critically high 4.0-11.0 [facility] Comment on above: Performed By: #### T HCCONF #### [facility] [address] [place] [address] Dr. Liat Bosch ASYMPTOMATIC COVID-19 ANTIGE Non 04-04-2021 EUA Statement SEE BELOW Normal [facility] Comment on above: Result Comment: This test [...] sooner. Performed By: #### N BOX #### [facility] [address] [place] [address] Nakul Martines SARS-CoV-2 (COVID-19) RNA ISABEL+probe Ql (Unsp spec) Negative Normal NEGATIVE [facility] Comment on above: Result Comment: Nega tive results are presumptive. They do not preclude infection and should not be used as the sole basis for treatment decisions. Additional confirmatory testing by a molecular method should be considered. Performed By: #### N BOX #### [facility] [address] [place] [address] Nakul Martines CBC AUTO DIFFon 04-04-2021 BASO # 0.0 103/ul Normal 0.0-0.1 [facility] Comment on above: Performed By: #### B LDCX2 #### [facility] [address] [place] [address] Dr. Liat Bosch Basophils/100 WBC (Bld) 0.2 % Normal 0.2-2.0 [facility] Comment on above: Performed By: #### B LDCX2 #### [facility] [address] [place] [address] Dr. Liat Bosch EO # 0.2 103/ul Normal 0.0-0.7 [facility] Comment on above: Performed By: #### B LDCX2 #### [facility] [address] [place] [address] Dr. Liat Bosch Eosinophils/100 WBC (Bld) 1.9 % Normal 0.9-7.0 [facility] Comment on above: Performed By: #### B LDCX2 #### [facility] [address] [place] [address] Dr. Liat Bosch Erythrocyte distribution width (RBC) [Ratio] 17.7 % Critically high 11.0-15.0 [facility] Comment on above: Performed By: #### B LDCX2 #### [facility] [address] [place] [address] Dr. Liat Bosch Hematocrit (Bld) [Volume fraction] 34.0 % Critically low 36.0-48.0 [facility] Comment on above: Performed By: #### B LDCX2 #### [facility] [address] [place] [address] Dr. Liat Bosch Hemoglobin (Bld) [Mass/Vol] 11.1 g/dL Critically low 12.0-16.0 [facility] Comment on above: Performed By: #### B LDCX2 #### [facility] [address] [place] [address] Dr. Liat Bosch IG # 0.07 10e3/ul Critically high 0.00-0.03 [facility] Comment on above: Performed By: #### B LDCX2 #### [facility] [address] [place] [address] Dr. Liat Bosch IG % 0.8 % Critically high 0.0-0.5 [facility] Comment on above: Performed By: #### B LDCX2 #### [facility] [address] [place] [address] Dr. Liat Bosch LYMPH # 2.5 103/ul Normal 1.2-3.8 [facility] Comment on above: Performed By: #### B LDCX2 #### [facility] [address] [place] [address] Dr. Liat Bosch Lymphocytes/100 WBC (Bld) 27.7 % Normal 20.5-60.0 [facility] Comment on above: Performed By: #### B LDCX2 #### [facility] [address] [place] [address] Dr. Liat Bosch MANUAL DIFF REQ NO Normal [facility] Comment on above: Performed By: #### B LDCX2 #### [facility] [address] [place] [address] Dr. Liat Bosch MCH (RBC) [Entitic mass] 28.9 pg Normal 26.7-34.0 [facility] Comment on above: Performed By: #### B LDCX2 #### [facility] [address] [address] [address] Liat Bosch MCHC (RBC) [Mass/Vol] 32.6 g/dL Normal 29.9-35.2 [facility] Comment on above: Performed By: #### B LDCX2 #### [facility] [address] [place] [address] Dr. Liat Bosch MCV (RBC) [Entitic vol] 88.5 fL Normal 81.0-99.0 [facility] Comment on above: Performed By: #### B LDCX2 #### [facility] [address] [place] [address] Dr. Liat Bosch MONO # 0.5 103/ul Normal 0.3-0.8 [facility] Comment on above: Performed By: #### B LDCX2 #### [facility] [address] [place] [address] Dr. Liat Bosch Monocytes/100 WBC (Bld) 5.6 % Normal 1.7-12.0 [facility] Comment on above: Performed By: #### B LDCX2 #### [facility] [address] [place] [address] Dr. Liat Bosch NEUT # 5.8 103/ul Normal 1.4-6.5 [facility] Comment on above: Performed By: #### B LDCX2 #### [facility] [address] [place] [address] Dr. Liat Bosch Neutrophils/100 WBC (Bld) 63.8 % Normal 43.0-75.0 [facility] Comment on above: Performed By: #### B LDCX2 #### [facility] [address] [place] [address] Dr. Liat Bosch Platelet mean volume (Bld) [Entitic vol] 9.1 fL Critically low 9.5-13.5 [facility] Comment on above: Performed By: #### B LDCX2 #### [facility] [address] [place] [address] Dr. Liat Bosch PLT 333 103/ul Normal 150-450 [facility] Comment on above: Performed By: #### B LDCX2 #### [facility] [address] [address] [address] Liat Bosch RBC 3.84 106/ul Critically low 4.20-5.40 [facility] Comment on above: Performed By: #### B LDCX2 #### [facility] [address] [place] [address] Dr. Liat Bosch WBC 9.0 103/ul Normal 4.0-11.0 [facility] Comment on above: Performed By: #### B LDCX2 #### [facility] [address] [place] [address] Dr. Liat Bosch DRUG SCREEN RAPID (URINE)on 04-04-2021 AMP Negative Normal NEGATIVE [facility] Comment on above: Performed By: #### B LDCX2 #### [facility] [address] [place] [address] Dr. Liat Bosch BAR Negative Normal NEGATIVE [facility] Comment on above: Performed By: #### B LDCX2 #### [facility] [address] [place] [address] Dr. Liat Bosch BUP Negative Normal NEGATIVE [facility] Comment on above: Performed By: #### B LDCX2 #### [facility] [address] [place] [address] Dr. Liat Bosch BZO Negative Normal NEGATIVE [facility] Comment on above: Performed By: #### B LDCX2 #### [facility] [address] [place] [address] Dr. Liat Bosch YAN Negative Normal NEGATIVE [facility] Comment on above: Performed By: #### B LDCX2 #### [facility] [address] [place] [address] Dr. Liat Bosch CUT-OFFS SEE BELOW Normal [facility] Comment on above: Result Comment: AMP [...] ng/mL Performed By: #### B LDCX2 #### [facility] [address] [place] [address] Dr. Liat Bosch DRUG CUT HEADER DRUG CLASS TEST SYSTEM CUT-OFF CONCENTRATIONS ARE FOLLOWS: Normal [facility] Comment on above: Performed By: #### B LDCX2 #### [facility] [address] [place] [address] Dr. Liat Bosch mAMP Negative Normal NEGATIVE [facility] Comment on above: Performed By: #### B LDCX2 #### [facility] [address] [place] [address] Dr. Liat Bosch MTD Negative Normal NEGATIVE [facility] Comment on above: Performed By: #### B LDCX2 #### [facility] [address] [place] [address] Dr. Liat Bosch OPI Negative Normal NEGATIVE [facility] Comment on above: Performed By: #### B LDCX2 #### [facility] [address] [place] [address] Dr. Liat Bosch OXY Negative Normal NEGATIVE [facility] Comment on above: Performed By: #### B LDCX2 #### [facility] [address] [place] [address] Dr. Liat Bosch PCP Negative Normal NEGATIVE [facility] Comment on above: Performed By: #### B LDCX2 #### [facility] [address] [place] [address] Dr. Liat Bosch PPX Negative Normal NEGATIVE [facility] Comment on above: Performed By: #### B LDCX2 #### [facility] [address] [place] [address] Dr. Liat Bosch TCA Negative Normal NEGATIVE [facility] Comment on above: Performed By: #### B LDCX2 #### [facility] [address] [address] [address] Liat Bosch THC Positive Abnormal NEGATIVE [facility] Comment on above: Performed By: #### B LDCX2 #### [facility] [address] [address] [address] Liat Bosch TYPE AND SCREENon 04-04-2021 TYPE AND SCREEN Negative Normal [facility] Comment on above: Performed By: #### N BOX #### [facility] [address] [address] Nakul Martines CHLAMYDIA/GONOCOCCUS ISABEL ( AB/URINE/PAPon 04-02-2021 Chlamydia trachomatis, ISABEL Negative Normal Negative [facility] Comment on above: Performed By: #### B LDCX2 #### [facility] [address] [place] [address] Dr. Liat Bosch Neisseria gonorrhoeae, ISABEL Negative Normal Negative [facility] Comment on above: Performed By: #### B LDCX2 #### [facility] [address] [place] [address] Dr. Liat Bosch GROUP B STREP CULTUREon 03-08 S. agalactiae Ag Ql (Unsp spec) Culture Observations: NEGATIVE FOR GROUP B STREPTOCOCCUS. Normal [facility] Comment on above: Performed By: #### N BOX #### [facility] [address] [place] [address] Nakul Martines RAD - Ultrasound Reporton RAD - Ultrasound Report [id number] FB#1.00CD:[address] [facility] Reminderson 03-26-2021 Reminders -- From: Debbie Miranda To: [facility] - Clinical; Debbie Miranda; Sent: 03/25/2021 13:40:52 EST Show up: 03/26/2021 13:40:00 EST Subject: renal [facility] 03-25-21 at 2:30pm -show Dr wynn results, pt has ureteral stent and kidney stones -patient needs to see new provider due to her insurance not covered with Dr Wynn sent msg to Dr Wynn to review results Normal [facility] Ambulatory Visit Summaryon 0 03-25-2021 Ambulatory [...] these instructions at home: Medicines ? Take mbos-kad-drlokng and prescription medicines only as told by [...] not included)... Normal [facility] Ambulatory Visit Summary NIKOLAY MILES [...] these instructions at home: Medicines ? Take bqon-ozs-uzamnzf and prescription medicines only as told by [...] not included)... Normal [facility] Ambulatory Visit Summary NIKOLAY MILES [...] these instructions at home: Medicines ? Take alli-hyn-ccnjrpj and prescription medicines only as told by [...] content not included)... Normal [facility] Patient Educationon 03-25-19 Patient Education Urology Kidney [...] these instructions at home: Medicines ? Take pgxd-ulk-hhxklca and prescription medicines only as told by [...] 08/09/2008 Document Revised: 07/10/2019 Document Reviewed: 07/10/2019 [employer] Patient Education ? 2019 [employer] [facility] US KIDNEYSon 03-25-2021 US KIDNEYS EXAMINATION: US [...] VERN TAMAYO Date: 2021-03-25 15:24 Normal [facility] Urology Office/Clinic Noteon 03-25-2021 Urology Office/Clinic [...] qualifying data available Patient Education Kidney Stones, Altw-cl-Axsb Debbie Whitten, personally scribed for Dr. Wynn on 03/25/2021 12:13:17. . Documentation recorded by the scribeDebbie, accurately reflects the services(s) I performed and decisions made by me. Authenticated by Dr. Wynn on 03/25/2021 12:31:22. Problem List/Past Medical History Ongoing Anemia Arthritis Kidney stone Historical No qualifying data Medications No active medications Allergies No Known Allergies Social History Tobacco - Denies Tobacco Use, 03/05/2021 Former smoker, quit more than 30 days ago Tobacco Use:., 03/25/[address] [facility] Comment on above: Result Comment: Elec tronically Signed By: Nathalia Wynn MD\.br\Date and Time Signed: 03/25/21 12:31 EST\.br\Electronically Co-Signed By: Debbie Miranda\.br\Date and Time Co-Signed: 03/25/21 12:13 EST Lab Reportson 03-09-2021 Lab Reports [id number] 91#1.00CD:[address] [facility] RAD - CT Reporton 03-09-2021 RAD - CT Report [id number] D3#1.00CD:[address] [facility] RAD - Ultrasound Reporton RAD - Ultrasound Report [id number] 88#1.00CD:[address] [facility] Insurance Correspondence Off iceon 03-05-2021 Insurance Correspondence Office [id number] 38#1.00CD:[address] [facility] Operative Reporton Operative Report [id number] 25#1.00CD:[address] [facility] CBC AUTO DIFFon 03-03-2021 BASO # 0.0 103/ul Normal 0.0-0.1 [facility] Comment on above: Performed By: #### B LDCX2 #### [facility] [address] [place] [address] Dr. Liat Bosch Basophils/100 WBC (Bld) 0.2 % Normal 0.2-2.0 [facility] Comment on above: Performed By: #### B LDCX2 #### [facility] [address] [place] [address] Dr. Liat Bosch EO # 0.1 103/ul Normal 0.0-0.7 [facility] Comment on above: Performed By: #### B LDCX2 #### [facility] [address] [place] [address] Dr. Liat Bosch Eosinophils/100 WBC (Bld) 1.1 % Normal 0.9-7.0 [facility] Comment on above: Performed By: #### B LDCX2 #### [facility] [address] [place] [address] Dr. Liat Bosch Erythrocyte distribution width (RBC) [Ratio] 19.3 % Critically high 11.0-15.0 [facility] Comment on above: Performed By: #### B LDCX2 #### [facility] [address] [place] [address] Dr. Liat Bosch Hematocrit (Bld) [Volume fraction] 30.3 % Critically low 36.0-48.0 [facility] Comment on above: Performed By: #### B LDCX2 #### [facility] [address] [place] [address] Dr. Liat Bosch Hemoglobin (Bld) [Mass/Vol] 9.3 g/dL Critically low 12.0-16.0 [facility] Comment on above: Performed By: #### B LDCX2 #### [facility] [address] [place] [address] Dr. Liat Bosch IG # 0.11 10e3/ul Critically high 0.00-0.03 [facility] Comment on above: Performed By: #### B LDCX2 #### [facility] [address] [place] [address] Dr. Liat Bosch IG % 0.9 % Critically high 0.0-0.5 [facility] Comment on above: Performed By: #### B LDCX2 #### [facility] [address] [place] [address] Dr. Liat Bosch LYMPH # 2.1 103/ul Normal 1.2-3.8 [facility] Comment on above: Performed By: #### B LDCX2 #### [facility] [address] [place] [address] Dr. Liat Bosch Lymphocytes/100 WBC (Bld) 17.0 % Critically low 20.5-60.0 [facility] Comment on above: Performed By: #### B LDCX2 #### [facility] [address] [place] [address] Dr. Liat Bosch MANUAL DIFF REQ NO Normal [facility] Comment on above: Performed By: #### B LDCX2 #### [facility] [address] [place] [address] Dr. Liat Bosch MCH (RBC) [Entitic mass] 28.1 pg Normal 26.7-34.0 [facility] Comment on above: Performed By: #### B LDCX2 #### [facility] [address] [place] [address] Dr. Liat Bosch MCHC (RBC) [Mass/Vol] 30.7 g/dL Normal 29.9-35.2 [facility] Comment on above: Performed By: #### B LDCX2 #### [facility] [address] [place] [address] Dr. Liat Bosch MCV (RBC) [Entitic vol] 91.5 fL Normal 81.0-99.0 [facility] Comment on above: Performed By: #### B LDCX2 #### [facility] [address] [place] [address] Dr. Liat Bosch MONO # 1.0 103/ul Critically high 0.3-0.8 [facility] Comment on above: Performed By: #### B LDCX2 #### [facility] [address] [place], [place] [address] Dr. Liat Bosch Monocytes/100 WBC (Bld) 8.5 % Normal 1.7-12.0 [facility] Comment on above: Performed By: #### B LDCX2 #### [facility] [address] [place] [address] Dr. Liat Bosch NEUT # 8.8 103/ul Critically high 1.4-6.5 [facility] Comment on above: Performed By: #### B LDCX2 #### [facility] [address] [place] [address] Dr. Liat Bosch Neutrophils/100 WBC (Bld) 72.3 % Normal 43.0-75.0 [facility] Comment on above: Performed By: #### B LDCX2 #### [facility] [address] [place] [address] Dr. Liat Bosch Platelet mean volume (Bld) [Entitic vol] 8.9 fL Critically low 9.5-13.5 [facility] Comment on above: Performed By: #### B LDCX2 #### [facility] [address] [place] [address] Dr. Liat Bosch PLT 339 103/ul Normal 150-450 [facility] Comment on above: Performed By: #### B LDCX2 #### [facility] [address] [place] [address] Dr. Liat Bosch RBC 3.31 106/ul Critically low 4.20-5.40 [facility] Comment on above: Performed By: #### B LDCX2 #### [facility] [address] [place] [address] Dr. Liat Bosch WBC 12.2 103/ul Critically high 4.0-11.0 [facility] Comment on above: Performed By: #### B LDCX2 #### [facility] [address] [place] [address] ABD/PELVIS WO CONon [...] the late stage of . Normal [facility] PROF CHEM 8 (BAS METB)on Anion gap [Moles/Vol] 14.7 mmol/L Normal [facility] Comment on above: Performed By: #### T HCCONF #### [facility] [address] [place] [address] Dr. Liat Bosch Calcium [Mass/Vol] 8.1 mg/dL Critically low 8.4-10.2 [facility] Comment on above: Performed By: #### T HCCONF #### [facility] [address] [place] [address] Dr. Liat Bosch Chloride [Moles/Vol] 106 mmol/L Normal 98-107 [facility] Comment on above: Performed By: #### T HCCONF #### [facility] [address] [place] [address] Dr. Liat Bosch CO2 [Moles/Vol] 21.2 mmol/L Critically low 22.0-30.0 [facility] Comment on above: Performed By: #### T HCCONF #### [facility] [address] [address] [address] Liat Bosch Creatinine [Mass/Vol] 0.75 mg/dL Normal 0.52-1.04 [facility] Comment on above: Performed By: #### T HCCONF #### [facility] [address] [address] [address] Liat Bosch EGFR-AF TURKS AND CAICOS ISLANDER >60 Normal >=60 [facility] Comment on above: Performed By: #### T HCCONF #### [facility] [address] [place] [address] Dr. Liat Bosch EGFR-NON AF TURKS AND CAICOS ISLANDER >60 Normal >=60 [facility] Comment on above: Performed By: #### T HCCONF #### [facility] [address] [address] [address] Liat Bosch Glucose [Mass/Vol] 96 mg/dL Normal 74-106 [facility] Comment on above: Performed By: #### T HCCONF #### [facility] [address] [address] [address] Liat Bosch Potassium [Moles/Vol] 3.9 mmol/L Normal 3.4-5.0 [facility] Comment on above: Performed By: #### T HCCONF #### [facility] [address] [address] [address] Liat Bosch Sodium [Moles/Vol] 138 mmol/L Normal 137-145 [facility] Comment on above: Performed By: #### T HCCONF #### [facility] [address] [address] [address] Liat Bosch Urea nitrogen [Mass/Vol] 5.0 mg/dL Critically low 7.0-17.0 [facility] Comment on above: Performed By: #### T HCCONF #### [facility] [address] [place] [address] Dr. Liat Bosch Urea nitrogen/Creatinine [Mass ratio] 6.7 mg/mg Normal [facility] Comment on above: Performed By: #### T HCCONF #### [facility] [address] [place] [address] Dr. Liat Bosch US KIDNEYSon 03-03-2021 US [...] VERN TAMAYO Date: 2021-03-03 08:10 Normal [facility] CULTURE URINEon 03-02-2021 CULTURE URINE Culture Observations: MODERATE GROWTH OF MIXED GENITAL BRAYDEN. NO POTENTIAL PATHOGENS SEEN. Normal [facility] Comment on above: Performed By: #### U RCX #### [facility] [address] [place] [address] Dr. Liat Bosch UA (CLEAN/CATCH) STRIKE OPERATIONS OFFICER/MICRO I F IND.on 03-02-2021 Bilirubin Ql (U) Negative Normal NEGATIVE [facility] Comment on above: Performed By: #### U RCX #### [facility] [address] [place] [address] Dr. Liat Bosch Clarity (U) CLEAR Normal CLEAR [facility] Comment on above: Performed By: #### U RCX #### [facility] [address] [place] [address] Dr. Liat Bosch Color (U) LT. YELLOW Normal YELLOW [facility] Comment on above: Performed By: #### U RCX #### [facility] [address] [address] [address] Liat Bosch Glucose Ql (U) Negative Normal NEGATIVE [facility] Comment on above: Performed By: #### U RCX #### [facility] [address] [address] [address] Liat Bosch Hemoglobin Ql (U) LARGE Abnormal NEGATIVE The [facility] Comment on above: Performed By: #### U RCX #### [facility] [address] [address] [address] Liat Bosch Ketones Ql (U) TRACE Abnormal NEGATIVE The [facility] Comment on above: Performed By: #### U RCX #### [facility] [address] [address] [address] Liat Bosch LEUKOCYTES MODERATE Abnormal NEGATIVE [facility] Comment on above: Performed By: #### U RCX #### [facility] [address] [address] [address] Liat Bosch Nitrite Ql (U) Negative Normal NEGATIVE The [facility] Comment on above: Performed By: #### U RCX #### [facility] [address] [address] [address] Liat Bosch pH (U) 6.5 [pH] Normal 5-9 [facility] Comment on above: Performed By: #### U RCX #### [facility] [address] [address] [address] Liat Bosch SPEC GRAVITY 1.025 Normal 1.005-<=1.025 The [facility] Comment on above: Performed By: #### U RCX #### [facility] [address] [address] [address] Liat Bosch UA PROTEIN TRACE Normal NEGATIVE/ TRACE The [facility] Comment on above: Performed By: #### U RCX #### [facility] [address] [address] [address] Liat Bosch UR MICRO IND INDICATED Normal The [facility] Comment on above: Performed By: #### U RCX #### [facility] [address] [address] [address] Liat Bosch Urobilinogen Qn (U) 0.2 {Elia'U}/dL Normal 0.2 - 1. 0 The [facility] Comment on above: Performed By: #### U RCX #### [facility] [address] [address] [address] Liat Bosch URINE MICROSCOPIC ONLYon BACTERIA SMALL Abnormal NONE SEEN The [facility] Comment on above: Performed By: #### U RCX #### [facility] [address] [address] [address] Liat Bosch Bacteria identified Cx Nom (U) INDICATED Normal The [facility] Comment on above: Performed By: #### U RCX #### [facility] [address] [place] [address] Dr. Liat Bosch CAST NONE SEEN Normal NONE SEEN The [facility] Comment on above: Performed By: #### U RCX #### [facility] [address] [address] [address] Liat Bosch Crystals LM Nom (Urine sed) NONE SEEN Normal NONE SEEN The [facility] Comment on above: Performed By: #### U RCX #### [facility] [address] [place] [address] Dr. Liat Bosch Epithelial cells LM Ql (Urine sed) FEW Abnormal NONE SEEN /RARE The [facility] Comment on above: Performed By: #### U RCX #### [facility] [address] [address] [address] Liat Bosch MUCOUS TRACE Abnormal NONE SEEN The [facility] Comment on above: Performed By: #### U RCX #### [facility] [address] [place] [address] Dr. Liat Bosch RBC 5-10 Abnormal 0-2 The [facility] Comment on above: Performed By: #### U RCX #### [facility] [address] [place] [address] Dr. Liat Bosch WBC 10-20 Abnormal NONE SEEN The [facility] Comment on above: Performed By: #### U RCX #### [facility] [address] [place] [address] Dr. Liat Bosch PREG GROWTHon 03-02-2021 US PREG GROWTH EXAMINATION: [...] EFW: 6 pounds, 2 ounces, 45% FL/AC: [id number] FL/BPD: 0.090826 HC/AC: 1.196419 GESTATIONAL AGE: Age by EDC: 34 weeks 2 days ROXANNE by EDC: 04/11/2021 Age by US: 36 weeks 1 day ROXANNE by US: 03/29/2021 IMPRESSION: Normal interval growth Electronically authenticated by: VERN TAMAYO Date: 2021-03-02 09:45 Normal [facility] GLUCOSE - 1HRon 02-05-2021 Glucose [Mass/Vol] 132 mg/dL Critically high 74-106 [facility] Comment on above: Performed By: #### U RCX #### [facility] [address] [place] [address] Dr. Liat Bosch HEMOGRAM AND PLATELon 2020 Hematocrit (Bld) [Volume fraction] 27.6 % Critically low 36.0-48.0 [facility] Comment on above: Performed By: #### T HCCONF #### [facility] [address] [address] [address] Liat Bosch Hemoglobin (Bld) [Mass/Vol] 8.7 g/dL Critically low 12.0-16.0 [facility] Comment on above: Performed By: #### T HCCONF #### [facility] [address] [place] [address] Dr. Liat Bosch MCH (RBC) [Entitic mass] 26.9 pg Normal 26.7-34.0 [facility] Comment on above: Performed By: #### T HCCONF #### [facility] [address] [address] [address] Liat Bosch MCHC (RBC) [Mass/Vol] 31.5 g/dL Normal 29.9-35.2 [facility] Comment on above: Performed By: #### T HCCONF #### [facility] [address] [address] [address] Liat Bosch MCV (RBC) [Entitic vol] 85.2 fL Normal 81.0-99.0 [facility] Comment on above: Performed By: #### T HCCONF #### [facility] [address] [place] [address] Dr. Liat Bosch PLT 413 103/ul Normal 150-450 [facility] Comment on above: Performed By: #### T HCCONF #### [facility] [address] [place] [address] Dr. Liat Bosch RBC 3.24 106/ul Critically low 4.20-5.40 [facility] Comment on above: Performed By: #### T HCCONF #### [facility] [address] [place] [address] Dr. Liat Bosch WBC 9.2 103/ul Normal 4.0-11.0 [facility] Comment on above: Performed By: #### T HCCONF #### [facility] [address] [place] [address] Dr. Liat Bosch US PREG ANATOMY SINGLEon [...] by ultrasound, 82nd percentile by expected) FL/AC: [id number] FL/BPD: 0.677858 HC/AC: 1.384102 GESTATIONAL AGE: Age by EDC: 30 weeks, [...] JANE WHALEN Date: 2021-02-05 11:55 Normal The [facility] Covid-19 PCR (CVDTB)on 12-05 SARS-CoV-2 (COVID-19) RNA ISABEL+probe Ql (Unsp spec) Not detected Normal NOT DETECTED The [facility] Comment on above: Result Comment: When diagnostic testing is negative, the possibility of a false negative should be considered in the context of a patient's recent exposures and the presence of clinical signs and symptoms consistent with SARS-CoV-2. Performed By: #### N BOX #### [facility] [address] [place] [address] Nakul Martines HEP B SURFACE ANTIGEN SCREEN on 10-12-2020 HBsAg Screen Negative Normal Negative The [facility] Comment on above: Performed By: #### T HCCONF #### [facility] [address] [place] [address] Dr. Liat Bosch HEPATITIS C VIRUS AB W/ REFL EX QUANTon 10-12-2020 HCV AB <0.1 Normal 0.0-0.9 [facility] Comment on above: Performed By: #### H CVPCRR #### [facility] [address] [place] [address] Nakul Martines Interpretation: Comment Normal [facility] Comment on above: Result Comment: Nega tive Not infected with HCV, unless recent infection is suspected or other evidence exists to indicate HCV infection. Performed By: #### H CVPCRR #### [facility] [address] [place] [address] Nakul Martines HIV 1 AND 2 WITH REFLEXon HIV Screen 4th Generation wRfx Non-Reactive Normal Non Reactive The [facility] Comment on above: Performed By: #### U RCX #### [facility] [address] [place] [address] Dr. Liat Bosch RPR QUANTon 10-12-2020 Rapid Plasma Reagin, Quant Non-Reactive Normal NonRea<1:1 [facility] Comment on above: Performed By: #### B LDCX2 #### [facility] [address] [place] [address] Dr. Liat Bosch RUBELLA AB IGGon 10-12-2020 Rubella Antibodies, IgG 5.88 index Normal Immune >0.99 [facility] Comment on above: Result Comment: Non- immune <0.90 Equivocal 0.90 - 0.99 Immune >0.99 Performed By: #### T HCCONF #### [facility] [address] [place] [address] Dr. Liat Bosch CBC AUTO DIFFon 10-11-2020 BASO # 0.0 103/ul Normal 0.0-0.1 [facility] Comment on above: Performed By: #### B LDCX2 #### [facility] [address] [place] [address] Dr. Liat Bosch Basophils/100 WBC (Bld) 0.2 % Normal 0.2-2.0 [facility] Comment on above: Performed By: #### B LDCX2 #### [facility] [address] [place] [address] Dr. Liat Bosch EO # 0.2 103/ul Normal 0.0-0.7 [facility] Comment on above: Performed By: #### B LDCX2 #### [facility] [address] [place] [address] Dr. Liat Bosch Eosinophils/100 WBC (Bld) 2.9 % Normal 0.9-7.0 [facility] Comment on above: Performed By: #### B LDCX2 #### [facility] [address] [place] [address] Dr. Liat Bosch Erythrocyte distribution width (RBC) [Ratio] 13.6 % Normal 11.0-15.0 [facility] Comment on above: Performed By: #### B LDCX2 #### [facility] [address] [place] [address] Dr. Liat Bosch Hematocrit (Bld) [Volume fraction] 37.3 % Normal 36.0-48.0 [facility] Comment on above: Performed By: #### B LDCX2 #### [facility] [address] [place] [address] Dr. Liat Bosch Hemoglobin (Bld) [Mass/Vol] 12.6 g/dL Normal 12.0-16.0 [facility] Comment on above: Performed By: #### B LDCX2 #### [facility] [address] [place] [address] Dr. Liat Bosch IG # 0.03 10e3/ul Normal 0.00-0.03 [facility] Comment on above: Performed By: #### B LDCX2 #### [facility] [address] [place] [address] Dr. Liat Bosch IG % 0.4 % Normal 0.0-0.5 [facility] Comment on above: Performed By: #### B LDCX2 #### [facility] [address] [place] [address] Dr. Liat Bosch LYMPH # 2.7 103/ul Normal 1.2-3.8 [facility] Comment on above: Performed By: #### B LDCX2 #### [facility] [address] [place] [address] Dr. Liat Bosch Lymphocytes/100 WBC (Bld) 33.2 % Normal 20.5-60.0 [facility] Comment on above: Performed By: #### B LDCX2 #### [facility] [address] [place] [address] Dr. Liat Bosch MANUAL DIFF REQ NO Normal [facility] Comment on above: Performed By: #### B LDCX2 #### [facility] [address] [place] [address] Dr. Liat Bosch MCH (RBC) [Entitic mass] 29.2 pg Normal 26.7-34.0 [facility] Comment on above: Performed By: #### B LDCX2 #### [facility] [address] [place] [address] Dr. Liat Bosch MCHC (RBC) [Mass/Vol] 33.8 g/dL Normal 29.9-35.2 [facility] Comment on above: Performed By: #### B LDCX2 #### [facility] [address] [place] [address] Dr. Liat Bosch MCV (RBC) [Entitic vol] 86.5 fL Normal 81.0-99.0 [facility] Comment on above: Performed By: #### B LDCX2 #### [facility] [address] [place] [address] Dr. Liat Bosch MONO # 0.3 103/ul Normal 0.3-0.8 [facility] Comment on above: Performed By: #### B LDCX2 #### [facility] [address] [place] [address] Dr. Liat Bocsh Monocytes/100 WBC (Bld) 4.0 % Normal 1.7-12.0 [facility] Comment on above: Performed By: #### B LDCX2 #### [facility] [address] [place] [address] Dr. Liat Bosch NEUT # 4.8 103/ul Normal 1.4-6.5 [facility] Comment on above: Performed By: #### B LDCX2 #### [facility] [address] [place] [address] Dr. Liat Bosch Neutrophils/100 WBC (Bld) 59.3 % Normal 43.0-75.0 [facility] Comment on above: Performed By: #### B LDCX2 #### [facility] [address] [address] [address] Liat Bosch Platelet mean volume (Bld) [Entitic vol] 9.0 fL Critically low 9.5-13.5 [facility] Comment on above: Performed By: #### B LDCX2 #### [facility] [address] [address] [address] Liat Bosch PLT 385 103/ul Normal 150-450 [facility] Comment on above: Performed By: #### B LDCX2 #### [facility] [address] [address] [address] Liat Bosch RBC 4.31 106/ul Normal 4.20-5.40 [facility] Comment on above: Performed By: #### B LDCX2 #### [facility] [address] [address] [address] Liat Bosch WBC 8.2 103/ul Normal 4.0-11.0 [facility] Comment on above: Performed By: #### B LDCX2 #### [facility] [address] [address] [address] Liat Bosch CULTURE URINEon 10-11-2020 CULTURE URINE Culture Observations: HEAVY GROWTH OF MIXED GENITAL BRAYDEN. NO POTENTIAL PATHOGENS SEEN. Normal [facility] Comment on above: Performed By: #### U RCX #### [facility] [address] [address] Nakul Martines GLYCOHEMOGLOBIN A1Con 2020 ADA RECOMMENDATION ADA THERAPEUTIC TARGET 6.0 - 7.0 ACTION SUGGESTED > 7.0 Normal [facility] Comment on above: Performed By: #### B LDCX2 #### [facility] [address] [place] [address] Dr. Liat Bosch Glucose [Mass/Vol] 100 mg/dL Normal [facility] Comment on above: Performed By: #### B LDCX2 #### [facility] [address] [address] [address] Liat Bosch HbA1c (Bld) [Mass fraction] 5.1 % Normal <=6.0 [facility] Comment on above: Performed By: #### B LDCX2 #### [facility] [address] [address] [address] Liat CISNEROS BOX TEST PT SEND OUTo n 10-11-2020 SENT TO REF LAB nelly alegria Normal Th [facility] Comment on above: Performed By: #### N BOX #### [facility] [address] [id number] Nakul Schmidten TYPE AND SCREENon 10-11-2020 TYPE AND SCREEN Negative Normal [facility] Comment on above: Performed By: #### N BOX #### [facility] [address] [id number] Nakul Martines US PREG TVon 10-07-2020 US [...] JANE WHALEN Date: 2020-10-07 15:46 Normal [facility] Vital Signs Date Time Vital Sign Value Performing Clinician Deei bal 08-22-2021 08:00-0400 Body temperature 98.6 [degF] Darryl Dunn MD Work Phone: [employer] 08-22-2021 08:00-0400 Respiratory rate 18 /min Darryl Dunn MD [facility] Phone[facility] 08-22-2021 07:00-0400 Diastolic blood pressure 78 mm[Hg] Darryl Dunn MD Work Phone: [facility] [employer] 08-22-2021 07:00-0400 Heart rate 55 /min Darryl Dunn MD Work Phone: [facility] [employer] 08-22-2021 07:00-0400 SaO2% (BldA) [Mass fraction] 94 % Darryl Dunn MD Work Phone: [facility] 08-22-2021 07:00-0400 Systolic blood pressure 121 mm[Hg] Darryl Dunn MD Work Phone: [facility] 08-21-2021 18:46-0400 Body height 160 cm Darryl Dunn MD Work Phone: [facility] 08-21-2021 18:46-0400 Body mass index (BMI) [Ratio] 27.99 kg/m2 Darryl Dunn MD Work Phone: [facility] 08-21-2021 18:46-0400 Body weight 71.67 kg Darryl Dunn MD Work Phone: [facility] 08-17-2021 11:22-0400 Body temperature 97.9 [degF] Darryl Dunn MD Work Phone: [facility] 08-17-2021 11:22-0400 Diastolic blood pressure 76 mm[Hg] Darryl Dunn MD Work Phone: [facility] 08-17-2021 11:22-0400 Heart rate 91 /min Darryl Dunn MD Work Phone: [facility] 08-17-2021 11:22-0400 Respiratory rate 18 /min Darryl Dunn MD Work Phone: [facility] 08-17-2021 11:22-0400 SaO2% (BldA) [Mass fraction] 97 % Darryl Dunn MD Work Phone: [facility] 08-17-2021 11:22-0400 Systolic blood pressure 118 mm[Hg] Darryl Dunn MD [facility] 08-15-2021 13:25-0400 Body height 160 cm Darryl Dunn MD Work [facility] 08-15-2021 13:25-0400 Body mass index (BMI) [Ratio] 27.99 kg/m2 Darryl Dunn MD Work Phone[facility] 08-15-2021 13:25-0400 Body weight 71.67 kg Darryl Dunn MD Work Phone: [facility] Encounters Encounter Date Encounter Type Care Provider Facility Start: 05-31-2023 End: 05-31-2023 ambulatory MASON NATHALIA Not Available Start: 04-28-2023 End: 04-28-2023 ambulatory MASON NATHALIA Not Available Start: 08-21-2021 End: 08-22-2021 Evaluation and management of inpatient [facility] Start: 08-21-2021 End: 08-22-2021 Evaluation and management of inpatient Darryl Dunn MD Work Phone: [facility] Renal//Med Surg Comment on above: Right nephrolithiasi s (Primary Dx); Right kidney stone Start: 08-15-2021 End: 08-17-2021 Evaluation and management of inpatient [facility] Start: 08-15-2021 End: 08-17-2021 Evaluation and management of inpatient Darryl Dunn MD Work Phone: [facility] Renal//Med Surg Comment on above: Hydronephrosis with urinary obstruction due to renal calculus (Primary Dx); Tachycardia Start: 08-15-2021 End: 08-15-[address] HANNA GREEN Facility:[facility] Start: 08-12-2021 End: 08-12-2021 ambulatory LANCE CANAS Facility:[facility] Start: 07-13-2021 End: 07-13-2021 Patient encounter procedure Wiliam Thakur Jr. [facility] Start: 04-24-2021 End: 04-25-[address] WILIAM THAKUR JR Facility:[facility] Start: 04-08-[address] HANNA Sanchez lity:[facility] Start: 04-04-2021 End: 04-06-2021 Evaluation and management of inpatient DR HANNA GREEN Facility:[facility] Start: 03-30-2021 End: 03-30-[address] HANNA GREEN Facility:[facility] Start: 03-25-2021 End: 03-26-2021 ambulatory NATHALIA WYNN . Facility:[facility] Start: 03-07-[address] HANNA Sanchez lity:[facility] Start: 03-02-2021 End: 03-04-[address] HANNA GREEN Facility:[facility] Start: 03-02-2021 End: 03-03-[address] HANNA GREEN Facility:[facility] Start: 02-11-2021 End: 02-18-[address] HANNA GREEN Facility:[facility] Start: 02-05-2021 End: 02-06-[address] HANNA GREEN Facility:[facility] Start: 02-05-2021 End: 02-06-[address] HANNA GREEN Facility:[facility] Start: 12-14-2020 End: 12-14-[address] LARISA REAL Facility:[facility] Start: 12-04-[address] HANNA Sanchez lity:[facility] Start: 10-11-2020 End: 10-12-[address] [...] Start: 08-21-2021 Urine test visual color cmprsn meths Darryl Dunn MD Work Phone: Start: 08-17-2021 Assay of troponin quantitative Pam Monaco MD Work Phone: Start: 08-17-2021 Assay of troponin quantitative Pam Monaco MD Work Phone: Start: 08-17-2021 Ecg routine ecg w/le ast 12 lds w/i&r Pam Monaco MD Work Phone: Start: 08-17-2021 Assay of magnesium Ban Joshua MD Work Phone: Start: 08-17-2021 BASIC [...] Influenza vaccination Flu vaccine (S adam Ended) [facility] [employer] Start: 08-24-2021 End: 02-16-2022 Echocardiogram complete Echocardiogram complete Echocardiography Routine Tachycardia Expected: 08/24/2021 (Approximate), Expires: 02/16/2022 [facility] [employer] Work Phone: Comment on above: Expected: 08/24/2021 (Approximate), Expires: 02/16/2022 Start: 10-17-2019 Screening for malign ant neoplasm of cervix Pap smear [facility] [employer] Start: 2017 DTaP/Tdap/Td vaccine (1 - Tdap) DTaP/Tdap/Td vaccine (1 - Tdap) [facility] Start: 2016 Hepatitis C screening Hepatitis C sc reen [facility] Start: 2014 Screening for Chlamy don trachomatis Chlamydia screen [facility] Start: 2013 HIV screening HIV screen [facility] Start: 2010 Depression Screen Depression Screen [facility] Start: 2009 HPV vaccine (1 - 2-d ose series) HPV vaccine (1 - 2-dose series) [facility] Start: 10-17-2003 COVID-19 Vaccine (1) COVID-19 Vaccin e (1) [facility] Start: 10-17-1999 Varicella vaccine (1 of 2 - 2-dose childhood series) Varicella vaccine (1 of 2 - 2-dose childhood series) [employer] Basic Metabolic Pane l w/ Reflex to MG Basic Metabolic Panel w/ Reflex to MG Lab Routine Daily until discontinued starting 08/16/2021, 2 completed [employer] Phone: Comment on above: Daily until disconti nued starting 08/16/2021, 2 completed Basic Metabolic Pane l w/ Reflex to MG Basic Metabolic Panel w/ Reflex to MG Lab Routine Daily until discontinued starting 08/22/2021, 1 completed [employer] Phone: Comment on above: Daily until disconti nued starting 08/22/2021, 1 completed CBC W Auto Different ial panel - Blood CBC with Auto Differential Lab Routine Daily until discontinued starting 08/16/2021, 2 completed [employer] Phone: Comment on above: Daily until disconti nued starting 08/16/2021, 2 completed CBC W Auto Different ial panel - Blood CBC with Auto Differential Lab Routine Daily until discontinued starting 08/22/2021, 1 completed [employer] Phone: Comment on above: Daily until disconti nued starting 08/22/2021, 1 completed Culture, Blood 1 Culture, Blood 1 Microbiology STAT 08/15/2021 3:25 PM EDT [employer] Phone: End: 08-21-2021 Culture, Urine [employer] Phone: Comment on above: One Time for 1 Occur rences starting 08/21/2021 until 08/21/2021 End: 08-17-2021 ECHO Complete 2D W Doppler W Color ECHO Complete 2D W Doppler W Color Echocardiography Routine One Time for 1 Occurrences starting 08/17/2021 until 08/17/2021 [employer] Phone: Comment on above: One Time for 1 Occur rences starting 08/17/2021 until 08/17/2021 Oxygen therapy [[facility] Data Set] Initiate Oxygen Therapy Protocol Respiratory Care Routine As Needed until discontinued starting 08/15/2021 [employer] Phone: Comment on above: As Needed until disc ontinued starting 08/15/2021 Oxygen therapy [[facility] Data Set] Initiate Oxygen Therapy Protocol Respiratory Care Routine As Needed until discontinued starting 08/21/2021 [employer] Phone: Comment on above: As Needed until disc ontinued starting 08/21/2021 End: 08-21-2021 Stone analysis [employer] Phone: Comment on above: One Time for 1 Occur rences starting 08/21/2021 until 08/21/2021 End: 08-17-2021 Troponin I.cardiac [Mass/volume] in Serum or Plasma Troponin Lab Timed Now Then Every 6hr for 3 Occurrences starting 08/17/2021 until 08/17/2021, 2 completed [employer] Phone: Comment on above: Now Then Every 6hr f or 3 Occurrences starting 08/17/2021 until 08/17/2021, 2 completed Payers Date Payer Category Payer Unknown [id number] 2.16.84 0.1.940093.3.579.2.593 1998 Unknown [id number] 2.16.84 0.1.975224.3.579.2.593 1998 Unknown [id number] 2.16.84 0.1.272856.3.579.2.593 1998 Unknown [id number] 2.16.84 0.1.096478.3.579.2.593 1998 Unknown [id number] 2.16.84 0.1.149339.3.579.2.593 1998 Unknown [id number] 2.16.84 0.1.183384.3.579.2.593 1998 Unknown [id number] 2.16.84 0.1.417003.3.579.2.593 1998 Unknown [id number] 2.16.84 0.1.705599.3.579.2.593 1998 Unknown [id number] 2.16.84 0.1.960515.3.579.2.593 1998 Unknown [id number] 2.16.84 0.1.688472.3.579.2.593 1998 Unknown [id number] 2.16.84 0.1.691845.3.579.2.593 1998 Unknown [id number] 2.16.84 0.1.283238.3.579.2.593 1998 Unknown [id number] 2.16.84 0.1.492895.3.579.2.593 1998 Unknown [id number] 2.16.84 0.1.230795.3.579.2.593 1998 Unknown [id number] 2.16.84 0.1.127484.3.579.2.593 1998 Unknown [id number] 2.16.84 0.1.100240.3.579.2.593 1998 Unknown [id number] 2.16.84 0.1.829464.3.579.2.593 1998 Unknown [id number] 2.16. 840.1.727946.3.579.2.175 1998 Unknown [id number] 2.16. 840.1.002761.3.579.2.175 1998 Unknown [id number] 2.16.84 0.1.235288.3.579.2.1259 1998 Unknown [id number] 2.16.84 0.1.261264.3.579.2.1259 1959 Unknown [id number] 1.2 .840.763874.1.13.239.2.7.3.321684.315 1959 Unknown [id number] 1959 Unknown [id number] Unknown [id number] 2.16.84 0.1.677702.3.579.2.593 Unknown [id number] 2.16.84 0.1.823775.3.579.2.593 Social History Date Type Detail Facility Start: 03-25-2021 Tobacco smoking status Ex-smoker (fi nding) [facility] Sex Assigned At Female [facility] Tobacco smoking stat NHIS Never smoked tobacco [facility] Start: 08-16-2021 End: 08-21-2021 Alcohol intake Current non-drinker of alcohol (finding) [employer] Phone: Start: 08-16-2021 End: 08-21-2021 Alcohol intake [employer] Phone: Start: 08-15-2021 History SDOH Alcohol Frequency 1 [employer] Phone: Start: 1998 Sex Assigned At Not on file B ON [employer] Phone: Start: 08-11-2021 End: 08-21-2021 Exposure to SARS-CoV-2 (event) Not sure [facility] Medical Equipment Procedure Code Equipment Code Equipment Origin al Text Equipment Identifier Dates Stent Uret 6fr L 26cm Percflx Hydr+ Dbl Pgtl Thrd 2 - [id number] Start: 08-21-2021 Clinical Notes 07-13-2021 to 08-22-2021 Kapil Lozada RN - 08/22/2021 11:46 AM Conrad Fonseca MD - 08/22/2021 8:08 AM EDTInstructionsInstructionsDamelissa Garza MD - 08/17/2021 9:49 AM EDT [...] % 08/21/21 2354 18 08/21/21 2324 18 08/21/21 2121 18 08/21/21 2051 18 08/21/21 2008 134/78 97.7 F (36.5 C) Oral 72 [...] after removal of nephrostomy tube with stent. Cirstian Fonseca MD 8:09 AM 08/22/2021 Associated attestation [...] Macario Adrian MD documented in this encounter [employer] Phone: 08-21-2021 Hospital Discharge instructions Pam Monaco [...] narcotics Please call attending physician or hospital vending machine operator with questions Call or Present [...] call with questions. documented in this encounter [employer] Phone: 08-17-2021 Hospital Discharge instructions Ke Joshua [...] weeks Please call attending physician or hospital vending machine operator with questions Call or Present to ED if fever (> 101F), intractable nausea/vomiting or pain, if incisions become red/swollen or drain pus/fluid, or if calves become red swollen and tender. Patient should follow up with Dr. Dunn, in 2 weeks. Call office to confirm appointment. documented in this encounter [facility] [employer] Phone: 08-17-2021 History of Present illness Narrative [...] 164, MG 1.7, k3.4, ca8.5, trop Kemp Design Cell Engineer Consult Note Today's Date: 08/17/2021 Patient Name: [...] LAST ECHO: None Labs: CBC: Recent Labs 08/16/2141208/17/21 0552 WBC 8.8 8.7 HGB 11.6* 10.3* HCT 34.7* 29.9* PLT 196 212 BMP: Recent Labs 08/16/2141208/17/21 0552 NA 138 138 K 3.2* 3.4* CO2 [...] Garza MD Internal Medicine Resident, PGY- 1 [facility]; [place], [place] 08/17/2021, 11:03 AM Images from the original note were not included. Raj Martinez Santacroce, Khan, Price, Juana Adrian Jr Urology Progress Note Subjective: AF BP [...] resident. (GC Modifier) documented in this encounter [facility] [employer] Phone: 08-16-2021 Note PROCEDURE: PERCUTANEOUS ANTEGRADE PYELOGRAM [...] the procedure including risks, benefits, and alternatives. Standish protocol was followed. The patient's flank was [...] lower pole infundibulum. IMPRESSION: Successful percutaneous 8 Honduran nephrostomy tube placement Interpreted by: Yulissa Turner MD Signed by: Yulissa Turner MD 08/16/21 Final result [facility] 08-16-2021 Note PROCEDURE: PERCUTANEOUS ANTEGRADE PYELOGRAM [...] the procedure including risks, benefits, and alternatives. Standish protocol was followed. The patient's flank was [...] terminates in the dilated lower pole infundibulum. [facility] RIS CONSOLIDATED 07-13-2021 Hospital Discharge instructions Patient Education 07/13/2021 07:36:16 Kidney Stones, Axun-pj-Hkxl Kidney Stones Kidney stones are rock-like masses [...] Follow these instructions at home: Medicines Take kypp-ban-pcdfdim and prescription medicines only as told by [...] 08/09/2008 Document Revised: 07/10/2019 Document Reviewed: 07/10/2019 [employer] Patient Education 2019 Alex [employer] Ani. Follow Up Care 07/03/2021 11:55:16 With:Blaze Nuno MD, SOPHIA Hopkins Address: [facility] [address], [place] [address]- When: Unknown [facility] Evaluation + Plan note No data available for this section [facility] Evaluation note Diagnosis Hydronephrosis- Primary Hydronephrosis with urinary obstruction due to renal calculus Tachycardia Tachycardia, unspecified documented in this encounter [employer] Phone: evaluation note* Diagnosis Right nephrolithiasis- Primary Right kidney stone Calculus of kidney Nephrolithiasis Calculus of kidney documented in this encounter [employer] Phone: reason for visit Narrative* Auth/Cert Specialty Diagnoses / Procedures Referred By Pertinorudolph Gravity Jack Referred To Contact Diagnoses Hydronephrosis hydronephrosis Darryl Dunn MD [address] [place] [address] [facility] [address] [place] [address] Referral ID Status Reason Start Date Expiration Date Visits Re quested Visits Authorized [id number] 1 1 [employer] Phone: reason for visit Narrative* Auth/Cert Specialty Diagnoses / Procedures Referred By Dallin campbell Referred To Contact Diagnoses Right kidney stone KIDNEY STONE Procedures DE PERCUT REMV KID STONE,2+ CM HOLMIUM LASER CYSTOSCOPY , URETEROSCOPY NEPHROLITHOTOMY PERCUTANEOUS, STENT EXCHANGE ( LITHOCLAST, C ARM) SHORT STAY Darryl Dunn MD [address] [place] [address] [facility] [employer] [address] [place] [address] Referral ID Status Reason Start Date Expiration Date Visits Re quested Visits Authorized [id number] 1 1 [employer] [facility] Work Phone: Reason for Referral Specialty Diagnoses / Procedures Referred By Dallin campbell Referred To Contact Cardiology Diagnoses Tachycardia Procedures Echocardiogram complete Ke Joshua MD [address] [address] Referral ID Status Reason Start Date Expiration Date Visits Re quested Visits Authorized Open 08/24/2021 08/24/2022 1 1 Advance Directives No Advanced Directives Records FoundDocuments on File Type Date Recorded Patient Operator Assistant I Cementing Expl anation ACP-Advance Directive ACP-Power of Collet Maker Latest Code Status on File Code Status [...] 0 08/17/2021 08/22/2021 traMADol (ULTRAM) 50 MG tabletIndications:[place] nephrosis with urinary obstruction due to renal [...] Banda RN) 0800 (Given - Provider: Saba Banda RN) 1029 (Given - Provider: Anahi Reinoso RN) [...] Midline or Central Line = 20 mL/lumen 2126 (Given - Provider: Vita Joyce RN) 0900 [...] BIPIN) 0227 (New Bag - Provider: Vita Joyce RN) PRN Medication Order 08/15/2021 08/16/2021 08/17/2021 0.9 [...] RN) 0226 (Given - Provider: Vita Joyce, RN)1349 (Given - Provider: Anahi Reinoso RN) fentaNYL [...] hour of each other unless specifically ordered. 2126 (Given - Provider: Vita Joyce RN) 1048 (Given - Provider: Saba Banda RN)1754 (Given - Provider: Saba Banda RN) iopamidol [...] Mary Diaz RN)0731 (Given - Provider: Kapil Lozada RN)1300 (Due)1900 (Due) ampicillin 2000 mg ivpb mini bag (COMPLETED) 2,000 mg, IntraVENous, FARMWORKER PULLET FARM TO O.R., 1 dose, On Tue08/21/21 at 1445, Antimicrobial Indications: Surgical Prophylaxis 1536 (New Bag - Provider: Latha Beverly, [place] - LIBRARY MEDIA TECHNICIAN) ciprofloxacin (CIPRO) IVPB 400 mg 400 mg, [...] 200 mg IVPB (COMPLETED) 200 mg, IntraVENous, FARMWORKER PULLET FARM TO O.R., 1 dose, On Tue08/21/21 at 1445, Antimicrobial Indications: Surgical Prophylaxis 1512 (Given - Provider: Latha Beverly, LITIGATION MANAGER - LIBRARY MEDIA TECHNICIAN) fluconazole (DIFLUCAN) 200 mg IVPB (COMPLETED) 200 mg, IntraVENous, ONCE, 1 dose, On Tue08/22/21 at 0000, Antimicrobial Indications: Surgical Prophylaxis 0023 (New Bag - Provider: Mary Diaz RN)0027 (Rate/Dose Verify - Provider: Mary Diaz RN)0123 (Stopped - Provider: Mary Diaz RN) gentamicin (GARAMYCIN) IVPB 120 mg (COMPLETED) 120 mg, IntraVENous, FARMWORKER PULLET FARM TO O.R., 1 dose, On Tue08/21/21 at 1445, Antimicrobial Indications: Surgical Prophylaxis 1440 (Given - Provider: Vern Rebolledo APRN - LIBRARY MEDIA TECHNICIAN) sodium chloride flush 0.9 % injection 5-40 [...] Diaz RN)0557 (Rate/Dose Verify - Provider: Mary Diaz, BIPIN)0847 (New Bag - Provider: Kapil Lozada, RN)1015 (Stopped - Provider: Kapil Lozada, BIPIN) PRN Medication Order 08/20/2021 08/21/2021 08/22/2021 0.9 [...] PACU only 1740 (Given - Provider: Brandy Hdez, BIPIN)1750 (Given - Provider: Brandy Hdez RN) HYDROmorphone [...] Diaz RN) 1046 (Given - Provider: Kapil Lozada RN) oxyCODONE (ROXICODONE) immediate release tablet 5 mg(Linked Group 2) 5 mg, Oral, EVERY 6 HOURS PRN, Starting on Tue08/21/21 at 1840, Until Discontinued, Pain Moderate (4-6) 2050 (See Alternative - Provider: Mary Diaz RN) 1046 (See Alternative - Provider: Kapil Lozada RN) phenazopyridine (PYRIDIUM) tablet 100 mg 100 mg, [...] Care Teams (unrecognized sec tion and content) Wheelabrator Operator Relationship Specialty Start Date End Date Jelani Sow MD [address] [place] [id number] PCP - General Family Medicine 05/17/14 Wheelabrator Operator Relationship Specialty Start Date End Date Ruby Burrell [address] [place] [id number] PCP - General Nurse Practitioner 08/21/21 INFORMATION SOURCE (unrecogn ized section and content) DATE CREATED AUTHOR 08/21/2021 [facility] DATE CREATED AUTHOR AUTHOR'S ORGANIZ ATION 08/26/2021 [facility] DATE CREATED AUTHOR AUTHOR'S ORGANIZ ATION 09/25/2021 [facility] DATE CREATED AUTHOR AUTHOR'S ORGANIZ ATION 09/29/2021 [facility] DATE CREATED AUTHOR AUTHOR'S ORGANIZ ATION 06/01/2023 [facility] Specialists [facility] FOR RECORDS PERTAINING TO PATIENTS WHO ARE [...] BE BASED ON THE PRIMARY CLINICAL RECORDS. [employer] [facility]. provides no warranty or guarantee of the accuracy or completeness of information in this document.
[2023-09-22] MEDS: 0.9 % SODIUM CHLORIDE 1,000 ML 125 ML IV (12:00)
[2023-09-22 13:11] LABS: Basophils Percent Auto 0.4 % (0.2-2.0); Eosinophils Absolute Auto 0.1 10^3/uL (0.0-0.7); Eosinophils Percent Auto 1.2 % (0.9-7.0); Hematocrit 31.6 % (36.0-48.0); Hemoglobin 10.3 g/dL (12.0-16.0); Immature Granulocytes Abs Auto 0.03 10^3/uL (0.00-0.03); Immature Granulocytes Pct Auto 0.4 % (0.0-0.5); Lymphocytes Absolute Auto 2.5 10^3/uL (1.2-3.8); Lymphocytes Percent Auto 29.7 % (20.5-60.0); Mean Corpuscular HGB Conc 32.6 g/dL (29.9-35.2); Mean Corpuscular Hemoglobin 28.5 pg (26.7-34.0); Mean Corpuscular Volume 87.5 fL (81.0-99.0); Monocytes Absolute Auto 0.6 10^3/uL (0.3-0.8); Monocytes Percent Auto 6.9 % (1.7-12.0); Neutrophils Absolute Auto 5.2 10^3/uL (1.4-6.5); Neutrophils Percent Auto 61.4 % (43.0-75.0); Platelet Count 381 10^3/uL (150-450); Red Blood Count 3.61 10^6/uL (4.20-5.40); Red Cell Distribution Width 13.4 % (11.0-15.0); White Blood Count 8.4 10^3/uL (4.0-11.0)
[2023-09-22 13:57] LABS: Amphetamine Screen Urine NEGATIVE (NEGATIVE); Barbiturates Screen Urine NEGATIVE (NEGATIVE); Benzodiazepines Screen Urine NEGATIVE (NEGATIVE); Buprenorphine Screen Urine NEGATIVE (NEGATIVE); Cannabinoid Screen Urine POSITIVE (NEGATIVE); Cocaine Screen Urine NEGATIVE (NEGATIVE); Methadone Screen Urine NEGATIVE (NEGATIVE); Methamphetamines Screen Urine NEGATIVE (NEGATIVE); Opiate Screen Urine NEGATIVE (NEGATIVE); Oxycodone Screen Urine NEGATIVE (NEGATIVE); Phencyclidine Screen Urine NEGATIVE (NEGATIVE); Tricyclic Antidepressant Urine NEGATIVE (NEGATIVE)
[2023-09-22] MEDS: OXYTOCIN/0.9 % SODIUM CHLORIDE 10 UNITS/500 ML PLAST..BAG 6 UNIT IV (14:13)
[2023-09-22] MEDS: ROPIVACAINE HCL/PF 400 MG/200 ML PREMIX EPIDURAL (21:02)
[2023-09-23] VITALS (91 sets, daily range): BP systolic 92–132; BP diastolic 44–78; PULSE 80–146; TEMP 36.2–37.8; O2SAT 92–100
[2023-09-23] MEDS: OXYTOCIN/0.9 % SODIUM CHLORIDE 10 UNITS/500 ML PLAST..BAG 6 UNIT IV (02:41)
[2023-09-23] MEDS: 0.9 % SODIUM CHLORIDE 1,000 ML 125 ML IV ×2 (03:23→14:37)
[2023-09-23] MEDS: AMPICILLIN SODIUM 2,000 MG in 0.9 % SODIUM CHLORIDE 100 ML 200 MG IV (03:23)
[2023-09-23] MEDS: FAMOTIDINE/PF 20 MG/2 ML VIAL IV (04:32)
[2023-09-23] MEDS: METOCLOPRAMIDE HCL 10 MG/2 ML VIAL IVP (04:32)
[2023-09-23] MEDS: CITRIC ACID/SODIUM CITRATE 30 ML SOLUTION ORACIT SHOHL'S SOLN PO (04:32)
[2023-09-23] MEDS: CEFAZOLIN SODIUM/DEXTROSE,ISO 2 GM/50 ML PIGGYBACK IV ×2 (04:33→11:43)
--- NOTE | 2023-09-23 04:43 | PM.OBHP ---
OB - H&P: HPI History of Present Illness Chief complaint: RULE OUT LABOR : 4 Para: 3 Gestational age based on last menstrual period: 38 5/7wks Comments: 22 yo at 38 4/7wks presents to l&d in active labor, gbbs neg History of Present Dating criteria: LMP confirmed by 1st trimester US care: good care Ultrasounds: normal 1st trimester US and normal mid trimester US Labs Blood type: O (+) positive Rubella: immune RPR/VDLR: nonreactive GBS status: negative HBsAG: negative Review of Systems ROS Status of ROS: 10 or more systems reviewed and unremarkable except as noted in history and below Meds Home Medications and Allergies Allergies Allergy/AdvReac Type Severity Reaction Status Date / Time No Known Drug Allergies Allergy Verified 09/22/23 12:38 Exam Constitutional Vital Signs, click to edit/add: Last Vital Signs Temp 100.0 F 09/23/23 04:37 Pulse 146 H 09/23/23 04:29 BP 100/53 09/23/23 04:29 O2 Del Method Room Air 09/22/23 12:56 Documenting provider has reviewed patient's vital signs: yes Common normals: no apparent distress Respiratory Common normals: normal respiratory effort and clear to auscultation bilaterally Cardio Common normals: regular rate and regular rhythm GI Common normals: Normal to inspection, nondistended, normoactive bowel sounds present Extremity Common normals: normal to inspection and no calf tenderness Results Labs Labs: Short CBC 09/22/23 Range/Units 13:02 WBC 8.4 (4.0-11.0) 10^3/uL Hgb 10.3 L (12.0-16.0) g/dL Hct 31.6 L (36.0-48.0) % Plt Count 381 (150-450) 10^3/uL OB - A/P Assessment and Plan (1) Active labor: Assessment and Plan: iv, routine labs, pit augmentation, arom (2) Intrauterine : (3) tachycardia: Assessment and Plan: discussed options with patient, pt agrees on c/s, mmc reviewed, procedure reviewed, consent obtained.
[2023-09-23] MEDS: LACTATED RINGER'S SOLUTION 1,000 ML 50 ML IV ×2 (05:04→05:14)
--- NOTE | 2023-09-23 05:24 | P.ON_ITS ---
Brief Operative Note Date of procedure: 09/23/23 Pre-op diagnosis general: iup at 38 5/7wks, tachycardia Post-op diagnosis: same as pre-op Procedure: NAME OF PROCEDURE: [ section ] PROCEDURE: Patient was taken back to the Operating Room where she was given a spinal anesthesia with Duramorph without difficulty. She was prepped and draped in the normal sterile fashion. A Pfannenstiel skin incision was then made 2 cm above the symphysis pubis and carried down to underlying rectus fascia using a Bovie. The fascia was incised in the midline and extended laterally using Lee scissors. Two Martínez clamps were placed on the superior aspect of the fascia and dissected off the underlying rectus muscles. The same was performed on the inferior aspect as well. The muscles were then in the midline. Peritoneum was identified and entered bluntly. The peritoneum was then extended superiorly and inferiorly with good visualization of the bladder. The bladder blade was inserted. A low transverse incision was made on the patient's uterus and extended laterally digitally. The was then delivered atraumatically after the bladder blade was removed in the cephalic position. The cord was clamped and cut. Cord blood was obtained. The was handed off to awaiting team. The patient's placenta was spontaneously delivered. The uterus was then exteriorized. The uterus was cleared of all clots and debris. The bladder blade was reinserted. The patient's uterine incision was closed using #0 Vicryl in a running lock fashion. Excellent hemostasis was assured. The uterus was then returned to the patient's abdomen. The patient's abdomen was copiously irrigated using warm saline. Peritoneal gutters were cleared of all clots and debris. Again excellent hemostasis was assured. The patient's peritoneum was closed using 3-0 Vicryl in a running fashion. The patient's fascia was closed using #0 Vicryl in a running fashion. The patient's skin was closed using 4-0 Vicryl subcuticularly. The patient tolerated the procedure well. Sponge, lap, and needle counts were correct x2. The patient was taken to the Recovery Room in stable condition. Anesthesia: epidural Surgeon: Tanner Worley Water Filtration Technician: Celina Humphreys Estimated blood loss (mL): 575 Pathology: other (placenta) Condition: stable Disposition: PACU
--- NOTE | 2023-09-23 05:24 | P.OBPRC_ITS ---
Procedure Pre-op/Post-op diagnoses: Pre-Op/Post-Op Diagnoses Operation Date: 09/23/23 05:00 <No data on this case meets the specified criteria> Procedure: Procedures Operation Date: 09/23/23 05:00 Actual Procedure Side Surgeon p Not Applicable Tanner Worely DO Control Systems Drafting Officer: Celina Humphreys Estimated blood loss (mL): 575 Disposition: PACU Anesthesia type: Epidural
[2023-09-23] MEDS: OXYTOCIN/0.9 % SODIUM CHLORIDE 20 UNITS/1,000 ML PLAST..BAG 125 UNIT IV (06:45)
--- NOTE | 2023-09-23 09:27 | PC.NURSE ---
09/23/2023 0830 patient vomiting at this time. RN at bedside with patient cleaning patient up. RN washes patient up and new linen's on with new gown on patient.
--- NOTE | 2023-09-23 09:53 | PC.NURSE ---
09/23/2023 0950 patient has persistant nausea and is vomiting at this time. RN at bedside.
[2023-09-23] MEDS: ONDANSETRON PF 4 MG/2 ML VIAL IV (09:59)
--- NOTE | 2023-09-23 10:18 | PC.NURSE ---
1010 placed skin to skin and latched to mothers right breast for breast feeding. RN at bedside assisting.
--- NOTE | 2023-09-23 11:30 | PC.NURSE ---
patient expresses feeling a little better since rested for a few minutes. RN encourages patient to continue rest and call for any needs. patient verbalizes understanding. in open crib alone on back and father of baby present in room watching .
[2023-09-23] MEDS: KETOROLAC TROMETHAMINE 30 MG/ML VIAL IVP ×2 (11:40→17:29)
--- NOTE | 2023-09-23 11:45 | PC.NURSE ---
[address] Worley aware of patient feeling lethargic with a heavy head and pain 09/13. RN reports patient clammy and had consistent vomiting throughout morning. RN reports patient's vitals. Dr. Worley orders Phenergan IV at this time. VORB.
[2023-09-23] MEDS: PROMETHAZINE HCL 25 MG in 0.9 % SODIUM CHLORIDE 50 ML 204 MG IV (11:53)
--- NOTE | 2023-09-23 14:21 | SWNOTE1 ---
SW consulted due to positive THC drug screen on admission. SW spoke with patient in room. Pt has 3 other children in the home, ages of 6,3, and 2. The 6 year old has a different father. Father of baby is involved and they do live together. Pt voiced she has a good support system at home and she does have everything she needs at home. Pt was shaking during an assessment, but did voiced she was alright, asked for drink of water. SW assisted. Pt alright with SW completing assessment. SW did address positive marijuana drug screen. Pt voiced she did smoke it due to joint pain and hip pain. She does not plan on continuing once home. She does not have a medical marijuana card. SW advised pt that SW does have to call CPS and make a report. Pt voiced understanding as SW saw her last time she was here with her youngest child. SW let pt know that SW will have nurse come in. Nursing had no other concerns when SW spoek to them earlier. HENRIQUE updated nursing and notified her that pt is not feeling well. Nursing did say she was nauseous earlier as well. Report called to [facility] CPS. HIPAA form completed and sent to
--- NOTE | 2023-09-23 14:39 | PC.NURSE ---
patient nausea improved. patient states continues to feel like blah and feeling cold. patient coloration pale and patient complains of being cold. RN provides warm blankets to patient.
--- NOTE | 2023-09-23 14:40 | PC.NURSE ---
1200 patient complains of continuing to feel tired and lethargic with intermittent nausea. patient color pale with reddness to face on occasion. patient feeling cold. blankets on patient.
--- NOTE | 2023-09-23 14:41 | PC.NURSE ---
0800 patient complains of feeling warm and RN assess patient and patient feels clammy. blankets removed from patient to cool down. patient has intermittent nausea and vomiting.
--- NOTE | 2023-09-23 14:50 | PC.NURSE ---
patient breast feeding at this time on the left breast
[2023-09-23] MEDS: ACETAMINOPHEN 500 MG TABLET 1000 MG PO (16:21)
--- NOTE | 2023-09-23 16:34 | PC.NURSE ---
patient's symptoms of nausea, vomiting, lethargy and blah feelings improving at this time. Patient awake and talking and preparing to order food. patient verbalizes improvement of symptoms.
[2023-09-23] MEDS: ENOXAPARIN SODIUM 40 MG/0.4 ML SYRINGE SUBQ (17:29)
--- NOTE | 2023-09-23 18:45 | PC.NURSE ---
patient has no current complaints of any symptoms that patient was experiencing earlier today. patient initiates all of infants needs and breast feeds with no help from RN. Patient has family members visiting at bedside and father of the baby as well. patient currently breast feeding on right breast.
[2023-09-23 23:13] LABS: Internal Control Within Normal Limits; SARS-CoV-2 Ag NEGATIVE (NEGATIVE)
[2023-09-24 00:55] VITALS: BP 100/61; O2SAT 99
[2023-09-24] MEDS: KETOROLAC TROMETHAMINE 30 MG/ML VIAL IVP (00:59)
[2023-09-24] MEDS: ACETAMINOPHEN 500 MG TABLET 1000 MG PO ×2 (00:59→10:14)
[2023-09-24 01:00] VITALS: PULSE 87; TEMP 36.7; O2SAT 99
[2023-09-24 05:53] VITALS: BP 94/63; O2SAT 99
[2023-09-24 06:07] VITALS: BP 94/63; PULSE 71; TEMP 36.4; O2SAT 98
[2023-09-24 07:22] LABS: Basophils Percent Auto 0.3 % (0.2-2.0); Eosinophils Percent Auto 0.3 % (0.9-7.0); Hemoglobin 7.7 g/dL (12.0-16.0); Immature Granulocytes Abs Auto 0.08 10^3/uL (0.00-0.03); Immature Granulocytes Pct Auto 0.6 % (0.0-0.5); Lymphocytes Absolute Auto 1.5 10^3/uL (1.2-3.8); Lymphocytes Percent Auto 11.9 % (20.5-60.0); Mean Corpuscular HGB Conc 32.9 g/dL (29.9-35.2); Mean Corpuscular Hemoglobin 28.8 pg (26.7-34.0); Mean Corpuscular Volume 87.6 fL (81.0-99.0); Mean Platelet Volume 9.5 fL (9.5-13.5); Monocytes Absolute Auto 0.5 10^3/uL (0.3-0.8); Monocytes Percent Auto 4.1 % (1.7-12.0); Neutrophils Absolute Auto 10.3 10^3/uL (1.4-6.5); Neutrophils Percent Auto 82.8 % (43.0-75.0); Platelet Count 266 10^3/uL (150-450); Red Blood Count 2.67 10^6/uL (4.20-5.40); Red Cell Distribution Width 13.8 % (11.0-15.0); White Blood Count 12.5 10^3/uL (4.0-11.0)
[2023-09-24] MEDS: IBUPROFEN 400 MG TABLET 800 MG PO ×2 (07:26→13:29)
[2023-09-24 07:28] LABS: Hematocrit 23.4 % (36.0-48.0)
[2023-09-24 08:30] VITALS: TEMP 36.8
--- NOTE | 2023-09-24 09:18 | PM.OBPN ---
OB - PN: Subj Subjective Patient comments: no complaints and pain well controlled [place] status: doing well Exam Constitutional Vital Signs, click to edit/add: Last Vital Signs Temp 97.5 F L 09/24/23 06:07 Pulse 71 09/24/23 06:07 Resp 16 09/24/23 06:07 BP 94/63 09/24/23 06:07 Pulse Ox 98 09/24/23 06:07 O2 Del Method Room Air 09/24/23 06:07 Documenting provider has reviewed patient's vital signs: yes Common normals: no apparent distress Respiratory Common normals: normal respiratory effort and clear to auscultation bilaterally Cardio Common normals: regular rate and regular rhythm GI Common normals: Normal to inspection, nondistended, normoactive bowel sounds present Extremity Common normals: no clubbing, cyanosis or edema Results Labs Labs: Short CBC 09/24/23 Range/Units 06:35 WBC 12.5 H (4.0-11.0) 10^3/uL Hgb 7.7 L (12.0-16.0) g/dL Hct 23.4 L* (36.0-48.0) % Plt Count 266 (150-450) 10^3/uL Urinary Catheter Management Urinary Catheter Management Urethral: Cath placed during this visit: no OB - PN: A/P Assessment and Plan (1) Active labor: (2) Intrauterine : (3) tachycardia: Plan - day: 1 Plan: routine postop care, discharge home and other (fu 1wk) Comment: dc home if hemoglobin stable around 3, precautions given, rx on chart, Time Spent with Patient Time: Total time spent is greater than 50% in coordination of care (as documented) at patient's floor/unit and/or counseling patient: Total time spent with greater than 50% in coordination of care (as documented) at patient's floor/unit and/or counseling patient: less than 15 minutes
[2023-09-24] MEDS: DOCUSATE SODIUM 100 MG CAPSULE PO (09:23)
--- NOTE | 2023-09-24 11:13 | PC.NURSE ---
saline lock removed- discussed plan of care, pumps with hand pump, and up to BR to void and pericare reviewed
[2023-09-24 14:21] LABS: Basophils Percent Auto 0.2 % (0.2-2.0); Eosinophils Absolute Auto 0.1 10^3/uL (0.0-0.7); Eosinophils Percent Auto 0.6 % (0.9-7.0); Hematocrit 26.3 % (36.0-48.0); Hemoglobin 8.7 g/dL (12.0-16.0); Immature Granulocytes Abs Auto 0.09 10^3/uL (0.00-0.03); Immature Granulocytes Pct Auto 0.7 % (0.0-0.5); Lymphocytes Absolute Auto 1.6 10^3/uL (1.2-3.8); Lymphocytes Percent Auto 12.3 % (20.5-60.0); Mean Corpuscular HGB Conc 33.1 g/dL (29.9-35.2); Mean Corpuscular Hemoglobin 29.2 pg (26.7-34.0); Mean Corpuscular Volume 88.3 fL (81.0-99.0); Mean Platelet Volume 9.1 fL (9.5-13.5); Monocytes Absolute Auto 0.5 10^3/uL (0.3-0.8); Monocytes Percent Auto 3.6 % (1.7-12.0); Neutrophils Absolute Auto 10.5 10^3/uL (1.4-6.5); Neutrophils Percent Auto 82.6 % (43.0-75.0); Platelet Count 297 10^3/uL (150-450); Red Blood Count 2.98 10^6/uL (4.20-5.40); White Blood Count 12.7 10^3/uL (4.0-11.0)
== END 2023-09-24 15:50 | disposition home or self-care (01) | DRG 540 ==
PROVIDERS: Admitting Provider Obstetrics & Gynecology; Visit Provider Obstetrics & Gynecology
PROC: 10D00Z1 Extraction of Products of Conception, Low, Open Approach (ICD-10-PCS; CPT 59514; principal; 2023-09-23 05:00)
DX: O99.324 Drug use complicating childbirth (principal); O76 Abnormality in fetal heart rate and rhythm complicating labor and delivery; Z3A.38 38 weeks gestation of pregnancy; Z37.0 Single live birth; Z87.891 Personal history of nicotine dependence; Z87.440 Personal history of urinary (tract) infections; F12.90 Cannabis use, unspecified, uncomplicated
CPT/HCPCS: 36415; 59050; 64488; 80307; 85025; 87811; 88307; 94667; 94668; 96372; 96374; 96375; 96376; J0131; J0290; J0665; J0690; J1100; J1650; J1885; J2001; J2250; J2274; J2371; J2405; J2765; J2795